=== PATIENT | male | born 1970 | race African-American/Black ===

== ENCOUNTER 2019-06-21 21:26 | Emergency (ER) | payer OTHER, SELFPAY ==
--- NOTE | ~2019-06-21 | CT_ITS ---
EXAMINATION: CT abdomen pelvis w con EXAM DATE: 06/21/2019 22:12 INDICATION: Right lower quadrant pain. Nausea and vomiting. TECHNIQUE: Spiral CT of the abdomen and pelvis was performed following intravenous injection of 100 m L Omnipaque 350. Axial, coronal and sagittal images were reviewed. The dose-length product (DLP) fo r this examination was 179.92 mGy-cm. The exposure was tailored according to patient size (auto mA e xposure control), and iterative reconstruction (ASIR) was used as additional dose reduction technique . Comparison is made to prior examination from 09/06/2017. FINDINGS: The liver, spleen, adrenal glands and pancreas are unremarkable. Gallbladder is unremarkab le. No biliary obstruction. Portal and splenic veins are patent. Kidneys enhance symmetrically. T here is no hydronephrosis. The prostate is unremarkable. The bladder is unremarkable. There is no retroperitoneal or pelvic lymphadenopathy. There is moderate scattered arteriosclerotic disease. The appendix is normal. The stomach and small bowel are unremarkable. There is mild to moderate scat tered colonic diverticulosis. There is no adjacent inflammatory change to suggest diverticulitis. N o free intraperitoneal gas. The heart is normal in size. There are no pericardial or pleural effus ions. The lung bases are unremarkable. There are no osteoblastic or osteolytic lesions identified. IMPRESSION: 1. No acute intra-abdominal findings. 2. Mild to moderate scattered colonic diverticulosis. Reviewed, dictated and finalized at location A.
[2019-06-21 21:28] VITALS: BP 156/98; PULSE 88; TEMP 36.6; O2SAT 99
--- NOTE | 2019-06-21 21:33 | ED.ABDPAIN ---
HPI - Abdominal Pain General Chief Complaint: Nausea/Vomiting/Diarrhea Stated Complaint: VOMITING Time Seen by Provider: 06/21/19 21:28 Source: patient, RN notes reviewed and old records reviewed Mode of arrival: EMS Limitations: no limitations History of Present Illness HPI narrative: Pt is a 49 y/o male with a Hx of pancreatitis and frequent gastritis, who presents to the ED via EMS with c/o diffuse ABD pain starting earlier today. He notes that he hasn't felt good throughout the day today. Pt reports nausea, vomiting, and chills accompanying his ABD pain, but denies any diarrhea or fever. He notes that he hasn't had any recent travel, and states that he hasn't been in contact with other sick individuals. EMS notes that the pt had one episode of emesis while in route to the ED this evening. According to old records, the pt was evaluated here in January of 2019 for similar symptoms. MD elicited complaint: abdominal pain Pertinent past history: gastritis and other (pancreatitis) Location: diffuse Context: confirms history of similar episodes Associated symptoms: nausea, vomiting and chills Related Data Home Medications Medication Instructions Recorded Confirmed metoclopramide HCl [Reglan] 10 mg PO DAILY 01/30/19 01/30/19 ranitidine HCl 300 mg PO DAILY 01/30/19 01/30/19 Allergies Allergy/AdvReac Type Severity Reaction Status Date / Time No Known Allergies Allergy Verified 06/21/19 21:32 Review of Systems Review of Systems: All systems reviewed & are unremarkable except as noted in HPI and below Constitutional: Constitutional: Reports chills and Denies fever(s) Gastrointestinal: Gastrointestinal: Reports abdominal pain (diffuse ABD pain), Denies diarrhea, Reports nausea and Reports vomiting PMFSH Past Medical History Medical History Colitis Gastritis GERD (gastroesophageal reflux disease) History of angina Inguinal hernia Myocardial infarction Pancreatitis Ulcer Surgical History Surgical History 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 H/O inguinal hernia repair Social History Social History Smoking packs per day: 1 Smoking cigarettes per day: 20.0 Smoking status: Current every day smoker Additional smoking assessment comments: Smoking exposure Alcohol intake: current Gender identity (if verbalized by the patient): Male Course Vital Signs Vital signs: Vital Signs Temperature 36.6 C 06/21/19 21:28 Pulse Rate 88 06/21/19 21:28 Blood Pressure 156/98 H 06/21/19 21:28 Pulse Oximetry 99 06/21/19 21:28 Temperature 36.6 C 06/21/19 21:28 Pulse Rate 88 06/21/19 21:28 Blood Pressure 156/98 H 06/21/19 21:28 Pulse Oximetry 99 06/21/19 21:28 MDM - Abdominal Pain Lab Data Result diagrams: 06/21/19 21:47 06/21/19 22:03 Labs: Lab Results 06/21/19 06/21/19 06/21/19 Range/Units 21:47 21:47 22:03 WBC 11.4 H (4.5-10.0) K/mm3 RBC 4.93 (4.6-6.20) M/mm3 Hgb 15.9 (14.0-18.0) g/dL Hct 46.4 (42.0-52.0) % MCV 94.1 (80-100) fl MCH 32.3 (26-34) pg MCHC 34.3 (32-36) g/dl RDW 15.4 H (11.5-14.5) % Plt Count 320 (150-375) k/mm3 MPV 9.6 (7.4-10.4) fl Immature Gran % (Auto) 0.4 (0-0.5) % Neut % (Auto) 84.9 H (45.5-73.1) % Lymph % (Auto) 11.4 L (18.3-44.2) % [place] % (Auto) 2.9 (2.6-8.5) % Eos % (Auto) 0.0 (0-4.4) % Baso % (Auto) 0.4 (0.2-1.2) % Lymph # (Auto) 1.30 (0.9-3.2) K/mm3 [place] # (Auto) 0.3 (0.1-0.6) K/mm3 Eos # (Auto) 0.0 (0-0.3) K/mm3 Baso # (Auto) 0.0 (0.0-0.1) K/mm3 Abs Immat Gran (auto) 0.04 H (0.00-0.031) K/mm3 Absolute Neuts (auto) 9.7 H (1.3-6.7) K/mm3 Absolute Nucleated RBC 0.0 (0.0-0.012) K/mm3 Nucleated RBC % 0.0 (0.0-0.2) % Sodium 141 (
[2019-06-21] MEDS: SODIUM CHLORIDE 0.9% IV 1,000 ML 999 ML IV CONT (21:42)
[2019-06-21] MEDS: MORPHINE SULFATE 4 MG/ML INJ IV PUSH (21:43)
[2019-06-21] MEDS: ONDANSETRON INJ 4 MG/2 ML VIAL IV PUSH (21:43)
[2019-06-21 21:52] LABS: Basophils Percent Auto 0.4 % (0.2-1.2); Hematocrit 46.4 % (42.0-52.0); Hemoglobin 15.9 g/dL (14.0-18.0); Immature Granulocyte Absolute 0.04 K/mm3 (0.00-0.031); Immature Granulocyte Percent A 0.4 % (0-0.5); Lymphocytes Percent Auto 11.4 % (18.3-44.2); Mean Corpuscular HGB Conc 34.3 g/dl (32-36); Mean Corpuscular Hemoglobin 32.3 pg (26-34); Mean Corpuscular Volume 94.1 fl (80-100); Mean Platelet Volume 9.6 fl (7.4-10.4); Monocytes Absolute Auto 0.3 K/mm3 (0.1-0.6); Monocytes Percent Auto 2.9 % (2.6-8.5); Neutrophils Absolute Auto 9.7 K/mm3 (1.3-6.7); Neutrophils Percent Auto 84.9 % (45.5-73.1); Platelet Count Result 320 k/mm3 (150-375); Red Blood Count 4.93 M/mm3 (4.6-6.20); Red Cell Distribution Width 15.4 % (11.5-14.5); White Blood Count 11.4 K/mm3 (4.5-10.0)
[2019-06-21 22:05] LABS: Alanine Aminotransferase 21 U/L (4-50); Albumin Level 4.9 g/dL (3.5-5.1); Alkaline Phosphatase 83 U/L (38-126); Aspartate Amino Transferase 38 U/L (17-59); Bilirubin,Total 0.4 mg/dL (0.2-1.3); Blood Urea Nitrogen 14 mg/dL (9-20); Calcium 10.7 mg/dL (8.4-10.2); Carbon Dioxide 22 mmol/L (22-30); Chloride 102 mmol/L (98-107); Estimated Glomerular Filt Rate > 60; Glucose 108 mg/dL (75-110); Lipase 44 U/L (23-300); Potassium 3.9 mmol/L (3.4-5.0); Sodium 141 mmol/L (137-145)
[2019-06-21 22:08] LABS: Estimated Glomerular Filt Rate > 60
--- NOTE | 2019-06-21 22:18 | PC.NURSE ---
Informed pt that we are needing a urine sample. Pt states that he will get it in a little bit . Informed pt that urine takes some time to get resulted.
[2019-06-21 22:48] LABS: Add Urine Microscopic? YES; Appearance Urine Clear (Clear); Bilirubin Urine Negative (Negative); Blood Urine Negative (Negative); Color Urine Yellow (Yellow); Glucose Urine UA 2+ mg/dL (Negative); Ketones Urine 1+ mg/dL (Negative); Leukocyte Esterase Ur Negative LEU/UL (Negative); Mucus Urine Rare /lpf; Nitrate Urine Negative (Negative); Protein Urine Negative (Negative); RBC Urine 0-2 /hpf (0-2); Squamous Epithelial Cell Urine Rare /hpf (Few); Urobilinogen Urine Negative mg/dL (<2.0)
[2019-06-21 22:49] LABS: Specific Grav Ur 1.054 (1.001-1.035)
--- NOTE | 2019-06-21 23:05 | PC.NURSE ---
report taken from reynaldo cotto at this time.
[2019-06-21 23:06] VITALS: BP 146/75; PULSE 98; RESP 18; TEMP 36.2; O2SAT 100
== END 2019-06-21 23:07 | disposition home or self-care (01) ==
PROVIDERS: Emergency Provider Emergency Medicine; PCP Emergency Medicine
DX: R10.9 Unspecified abdominal pain (principal); K21.9 Gastro-esophageal reflux disease without esophagitis; I25.2 Old myocardial infarction; F17.210 Nicotine dependence, cigarettes, uncomplicated
CPT/HCPCS: 36415; 71046; 74177; 80053; 81001; 83690; 85025; 93005; 96361; 96374; 96375; 99283; 99284; A9270; J2270; J2405; J7030; Q9967

== ENCOUNTER 2019-06-21 23:54 | Emergency (ER) | payer OTHER, SELFPAY ==
--- NOTE | ~2019-06-21 | XR_ITS ---
EXAMINATION: XR chest 2V DATE: 06/22/2019 01:00 INDICATION: Presyncope TECHNIQUE: frontal and lateral views of the chest were obtained. COMPARISON: Chest radiograph dated 11/30/2018 FINDINGS: The lungs remain clear with no focal airspace opacities, pulmonary edema, pleural effusion or pneumot horax. The cardiomediastinal silhouette is normal. Visualized bones and soft tissues are unremarkable . IMPRESSION: 1. Normal chest radiograph. Reviewed, dictated and finalized at location A. IMPRESSION: 1. Normal chest radiograph.
[2019-06-21 23:57] VITALS: BP 168/89; PULSE 64; RESP 16; TEMP 36.7; O2SAT 100
--- NOTE | 2019-06-22 00:08 | ECG_ITS ---
Measurements Intervals [place] Rate: 62 P: 61 MD: 139 QRS: -60 QRSD: 107 T: 58 QT: 420 QTc: 427 Interpretive Statements SINUS RHYTHM POSSIBLE LEFT ATRIAL ENLARGEMENT LEFT AXIS DEVIATION INCOMPLETE RIGHT BUNDLE BRANCH BLOCK PEAKED T WAVES- CONSIDER HYPERKALEMIA OR ISCHEMIA BASELINE WANDER- I, II ABNORMAL ECG Electronically Signed On 06-22-2019 7:14:40 CDT by Marc Fry D.O.
--- NOTE | 2019-06-22 00:10 | ED.GENADULT ---
HPI - General Adult General Chief complaint: Unspecified Stated complaint: i'm gonna pass out Time Seen by Provider: 06/22/19 00:02 Source: patient Mode of arrival: wheelchair Limitations: no limitations History of Present Illness HPI narrative: This is a 49 year old male that presents to the ER for pre-syncope. Patient was just discharged after being seen for abdominal pain. Reports while he was in the waiting room he started to feel like he was going to pass out. Thinks he is still dehydrated. Denies fever, chest pain or shortness of breath. Related Data Home Medications Medication Instructions Recorded Confirmed metoclopramide HCl [Reglan] 10 mg PO DAILY 01/30/19 01/30/19 ranitidine HCl 300 mg PO DAILY 01/30/19 01/30/19 Allergies Allergy/AdvReac Type Severity Reaction Status Date / Time No Known Allergies Allergy Verified 06/21/19 21:32 Review of Systems Review of Systems: Narrative: CONSTITUTIONAL: Denies fever CARDIOVASCULAR: Denies chest pain, palpitations, or edema. RESPIRATORY: Denies cough or dyspnea. All systems reviewed & are unremarkable except as noted in HPI and below PMFSH Social History Social History Smoking packs per day: 1 Smoking cigarettes per day: 20.0 Smoking status: Current every day smoker Additional smoking assessment comments: Smoking exposure Alcohol intake: current Gender identity (if verbalized by the patient): Male Exam Narrative: Exam Narrative: GENERAL: Well-appearing, well-nourished, and in no acute distress. HEAD: Normocephalic, atraumatic. EYES: EOMI. CHEST: Clear to auscultation. No respiratory distress. No wheezes rales or rhonchi HEART: Regular rate and rhythm. No murmur heard. Normal peripheral pulses. EXTREMITIES: Normal range of motion. No edema. SKIN: Warm, dry, no rash. NEURO: No focal deficits. Alert and oriented x3. PSYCH: Normal mood and affect Course Vital Signs Vital signs: Vital Signs Temperature 98.1 F 06/21/19 23:57 Pulse Rate 64 06/21/19 23:57 Respiratory Rate 16 06/21/19 23:57 Blood Pressure 168/89 H 06/21/19 23:57 Pulse Oximetry 100 06/21/19 23:57 Temperature 98.1 F 06/21/19 23:57 Pulse Rate 71 06/22/19 00:17 Respiratory Rate 16 06/21/19 23:57 Blood Pressure 189/110 H 06/22/19 00:17 Pulse Oximetry 100 06/21/19 23:57 Medical Decision Making MDM Narrative Medical decision making narrative: Patient presents to the emergency department for presyncope. Reports he felt like he was going to pass out after just being discharged. He was seen here for abdominal pain. CBC and metabolic panels were without acute changes. CT abdomen/pelvis was without acute changes. Patient is not orthostatic. EKG is without concerning changes. Chest XR without acute changes. Patient is afebrile and nontoxic appearing. Vitals are normal other than elevation in blood pressure systolic to 160s-180s. Patient was instructed he needs to follow up with his PCP for this. Patient was once again discharged in stable condition Vital Signs Vital Signs: Vital Signs Temperature 98.1 F 06/21/19 23:57 Pulse Rate 64 06/21/19 23:57 Respiratory Rate 16 06/21/19 23:57 Blood Pressure 168/89 H 06/21/19 23:57 Pulse Oximetry 100 06/21/19 23:57 Temperature 98.1 F 06/21/19 23:57 Pulse Rate 71 06/22/19 00:17 Respiratory Rate 16 06/21/19 23:57 Blood Pressure 189/110 H 06/22/19 00:17 Pulse Oximetry 100 06/21/19 23:57 Lab Data Lab results reviewed: Yes I reviewed the patient's lab results. Imaging Data My impression: Patient's chest XR without acute cardiopulmonary abnormalities ECG Data EKG #1: EKG Interpretation: normal rate, sinus rhythm, no ectopy, no ST changes and normal QT Critical Care Time Critical Care Time Critical Care Time: No Discharge Plan Discharge Clinical Impression: Pre-syncope Hypertension Qualifiers: Hypertension type: unspec
[2019-06-22 00:16] VITALS: BP 166/100; BP 173/93; PULSE 66; PULSE 69
[2019-06-22 00:17] VITALS: BP 189/110; PULSE 71
--- NOTE | 2019-06-22 01:09 | PC.NURSE ---
Patient vomited in room at this time, SOLO Kwon notified.
[2019-06-22] MEDS: ONDANSETRON HCL ODT 4 MG TABLET PO (01:13)
[2019-06-22 01:23] VITALS: BP 168/99; PULSE 78; RESP 18; TEMP 37.1; O2SAT 99
--- NOTE | 2019-06-22 01:41 | PC.NURSE ---
Patient able to keep down soda after Zofran administration.
== END 2019-06-22 01:35 | disposition home or self-care (01) ==
PROVIDERS: Emergency Provider Emergency Medicine; PCP Emergency Medicine
DX: R55 Syncope and collapse (principal); I10 Essential (primary) hypertension; F17.210 Nicotine dependence, cigarettes, uncomplicated; R94.31 Abnormal electrocardiogram [ECG] [EKG]; I45.10 Unspecified right bundle-branch block
CPT/HCPCS: 71046; 93005; 99283; A9270

== ENCOUNTER 2019-07-15 23:33 | Emergency (ER) | payer OTHER, SELFPAY ==
[2019-07-15 23:36] VITALS: BP 140/110; PULSE 106; RESP 22; TEMP 37.2; O2SAT 100
--- NOTE | 2019-07-15 23:37 | ED.NAVMDI ---
HPI - Nausea/Vomiting/Diarrhea General Chief complaint: Nausea/Vomiting/Diarrhea Stated complaint: burning sensation History of Present Illness HPI Narrative: 49 yo male w/ h/o gastritis and GERD presents with epigastric pain. He says that he has had burning pain radiating into his chest for the past 2 days. severe. Associated with a few episodes of vomiting. This is the same as his previous GERD symptoms. He was recently taken off of ranitadine due to a recall and it was not replaced with anything else. Related Data Home Medications Medication Instructions Recorded Confirmed metoclopramide HCl [Reglan] 10 mg PO DAILY 01/30/19 01/30/19 ranitidine HCl 300 mg PO DAILY 01/30/19 01/30/19 Allergies Allergy/AdvReac Type Severity Reaction Status Date / Time No Known Allergies Allergy Verified 06/21/19 21:32 Review of Systems Review of Systems: All systems reviewed & are unremarkable except as noted in HPI and below Eyes: Eyes: Denies change in vision ENT: Reports sore throat Cardiovascular: Cardiovascular: Reports chest pain Respiratory: Respiratory: Denies chest congestion, Denies cough and Denies wheezing Gastrointestinal: Gastrointestinal: Reports abdominal pain, Denies constipation, Denies diarrhea, Reports nausea and Reports vomiting Neurologic: Denies weakness PMFSH Past Medical History Medical History Colitis Gastritis GERD (gastroesophageal reflux disease) History of angina Inguinal hernia Myocardial infarction Pancreatitis Ulcer Surgical History Surgical History 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 H/O inguinal hernia repair Social History Social History Smoking packs per day: 1 Smoking cigarettes per day: 20.0 Smoking status: Current every day smoker Additional smoking assessment comments: Smoking exposure Alcohol intake: current Gender identity (if verbalized by the patient): Male Exam Const: General: no acute distress and alert Nutritional Appearance: thin Orientation/consciousness: patient oriented x3 HENMT: Head: normal to inspection Mouth: Yes dry mucous membranes Resp: Effort & Inspection: normal respiratory effort Auscultation: clear to auscultation bilaterally Cardio: Rate: tachycardic Rhythm: regular rhythm GI: GI Palp: Yes Soft to palpation and Yes Tenderness to palpation present (GI) (epigastric) Skin: General skin exam: normal color Neuro: General: patient oriented x3 and moves all extremities Speech: normal speech Extrem: General: normal to inspection Course Vital Signs Vital signs: Vital Signs Temperature 37.2 C 07/15/19 23:36 Pulse Rate 106 H 07/15/19 23:36 Respiratory Rate 22 H 07/15/19 23:36 Blood Pressure 140/110 H 07/15/19 23:36 Pulse Oximetry 100 07/15/19 23:36 Temperature 36.8 C 07/16/19 02:54 Pulse Rate 76 07/16/19 02:54 Respiratory Rate 19 07/16/19 02:54 Blood Pressure 151/95 H 07/16/19 02:54 Pulse Oximetry 100 07/16/19 02:54 MDM - Nausea/Vomiting/Diarrhea MDM Narrative Medical decision making narrative: Labs show moderate hypokalemia and slight WBC elevation. Likely from vomiting. IV potassium replacement started along with symptomatic treatment for GERD. Differential Diagnosis Differential diagnosis: Likely gastroenteritis and other (GERD, gastritis) Medical Records Attestation: I reviewed the patient's medical records. Lab Data Attestation: I reviewed the patient's lab results. Result diagrams: 07/15/19 23:47 07/15/19 23:47 Labs: Lab Results 07/15/19 07/15/19 Range/Units 23:47 23:47 WBC 11.6 H (4.5-10.0) K/mm3 RBC 5.45 (4.6-6.20) M/mm3 Hgb 18.0 (14.0-18.0) g/dL Hct 49.6 (42.0-52.0) % MCV 91.0 (80-100) fl MCH 33.0 (26-34) pg MCHC
[2019-07-15] MEDS: ONDANSETRON INJ 4 MG/2 ML VIAL IV PUSH (23:50)
[2019-07-15] MEDS: SODIUM CHLORIDE 0.9% IV 1,000 ML 999 ML IV CONT (23:50)
[2019-07-15] MEDS: PANTOPRAZOLE SODIUM IV 40 MG VIAL IV PUSH (23:50)
[2019-07-15 23:57] LABS: Basophils Percent Auto 0.2 % (0.2-1.2); Eosinophils Percent Auto 0.2 % (0-4.4); Hematocrit 49.6 % (42.0-52.0); Immature Granulocyte Absolute 0.03 K/mm3 (0.00-0.031); Immature Granulocyte Percent A 0.3 % (0-0.5); Lymphocytes Absolute Auto 4.42 K/mm3 (0.9-3.2); Lymphocytes Percent Auto 38.2 % (18.3-44.2); Mean Corpuscular HGB Conc 36.3 g/dl (32-36); Mean Platelet Volume 9.2 fl (7.4-10.4); Monocytes Absolute Auto 1.4 K/mm3 (0.1-0.6); Monocytes Percent Auto 12.4 % (2.6-8.5); Neutrophils Absolute Auto 5.7 K/mm3 (1.3-6.7); Neutrophils Percent Auto 48.7 % (45.5-73.1); Platelet Count Result 338 k/mm3 (150-375); Red Blood Count 5.45 M/mm3 (4.6-6.20); Red Cell Distribution Width 13.9 % (11.5-14.5); White Blood Count 11.6 K/mm3 (4.5-10.0)
[2019-07-16 00:04] LABS: Alanine Aminotransferase 24 U/L (4-50); Albumin Level 4.9 g/dL (3.5-5.1); Alkaline Phosphatase 97 U/L (38-126); Aspartate Amino Transferase 37 U/L (17-59); Bilirubin,Total 1.7 mg/dL (0.2-1.3); Blood Urea Nitrogen 15 mg/dL (9-20); Calcium 11.8 mg/dL (8.4-10.2); Carbon Dioxide 30 mmol/L (22-30); Chloride 89 mmol/L (98-107); Estimated CRCL calculation 69 ml/min; Estimated Glomerular Filt Rate > 60; Glucose 105 mg/dL (75-110); Lipase 66 U/L (23-300); Potassium 2.9 mmol/L (3.4-5.0); Sodium 132 mmol/L (137-145)
[2019-07-16] MEDS: SODIUM CHLORIDE 0.9% IV 1,000 ML 999 ML IV CONT (00:20)
[2019-07-16] MEDS: KCL 20 MEQ/SW 100 ML 100 ML 50 MEQ IVPB (00:20)
[2019-07-16 00:47] VITALS: BP 155/91; PULSE 88; RESP 20; O2SAT 97
[2019-07-16 02:54] VITALS: BP 151/95; PULSE 76; RESP 19; TEMP 36.8; O2SAT 100
== END 2019-07-16 03:01 | disposition home or self-care (01) ==
PROVIDERS: Emergency Provider Emergency Medicine; PCP Emergency Medicine
DX: K21.9 Gastro-esophageal reflux disease without esophagitis (principal); E87.6 Hypokalemia; I25.2 Old myocardial infarction; F17.210 Nicotine dependence, cigarettes, uncomplicated; Z89.021 Acquired absence of right finger(s)
CPT/HCPCS: 36415; 80053; 83690; 85025; 96361; 96365; 96366; 96374; 96375; 99284; C9113; J2405; J3480; J7030

== ENCOUNTER 2019-07-17 12:20 | Emergency (ER) | payer OTHER, SELFPAY ==
--- NOTE | ~2019-07-17 | CT_ITS ---
EXAMINATION: CT abdomen pelvis w con INDICATION: Mid abdominal pain TECHNIQUE: Computed tomographic images of the abdomen and pelvis were obtained after the administrati on of 100 cc of Omnipaque 350 intravenous contrast. The dose-length product (DLP) was 209.31 mGy-cm. Automated exposure control and iterative reconstruction technique were employed. COMPARISON: 06/21/2019 FINDINGS: Minimal dependent atelectasis is present in the lung bases. The heart size is normal. There is a small sliding hiatal hernia. The liver, spleen, pancreas, gallbladder, and adrenal glands are n ormal. Hypoattenuating lesions in the kidneys, measuring up to 3 mm on the right, are too small to ch aracterize but likely represent cysts. There is calcified atherosclerosis of the aorta and many of th e other arteries. The appendix is normal. There is mild lumbar spondylosis. Colonic diverticulosis is present without evidence of diverticulitis. There is mild circumferential thickening of the bladder wall. IMPRESSION: 1. Mild circumferential thickening of the bladder wall which could reflect cystitis or chronic outlet obstruction. Reviewed, dictated and finalized at location A. IMPRESSION: 1. Mild circumferential thickening of the bladder wall which could reflect cyst itis or chronic outlet obstruction.
[2019-07-17 12:18] VITALS: BP 176/115; PULSE 85; RESP 15; TEMP 36.8; O2SAT 100
[2019-07-17 12:26] VITALS: PULSE 77
--- NOTE | 2019-07-17 12:31 | ED.WEAKNESS ---
HPI - Weakness General Chief complaint: Weakness Stated complaint: weakness Time Seen by Provider: 07/17/19 12:21 Source: patient Mode of arrival: ambulatory Limitations: no limitations History of Present Illness HPI Narrative: Patient is a 49-year-old male who presents to emergency department noting that this morning he woke up feeling fatigued with chills and one episode of emesis and now complains of periumbilical abdominal discomfort noted some slight dyspnea but denies URI symptoms or chest pain. Patient on arrival per EMS in the room in no distress has not taken anything for his symptoms. Patient does admit to alcohol use prior night. Patient with history of chronic abdominal pain and frequent emesis. Related Data Home Medications Medication Instructions Recorded Confirmed metoclopramide HCl [Reglan] 10 mg PO DAILY 01/30/19 01/30/19 ranitidine HCl 300 mg PO DAILY 01/30/19 01/30/19 Allergies Allergy/AdvReac Type Severity Reaction Status Date / Time No Known Allergies Allergy Verified 07/17/19 12:23 Review of Systems Review of Systems: All systems reviewed & are unremarkable except as noted in HPI and below PMFSH Past Medical History Medical History Colitis Gastritis GERD (gastroesophageal reflux disease) History of angina Inguinal hernia Myocardial infarction Pancreatitis Ulcer Surgical History Surgical History 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 HEAD: Normocephalic, atraumatic. EYES: PERRLA and EOMI. ENT: Nares clear, no rhinorrhea or epistaxis. Mucous membranes moist. CHEST: Clear to auscultation. No respiratory distress. No wheezes rales or rhonchi HEART: Regular rate and rhythm. No murmur heard. Normal peripheral pulses. ABDOMEN: Soft, generalized tenderness with voluntary guarding, nondistended EXTREMITIES: Normal range of motion. No edema. SKIN: Warm, dry, no rash. NEURO: No focal deficits. Alert and oriented x3. Cranial nerves II through XII grossly intact PSYCH: Normal mood and affect. Course Course Emergency Course: Patient in the room at this time resting no distress afebrile nontoxic-appearing aware of case findings treatment plan and diagnosis agreeing to follow with primary care and his personal fitness trainer felt appropriate for outpatient reevaluation Vital Signs Vital signs: Vital Signs Temperature 98.2 F 07/17/19 12:18 Pulse Rate 85 07/17/19 12:18 Respiratory Rate 15 07/17/19 12:18 Blood Pressure 176/115 H 07/17/19 12:18 Pulse Oximetry 100 07/17/19 12:18 Temperature 98.2 F 07/17/19 12:18 Pulse Rate 77 07/17/19 12:26 Respiratory Rate 15 07/17/19 12:18 Blood Pressure 176/115 H 07/17/19 12:18 Pulse Oximetry 100 07/17/19 12:18 MDM - Weakness MDM Narrative Medical decision making narrative: Patient in the room at this time in no distress aware of case findings treatment plan and diagnosis agreeing to follow-up as directed or to return if symptoms worsen or concerns patient is afebrile nontoxic-appearing no distress patient's urine will be cultured patient denies concern for UTI patient resting comfortably as noted feeling better with interventions Lab Data Result diagrams: 07/17/19 12:39 07/17/19 12:39 Labs: Lab Results 07/17/19 07/17/19 07/17/19 Range/Units 12:39 12:39 13:19 WBC 9.5 (4.5-10.0) K/mm3
[2019-07-17] MEDS: BELLADONNA ALK/PHENOB ELIX 10 ML, MAG HYDROX/ALUMINUM HYD/SIMETH 30 ML, LIDOCAINE HCL 2... PO (12:35)
[2019-07-17] MEDS: LACTATED RINGERS 1,000 ML 999 ML IV CONT (12:35)
[2019-07-17] MEDS: PANTOPRAZOLE SODIUM IV 40 MG VIAL IV PUSH (12:37)
[2019-07-17 12:46] LABS: Basophils Percent Auto 0.2 % (0.2-1.2); Eosinophils Percent Auto 0.2 % (0-4.4); Hematocrit 44.9 % (42.0-52.0); Hemoglobin 15.7 g/dL (14.0-18.0); Immature Granulocyte Absolute 0.02 K/mm3 (0.00-0.031); Immature Granulocyte Percent A 0.2 % (0-0.5); Lymphocytes Absolute Auto 2.59 K/mm3 (0.9-3.2); Lymphocytes Percent Auto 27.3 % (18.3-44.2); Mean Corpuscular Hemoglobin 32.4 pg (26-34); Mean Corpuscular Volume 92.6 fl (80-100); Mean Platelet Volume 9.1 fl (7.4-10.4); Monocytes Percent Auto 10.1 % (2.6-8.5); Neutrophils Absolute Auto 5.9 K/mm3 (1.3-6.7); Platelet Count Result 279 k/mm3 (150-375); Red Blood Count 4.85 M/mm3 (4.6-6.20); Red Cell Distribution Width 13.7 % (11.5-14.5); White Blood Count 9.5 K/mm3 (4.5-10.0)
[2019-07-17 12:59] LABS: Alanine Aminotransferase 20 U/L (4-50); Albumin Level 4.5 g/dL (3.5-5.1); Alkaline Phosphatase 78 U/L (38-126); Aspartate Amino Transferase 39 U/L (17-59); Bilirubin,Total 1.5 mg/dL (0.2-1.3); Blood Urea Nitrogen 7 mg/dL (9-20); Calcium 10.9 mg/dL (8.4-10.2); Carbon Dioxide 26 mmol/L (22-30); Chloride 100 mmol/L (98-107); Estimated CRCL calculation 76 ml/min; Estimated Glomerular Filt Rate > 60; Glucose 107 mg/dL (75-110); Lipase 81 U/L (23-300); Magnesium 2.1 mg/dL (1.6-2.3); Potassium 3.5 mmol/L (3.4-5.0); Sodium 137 mmol/L (137-145)
[2019-07-17 13:31] LABS: Add Urine Microscopic? YES; Amorphous Sediment Urine Few; Appearance Urine Cloudy (Clear); Bilirubin Urine Negative (Negative); Blood Urine Negative (Negative); Calcium Oxalate Crystals Urine Present /hpf; Color Urine Yellow (Yellow); Glucose Urine UA 1+ mg/dL (Negative); Ketones Urine 1+ mg/dL (Negative); Leukocyte Esterase Ur Negative LEU/UL (Negative); Mucus Urine Rare /lpf; Nitrate Urine Negative (Negative); Protein Urine 1+ mg/dL (Negative); Specific Grav Ur 1.015 (1.001-1.035); Urobilinogen Urine Negative mg/dL (<2.0)
--- NOTE | 2019-07-17 13:37 | ECG_ITS ---
Measurements Intervals [place] Rate: 76 P: 69 MA: 125 QRS: -68 QRSD: 94 T: 62 QT: 366 QTc: 412 Interpretive Statements SINUS RHYTHM WITH SINUS ARRHYTHMIA LEFT ANTERIOR FASCICULAR BLOCK ABNORMAL ECG Electronically Signed On 07-17-2019 15:17:16 CDT by Marc Fry D.O.
[2019-07-17 14:31] LABS: Amphetamine Screen Urine Negative (Negative); Barbiturate Screen Urine Negative (Negative); Benzodiazepines Screen Urine Negative (Negative); Cannabinoid Screen Urine Positive (Negative); Cocaine Screen Urine Negative (Negative); Methadone Screen Urine Negative (Negative); Opiate Screen Urine Negative (Negative); Phencyclidine Screen Urine Negative (Negative)
[2019-07-17 15:22] VITALS: BP 148/92; PULSE 88; RESP 16; O2SAT 98
== END 2019-07-17 14:55 | disposition home or self-care (01) ==
PROVIDERS: Emergency Medicine Emergency Medical Services; Emergency Provider Emergency Medicine; PCP Emergency Medicine
DX: R10.33 Periumbilical pain (principal); K21.9 Gastro-esophageal reflux disease without esophagitis; I25.2 Old myocardial infarction; Z89.021 Acquired absence of right finger(s); F17.210 Nicotine dependence, cigarettes, uncomplicated; I44.4 Left anterior fascicular block
CPT/HCPCS: 36415; 74177; 80053; 80307; 81001; 83690; 83735; 85025; 93005; 96361; 96374; 99284; A9270; C9113; J7120; Q9967

== ENCOUNTER 2019-08-14 22:26 | Emergency (ER) | payer OTHER, SELFPAY ==
[2019-08-14 22:18] VITALS: BP 140/90; PULSE 69; RESP 20; TEMP 36.4; O2SAT 99
--- NOTE | 2019-08-14 22:32 | ED.ABDPAIN ---
HPI - Abdominal Pain General Chief Complaint: Abdominal Pain Stated Complaint: sick case History of Present Illness HPI narrative: Epigastric abdominal pain and vomiting since this evening. He has a h/o gastritis and esophagitis and s seen here frequently for the same. This is no different than his usual symptoms. Related Data Home Medications Medication Instructions Recorded Confirmed metoclopramide HCl [Reglan] 10 mg PO DAILY 01/30/19 01/30/19 ranitidine HCl 300 mg PO DAILY 01/30/19 01/30/19 Allergies Allergy/AdvReac Type Severity Reaction Status Date / Time No Known Allergies Allergy Verified 07/17/19 12:23 Review of Systems Review of Systems: All systems reviewed & are unremarkable except as noted in HPI and below Cardiovascular: Cardiovascular: Denies chest pain Respiratory: Respiratory: Denies dyspnea Gastrointestinal: Gastrointestinal: Reports abdominal pain, Reports nausea and Reports vomiting PMF Past Medical History Medical History Colitis Gastritis GERD (gastroesophageal reflux disease) History of angina Inguinal hernia Myocardial infarction Pancreatitis Ulcer Surgical History Surgical History 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 H/O inguinal hernia repair Social History Social History Smoking packs per day: 1 Smoking cigarettes per day: 20.0 Smoking status: Current every day smoker Additional smoking assessment comments: Smoking exposure Alcohol intake: current Gender identity (if verbalized by the patient): Male Exam Const: General: no acute distress and alert Nutritional Appearance: thin Orientation/consciousness: patient oriented x3 HENMT: Head: normal to inspection Resp: Effort & Inspection: normal respiratory effort Cardio: Rate: regular rate Rhythm: regular rhythm GI: GI Palp: Yes Soft to palpation, Yes Tenderness to palpation present (GI), No Guarding due to palpation present (GI) and No Rebound tenderness present Skin: General skin exam: normal color Neuro: General: patient oriented x3 and moves all extremities Speech: normal speech Gait exam (Neuro): Normal gait present Extrem: General: normal to inspection Course Vital Signs Vital signs: Vital Signs Temperature 36.4 C 08/14/19 22:18 Pulse Rate 69 08/14/19 22:18 Respiratory Rate 20 08/14/19 22:18 Blood Pressure 140/90 08/14/19 22:18 Pulse Oximetry 99 08/14/19 22:18 Temperature 36.6 C 08/15/19 03:57 Pulse Rate 74 08/15/19 03:57 Respiratory Rate 14 08/15/19 03:57 Blood Pressure 159/96 H 08/15/19 03:57 Pulse Oximetry 95 08/15/19 03:57 MDM - Abdominal Pain Lab Data Result diagrams: 08/14/19 23:49 08/14/19 23:49 Labs: Lab Results 08/14/19 08/14/19 Range/Units 23:49 23:49 WBC 6.0 (4.5-10.0) K/mm3 RBC 5.04 (4.6-6.20) M/mm3 Hgb 16.7 (14.0-18.0) g/dL Hct 47.8 (42.0-52.0) % MCV 94.8 (80-100) fl MCH 33.1 (26-34) pg MCHC 34.9 (32-36) g/dl RDW 14.8 H (11.5-14.5) % Plt Count 341 (150-375) k/mm3 MPV 9.2 (7.4-10.4) fl Immature Gran % (Auto) 0.2 (0-0.5) % Neut % (Auto) 57.1 (45.5-73.1) % Lymph % (Auto) 34.7 (18.3-44.2) % [place] % (Auto) 7.2 (2.6-8.5) % Eos % (Auto) 0.3 (0-4.4) % Baso % (Auto) 0.5 (0.2-1.2) % Lymph # (Auto) 2.07 (0.9-3.2) K/mm3 [place] # (Auto) 0.4 (0.1-0.6) K/mm3 Eos # (Auto) 0.0 (0-0.3) K/mm3 Baso # (Auto) 0.0 (0.0-0.1) K/mm3 Abs Immat Gran (auto) 0.01 (0.00-0.031) K/mm3 Absolute Neuts (auto) 3.4 (1.3-6.7) K/mm3 Absolute Nucleated RBC 0.0 (0.0-0.012) K/mm3 Nucleated RBC % 0.0 (0.0-0.2) % Sodium 143 (137-145) mmol/L Potassium 4.2 (3.4-5.0) mmol/L Chloride 106 (98-107) mmol/L Carbon Dioxide 24 (22-30)
[2019-08-14] MEDS: SODIUM CHLORIDE 0.9% IV 1,000 ML 999 ML IV CONT (23:49)
[2019-08-14] MEDS: PANTOPRAZOLE SODIUM IV 40 MG VIAL IV PUSH (23:49)
--- NOTE | 2019-08-14 23:54 | PC.NURSE ---
Patient aware of need for urine specimen, patient unable to provide sample at this time. Patient refusing straight cath.
[2019-08-15 00:02] LABS: Basophils Percent Auto 0.5 % (0.2-1.2); Eosinophils Percent Auto 0.3 % (0-4.4); Hematocrit 47.8 % (42.0-52.0); Hemoglobin 16.7 g/dL (14.0-18.0); Immature Granulocyte Absolute 0.01 K/mm3 (0.00-0.031); Immature Granulocyte Percent A 0.2 % (0-0.5); Lymphocytes Absolute Auto 2.07 K/mm3 (0.9-3.2); Lymphocytes Percent Auto 34.7 % (18.3-44.2); Mean Corpuscular HGB Conc 34.9 g/dl (32-36); Mean Corpuscular Hemoglobin 33.1 pg (26-34); Mean Corpuscular Volume 94.8 fl (80-100); Mean Platelet Volume 9.2 fl (7.4-10.4); Monocytes Absolute Auto 0.4 K/mm3 (0.1-0.6); Monocytes Percent Auto 7.2 % (2.6-8.5); Neutrophils Absolute Auto 3.4 K/mm3 (1.3-6.7); Neutrophils Percent Auto 57.1 % (45.5-73.1); Platelet Count Result 341 k/mm3 (150-375); Red Blood Count 5.04 M/mm3 (4.6-6.20); Red Cell Distribution Width 14.8 % (11.5-14.5)
[2019-08-15 00:06] LABS: Alanine Aminotransferase 16 U/L (4-50); Albumin Level 4.7 g/dL (3.5-5.1); Alkaline Phosphatase 89 U/L (38-126); Aspartate Amino Transferase 36 U/L (17-59); Bilirubin,Total 0.5 mg/dL (0.2-1.3); Blood Urea Nitrogen 8 mg/dL (9-20); Calcium 10.5 mg/dL (8.4-10.2); Carbon Dioxide 24 mmol/L (22-30); Chloride 106 mmol/L (98-107); Estimated Glomerular Filt Rate > 60; Glucose 87 mg/dL (75-110); Lipase 58 U/L (23-300); Potassium 4.2 mmol/L (3.4-5.0); Sodium 143 mmol/L (137-145)
[2019-08-15 01:43] VITALS: BP 161/100; PULSE 79; RESP 20; O2SAT 100
[2019-08-15] MEDS: SODIUM CHLORIDE 0.9% IV 1,000 ML 999 ML IV CONT (01:48)
--- NOTE | 2019-08-15 02:09 | PC.NURSE ---
Patient still unable to provide a urine specimen. Patient refusing straight cath.
[2019-08-15] MEDS: ONDANSETRON INJ 4 MG/2 ML VIAL IV PUSH (03:53)
[2019-08-15 03:57] VITALS: BP 159/96; PULSE 74; RESP 14; TEMP 36.6; O2SAT 95
== END 2019-08-15 04:10 | disposition home or self-care (01) ==
PROVIDERS: Emergency Provider Emergency Medicine; PCP Emergency Medicine
DX: K29.20 Alcoholic gastritis without bleeding (principal); K21.9 Gastro-esophageal reflux disease without esophagitis; I25.2 Old myocardial infarction; Z89.021 Acquired absence of right finger(s); F17.210 Nicotine dependence, cigarettes, uncomplicated
CPT/HCPCS: 36415; 80053; 83690; 85025; 96361; 96374; 99284; C9113; J2405; J7030

== ENCOUNTER 2019-09-01 05:32 | Emergency (ER) | payer OTHER, SELFPAY ==
[2019-09-01 05:32] VITALS: BP 176/109; PULSE 79; RESP 20; TEMP 36.2; O2SAT 100
--- NOTE | 2019-09-01 05:34 | ED.ABDPAIN ---
HPI - Abdominal Pain General Chief Complaint: Abdominal Pain Stated Complaint: abd pain Source: patient and EMS Mode of arrival: EMS Limitations: no limitations History of Present Illness HPI narrative: Patient is a 49-year-old male, well-known to our facility with a history of alcoholic gastritis and pancreatitis who presents for evaluation of abdominal pain. Pain is sharp, stabbing in nature in the upper middle abdomen. No radiation of the pain. Patient reports onset of upper abdominal pain yesterday, with numerous episodes of nonbloody, nonbilious emesis over the past 24 hours. Patient reports chills without fever. No diarrhea or constipation. No urinary symptoms. Patient states no alcohol use. He reports cigarette use and marijuana use. No chest pain or shortness of breath. Related Data Home Medications Medication Instructions Recorded Confirmed metoclopramide HCl [Reglan] 10 mg PO DAILY 01/30/19 01/30/19 Allergies Allergy/AdvReac Type Severity Reaction Status Date / Time No Known Allergies Allergy Verified 09/01/19 05:36 Review of Systems Review of Systems: Narrative: CONSTITUTIONAL: Denies fever, reports chills CARDIOVASCULAR: Denies chest pain RESPIRATORY: Denies cough or dyspnea. 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 EYES: PERRLA and EOMI. ENT: Nares clear, no rhinorrhea or epistaxis. Mucous membranes dry NECK: Supple. CHEST: No respiratory distress, breathing even and non labored HEART: Regular rate, sinus rhythm ABDOMEN:Non distended, tender in the epigastrium, no guarding EXTREMITIES: Normal range of motion. No edema. SKIN: Warm, dry, no rash. NEURO:No focal deficits. Alert and oriented x3 Course Vital Signs Vital signs: Vital Signs Temperature 36.2 C L 09/01/19 05:32 Pulse Rate 79 09/01/19 05:32 Respiratory Rate 20 09/01/19 05:32 Blood Pressure 176/109 H 09/01/19 05:32 Pulse Oximetry 100 09/01/19 05:32 Temperature 36.7 C 09/01/19 06:45 Pulse Rate 87 09/01/19 06:45 Respiratory Rate 16 09/01/19 06:45 Blood Pressure 152/85 H 09/01/19 06:45 Pulse Oximetry 95 09/01/19 06:45 MDM - Abdominal Pain MDM Narrative Medical decision making narrative: Patient presented for evaluation of abdominal pain, nausea and vomiting, very consistent with previous episodes of nausea and vomiting that he has had in the past. Patient with numerous monthly visits to our hospital, usually twice per month for gastritis, cyclical vomiting syndrome type symptoms. Patient states symptoms are very similar. At the time of assessment, ABCs are intact and vital signs are stable. Patient is well-appearing with mild epigastric tenderness on exam. IV access obtained, patient was given IV fluids, antiemetic and pain medication. At the time of reassessment, patient was sleeping comfortably, has had no episodes of emesis in the ER, no severe abdominal pain at the time of reassessment. Laboratory results are reassuring. No severe leukocytos
[2019-09-01] MEDS: SODIUM CHLORIDE 0.9% IV 2,000 ML 999 ML IV CONT (05:41)
[2019-09-01] MEDS: MORPHINE SULFATE 4 MG/ML INJ IV PUSH (05:41)
[2019-09-01] MEDS: FAMOTIDINE 20 MG/2 ML VIAL IV PUSH (05:41)
[2019-09-01] MEDS: DICYCLOMINE HCL INJ 20 MG/2 ML VIAL IM (05:42)
[2019-09-01] MEDS: ONDANSETRON INJ 4 MG/2 ML VIAL IV PUSH (05:42)
[2019-09-01 05:50] LABS: Basophils Percent Auto 0.4 % (0.2-1.2); Hemoglobin 18.6 g/dL (14.0-18.0); Immature Granulocyte Absolute 0.02 K/mm3 (0.00-0.031); Immature Granulocyte Percent A 0.3 % (0-0.5); Lymphocytes Absolute Auto 0.98 K/mm3 (0.9-3.2); Lymphocytes Percent Auto 13.1 % (18.3-44.2); Mean Corpuscular HGB Conc 35.8 g/dl (32-36); Mean Corpuscular Hemoglobin 33.2 pg (26-34); Mean Corpuscular Volume 92.7 fl (80-100); Mean Platelet Volume 8.5 fl (7.4-10.4); Monocytes Absolute Auto 0.4 K/mm3 (0.1-0.6); Monocytes Percent Auto 5.3 % (2.6-8.5); Neutrophils Absolute Auto 6.1 K/mm3 (1.3-6.7); Neutrophils Percent Auto 80.9 % (45.5-73.1); Platelet Count Result 358 k/mm3 (150-375); Red Blood Count 5.61 M/mm3 (4.6-6.20); Red Cell Distribution Width 13.7 % (11.5-14.5); White Blood Count 7.5 K/mm3 (4.5-10.0)
[2019-09-01 06:08] LABS: Alanine Aminotransferase 22 U/L (4-50); Albumin Level 4.9 g/dL (3.5-5.1); Alkaline Phosphatase 103 U/L (38-126); Aspartate Amino Transferase 41 U/L (17-59); Bilirubin,Total 1.2 mg/dL (0.2-1.3); Blood Urea Nitrogen 9 mg/dL (9-20); Calcium 11.4 mg/dL (8.4-10.2); Carbon Dioxide 23 mmol/L (22-30); Chloride 100 mmol/L (98-107); Estimated Glomerular Filt Rate > 60; Glucose 147 mg/dL (75-110); Lipase 58 U/L (23-300); Potassium 3.6 mmol/L (3.4-5.0); Sodium 136 mmol/L (137-145)
[2019-09-01 06:45] VITALS: BP 152/85; PULSE 87; RESP 16; TEMP 36.7; O2SAT 95
== END 2019-09-01 06:45 | disposition home or self-care (01) ==
PROVIDERS: Emergency Provider Emergency Medicine; PCP Emergency Medicine
DX: R11.15 Cyclical vomiting syndrome unrelated to migraine (principal); K21.9 Gastro-esophageal reflux disease without esophagitis; I25.2 Old myocardial infarction; Z89.021 Acquired absence of right finger(s); F17.210 Nicotine dependence, cigarettes, uncomplicated
CPT/HCPCS: 36415; 80053; 83690; 85025; 96361; 96372; 96374; 96375; 99284; J0500; J2270; J2405; J7030

== ENCOUNTER 2019-09-03 19:04 | Emergency (ER) | payer OTHER, SELFPAY ==
[2019-09-03 19:08] VITALS: BP 170/99; PULSE 92; RESP 16; TEMP 37.8; O2SAT 100
--- NOTE | 2019-09-03 19:21 | ED.GENADULT ---
HPI - General Adult General Chief complaint: Environmental Exposure Stated complaint: weak, vomiting History of Present Illness HPI narrative: 49 yo male w/ h/o gastritis, esophagitis, frequent ED visits for abdominal pain/nausea vomiting BIBEMS from home complaining of nausea, vomiting, and fatigue. He says that he was out in the heat working all day. Developed nausea and vomiting. This is associated with cramping and fatigue. He recieved PO zofran per EMS with minimal improvement. Related Data Home Medications Medication Instructions Recorded Confirmed No Home Medications 09/03/19 09/03/19 Allergies Allergy/AdvReac Type Severity Reaction Status Date / Time No Known Allergies Allergy Verified 09/03/19 19:11 Review of Systems Review of Systems: All systems reviewed & are unremarkable except as noted in HPI and below Constitutional: Constitutional: Reports weakness Cardiovascular: Cardiovascular: Denies chest pain Respiratory: Respiratory: Denies dyspnea Gastrointestinal: Gastrointestinal: Reports abdominal pain, Reports nausea and Reports vomiting Neurologic: Reports dizziness and Reports weakness PMFSH Past Medical History Medical History Colitis Gastritis GERD (gastroesophageal reflux disease) History of angina Inguinal hernia Myocardial infarction Pancreatitis Ulcer Surgical History Surgical History 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 H/O inguinal hernia repair Social History Social History Smoking packs per day: 1 Smoking cigarettes per day: 20.0 Smoking status: Current every day smoker Additional smoking assessment comments: Smoking exposure Alcohol intake: current Gender identity (if verbalized by the patient): Male Exam Const: General: no acute distress and alert Nutritional Appearance: thin Orientation/consciousness: patient oriented x3 HENMT: Head: normal to inspection Resp: Effort & Inspection: normal respiratory effort Auscultation: clear to auscultation bilaterally Cardio: Rate: regular rate Rhythm: regular rhythm GI: Inspection: non-distended GI Palp: Yes Soft to palpation and Yes Tenderness to palpation present (GI) (epigastric) Skin: General skin exam: normal color Neuro: General: patient oriented x3, moves all extremities and CN's II-XI intact bilaterally Speech: normal speech Extrem: General: normal to inspection Course Vital Signs Vital signs: Vital Signs Temperature 37.8 C H 09/03/19 19:08 Pulse Rate 92 09/03/19 19:08 Respiratory Rate 16 09/03/19 19:08 Blood Pressure 170/99 H 09/03/19 19:08 Pulse Oximetry 100 09/03/19 19:08 Temperature 37.8 C H 09/03/19 19:08 Pulse Rate 84 09/03/19 23:37 Respiratory Rate 15 09/03/19 23:37 Blood Pressure 179/98 H 09/03/19 23:37 Pulse Oximetry 100 09/03/19 23:37 Medical Decision Making Medical Records Medical records reviewed: Yes I reviewed the patient's medical records. Vital Signs Vital Signs: Vital Signs Temperature 37.8 C H 09/03/19 19:08 Pulse Rate 92 09/03/19 19:08 Respiratory Rate 16 09/03/19 19:08 Blood Pressure 170/99 H 09/03/19 19:08 Pulse Oximetry 100 09/03/19 19:08 Temperature 37.8 C H 09/03/19 19:08 Pulse Rate 84 09/03/19 23:37 Respiratory Rate 15 09/03/19 23:37 Blood Pressure 179/98 H 09/03/19 23:37 Pulse Oximetry 100 09/03/19 23:37 Lab Data Lab results reviewed: Yes I reviewed the patient's lab results. Result diagrams: 09/03/19 19:25 09/03/19 19:25 Labs: Lab Results 09/03/19 09/03/19 09/03/19 Range/Units 19:25 19:25 19:25 WBC 7.4 (4.5-10.0) K/mm3 RBC 5.04 (4.6-6.20) M/mm3 Hgb 16.9 (14.0-18.0) g/dL Hct 46.8 (42.0-52.0) % MCV 92.9 (80-100) fl MCH 3
[2019-09-03 19:30] LABS: Basophils Percent Auto 0.1 % (0.2-1.2); Eosinophils Percent Auto 0.1 % (0-4.4); Hematocrit 46.8 % (42.0-52.0); Hemoglobin 16.9 g/dL (14.0-18.0); Immature Granulocyte Absolute 0.02 K/mm3 (0.00-0.031); Immature Granulocyte Percent A 0.3 % (0-0.5); Lymphocytes Percent Auto 23.1 % (18.3-44.2); Mean Corpuscular HGB Conc 36.1 g/dl (32-36); Mean Corpuscular Hemoglobin 33.5 pg (26-34); Mean Corpuscular Volume 92.9 fl (80-100); Mean Platelet Volume 9.2 fl (7.4-10.4); Monocytes Absolute Auto 0.6 K/mm3 (0.1-0.6); Monocytes Percent Auto 8.7 % (2.6-8.5); Neutrophils Percent Auto 67.7 % (45.5-73.1); Platelet Count Result 307 k/mm3 (150-375); Red Blood Count 5.04 M/mm3 (4.6-6.20); Red Cell Distribution Width 13.1 % (11.5-14.5); White Blood Count 7.4 K/mm3 (4.5-10.0)
[2019-09-03] MEDS: PANTOPRAZOLE SODIUM IV 40 MG VIAL IV PUSH (19:30)
[2019-09-03] MEDS: SODIUM CHLORIDE 0.9% IV 2,000 ML 999 ML IV CONT (19:30)
[2019-09-03] MEDS: ONDANSETRON INJ 4 MG/2 ML VIAL (19:30)
[2019-09-03 19:42] LABS: Alanine Aminotransferase 24 U/L (4-50); Albumin Level 4.9 g/dL (3.5-5.1); Alkaline Phosphatase 91 U/L (38-126); Aspartate Amino Transferase 40 U/L (17-59); Bilirubin,Total 1.4 mg/dL (0.2-1.3); Blood Urea Nitrogen 12 mg/dL (9-20); Calcium 11.4 mg/dL (8.4-10.2); Carbon Dioxide 26 mmol/L (22-30); Chloride 99 mmol/L (98-107); Creatine Kinase 230 U/L (55-170); Estimated CRCL calculation 70 ml/min; Estimated Glomerular Filt Rate > 60; Glucose 98 mg/dL (75-110); Lipase 56 U/L (23-300); Potassium 3.7 mmol/L (3.4-5.0); Sodium 137 mmol/L (137-145)
[2019-09-03 21:15] VITALS: PULSE 88; RESP 20; O2SAT 99
--- NOTE | 2019-09-03 23:23 | PC.NURSE ---
Assumed care of patient at this time.
[2019-09-03 23:37] VITALS: BP 179/98; PULSE 84; RESP 15; O2SAT 100
== END 2019-09-04 | disposition home or self-care (01) ==
PROVIDERS: Emergency Provider Emergency Medicine; PCP Emergency Medicine
DX: E86.0 Dehydration (principal); R11.2 Nausea with vomiting, unspecified; I25.2 Old myocardial infarction; K21.9 Gastro-esophageal reflux disease without esophagitis; F17.210 Nicotine dependence, cigarettes, uncomplicated; Z89.021 Acquired absence of right finger(s)
CPT/HCPCS: 36415; 80053; 82550; 83690; 85025; 96361; 96374; 96375; 99284; C9113; J2405; J7030

== ENCOUNTER 2019-10-01 16:03 | Emergency (ER) | payer OTHER, SELFPAY ==
--- NOTE | ~2019-10-01 | CT_ITS ---
EXAMINATION: CT abdomen pelvis w con DATE: 10/01/2019 18:08 INDICATION: Nausea, vomiting and chills. History of pancreatitis. TECHNIQUE: Computed tomography (CT) of the abdomen and pelvis was performed with 100 cc Omnipaque 350 intravenous contrast. The dose-length product was 209.90 mGy-cm. Automated exposure control and iter ative reconstruction technique were employed. COMPARISON: CT dated 07/17/2019 FINDINGS: Dependent right lower lobe atelectasis. Heart size normal. No significant pleural or perica rdial effusion. Mild periportal edema, nonspecific. There are multiple loops of thickened small bowel without obstruction. Normal appendix. There is atherosclerosis of the aorta without aneurysm. Small amount of free fluid in the pelvis. Mild mesenteric edema. No free air. Mild bladder wall thickening. Prostate gland mildly prominent. No significant lymphadenopathy. The spleen, pancreas, adrenal gland s and kidneys are unremarkable. IMPRESSION: 1. Multiple loops of thickened small bowel with mild mesenteric edema, trace free fluid in the pelvis , most likely enteritis. No obstruction. 2: Bladder wall thickening which may be due to outlet obstruction from enlarged prostate gland or cy stitis. Reviewed, dictated and finalized at location A. IMPRESSION: 1. Multiple loops of thickened small bowel with mild mesenteric edema, trace fr ee fluid in the pelvis, most likely enteritis. No obstruction. 2: Bladder wall thickening which may be due to outlet obstruction from enlarge d prostate gland or cystitis.
--- NOTE | ~2019-10-01 | XR_ITS ---
EXAMINATION: XR chest 1V portable DATE: 10/01/2019 16:48 INDICATION: Weakness. Nausea and vomiting. TECHNIQUE: A single frontal view of the chest was obtained. COMPARISON: Chest 2 views 06/22/2019 FINDINGS: There is mild atelectasis at right lung base. No pleural effusion or pneumothorax. The hear t size is normal. IMPRESSION: 1. Mild atelectasis at right lung base. Reviewed, dictated and finalized at location A.
[2019-10-01 16:03] VITALS: BP 169/76; PULSE 67; RESP 18; TEMP 36.6; O2SAT 100
[2019-10-01 16:10] VITALS: PULSE 58
--- NOTE | 2019-10-01 16:24 | ECG_ITS ---
Measurements Intervals [place] Rate: 54 P: 15 OR: 109 QRS: -72 QRSD: 106 T: 60 QT: 420 QTc: 398 Interpretive Statements SINUS BRADYCARDIA WITH SHORT OR INTERVAL LEFT AXIS DEVIATION PEAKED T WAVES- CONSIDER HYPERKALEMIA OR ISCHEMIA BASELINE ARTIFACT- I, II ABNORMAL ECG Electronically Signed On 10-01-2019 16:37:10 CDT by Marc Fry D.O.
--- NOTE | 2019-10-01 16:29 | PC.NURSE ---
[facility] [place] called and stated he has to be covid swabbed and it has to be a negative swab before we can accept him.
[2019-10-01 16:38] LABS: Basophils Percent Auto 0.2 % (0.2-1.2); Hematocrit 43.7 % (42.0-52.0); Hemoglobin 15.3 g/dL (14.0-18.0); Immature Granulocyte Absolute 0.01 K/mm3 (0.00-0.031); Immature Granulocyte Percent A 0.2 % (0-0.5); Lymphocytes Absolute Auto 0.82 K/mm3 (0.9-3.2); Lymphocytes Percent Auto 15.8 % (18.3-44.2); Mean Corpuscular Hemoglobin 32.8 pg (26-34); Mean Corpuscular Volume 93.8 fl (80-100); Mean Platelet Volume 8.7 fl (7.4-10.4); Monocytes Absolute Auto 0.3 K/mm3 (0.1-0.6); Monocytes Percent Auto 5.8 % (2.6-8.5); Platelet Count Result 280 k/mm3 (150-375); Red Blood Count 4.66 M/mm3 (4.6-6.20); Red Cell Distribution Width 13.5 % (11.5-14.5); White Blood Count 5.2 K/mm3 (4.5-10.0)
[2019-10-01 16:47] VITALS: BP 157/89; PULSE 116; RESP 18; O2SAT 99
[2019-10-01 16:50] LABS: Alanine Aminotransferase 17 U/L (4-50); Albumin Level 3.7 g/dL (3.5-5.1); Alkaline Phosphatase 69 U/L (38-126); Aspartate Amino Transferase 29 U/L (17-59); Bilirubin,Total 0.6 mg/dL (0.2-1.3); Blood Urea Nitrogen 6 mg/dL (9-20); Calcium 9.3 mg/dL (8.4-10.2); Carbon Dioxide 25 mmol/L (22-30); Chloride 104 mmol/L (98-107); Estimated CRCL calculation 100 ml/min; Estimated Glomerular Filt Rate > 60; Glucose 110 mg/dL (75-110); Lipase 52 U/L (23-300); Potassium 3.2 mmol/L (3.4-5.0); Sodium 136 mmol/L (137-145)
--- NOTE | 2019-10-01 16:50 | PC.NURSE ---
r at bedside, ekg completed, covid nasal swab collected, pt agreeable to shower at this time.
[2019-10-01 16:54] LABS: Creatine Kinase 125 U/L (55-170)
[2019-10-01 16:57] LABS: Partial Thromboplastin Time 26.7 SECONDS (22.3-36.8); Prothrombin Time 13.3 Seconds (11.1-14.7)
[2019-10-01 17:07] LABS: Troponin I < 0.012 ng/mL (0.000-0.034)
[2019-10-01] MEDS: FAMOTIDINE 20 MG/2 ML VIAL IV PUSH (17:11)
[2019-10-01] MEDS: SODIUM CHLORIDE 0.9% IV 1,000 ML 999 ML IV CONT ×2 (17:11→18:28)
[2019-10-01] MEDS: ONDANSETRON INJ 4 MG/2 ML VIAL IV PUSH (17:12)
[2019-10-01 17:35] LABS: Add Urine Microscopic? YES; Amorphous Sediment Urine Few; Appearance Urine Cloudy (Clear); Bilirubin Urine Negative (Negative); Blood Urine Negative (Negative); Color Urine Yellow (Yellow); Glucose Urine UA 2+ mg/dL (Negative); Ketones Urine Trace mg/dL (Negative); Leukocyte Esterase Ur Negative LEU/UL (Negative); Mucus Urine Rare /lpf; Nitrate Urine Negative (Negative); Protein Urine 1+ mg/dL (Negative); RBC Urine 0-2 /hpf (0-2); Specific Grav Ur 1.015 (1.001-1.035); Urobilinogen Urine Negative mg/dL (<2.0)
--- NOTE | 2019-10-01 19:41 | ED.GENADULT ---
HPI - General Adult General Chief complaint: Weakness Stated complaint: WEAKNESS Time Seen by Provider: 10/01/19 16:33 Source: patient, EMS and old records reviewed Mode of arrival: EMS Limitations: no limitations History of Present Illness HPI narrative: Patient is a 49-year-old male who presents to emergency department for evaluation of generalized abdominal discomfort coupled with nausea and vomiting that began yesterday patient notes that he had worked in the heat and was concerned for possible heat exposure patient on arrival to emergency department notes generalized abdominal pain with nausea and chills patient notes similar occurrence in the past patient is followed by primary care and gastroenterology for this patient has not taken anything for his symptoms Related Data Allergies Allergy/AdvReac Type Severity Reaction Status Date / Time No Known Allergies Allergy Verified 09/03/19 19:11 Review of Systems Review of Systems: All systems reviewed & are unremarkable except as noted in HPI and below PMFSH Past Medical History Medical History Colitis Gastritis GERD (gastroesophageal reflux disease) History of angina Inguinal hernia Myocardial infarction Pancreatitis Ulcer Surgical History Surgical History 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 EYES: PERRLA and EOMI. ENT: Nares clear, no rhinorrhea or epistaxis. Mucous membranes moist. Oropharynx without tonsillar hypertrophy exudate or other lesions. NECK: Supple. No adenopathy or masses. CHEST: Clear to auscultation. No respiratory distress. No wheezes rales or rhonchi HEART: Regular rate and rhythm. No murmur heard. Normal peripheral pulses. ABDOMEN: Soft, generalized abdominal tenderness, nondistended EXTREMITIES: Normal range of motion. No edema. SKIN: Warm, dry, no rash. NEURO: No focal deficits. Alert and oriented x3. Neurovascularly intact. Cranial nerves II through XII grossly intact PSYCH: Normal mood and affect. Course Course Emergency Course: Patient in the room in no distress aware of case findings treatment plan and diagnosis Vital Signs Vital signs: Vital Signs Temperature 97.8 F 10/01/19 16:03 Pulse Rate 67 10/01/19 16:03 Respiratory Rate 18 10/01/19 16:03 Blood Pressure 169/76 H 10/01/19 16:03 Pulse Oximetry 100 10/01/19 16:03 Temperature 97.8 F 10/01/19 16:03 Pulse Rate 116 H 10/01/19 16:47 Respiratory Rate 18 10/01/19 16:47 Blood Pressure 157/89 H 10/01/19 16:47 Pulse Oximetry 99 10/01/19 16:47 Medical Decision Making MDM Narrative Medical decision making narrative: Patient in the room in no distress aware of case findings treatment plan and diagnosis agreeing to follow-up as directed or to return if symptoms. Patient agreeing to follow-up with gastroenterology and primary care. Patient afebrile nontoxic-appearing no distress was given fluids and medications with improvement and is tolerating p.o. intake Vital Signs Vital Signs: Vital Signs Temperature 97.8 F 10/01/19 16:03 Pulse Rate 67 10/01/19 16:03 Respiratory Rate 18 10/01/19 16:03 Blood Pressure 169/76 H 10/01/19 16:03 Pulse Oximetry 100 10/01/19 16:03 Temperature 97.8 F 10/01/19 16:03 Pulse Rate 116 H 10/01/19 16
[2019-10-01 19:57] VITALS: BP 144/88; PULSE 99; RESP 18; O2SAT 99
[2019-10-01 20:08] LABS: Amphetamine Screen Urine Negative (Negative); Barbiturate Screen Urine Negative (Negative); Benzodiazepines Screen Urine Negative (Negative); Cannabinoid Screen Urine Positive (Negative); Cocaine Screen Urine Negative (Negative); Methadone Screen Urine Negative (Negative); Opiate Screen Urine Negative (Negative); Phencyclidine Screen Urine Negative (Negative)
== END 2019-10-01 19:58 | disposition home or self-care (01) ==
PROVIDERS: Emergency Medicine Emergency Medical Services; Emergency Provider Emergency Medicine; PCP Emergency Medicine
DX: R10.84 Generalized abdominal pain (principal); K21.9 Gastro-esophageal reflux disease without esophagitis; I25.2 Old myocardial infarction; Z89.021 Acquired absence of right finger(s); F17.210 Nicotine dependence, cigarettes, uncomplicated; R00.1 Bradycardia, unspecified; R94.31 Abnormal electrocardiogram [ECG] [EKG]
CPT/HCPCS: 36415; 71045; 74177; 80053; 80307; 81001; 82550; 83690; 84484; 85025; 85610; 85730; 93005; 96361; 96365; 96375; 99284; J0131; J2405; J7030; Q9967

== ENCOUNTER 2019-10-09 12:41 | Emergency (ER) | payer OTHER, SELFPAY ==
[2019-10-09 12:50] VITALS: BP 145/82; PULSE 79; RESP 17; TEMP 36.8; O2SAT 98
[2019-10-09 13:07] LABS: Basophils Percent Auto 0.6 % (0.2-1.2); Eosinophils Percent Auto 0.6 % (0-4.4); Hematocrit 46.7 % (42.0-52.0); Hemoglobin 16.5 g/dL (14.0-18.0); Immature Granulocyte Absolute 0.02 K/mm3 (0.00-0.031); Immature Granulocyte Percent A 0.3 % (0-0.5); Lymphocytes Absolute Auto 2.45 K/mm3 (0.9-3.2); Lymphocytes Percent Auto 35.5 % (18.3-44.2); Mean Corpuscular HGB Conc 35.3 g/dl (32-36); Mean Corpuscular Hemoglobin 32.9 pg (26-34); Monocytes Absolute Auto 0.6 K/mm3 (0.1-0.6); Monocytes Percent Auto 8.7 % (2.6-8.5); Neutrophils Absolute Auto 3.8 K/mm3 (1.3-6.7); Neutrophils Percent Auto 54.3 % (45.5-73.1); Platelet Count Result 349 k/mm3 (150-375); Red Blood Count 5.02 M/mm3 (4.6-6.20); Red Cell Distribution Width 14.6 % (11.5-14.5); White Blood Count 6.9 K/mm3 (4.5-10.0)
[2019-10-09 13:18] LABS: Alanine Aminotransferase 16 U/L (4-50); Albumin Level 4.1 g/dL (3.5-5.1); Alkaline Phosphatase 70 U/L (38-126); Aspartate Amino Transferase 36 U/L (17-59); Bilirubin,Total 0.6 mg/dL (0.2-1.3); Blood Urea Nitrogen 8 mg/dL (9-20); Calcium 9.9 mg/dL (8.4-10.2); Carbon Dioxide 27 mmol/L (22-30); Chloride 104 mmol/L (98-107); Estimated Glomerular Filt Rate > 60; Glucose 94 mg/dL (75-110); Lipase 93 U/L (23-300); Potassium 4.1 mmol/L (3.4-5.0); Sodium 139 mmol/L (137-145)
--- NOTE | 2019-10-09 13:28 | ED.NAVMDI ---
HPI - Nausea/Vomiting/Diarrhea General Chief complaint: Nausea/Vomiting/Diarrhea Stated complaint: abdominal pain/etoh Time Seen by Provider: 10/09/19 13:18 Source: patient and EMS Mode of arrival: EMS Limitations: intoxication History of Present Illness HPI Narrative: Patient is a 49-year-old male, well-known to our facility for chronic pancreatitis, chronic alcohol abuse who presents for evaluation of abdominal pain, nausea and vomiting. Patient brought in by EMS, was found to be drinking heavily, numerous shots of hard liquor, and patient's friend called EMS because he was vomiting. The time of assessment, patient is curled up in a position on the bed, states he does not feel good, not willing to provide other history. He reports nausea and vomiting. When asked other questions, patient does not respond. He is quite intoxicated. 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 EYES: PERRLA and EOMI. ENT: Nares clear, no rhinorrhea or epistaxis. Mucous membranes moist. NECK: Supple. CHEST: No respiratory distress, breathing even and non labored HEART: Regular rate, sinus rhythm ABDOMEN:Non distended EXTREMITIES: Normal range of motion. No edema. SKIN: Warm, dry, no rash. NEURO:No focal deficits. Alert and oriented Course Vital Signs Vital signs: Vital Signs Temperature 36.8 C 10/09/19 12:50 Pulse Rate 79 10/09/19 12:50 Respiratory Rate 17 10/09/19 12:50 Blood Pressure 145/82 H 10/09/19 12:50 Pulse Oximetry 98 10/09/19 12:50 Temperature 36.8 C 10/09/19 12:50 Pulse Rate 80 10/09/19 17:41 Respiratory Rate 20 10/09/19 17:41 Blood Pressure 134/80 10/09/19 17:41 Pulse Oximetry 97 10/09/19 17:41 MDM - Nausea/Vomiting/Diarrhea MDM Narrative Medical decision making narrative: Patient presented for evaluation of altered mental status in the setting of alcohol intoxication. At the time of initial assessment ABCs are intact and vital signs are stable. Patient is intoxicated. He is not willing to participate in most of the history. He is protecting his airway. No focal neuro deficits on exam. No acute physical exam findings. IV access was obtained and labs were drawn. Patient was given IV fluids, antiemetic and was asking for pain medication. Patient did well in the emergency department and had no severe leukocytosis, electrolyte abnormality, evidence of UTI or elevation in lipase of be consistent with pancreatitis. Patient was reassessed after period of observation, where he was able to sleep, when I awakened him he was demanding some water and denied any suicidal or homicidal ideation or attempt to harm himself. No recurrent pain or vomiting at the time of reassessment. Likely all the patient's symptoms are secondary to his chronic alcohol abuse and he was discharged home in stable condition. Differential Diagnosis Di
[2019-10-09] MEDS: SODIUM CHLORIDE 0.9% IV 1,000 ML 999 ML IV CONT (13:38)
[2019-10-09] MEDS: ONDANSETRON INJ 4 MG/2 ML VIAL IV PUSH (13:38)
[2019-10-09 13:39] VITALS: BP 141/82; PULSE 70
[2019-10-09] MEDS: FAMOTIDINE 20 MG/2 ML VIAL IV PUSH (13:39)
[2019-10-09] MEDS: MORPHINE SULFATE 4 MG/ML INJ IV PUSH (13:39)
[2019-10-09 13:40] VITALS: BP 150/88; BP 152/93; PULSE 74; PULSE 84
--- NOTE | 2019-10-09 13:42 | PC.NURSE ---
Pt encouraged to try and provide urine sample, pt refusing to try to use urinal, refusing straight cath. EDP made aware.
[2019-10-09 15:38] VITALS: BP 138/84; PULSE 90; RESP 20; O2SAT 99
[2019-10-09 15:59] LABS: Add Urine Microscopic? YES; Amorphous Sediment Urine Few; Appearance Urine Cloudy (Clear); Bilirubin Urine Negative (Negative); Blood Urine Negative (Negative); Color Urine Yellow (Yellow); Glucose Urine UA 1+ mg/dL (Negative); Ketones Urine Negative (Negative); Leukocyte Esterase Ur Negative LEU/UL (Negative); Mucus Urine Rare /lpf; Nitrate Urine Negative (Negative); Protein Urine Negative (Negative); RBC Urine 0-2 /hpf (0-2); Specific Grav Ur 1.015 (1.001-1.035); Urobilinogen Urine Negative mg/dL (<2.0)
[2019-10-09 17:30] LABS: Ethanol 82 mg/dL (<10)
[2019-10-09 17:41] VITALS: BP 134/80; PULSE 80; RESP 20; O2SAT 97
[2019-10-09 19:14] VITALS: BP 128/80; PULSE 80; RESP 20; TEMP 36.7; O2SAT 99
== END 2019-10-09 19:15 | disposition home or self-care (01) ==
PROVIDERS: Emergency Provider Emergency Medicine; PCP Emergency Medicine
DX: E86.0 Dehydration (principal); F10.129 Alcohol abuse with intoxication, unspecified; Y90.4 Blood alcohol level of 80-99 mg/100 ml; K21.9 Gastro-esophageal reflux disease without esophagitis; I25.2 Old myocardial infarction; Z89.021 Acquired absence of right finger(s); F17.210 Nicotine dependence, cigarettes, uncomplicated; K86.1 Other chronic pancreatitis
CPT/HCPCS: 36415; 80053; 80307; 81001; 83690; 85025; 96361; 96374; 96375; 99284; J2270; J2405; J7030

== ENCOUNTER 2019-10-11 11:24 | Emergency (ER) | payer OTHER, SELFPAY ==
[2019-10-11 12:06] VITALS: BP 147/97; PULSE 69; RESP 20; TEMP 36.8; O2SAT 100
[2019-10-11 12:40] LABS: Basophils Percent Auto 0.3 % (0.2-1.2); Eosinophils Percent Auto 0.2 % (0-4.4); Hematocrit 48.5 % (42.0-52.0); Hemoglobin 17.1 g/dL (14.0-18.0); Immature Granulocyte Absolute 0.01 K/mm3 (0.00-0.031); Immature Granulocyte Percent A 0.2 % (0-0.5); Lymphocytes Percent Auto 29.9 % (18.3-44.2); Mean Corpuscular HGB Conc 35.3 g/dl (32-36); Mean Corpuscular Hemoglobin 32.6 pg (26-34); Mean Corpuscular Volume 92.6 fl (80-100); Mean Platelet Volume 9.1 fl (7.4-10.4); Monocytes Absolute Auto 0.6 K/mm3 (0.1-0.6); Monocytes Percent Auto 10.3 % (2.6-8.5); Neutrophils Absolute Auto 3.6 K/mm3 (1.3-6.7); Neutrophils Percent Auto 59.1 % (45.5-73.1); Platelet Count Result 368 k/mm3 (150-375); Red Blood Count 5.24 M/mm3 (4.6-6.20); Red Cell Distribution Width 14.4 % (11.5-14.5)
[2019-10-11] MEDS: ONDANSETRON INJ 4 MG/2 ML VIAL IV PUSH (12:45)
[2019-10-11] MEDS: SODIUM CHLORIDE 0.9% IV 1,000 ML 999 ML IV CONT (12:46)
[2019-10-11 12:52] LABS: Alanine Aminotransferase 19 U/L (4-50); Albumin Level 4.4 g/dL (3.5-5.1); Alkaline Phosphatase 72 U/L (38-126); Aspartate Amino Transferase 43 U/L (17-59); Blood Urea Nitrogen 6 mg/dL (9-20); Calcium 10.6 mg/dL (8.4-10.2); Carbon Dioxide 29 mmol/L (22-30); Chloride 99 mmol/L (98-107); Estimated CRCL calculation 84 ml/min; Estimated Glomerular Filt Rate > 60; Glucose 130 mg/dL (75-110); Lipase 89 U/L (23-300); Potassium 4.2 mmol/L (3.4-5.0); Sodium 136 mmol/L (137-145)
--- NOTE | 2019-10-11 13:03 | ED.GENADULT ---
HPI - General Adult General Chief complaint: Nausea/Vomiting/Diarrhea Stated complaint: abd pain, vomiting Time Seen by Provider: 10/11/19 12:21 History of Present Illness HPI narrative: Patient is 49 y/o male complaining of generalized abdominal pain and vomiting. He describes his pain as hurting and rates it as 9/10. There is no pain radiation. There is no alleviating or exacerbating factor. He has vomited more than 10 times. He denies diarrhea. Related Data Allergies Allergy/AdvReac Type Severity Reaction Status Date / Time No Known Allergies Allergy Verified 09/03/19 19:11 Review of Systems Constitutional: Constitutional: Denies chills, Denies fever(s), Denies headache(s) and Denies weakness Eyes: Eyes: Denies blurry vision ENT: Denies headache(s) and Denies neck pain Cardiovascular: Cardiovascular: Denies chest pain and Denies dyspnea Respiratory: Respiratory: Denies cough and Denies dyspnea Gastrointestinal: Gastrointestinal: Reports abdominal pain, Denies diarrhea, Reports nausea and Reports vomiting Genitourinary: Genitourinary: Denies hematuria and Denies dysuria Musculoskeletal: Musculoskeletal: Denies back pain and Denies neck pain Neurologic: Denies headache(s) and Denies weakness PMFSH Past Medical History Medical History Colitis Gastritis GERD (gastroesophageal reflux disease) History of angina Inguinal hernia Myocardial infarction Pancreatitis Ulcer Surgical History Surgical History 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 H/O inguinal hernia repair Social History Social History Smoking packs per day: 1 Smoking cigarettes per day: 20.0 Smoking status: Current every day smoker Additional smoking assessment comments: Smoking exposure Alcohol intake: current Gender identity (if verbalized by the patient): Male Exam Const: General: no acute distress and well developed Orientation/consciousness: oriented to person, oriented to place, oriented to time and patient oriented x3 HENMT: Head: normocephalic Ears: external ears normal General nose exam: Normal external nose present Eyes: General: appearance normal, both eyes and all related structures Conjunctivae: conjunctivae normal Neck: Neck: normal visual inspection and full ROM Chest: Chest palpation & inspection: normal inspection of the chest and no tenderness Resp: Effort & Inspection: normal respiratory effort Auscultation: clear to auscultation bilaterally Cardio: Rate: regular rate Rhythm: regular rhythm GI: GI Palp: No abdominal tenderness and Yes Soft to palpation Skin: General skin exam: normal color and turgor normal Neuro: General: oriented to person, oriented to place, oriented to time and patient oriented x3 Cognition (Neuro): normal cognition Extrem: General: normal to inspection, full ROM and no pedal edema Psych: Appearance: grossly normal Mental Status: mental status grossly normal Affect: normal affect Course Vital Signs Vital signs: Vital Signs Temperature 36.8 C 10/11/19 12:06 Pulse Rate 69 10/11/19 12:06 Respiratory Rate 20 10/11/19 12:06 Blood Pressure 147/97 H 10/11/19 12:06 Pulse Oximetry 100 10/11/19 12:06 Temperature 36.8 C 10/11/19 12:06 Pulse Rate 79 10/11/19 15:32 Respiratory Rate 18 10/11/19 15:08 Blood Pressure 156/120 H 10/11/19 15:32 Pulse Oximetry 100 10/11/19 15:08 Medical Decision Making Vital Signs Vital Signs: Vital Signs Temperature 36.8 C 10/11/19 12:06 Pulse Rate 69 10/11/19 12:06 Respiratory Rate 20 10/11/19 12:06 Blood Pressure 147/97 H 10/11/19 12:06 Pulse Oximetry 100 10/11/19 12:06 Temperature 36.8 C 10/11/19 12:06 Pulse Rate 79 10/11/19 15:32 Respiratory Rate 18 10/11/19 15:08 Blood Pressure 156/1
[2019-10-11 13:20] LABS: Add Urine Microscopic? YES; Appearance Urine Clear (Clear); Bilirubin Urine Negative (Negative); Blood Urine Negative (Negative); Color Urine Straw (Yellow); Glucose Urine UA 3+ mg/dL (Negative); Ketones Urine Negative (Negative); Leukocyte Esterase Ur Negative LEU/UL (Negative); Mucus Urine Rare /lpf; Nitrate Urine Negative (Negative); Protein Urine Negative (Negative); RBC Urine 0-2 /hpf (0-2); Specific Grav Ur 1.011 (1.001-1.035); Urobilinogen Urine Negative mg/dL (<2.0)
[2019-10-11] MEDS: METOCLOPRAMIDE HCL INJ 10 MG/2 ML VIAL IV PUSH (13:52)
[2019-10-11 13:58] LABS: Amphetamine Screen Urine Negative (Negative); Barbiturate Screen Urine Negative (Negative); Benzodiazepines Screen Urine Negative (Negative); Cannabinoid Screen Urine Positive (Negative); Cocaine Screen Urine Negative (Negative); Methadone Screen Urine Negative (Negative); Opiate Screen Urine Negative (Negative); Phencyclidine Screen Urine Negative (Negative)
[2019-10-11 15:08] VITALS: BP 157/87; PULSE 75; RESP 18; O2SAT 100
[2019-10-11 15:30] VITALS: BP 154/84; PULSE 58
[2019-10-11 15:31] VITALS: BP 178/81; PULSE 70
[2019-10-11 15:32] VITALS: BP 156/120; PULSE 79
== END 2019-10-11 16:11 | disposition home or self-care (01) ==
PROVIDERS: General Practice; Emergency Provider Emergency Medicine; PCP Emergency Medicine
DX: R11.15 Cyclical vomiting syndrome unrelated to migraine (principal); R11.10 Vomiting, unspecified; F12.90 Cannabis use, unspecified, uncomplicated
CPT/HCPCS: 36415; 80053; 80307; 81001; 83690; 85025; 96361; 96374; 96375; 99284; J2405; J2765; J7030

== ENCOUNTER 2019-10-17 03:30 | Emergency (ER) | payer OTHER, SELFPAY ==
[2019-10-17 03:26] VITALS: BP 156/87; PULSE 79; RESP 18; TEMP 36.7; O2SAT 97
--- NOTE | 2019-10-17 03:27 | ED.ABDPAIN ---
HPI - Abdominal Pain General Chief Complaint: Abdominal Pain Stated Complaint: abd pain Source: patient and EMS Mode of arrival: EMS Limitations: no limitations History of Present Illness HPI narrative: Patient is a 49-year-old male with a history of alcoholic gastritis, well-known to this facility, who presents for evaluation of nausea and vomiting. Patient reports he was working outside all day in the heat, has had difficulty sleeping tonight. He reports mild periumbilical abdominal pain, nausea and vomiting. Patient denies any lower extremity pain, no falls or injury. He denies fever, chills, chest pain or shortness of breath. Patient states he has not had any alcohol to drink today. Patient continues to state that he just wants to sleep. Related Data Allergies Allergy/AdvReac Type Severity Reaction Status Date / Time No Known Allergies Allergy Verified 09/03/19 19:11 Review of Systems Review of Systems: Narrative: CONSTITUTIONAL: Denies fever, chills, or sweats. CARDIOVASCULAR: Denies chest pain RESPIRATORY: Denies cough or dyspnea. GASTROINTESTINAL: Reports abdominal pain, nausea and vomiting GENITOURINARY: Denies dysuria or hematuria. SKIN: Denies rash or itching. MUSCULOSKELETAL: Denies back pain, joint pain, or myalgia. NEUROLOGIC: Denies headache, numbness, or weakness. 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 EYES: PERRLA and EOMI. ENT: Nares clear, no rhinorrhea or epistaxis. Mucous membranes moist. NECK: Supple. CHEST: No respiratory distress, breathing even and non labored HEART: Regular rate, sinus rhythm ABDOMEN:Non distended, non tender EXTREMITIES: Normal range of motion. No edema. SKIN: Warm, dry, no rash. NEURO:No focal deficits. Alert and oriented x3 Course Vital Signs Vital signs: Vital Signs Temperature 36.7 C 10/17/19 03:26 Pulse Rate 79 10/17/19 03:26 Respiratory Rate 18 10/17/19 03:26 Blood Pressure 156/87 H 10/17/19 03:26 Pulse Oximetry 97 10/17/19 03:26 Temperature 36.7 C 10/17/19 03:26 Pulse Rate 79 10/17/19 03:26 Respiratory Rate 18 10/17/19 03:26 Blood Pressure 156/87 H 10/17/19 03:26 Pulse Oximetry 97 10/17/19 03:26 MDM - Abdominal Pain MDM Narrative Medical decision making narrative: Patient presented for evaluation of muscle pain in the setting of possible dehydration given he was working outside all day. The time of initial assessment, ABCs are intact and vital signs are stable. Physical examination relatively unremarkable. Patient keeps saying that he just wants to be able to go to sleep. Benign abdominal exam. Laboratory results are reassuring. No severe electrolyte derangement. Patient was given IV fluids, antiemetic and was able to tolerate oral intake. Patient is not clinically intoxicated. No UTI. Exam is not consistent with rhabdomyolysis, CK is not elevated. As patient is now tolerating oral intake, he was discharged home. Differential Diagnosis Differential diagnosis: Likely abdominal pain, gastroenteritis and pancreatitis Medical Records Attestation: I reviewed the patient's medical records. Lab Data Attestation: I
[2019-10-17] MEDS: ONDANSETRON INJ 4 MG/2 ML VIAL IV PUSH (03:37)
[2019-10-17] MEDS: SODIUM CHLORIDE 0.9% IV 1,000 ML 999 ML IV CONT (03:37)
[2019-10-17] MEDS: DICYCLOMINE HCL INJ 20 MG/2 ML VIAL IM (03:38)
--- NOTE | 2019-10-17 03:44 | PC.NURSE ---
Patient's bedside glucose 146.
[2019-10-17 03:46] LABS: Glucose Point of Care 146 (65-105)
[2019-10-17 03:58] LABS: Basophils Percent Auto 0.3 % (0.2-1.2); Hematocrit 45.9 % (42.0-52.0); Hemoglobin 16.4 g/dL (14.0-18.0); Immature Granulocyte Absolute 0.02 K/mm3 (0.00-0.031); Immature Granulocyte Percent A 0.3 % (0-0.5); Lymphocytes Absolute Auto 1.13 K/mm3 (0.9-3.2); Lymphocytes Percent Auto 18.1 % (18.3-44.2); Mean Corpuscular HGB Conc 35.7 g/dl (32-36); Mean Corpuscular Hemoglobin 32.9 pg (26-34); Mean Corpuscular Volume 92.2 fl (80-100); Mean Platelet Volume 9.2 fl (7.4-10.4); Monocytes Absolute Auto 0.6 K/mm3 (0.1-0.6); Monocytes Percent Auto 9.3 % (2.6-8.5); Neutrophils Absolute Auto 4.5 K/mm3 (1.3-6.7); Platelet Count Result 307 k/mm3 (150-375); Red Blood Count 4.98 M/mm3 (4.6-6.20); Red Cell Distribution Width 13.4 % (11.5-14.5); White Blood Count 6.2 K/mm3 (4.5-10.0)
[2019-10-17 04:11] LABS: Alanine Aminotransferase 23 U/L (4-50); Albumin Level 4.6 g/dL (3.5-5.1); Alkaline Phosphatase 90 U/L (38-126); Anion Gap 13.2 mmol/L (7-16); Aspartate Amino Transferase 39 U/L (17-59); Bilirubin,Total 0.7 mg/dL (0.2-1.3); Blood Urea Nitrogen 9 mg/dL (9-20); Calcium 10.8 mg/dL (8.4-10.2); Carbon Dioxide 32 mmol/L (22-30); Chloride 92 mmol/L (98-107); Estimated Glomerular Filt Rate > 60; Glucose 136 mg/dL (75-110); Lipase 64 U/L (23-300); Potassium 3.2 mmol/L (3.4-5.0); Sodium 134 mmol/L (137-145)
[2019-10-17 05:20] LABS: Add Urine Microscopic? YES; Appearance Urine Clear (Clear); Bacteria Urine Trace /hpf; Bilirubin Urine Negative (Negative); Blood Urine Negative (Negative); Color Urine Yellow (Yellow); Glucose Urine UA 2+ mg/dL (Negative); Ketones Urine 1+ mg/dL (Negative); Leukocyte Esterase Ur Negative LEU/UL (Negative); Mucus Urine Few /lpf; Nitrate Urine Negative (Negative); Protein Urine 1+ mg/dL (Negative); RBC Urine 0-2 /hpf (0-2); Specific Grav Ur 1.024 (1.001-1.035); WBC Urine 0-3 /hpf
[2019-10-17 05:20] LABS: Creatine Kinase 108 U/L (55-170)
== END 2019-10-17 05:32 | disposition home or self-care (01) ==
PROVIDERS: Emergency Provider Emergency Medicine; PCP Emergency Medicine
DX: R11.2 Nausea with vomiting, unspecified (principal); K29.20 Alcoholic gastritis without bleeding; K21.9 Gastro-esophageal reflux disease without esophagitis; I25.2 Old myocardial infarction; Z89.021 Acquired absence of right finger(s); F17.210 Nicotine dependence, cigarettes, uncomplicated
CPT/HCPCS: 36415; 80053; 81001; 82550; 82948; 83690; 85025; 96361; 96372; 96374; 99284; J0500; J2405; J7030

== ENCOUNTER 2019-10-31 19:40 | Observation (INO) | payer OTHER, SELFPAY ==
--- NOTE | ~2019-10-31 | CT_ITS ---
EXAMINATION: CT abdomen pelvis w con DATE: 10/31/2019 22:09 INDICATION: Nausea, vomiting, chills, weakness TECHNIQUE: Computed tomography (CT) of the abdomen and pelvis was performed with 100 cc Omnipaque 350 intravenous contrast. Automated exposure control and iterative reconstruction technique were employe d. Exam dose: 197.37 mGy-cm total exam DLP. COMPARISON: 10/01/2019 CT abdomen pelvis FINDINGS: The lung bases are clear. Normal heart size. No pericardial or pleural effusion. Small sliding hiatal hernia. The gastric folds are prominent; consider gastroenteritis. No gallstones, gallbladder wall thickening or pericholecystic fluid or inflammation is evident. No hepatic space-occupying mass lesion is evident. There is focal fatty change near the fissure for t he ligamentum teres. No bile duct dilatation. No pancreatic duct dilatation. No pancreatic mass lesio n or calcification is evident. Small spleen. No splenic mass lesion. Normal morphology of the adrenal glands. There are approximately 2 or 3 very small probable right renal cysts. There is minimal pinpoint nephrolithiasis at the lower pole left kidney. No ureteral calculus or hydroureteronephrosis is noted on either side. The urinary bladder is unremar kable. Mild/moderate prostate enlargement. There is abdominal aortic calcification but no aneurysm. There are calcifications of the iliac and fe moral arteries. No intraperitoneal or retroperitoneal or pelvic mass lesion or adenopathy or ascites is evident. Diverticulosis of the colon; no CT evidence of diverticulitis. No bowel obstruction, bowel wall thick ening, pneumatosis or intraperitoneal free air. Included skeletal structures are unremarkable, other than degenerative spurring of the lumbar spine.. IMPRESSION: Small sliding hiatal hernia Prominent gastric folds; consider gastritis Diverticulosis of the colon; no CT evidence of diverticulitis Minimal pinpoint nephrolithiasis of the lower pole of left kidney Approximately 2 or 3 very small probable right renal cysts Reviewed, dictated and finalized at [facility] Reviewed, dictated and finalized at [facility].
[2019-10-31 19:38] VITALS: BP 158/82; PULSE 80; RESP 16; TEMP 36.7; O2SAT 100
[2019-10-31] MEDS: ONDANSETRON INJ 4 MG/2 ML VIAL IM (19:48)
--- NOTE | 2019-10-31 20:04 | ED.NAVMDI ---
HPI - Nausea/Vomiting/Diarrhea General Chief complaint: Nausea/Vomiting/Diarrhea Stated complaint: WEAKNESS History of Present Illness HPI Narrative: Patient presents for abdominal pain and vomiting. He said the pain is been all day. He said the vomiting is been all day. He is wrapped up in a blanket and gives no eye contact. He gauges the pain at 9 out of 10. He said he has had pancreatitis before. The history the nurse got was that he drank some beer and vomited. He was here last month and had a CAT scan that showed fluid in the bowels and thickened bladder wall. He denies diarrhea or constipation. He said his urination is normal. MD elicited complaint: nausea, vomiting and abdominal pain Pertinent past history: alcohol abuse Onset (ago): hour(s) Associated nausea: Yes Associated abdominal pain: Yes Location of pain: periumbilical Radiation: diffuse Pain consistency: constant Severity: severe Pain scale (0-10): 9 Exacerbating factors: movement Relieving factors: none Related Data Home Medications Medication Instructions Recorded Confirmed famotidine 10/31/19 hyoscyamine sulfate mg 10/31/19 Allergies Allergy/AdvReac Type Severity Reaction Status Date / Time No Known Allergies Allergy Verified 09/03/19 19:11 Review of Systems Review of Systems: Narrative: CONSTITUTIONAL: He has chills, and sweats. ENT: Denies rhinorrhea, congestion, sore throat, or otalgia. CARDIOVASCULAR: Denies chest pain, palpitations, or edema. RESPIRATORY: Denies cough or dyspnea. GASTROINTESTINAL: He has abdominal pain, nausea, vomiting, but notr diarrhea. GENITOURINARY: Denies dysuria or hematuria. MUSCULOSKELETAL: Denies back pain, joint pain, or myalgia. NEUROLOGIC: Denies headache, numbness, or weakness. 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 Has the blankets pulled up over him. Avoids eye contact. HEAD: Normocephalic, atraumatic. EYES: PERRLA and EOMI. ENT: Nares clear, no rhinorrhea or epistaxis. Mucous membranes moist. NECK: Supple. CHEST: Clear to auscultation. No respiratory distress. HEART: Regular rate and rhythm. No murmur heard. Normal peripheral pulses. ABDOMEN: Soft, tender, nondistended, normal active bowel sounds. EXTREMITIES: Normal range of motion. No edema. SKIN: Warm, dry, no rash. NEURO: No focal deficits. Alert and oriented x3. PSYCH: . Course Reevaluation(s) Reevaluation #1: [id number] with the patient at 2244. He is no longer diaphoretic, he denies ever having alcohol withdrawal seizures. He says he just does not feel good. Told him we would will admit him for alcohol withdrawal Date: 10/31/19 Time: 22:45 Reevaluation #2: Went back in to see the patient, he barely opened his eyes but shook his head yes that he agreed to her conditions. Date: 11/01/19 Time: 00:14 Consultations Consultation #1: Calling the hospitalist for overnight admission for alcohol withdrawal. Date: 10/31/19 Time: 23:12 Consultation #2: Dr. Kaba called back and said she knows the patient well. She said ask him if he intends to quit drinking alcohol. She also said to tell him that she
[2019-10-31] MEDS: SODIUM CHLORIDE 0.9% IV 1,000 ML 999 ML IV CONT (20:50)
[2019-10-31 21:32] LABS: Basophils Percent Auto 0.4 % (0.2-1.2); Eosinophils Absolute Auto 0.2 K/mm3 (0-0.3); Eosinophils Percent Auto 2.7 % (0-4.4); Hematocrit 44.9 % (42.0-52.0); Hemoglobin 15.7 g/dL (14.0-18.0); Immature Granulocyte Absolute 0.01 K/mm3 (0.00-0.031); Immature Granulocyte Percent A 0.2 % (0-0.5); Lymphocytes Absolute Auto 1.41 K/mm3 (0.9-3.2); Lymphocytes Percent Auto 25.7 % (18.3-44.2); Mean Corpuscular Hemoglobin 32.5 pg (26-34); Mean Platelet Volume 8.7 fl (7.4-10.4); Monocytes Absolute Auto 0.4 K/mm3 (0.1-0.6); Monocytes Percent Auto 7.3 % (2.6-8.5); Neutrophils Absolute Auto 3.5 K/mm3 (1.3-6.7); Neutrophils Percent Auto 63.7 % (45.5-73.1); Platelet Count Result 320 k/mm3 (150-375); Red Blood Count 4.83 M/mm3 (4.6-6.20); Red Cell Distribution Width 14.4 % (11.5-14.5); White Blood Count 5.5 K/mm3 (4.5-10.0)
[2019-10-31 21:39] VITALS: BP 131/86; PULSE 82; RESP 16; TEMP 36.6; O2SAT 98
[2019-10-31 21:44] LABS: Ethanol 30 mg/dL (<10)
[2019-10-31 21:45] LABS: Alanine Aminotransferase 18 U/L (4-50); Albumin Level 3.9 g/dL (3.5-5.1); Alkaline Phosphatase 65 U/L (38-126); Anion Gap 12 mmol/L (8-16); Aspartate Amino Transferase 33 U/L (17-59); Bilirubin,Total 0.6 mg/dL (0.2-1.3); Blood Urea Nitrogen 7 mg/dL (9-20); Calcium 9.6 mg/dL (8.4-10.2); Carbon Dioxide 20 mmol/L (22-30); Chloride 105 mmol/L (98-107); Estimated CRCL calculation 90 ml/min; Estimated Glomerular Filt Rate > 60; Glucose 94 mg/dL (75-110); Lipase 52 U/L (23-300); Potassium 4.3 mmol/L (3.4-5.0); Sodium 137 mmol/L (137-145)
[2019-10-31 21:56] LABS: Troponin I < 0.012 ng/mL (0.000-0.034)
--- NOTE | 2019-10-31 22:43 | PC.NURSE ---
pt c/o shaking and vomiting, MD aware.pt was not shaking when RN was in room,
[2019-10-31 23:04] LABS: Add Urine Microscopic? YES; Amorphous Sediment Urine Few; Appearance Urine Cloudy (Clear); Bacteria Urine Trace /hpf; Bilirubin Urine Negative (Negative); Blood Urine Negative (Negative); Color Urine Yellow (Yellow); Glucose Urine UA 2+ mg/dL (Negative); Ketones Urine Negative (Negative); Leukocyte Esterase Ur Negative LEU/UL (Negative); Mucus Urine Rare /lpf; Nitrate Urine Negative (Negative); Protein Urine Negative (Negative); RBC Urine 0-2 /hpf (0-2); Urobilinogen Urine Negative mg/dL (<2.0)
[2019-10-31 23:07] LABS: Specific Grav Ur 1.032 (1.001-1.035)
[2019-10-31 23:10] LABS: Amphetamine Screen Urine Negative (Negative); Barbiturate Screen Urine Negative (Negative); Benzodiazepines Screen Urine Negative (Negative); Cannabinoid Screen Urine Positive (Negative); Cocaine Screen Urine Negative (Negative); Methadone Screen Urine Negative (Negative); Opiate Screen Urine Negative (Negative); Phencyclidine Screen Urine Negative (Negative)
[2019-10-31 23:56] VITALS: BP 154/82; PULSE 65; RESP 20; TEMP 36.6; O2SAT 100
[2019-11-01 01:20] VITALS: BP 165/80; PULSE 65; RESP 18; TEMP 36.9; O2SAT 100
[2019-11-01 01:26] VITALS: BP 119/73; PULSE 62; RESP 16; TEMP 36.7; O2SAT 100
[2019-11-01] MEDS: DEXTROSE 5%/0.9% SOD CHL 1,000 ML 100 ML IV CONT (01:26)
--- NOTE | 2019-11-01 01:27 | ADMGEN ---
This patient, Jak Lee, was admitted to [facility] Surg Room 307-01. Patient/family oriented to hospital policies and general routines including ID bracelet, bed and alarms, visiting hours, pain management, procedures, bathroom and other care routines, personal items, smoking policy, room service/diet, and visiting hours. Valuables list has been completed. Information on how to activate the Rapid Response Team has been discussed. Patient/Family are encouraged to report perceived risks to care and to ask questions if they do not understand what they are told or what they should do.
[2019-11-01 06:00] VITALS: BP 134/74; PULSE 90; RESP 18; TEMP 36.8; O2SAT 98
--- NOTE | 2019-11-01 10:12 | PC.NURSE ---
Pt left this morning A.M.A. Pt was educated on his medical condition and reason to stay. Pt still decided to leave. Pt's IV was removed, pt signed form, and pt dressed himself and ambulated to the front door independently.
--- NOTE | 2019-11-01 16:43 | PM.EVENT ---
Event Note Event Note Event Note: Patient was admitted from the ER but left AMA before I, or any hospitalist, could see him. Nursing educated about the risk of leaving AMA. NERISSA 4.
== END 2019-11-01 08:40 | disposition left against medical advice (07) ==
LOC: ANHED 11-01 00:19 → ANH3MEDSUR 11-01 00:53
PROVIDERS: Admitting Provider Internal Medicine; Emergency Provider Emergency Medicine; PCP Emergency Medicine; Visit Provider Physician Assistant
DX: F10.230 Alcohol dependence with withdrawal, uncomplicated (principal); K44.9 Diaphragmatic hernia without obstruction or gangrene; K57.30 Diverticulosis of large intestine without perforation or abscess without bleeding; Z53.21 Procedure and treatment not carried out due to patient leaving prior to being seen by health care provider; Y90.1 Blood alcohol level of 20-39 mg/100 ml
CPT/HCPCS: 36415; 74177; 80053; 80307; 81001; 83690; 84484; 85025; 96361; 96372; 96374; 99285; G0378; G0379; J2060; J2405; J7030; J7042; Q9967

== ENCOUNTER 2019-12-11 17:44 | Emergency (ER) | payer OTHER, SELFPAY ==
[2019-12-11] VITALS (10 sets, daily range): BP systolic 146–185; BP diastolic 79–103; PULSE 62–82; RESP 16–21; TEMP 36.6; O2SAT 97–99
[2019-12-11 18:50] LABS: Basophils Percent Auto 0.3 % (0.2-1.2); Hematocrit 45.5 % (42.0-52.0); Hemoglobin 16.2 g/dL (14.0-18.0); Immature Granulocyte Absolute 0.03 K/mm3 (0.00-0.031); Immature Granulocyte Percent A 0.4 % (0-0.5); Lymphocytes Absolute Auto 1.42 K/mm3 (0.9-3.2); Lymphocytes Percent Auto 18.1 % (18.3-44.2); Mean Corpuscular HGB Conc 35.6 g/dl (32-36); Mean Corpuscular Hemoglobin 32.4 pg (26-34); Mean Platelet Volume 8.9 fl (7.4-10.4); Monocytes Absolute Auto 0.4 K/mm3 (0.1-0.6); Monocytes Percent Auto 4.6 % (2.6-8.5); Neutrophils Percent Auto 76.6 % (45.5-73.1); Platelet Count Result 315 k/mm3 (150-375); Red Cell Distribution Width 15.3 % (11.5-14.5); White Blood Count 7.9 K/mm3 (4.5-10.0)
[2019-12-11 19:03] LABS: Alanine Aminotransferase 24 U/L (4-50); Albumin Level 4.4 g/dL (3.5-5.1); Alkaline Phosphatase 80 U/L (38-126); Anion Gap 5 mmol/L (8-16); Aspartate Amino Transferase 41 U/L (17-59); Bilirubin,Total 0.7 mg/dL (0.2-1.3); Blood Urea Nitrogen 8 mg/dL (9-20); Calcium 10.5 mg/dL (8.4-10.2); Carbon Dioxide 27 mmol/L (22-30); Chloride 105 mmol/L (98-107); Estimated CRCL calculation 81 ml/min; Estimated Glomerular Filt Rate > 60; Glucose 103 mg/dL (75-110); Lipase 74 U/L (23-300); Potassium 3.9 mmol/L (3.4-5.0); Sodium 137 mmol/L (137-145)
[2019-12-11 19:13] LABS: Troponin I < 0.012 ng/mL (0.000-0.034)
[2019-12-11 19:21] LABS: Ethanol 56 mg/dL (<10)
[2019-12-11] MEDS: HALOPERIDOL LACTATE 5 MG/ML VIAL IV PUSH ×2 (19:29→22:06)
[2019-12-11] MEDS: PANTOPRAZOLE SODIUM IV 40 MG VIAL IV PUSH (19:29)
[2019-12-11] MEDS: LACTATED RINGERS 1,000 ML 999 ML IV CONT (19:29)
--- NOTE | 2019-12-11 19:42 | ED.ABDPAIN ---
HPI - Abdominal Pain General Chief Complaint: Abdominal Pain Stated Complaint: weakness/dizziness/abd pain Time Seen by Provider: 12/11/19 18:18 Source: EMS Mode of arrival: ambulatory Limitations: no limitations History of Present Illness HPI narrative: 49-year-old male Brought in by EMS for abdominal pain and vomiting Hard to get any history from the patient except that he has been here before for this Review of the EMR indeed it does appear he has had numerous similar presentations to the ED He does mention that he had been drinking today Also smokes marijuana fairly regularly Related Data Home Medications Medication Instructions Recorded Confirmed Unable to Obtain Home Medications 11/01/19 11/01/19 Allergies Allergy/AdvReac Type Severity Reaction Status Date / Time No Known Allergies Allergy Unverified 12/11/19 17:42 Review of Systems Review of Systems: ROS unobtainable: Yes unobtainable due to medical condition and unobtainable due to mental status PMFSH Social History Social History Smoking packs per day: 1 Smoking cigarettes per day: 20.0 Years smoked: 20 Smoking pack-years: 20.00 Smoking status: Current some day smoker Tobacco type: cigarettes Additional smoking assessment comments: Smoking exposure Alcohol intake: current Substance use type: marijuana Gender identity (if verbalized by the patient): Male Spiritual care concerns: No Course Vital Signs Vital signs: Vital Signs Pulse Rate 62 12/11/19 17:50 Respiratory Rate 18 12/11/19 17:50 Blood Pressure 185/103 H 12/11/19 17:50 Pulse Oximetry 97 12/11/19 17:50 Temperature 36.6 C 12/11/19 17:58 Pulse Rate 80 12/11/19 21:51 Respiratory Rate 19 12/11/19 21:51 Blood Pressure 150/79 H 12/11/19 21:51 Pulse Oximetry 99 12/11/19 21:51 MDM - Abdominal Pain MDM Narrative Medical decision making narrative: labs are fine vomiting has stopped after meds and fluids and he is resting comfortably Lab Data Result diagrams: 12/11/19 18:41 12/11/19 18:41 Labs: Lab Results 12/11/19 12/11/19 12/11/19 Range/Units 18:41 18:41 18:41 WBC 7.9 (4.5-10.0) K/mm3 RBC 5.00 (4.6-6.20) M/mm3 Hgb 16.2 (14.0-18.0) g/dL Hct 45.5 (42.0-52.0) % MCV 91.0 (80-100) fl MCH 32.4 (26-34) pg MCHC 35.6 (32-36) g/dl RDW 15.3 H (11.5-14.5) % Plt Count 315 (150-375) k/mm3 MPV 8.9 (7.4-10.4) fl Immature Gran % (Auto) 0.4 (0-0.5) % Neut % (Auto) 76.6 H (45.5-73.1) % Lymph % (Auto) 18.1 L (18.3-44.2) % Hart % (Auto) 4.6 (2.6-8.5) % Eos % (Auto) 0.0 (0-4.4) % Baso % (Auto) 0.3 (0.2-1.2) % Lymph # (Auto) 1.42 (0.9-3.2) K/mm3 Hart # (Auto) 0.4 (0.1-0.6) K/mm3 Eos # (Auto) 0.0 (0-0.3) K/mm3 Baso # (Auto) 0.0 (0.0-0.1) K/mm3 Abs Immat Gran (auto) 0.03 (0.00-0.031) K/mm3 Absolute Neuts (auto) 6.0 (1.3-6.7) K/mm3 Absolute Nucleated RBC 0.0 (0.0-0.012) K/mm3 Nucleated RBC % 0.0 (0.0-0.2) % Sodium 137 (137-145) mmol/L Potassium 3.9 (3.4-5.0) mmol/L Chloride 105 (98-107) mmol/L Carbon Dioxide 27 (22-30) mmol/L Anion Gap 5 L (8-16) mmol/L BUN 8 L (9-20) mg/dL Creatinine 0.80 (0.7-1.3) mg/dL Estim Creat Clear Calc 81 ml/min Estimated GFR > 60 (59 - ) Glucose 103 (75-110) mg/dL Calcium 10.5 H (8.4-10.2) mg/dL Total Bilirubin 0.7 (0.2-1.3) mg/dL AST 41 (17-59) U/L ALT 24 (4-50) U/L Alkaline Phosphatase 80 (38-126) U/L Troponin I < 0.012 (0.000-0.034) ng/mL Total Protein 8.0 (6.3-8.2) g/dL Albumin 4.4 (3.5-5.1) g/dL Lipase 74 (23-300) U/L Urine Opiates Screen (Negative) Urine Methadone Screen (Negative) Ur Barbiturates Screen (Negative) Ur Phencyclidine Scrn (Negative) Ur Amphetamine Screen (Negative)
--- NOTE | 2019-12-11 19:50 | PC.NURSE ---
nurse this gave received report from states pt urinated w/o her knowledge. pt instructed by this rn that we need a urine sample, urinal at bedside.
--- NOTE | 2019-12-11 20:27 | PC.NURSE ---
pt sleeping in room. when pt woken up pt starts making shaking movements. rn reminded pt of needed urine sample. pt states he still isnt able to give urine sample, when this nurse brought up straight cath pt states it aint happening. im going to be here for a while and i just cant go right now. this rn reminded pt that urine sample is all we are waiting on at this time.
[2019-12-11 21:51] LABS: Amphetamine Screen Urine Negative (Negative); Barbiturate Screen Urine Negative (Negative); Benzodiazepines Screen Urine Negative (Negative); Cannabinoid Screen Urine Positive (Negative); Cocaine Screen Urine Negative (Negative); Methadone Screen Urine Negative (Negative); Opiate Screen Urine Negative (Negative); Phencyclidine Screen Urine Negative (Negative)
[2019-12-11 22:13] LABS: Add Urine Microscopic? YES; Amorphous Sediment Urine Few; Appearance Urine Cloudy (Clear); Bacteria Urine Trace /hpf; Bilirubin Urine Negative (Negative); Blood Urine Negative (Negative); Color Urine Yellow (Yellow); Glucose Urine UA 3+ mg/dL (Negative); Ketones Urine Negative (Negative); Leukocyte Esterase Ur Negative LEU/UL (Negative); Mucus Urine Rare /lpf; Nitrate Urine Negative (Negative); Protein Urine Negative (Negative); RBC Urine 0-2 /hpf (0-2); Specific Grav Ur 1.011 (1.001-1.035); Urobilinogen Urine Negative mg/dL (<2.0); WBC Urine 0-3 /hpf
== END 2019-12-11 22:48 | disposition home or self-care (01) ==
PROVIDERS: Emergency Provider Emergency Medicine; PCP Emergency Medicine
DX: R11.2 Nausea with vomiting, unspecified (principal); F17.210 Nicotine dependence, cigarettes, uncomplicated
CPT/HCPCS: 36415; 80053; 80307; 81001; 83690; 84484; 85025; 96361; 96374; 96375; 96376; 99284; C9113; J1630; J7120

== ENCOUNTER 2020-01-03 21:07 | Emergency (ER) | payer OTHER, SELFPAY ==
[2020-01-03 21:34] VITALS: BP 144/100; PULSE 84; RESP 20; TEMP 36.4; O2SAT 100
[2020-01-04 00:04] LABS: Basophils Percent Auto 0.2 % (0.2-1.2); Eosinophils Percent Auto 0.1 % (0-4.4); Hematocrit 47.6 % (42.0-52.0); Hemoglobin 17.2 g/dL (14.0-18.0); Immature Granulocyte Absolute 0.03 K/mm3 (0.00-0.031); Immature Granulocyte Percent A 0.3 % (0-0.5); Lymphocytes Absolute Auto 2.34 K/mm3 (0.9-3.2); Lymphocytes Percent Auto 23.9 % (18.3-44.2); Mean Corpuscular HGB Conc 36.1 g/dl (32-36); Mean Corpuscular Volume 91.2 fl (80-100); Mean Platelet Volume 8.8 fl (7.4-10.4); Monocytes Absolute Auto 1.1 K/mm3 (0.1-0.6); Monocytes Percent Auto 10.9 % (2.6-8.5); Neutrophils Absolute Auto 6.3 K/mm3 (1.3-6.7); Neutrophils Percent Auto 64.6 % (45.5-73.1); Platelet Count Result 311 k/mm3 (150-375); Red Blood Count 5.22 M/mm3 (4.6-6.20); Red Cell Distribution Width 14.5 % (11.5-14.5); White Blood Count 9.8 K/mm3 (4.5-10.0)
--- NOTE | 2020-01-04 00:12 | ED.ABDPAIN ---
HPI - Abdominal Pain General Chief Complaint: Abdominal Pain Stated Complaint: abd pain, n/v Time Seen by Provider: 01/03/20 23:44 Source: patient Mode of arrival: EMS Limitations: no limitations History of Present Illness HPI narrative: This patient is a 49 year old male who presents for evaluation nausea, vomiting and mid abdominal pain. He states starting at 2 pm he started not feeling well. He reports nausea with vomiting and he states he can't keep anything down . He also reports mid abdominal pain. THis patient has history of chronic alcoholism with chronic abdominal pain with vomiting. He has been evaluated multiple times for similar presentation. He denies fever, chills, cough, sob , sore throat or loss of taste or smell. 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 H/O inguinal hernia repair Social History Social History Smoking packs per day: 1 Smoking cigarettes per day: 20.0 Years smoked: 20 Smoking pack-years: 20.00 Smoking status: Current some day smoker Tobacco type: cigarettes Additional smoking assessment comments: Smoking exposure Alcohol intake: current Substance use type: marijuana Gender identity (if verbalized by the patient): Male Spiritual care concerns: No Exam Const: General: alert Orientation/consciousness: patient oriented x3 HENMT: Head: normocephalic and atraumatic Face and sinus: face symmetric Throat: posterior oropharynx normal, tonsils normal and uvula midline Eyes: EOM: EOMs intact bilaterally Chest: Chest palpation & inspection: normal inspection of the chest Resp: Effort & Inspection: normal respiratory effort, no retractions and no use of accessory muscles Auscultation: clear to auscultation bilaterally Cardio: Rate: regular rate Rhythm: regular rhythm Heart sounds: no murmurs GI: GI Palp: Yes Soft to palpation, No Tenderness to palpation present (GI), No Guarding due to palpation present (GI), No Rigid due to palpation and No Hernia present Skin: General skin exam: normal color Rashes: no rashes Neuro: General: patient oriented x3 and moves all extremities Extrem: General: normal to inspection Psych: Mental Status: mental status grossly normal Affect: normal affect Course Reevaluation(s) Reevaluation #1: PAtient has had no vomiting. Nursing reports pain has been eat deandra crackers. Date: 01/04/20 Time: 03:19 Vital Signs Vital signs: Vital Signs Temperature 97.5 F L 01/03/20 21:34 Pulse Rate 84 01/03/20 21:34 Respiratory Rate 20 01/03/20 21:34 Blood Pressure 144/100 H 01/03/20 21:34 Pulse Oximetry 100 01/03/20 21:34 Temperature 98.8 F 01/04/20 03:33 Pulse Rate 90 01/04/20 03:33 Respiratory Rate 16 01/04/20 03:33 Blood Pressure 111/82 01/04/20 03:33 Pulse Oximetry 96 01/04/20 03:33 MDM - Abdominal Pain Lab Data Attestation: I reviewed the patient's lab results. Result diagrams: 01/03/20 23:58 01/03/20 23:58 Labs: Lab Results 01/03/20 01/03/20 01/04/20 Range/Units 23:58 23:58 02:51 WBC 9.8 (4.5-10.0) K/mm3 RBC 5.22 (4.6-6.20) M/mm3 Hgb 17.2 (14.0-18.0) g/dL Hct 47.6 (42.0-52.0) % MCV 91.2 (80-100) fl MCH 33.0
[2020-01-04] MEDS: LACTATED RINGERS 1,000 ML 999 ML IV CONT ×2 (00:13→01:56)
[2020-01-04] MEDS: PROMETHAZINE HCL 25 MG/ML AMPUL 12.5 MG IV PUSH (00:13)
--- NOTE | 2020-01-04 00:13 | PC.NURSE ---
Adilene in lab aware of magnesium add on.
--- NOTE | 2020-01-04 00:15 | ECG_ITS ---
Measurements Intervals [place] Rate: 61 P: 68 MN: 142 QRS: -56 QRSD: 102 T: 77 QT: 414 QTc: 417 Interpretive Statements SINUS RHYTHM LEFT AXIS DEVIATION INCOMPLETE RIGHT BUNDLE BRANCH BLOCK BORDERLINE R WAVE PROGRESSION, ANTERIOR LEADS BORDERLINE ECG Electronically Signed On 01-04-2020 7:06:44 CDT by Marc Fry D.O.
[2020-01-04 00:22] LABS: Alanine Aminotransferase 22 U/L (4-50); Albumin Level 4.3 g/dL (3.5-5.1); Alkaline Phosphatase 80 U/L (38-126); Anion Gap 5 mmol/L (8-16); Aspartate Amino Transferase 35 U/L (17-59); Bilirubin,Total 0.9 mg/dL (0.2-1.3); Blood Urea Nitrogen 13 mg/dL (9-20); Calcium 11.1 mg/dL (8.4-10.2); Carbon Dioxide 37 mmol/L (22-30); Chloride 94 mmol/L (98-107); Estimated Glomerular Filt Rate > 60; Glucose 116 mg/dL (75-110); Lipase 159 U/L (23-300); Magnesium 2.3 mg/dL (1.6-2.3); Potassium 3.7 mmol/L (3.4-5.0); Sodium 136 mmol/L (137-145)
--- NOTE | 2020-01-04 01:56 | PC.NURSE ---
pt given urinal. States he will attempt to urinate
[2020-01-04 03:06] LABS: Add Urine Microscopic? YES; Appearance Urine Clear (Clear); Bacteria Urine Trace /hpf; Bilirubin Urine Negative (Negative); Blood Urine Negative (Negative); Color Urine Yellow (Yellow); Glucose Urine UA 1+ mg/dL (Negative); Ketones Urine Negative (Negative); Leukocyte Esterase Ur Negative LEU/UL (Negative); Nitrate Urine Negative (Negative); Protein Urine Negative (Negative); RBC Urine 0-2 /hpf (0-2); Specific Grav Ur 1.012 (1.001-1.035); Squamous Epithelial Cell Urine Rare /hpf (Few); Urobilinogen Urine Negative mg/dL (<2.0); WBC Urine 0-3 /hpf
[2020-01-04 03:33] VITALS: BP 111/82; PULSE 90; RESP 16; TEMP 37.1; O2SAT 96
== END 2020-01-04 03:59 | disposition home or self-care (01) ==
PROVIDERS: Emergency Provider General Practice; PCP Emergency Medicine
DX: R11.2 Nausea with vomiting, unspecified (principal); K21.9 Gastro-esophageal reflux disease without esophagitis; I25.2 Old myocardial infarction; F17.210 Nicotine dependence, cigarettes, uncomplicated; I45.10 Unspecified right bundle-branch block; R94.31 Abnormal electrocardiogram [ECG] [EKG]
CPT/HCPCS: 36415; 80053; 81001; 83690; 83735; 85025; 93005; 96361; 96374; 99284; J2550; J7120

== ENCOUNTER 2020-01-05 21:50 | Emergency (ER) | payer OTHER, SELFPAY ==
[2020-01-05 21:50] VITALS: BP 148/101; PULSE 78; RESP 16; TEMP 36.7; O2SAT 98
--- NOTE | 2020-01-05 21:55 | ED.ABDPAIN ---
HPI - Abdominal Pain General Chief Complaint: Abdominal Pain Stated Complaint: abd pain History of Present Illness HPI narrative: 49 yo male with a h/o alcoholism, gastritis, esophagitis presents to the ED via EMS for epigastric pain and vomiting. He reports nausea, vomiting and abdominal pain for the past hour. He does admit to drinking 1 beer prior to onset of symptoms. He has been seen in this ED many times for this same complaint several of those times by myself. History limited by patient cooperation. Related Data Allergies Allergy/AdvReac Type Severity Reaction Status Date / Time No Known Allergies Allergy Verified 01/03/20 21:08 Review of Systems Review of Systems: ROS unobtainable: Yes other (Limited due to patient cooperation) ENT: Reports sore throat Cardiovascular: Cardiovascular: Reports chest pain Gastrointestinal: Gastrointestinal: Reports abdominal pain, Reports nausea and Reports vomiting PMFSH Past Medical History Medical History (Updated 01/07/20 @ 00:00 by Background Daemon) Colitis Gastritis GERD (gastroesophageal reflux disease) History of angina Inguinal hernia Myocardial infarction Pancreatitis Ulcer Surgical History Surgical History 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 H/O inguinal hernia repair Social History Social History Smoking packs per day: 1 Smoking cigarettes per day: 20.0 Years smoked: 20 Smoking pack-years: 20.00 Smoking status: Current some day smoker Tobacco type: cigarettes Additional smoking assessment comments: Smoking exposure Alcohol intake: current Substance use type: marijuana Gender identity (if verbalized by the patient): Male Spiritual care concerns: No Exam Const: General: no acute distress, alert and ill appearing chronically Nutritional Appearance: thin Orientation/consciousness: patient oriented x3 HENMT: Head: normal to inspection Resp: Effort & Inspection: normal respiratory effort Auscultation: clear to auscultation bilaterally Cardio: Rate: regular rate Rhythm: regular rhythm GI: GI Palp: Yes Soft to palpation, Yes Tenderness to palpation present (GI) and No Guarding due to palpation present (GI) Skin: General skin exam: normal color Neuro: General: patient oriented x3 and moves all extremities Extrem: General: normal to inspection Course Vital Signs Vital signs: Vital Signs Temperature 36.7 C 01/05/20 21:50 Pulse Rate 78 01/05/20 21:50 Respiratory Rate 16 01/05/20 21:50 Blood Pressure 148/101 H 01/05/20 21:50 Pulse Oximetry 98 01/05/20 21:50 Temperature 36.7 C 01/05/20 23:42 Pulse Rate 78 01/05/20 23:42 Respiratory Rate 12 01/05/20 23:42 Blood Pressure 134/96 H 01/05/20 23:42 Pulse Oximetry 97 01/05/20 23:42 MDM - Abdominal Pain MDM Narrative Medical decision making narrative: Labs reassuring. Presentation consistent with his usual alcoholic gastritis Differential Diagnosis Differential diagnosis: Likely pancreatitis and other (gastiritis, esophagitis, alcohol intoxication) Medical Records Attestation: I reviewed the patient's medical records. Lab Data Attestation: I reviewed the patient's lab results. Result diagrams: 01/05/20 22:18 01/05/20 22:42 Labs: Lab Results 01/05/20 01/05/20 01/05/20 Range/Units 22:18 22:18 22:42 WBC 8.0 (4.5-10.0) K/mm3 RBC 5.01 (4.6-6.20) M/mm3 Hgb 16.6 (14.0-18.0) g/dL Hct 45.8 (42.0-52.0) % MCV 91.4 (80-100) fl MCH 33.1 (26-34) pg MCHC 36.2 H (32-36) g/dl RDW 14.5 (11.5-14.5) % Plt Count 309 (150-375) k/mm3 MPV 9.0 (7.4-10.4) fl Immature Gran % (Auto) 0.2 (0-0.5) % Neut % (Auto) 56.2 (45.5-73.1) % Lymph % (Auto) 33.0 (18.3-44.2) % Coke % (Auto) 9.8 H (2.6-8.5) % Eos % (Auto) 0
[2020-01-05] MEDS: ONDANSETRON INJ 4 MG/2 ML VIAL IV PUSH (22:20)
[2020-01-05] MEDS: PANTOPRAZOLE SODIUM IV 40 MG VIAL IV PUSH (22:20)
[2020-01-05] MEDS: SODIUM CHLORIDE 0.9% IV 1,000 ML 999 ML IV CONT (22:20)
[2020-01-05 22:23] LABS: Basophils Percent Auto 0.4 % (0.2-1.2); Eosinophils Percent Auto 0.4 % (0-4.4); Hematocrit 45.8 % (42.0-52.0); Hemoglobin 16.6 g/dL (14.0-18.0); Immature Granulocyte Absolute 0.02 K/mm3 (0.00-0.031); Immature Granulocyte Percent A 0.2 % (0-0.5); Lymphocytes Absolute Auto 2.65 K/mm3 (0.9-3.2); Mean Corpuscular HGB Conc 36.2 g/dl (32-36); Mean Corpuscular Hemoglobin 33.1 pg (26-34); Mean Corpuscular Volume 91.4 fl (80-100); Monocytes Absolute Auto 0.8 K/mm3 (0.1-0.6); Monocytes Percent Auto 9.8 % (2.6-8.5); Neutrophils Absolute Auto 4.5 K/mm3 (1.3-6.7); Neutrophils Percent Auto 56.2 % (45.5-73.1); Platelet Count Result 309 k/mm3 (150-375); Red Blood Count 5.01 M/mm3 (4.6-6.20); Red Cell Distribution Width 14.5 % (11.5-14.5)
[2020-01-05 22:36] LABS: Ethanol 40 mg/dL (<10)
[2020-01-05 22:58] LABS: Alanine Aminotransferase 18 U/L (4-50); Albumin Level 3.7 g/dL (3.5-5.1); Alkaline Phosphatase 69 U/L (38-126); Anion Gap 5 mmol/L (8-16); Aspartate Amino Transferase 34 U/L (17-59); Bilirubin,Total 0.7 mg/dL (0.2-1.3); Blood Urea Nitrogen 7 mg/dL (9-20); Calcium 9.7 mg/dL (8.4-10.2); Carbon Dioxide 32 mmol/L (22-30); Chloride 100 mmol/L (98-107); Estimated CRCL calculation 91 ml/min; Estimated Glomerular Filt Rate > 60; Glucose 94 mg/dL (75-110); Lipase 58 U/L (23-300); Potassium 3.9 mmol/L (3.4-5.0); Sodium 137 mmol/L (137-145)
[2020-01-05 23:42] VITALS: BP 134/96; PULSE 78; RESP 12; TEMP 36.7; O2SAT 97
== END 2020-01-05 23:58 | disposition home or self-care (01) ==
PROVIDERS: Emergency Provider Emergency Medicine; PCP Emergency Medicine
DX: K29.20 Alcoholic gastritis without bleeding (principal); K21.9 Gastro-esophageal reflux disease without esophagitis; I25.10 Atherosclerotic heart disease of native coronary artery without angina pectoris; Z89.021 Acquired absence of right finger(s); F17.210 Nicotine dependence, cigarettes, uncomplicated
CPT/HCPCS: 36415; 80053; 80307; 83690; 85025; 96361; 96374; 96375; 99284; C9113; J2405; J7030

== ENCOUNTER 2020-01-28 12:16 | Emergency (ER) | payer OTHER, SELFPAY ==
[2020-01-28 13:06] VITALS: BP 170/82; PULSE 77; RESP 18; TEMP 36.1; O2SAT 100
[2020-01-28] MEDS: ONDANSETRON INJ 4 MG/2 ML VIAL IV PUSH (15:04)
[2020-01-28] MEDS: FAMOTIDINE 20 MG/2 ML VIAL IV PUSH (15:04)
[2020-01-28] MEDS: SODIUM CHLORIDE 0.9% IV 1,000 ML 999 ML IV CONT (15:04)
[2020-01-28 15:20] LABS: Basophils Percent Auto 0.4 % (0.2-1.2); Hematocrit 45.4 % (42.0-52.0); Hemoglobin 16.1 g/dL (14.0-18.0); Immature Granulocyte Absolute 0.01 K/mm3 (0.00-0.031); Immature Granulocyte Percent A 0.2 % (0-0.5); Lymphocytes Absolute Auto 0.91 K/mm3 (0.9-3.2); Lymphocytes Percent Auto 16.2 % (18.3-44.2); Mean Corpuscular HGB Conc 35.5 g/dl (32-36); Mean Corpuscular Hemoglobin 33.3 pg (26-34); Mean Platelet Volume 8.5 fl (7.4-10.4); Monocytes Absolute Auto 0.4 K/mm3 (0.1-0.6); Monocytes Percent Auto 6.2 % (2.6-8.5); Neutrophils Absolute Auto 4.3 K/mm3 (1.3-6.7); Platelet Count Result 320 k/mm3 (150-375); Red Blood Count 4.83 M/mm3 (4.6-6.20); Red Cell Distribution Width 15.4 % (11.5-14.5); White Blood Count 5.6 K/mm3 (4.5-10.0)
[2020-01-28 15:32] LABS: Alanine Aminotransferase 25 U/L (4-50); Albumin Level 4.5 g/dL (3.5-5.1); Alkaline Phosphatase 85 U/L (38-126); Anion Gap 9 mmol/L (8-16); Aspartate Amino Transferase 39 U/L (17-59); Blood Urea Nitrogen 9 mg/dL (9-20); Calcium 10.9 mg/dL (8.4-10.2); Carbon Dioxide 30 mmol/L (22-30); Chloride 101 mmol/L (98-107); Estimated CRCL calculation 79 ml/min; Estimated Glomerular Filt Rate > 60; Ethanol < 10 mg/dL (<10); Glucose 122 mg/dL (75-110); Lipase 41 U/L (23-300); Potassium 3.7 mmol/L (3.4-5.0); Sodium 140 mmol/L (137-145)
--- NOTE | 2020-01-28 15:38 | ED.NAVMDI ---
HPI - Nausea/Vomiting/Diarrhea General Chief complaint: Nausea/Vomiting/Diarrhea Stated complaint: n/v/ weakness brought to the by Farshad CARMONA Time Seen by Provider: 01/28/20 14:52 History of Present Illness HPI Narrative: Patient is a 49-year-old male with history of alcoholic gastritis and esophagitis who presents ER with nausea and vomiting as well as abdominal pain. Typical presentation for him. Denies alcohol use last night. Reports symptoms began this morning. Cannot quantify how much vomiting he is experience. Reports some loose stools as well. No fevers or chills or sweats. Related Data Allergies Allergy/AdvReac Type Severity Reaction Status Date / Time No Known Allergies Allergy Verified 01/28/20 13:10 Review of Systems Review of Systems: All systems reviewed & are unremarkable except as noted in HPI and below Constitutional: Constitutional: Denies chills, Reports fatigue and Denies fever(s) ENT: Denies nasal congestion and Denies sore throat Cardiovascular: Cardiovascular: Denies chest pain and Denies radiating jaw, neck or arm pain Respiratory: Respiratory: Denies cough and Denies dyspnea Gastrointestinal: Gastrointestinal: Reports abdominal pain, Reports diarrhea, Reports nausea and Reports vomiting PMFSH Past Medical History Medical History (Updated 01/28/20 @ 16:43 by Robert Garcia MD) Colitis Gastritis GERD (gastroesophageal reflux disease) History of angina Inguinal hernia Myocardial infarction Pancreatitis Ulcer Surgical History Surgical History 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 HEAD: Normocephalic, atraumatic. ENT: Mucous membranes moist. CHEST: Clear to auscultation. No respiratory distress. HEART: Regular rate and rhythm. Normal peripheral pulses. ABDOMEN: Soft, nontender, nondistended. EXTREMITIES: Normal range of motion. No edema. SKIN: Warm, dry, no rash. NEURO: NAlert and oriented x3. Course Course Emergency Course: Unremarkable labs. Patient given Pepcid. Abdomen soft nontender. Attempted update patient on results and patient would not interact. He will be discharged. Vital Signs Vital signs: Vital Signs Temperature 97 F L 01/28/20 13:06 Pulse Rate 77 01/28/20 13:06 Respiratory Rate 18 01/28/20 13:06 Blood Pressure 170/82 H 01/28/20 13:06 Pulse Oximetry 100 01/28/20 13:06 Temperature 97.7 F 01/28/20 16:11 Pulse Rate 86 01/28/20 16:11 Respiratory Rate 18 01/28/20 16:11 Blood Pressure 159/91 H 01/28/20 16:11 Pulse Oximetry 100 01/28/20 16:11 MDM - Nausea/Vomiting/Diarrhea Lab Data Result diagrams: 01/28/20 15:13 01/28/20 15:13 Labs: Lab Results 01/28/20 01/28/20 01/28/20 Range/Units 15:13 15:13 15:13 WBC 5.6 (4.5-10.0) K/mm3 RBC 4.83 (4.6-6.20) M/mm3 Hgb 16.1 (14.0-18.0) g/dL Hct 45.4 (42.0-52.0) % MCV 94.0 (80-100) fl MCH 33.3 (26-34) pg MCHC 35.5 (32-36) g/dl RDW 15.4 H (11.5-14.5) % Plt Count 320 (150-375) k/mm3 MPV 8.5 (7.4-10.4) fl Immature Gran % (Auto) 0.2 (0-0.5) % Neut % (Auto) 77.0 H (45.5-73.1) % Lymph % (Auto) 16.2 L (18.3-44.2) % [place] % (Auto) 6.2 (2.6-8.5) % Eos % (Auto) 0.0 (0-4.4) % Baso % (Auto)
[2020-01-28 16:11] VITALS: BP 159/91; PULSE 86; RESP 18; TEMP 36.5; O2SAT 100
[2020-01-28 16:59] VITALS: BP 159/91; PULSE 78; RESP 18; O2SAT 98
== END 2020-01-28 17:06 | disposition home or self-care (01) ==
PROVIDERS: Emergency Provider Emergency Medicine; PCP Emergency Medicine
DX: K29.70 Gastritis, unspecified, without bleeding (principal); K21.00 Gastro-esophageal reflux disease with esophagitis, without bleeding; I25.2 Old myocardial infarction; Z89.021 Acquired absence of right finger(s); F17.210 Nicotine dependence, cigarettes, uncomplicated
CPT/HCPCS: 36415; 80053; 80307; 83690; 85025; 96361; 96374; 96375; 99284; J2405; J7030

== ENCOUNTER 2020-01-30 14:40 | Emergency (ER) | payer OTHER, SELFPAY ==
[2020-01-30 14:45] VITALS: BP 165/106; PULSE 73; RESP 17; TEMP 36.4; O2SAT 98
[2020-01-30 15:03] LABS: Basophils Percent Auto 0.4 % (0.2-1.2); Eosinophils Percent Auto 0.3 % (0-4.4); Hematocrit 48.5 % (42.0-52.0); Hemoglobin 17.1 g/dL (14.0-18.0); Immature Granulocyte Absolute 0.02 K/mm3 (0.00-0.031); Immature Granulocyte Percent A 0.3 % (0-0.5); Lymphocytes Percent Auto 40.8 % (18.3-44.2); Mean Corpuscular HGB Conc 35.3 g/dl (32-36); Mean Corpuscular Hemoglobin 32.9 pg (26-34); Mean Corpuscular Volume 93.3 fl (80-100); Mean Platelet Volume 8.5 fl (7.4-10.4); Monocytes Absolute Auto 0.9 K/mm3 (0.1-0.6); Monocytes Percent Auto 12.8 % (2.6-8.5); Neutrophils Absolute Auto 3.3 K/mm3 (1.3-6.7); Neutrophils Percent Auto 45.4 % (45.5-73.1); Platelet Count Result 306 k/mm3 (150-375); Red Cell Distribution Width 14.6 % (11.5-14.5); White Blood Count 7.4 K/mm3 (4.5-10.0)
[2020-01-30 15:09] LABS: Alanine Aminotransferase 21 U/L (4-50); Albumin Level 4.2 g/dL (3.5-5.1); Alkaline Phosphatase 73 U/L (38-126); Anion Gap 6 mmol/L (8-16); Aspartate Amino Transferase 29 U/L (17-59); Bilirubin,Total 0.9 mg/dL (0.2-1.3); Blood Urea Nitrogen 5 mg/dL (9-20); Calcium 10.5 mg/dL (8.4-10.2); Carbon Dioxide 31 mmol/L (22-30); Chloride 98 mmol/L (98-107); Estimated CRCL calculation 88 ml/min; Estimated Glomerular Filt Rate > 60; Glucose 122 mg/dL (75-110); Lipase 191 U/L (23-300); Potassium 3.4 mmol/L (3.4-5.0); Sodium 135 mmol/L (137-145)
[2020-01-30] MEDS: SODIUM CHLORIDE 0.9% IV 1,000 ML 999 ML IV CONT (15:18)
[2020-01-30] MEDS: PANTOPRAZOLE SODIUM IV 40 MG VIAL IV PUSH (15:18)
[2020-01-30] MEDS: PROMETHAZINE HCL 25 MG/ML AMPUL 12.5 MG IV PUSH (15:18)
--- NOTE | 2020-01-30 15:52 | ED.ABDPAIN ---
HPI - Abdominal Pain General Chief Complaint: Abdominal Pain Stated Complaint: abd pain History of Present Illness HPI narrative: Patient is a 49-year-old male who presents ER with epigastric abdominal pain. Pain ongoing for 2 days. Was seen recently for similar symptoms with unremarkable evaluation. Patient has history of alcoholic gastritis and esophagitis. Reports he is taking some antinausea medicine at home but has not taking any reflux medication. Has not had alcohol for 3 days. No fevers or chills. He does get sweats from pain. Related Data Allergies Allergy/AdvReac Type Severity Reaction Status Date / Time No Known Allergies Allergy Verified 01/28/20 13:10 Review of Systems Review of Systems: All systems reviewed & are unremarkable except as noted in HPI and below Constitutional: Constitutional: Denies chills, Denies fever(s) and Denies weakness ENT: Denies nasal congestion and Denies sore throat Cardiovascular: Cardiovascular: Denies chest pain and Denies radiating jaw, neck or arm pain Gastrointestinal: Gastrointestinal: Reports abdominal pain, Reports heartburn, Reports nausea and Reports vomiting PMFSH Past Medical History Medical History (Updated 01/30/20 @ 18:44 by Robert Garcia MD) Colitis Gastritis GERD (gastroesophageal reflux disease) History of angina Inguinal hernia Myocardial infarction Pancreatitis Ulcer Surgical History Surgical History 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 HEAD: Normocephalic, atraumatic. ENT: Mucous membranes moist. CHEST: Clear to auscultation. No respiratory distress. HEART: Regular rate and rhythm. Normal peripheral pulses. ABDOMEN: Soft, mild epigastric pain, nondistended. EXTREMITIES: Normal range of motion. No edema. SKIN: Warm, dry, no rash. NEURO: Alert and oriented x3. PSYCH: Normal mood and affect. Course Course Emergency Course: Tolerating oral fluids. Discharge home. Vital Signs Vital signs: Vital Signs Temperature 97.6 F 01/30/20 14:45 Pulse Rate 73 01/30/20 14:45 Respiratory Rate 17 01/30/20 14:45 Blood Pressure 165/106 H 01/30/20 14:45 Pulse Oximetry 98 01/30/20 14:45 Temperature 97.6 F 01/30/20 14:45 Pulse Rate 88 01/30/20 18:07 Respiratory Rate 16 01/30/20 18:07 Blood Pressure 146/84 H 01/30/20 18:07 Pulse Oximetry 98 01/30/20 18:07 MDM - Abdominal Pain Lab Data Result diagrams: 01/30/20 14:52 01/30/20 14:52 Labs: Lab Results 01/30/20 01/30/20 01/30/20 Range/Units 14:52 14:52 16:16 WBC 7.4 (4.5-10.0) K/mm3 RBC 5.20 (4.6-6.20) M/mm3 Hgb 17.1 (14.0-18.0) g/dL Hct 48.5 (42.0-52.0) % MCV 93.3 (80-100) fl MCH 32.9 (26-34) pg MCHC 35.3 (32-36) g/dl RDW 14.6 H (11.5-14.5) % Plt Count 306 (150-375) k/mm3 MPV 8.5 (7.4-10.4) fl Immature Gran % (Auto) 0.3 (0-0.5) % Neut % (Auto) 45.4 L (45.5-73.1) % Lymph % (Auto) 40.8 (18.3-44.2) % [place] % (Auto) 12.8 H (2.6-8.5) % Eos % (Auto) 0.3 (0-4.4) % Baso % (Auto) 0.4 (0.2-1.2) % Lymph # (Auto) 3.00 (0.9-3.2) K/mm3 [place] # (Auto) 0.9 H (0.1-0.6) K/mm3 Eos # (Auto) 0.0 (0-0.3) K/mm3 Baso # (Auto) 0.0 (0.0-0.1) K/mm3 Abs Immat Gran (a
[2020-01-30 16:00] VITALS: BP 145/69; PULSE 68; RESP 16; O2SAT 98
[2020-01-30 16:26] LABS: Add Urine Microscopic? YES; Appearance Urine Clear (Clear); Bilirubin Urine Negative (Negative); Blood Urine Negative (Negative); Color Urine Straw (Yellow); Glucose Urine UA 1+ mg/dL (Negative); Ketones Urine Negative (Negative); Leukocyte Esterase Ur Negative LEU/UL (Negative); Mucus Urine Rare /lpf; Nitrate Urine Negative (Negative); Protein Urine Negative (Negative); Specific Grav Ur 1.006 (1.001-1.035); Urobilinogen Urine Negative mg/dL (<2.0); WBC Urine 0-3 /hpf
[2020-01-30 16:30] VITALS: PULSE 69; RESP 16; O2SAT 98
[2020-01-30 17:05] VITALS: BP 128/86; PULSE 72; RESP 16; O2SAT 98
[2020-01-30] MEDS: BELLADONNA ALK/PHENOB ELIX 10 ML, MAG HYDROX/ALUMINUM HYD/SIMETH 30 ML, LIDOCAINE HCL 2... PO (17:24)
[2020-01-30 18:07] VITALS: BP 146/84; PULSE 88; RESP 16; O2SAT 98
== END 2020-01-30 18:15 | disposition home or self-care (01) ==
PROVIDERS: Emergency Provider Emergency Medicine; PCP Emergency Medicine
DX: K29.70 Gastritis, unspecified, without bleeding (principal); K21.9 Gastro-esophageal reflux disease without esophagitis; I25.2 Old myocardial infarction; Z89.021 Acquired absence of right finger(s); F17.210 Nicotine dependence, cigarettes, uncomplicated
CPT/HCPCS: 36415; 80053; 81001; 83690; 85025; 96374; 96375; 99284; A9270; C9113; J2550; J7030

== ENCOUNTER 2020-02-19 17:04 | Emergency (ER) | payer OTHER, SELFPAY ==
--- NOTE | ~2020-02-19 | CT_ITS ---
EXAMINATION: CT abdomen pelvis wo con DATE: 02/19/2020 18:07 INDICATION: Abdominal pain. Pancreatitis. TECHNIQUE: Computed tomography (CT) of the abdomen and pelvis was performed without intravenous contr ast. Automated exposure control and iterative reconstruction technique were employed. The dose-length product was 201.85 mGy-cm. COMPARISON: CT abdomen and pelvis 10/31/2019 FINDINGS: The visualized portions of the lung bases are clear without pneumonia or pleural effusion. The heart size is normal. No pericardial effusion. The liver, gallbladder, spleen, pancreas, adrenal glands, and right kidney are normal. There is a 2 mm stone in left kidney. There are no dilated loops of bowel. The appendix is normal. There are no pathologically enlarged lymph nodes. There is no free intraperitoneal fluid. There is moderate lumbar spondylosis. IMPRESSION: 1. 2 mm nonobstructing left kidney stone. Reviewed, dictated and finalized at location A. INE SHOP INSPECTOR
--- NOTE | ~2020-02-19 | XR_ITS ---
EXAMINATION: XR abdomen/kub 1V DATE: 02/19/2020 18:17 INDICATION: Nausea and vomiting. Weakness. TECHNIQUE: A supine view of the abdomen on 2 radiographs was obtained. COMPARISON: CT abdomen and pelvis 02/19/2020 FINDINGS: There are no dilated loops of bowel. There is a 2 mm stone in left kidney. IMPRESSION: 1. 2 mm stone in left kidney. Reviewed, dictated and finalized at location A. ERCIAL INSTALLER
[2020-02-19 17:13] VITALS: BP 149/88; PULSE 70; RESP 20; TEMP 36.4; O2SAT 98
[2020-02-19 18:01] LABS: Basophils Percent Auto 0.3 % (0.2-1.2); Hematocrit 49.5 % (42.0-52.0); Hemoglobin 17.6 g/dL (14.0-18.0); Immature Granulocyte Absolute 0.03 K/mm3 (0.00-0.031); Immature Granulocyte Percent A 0.3 % (0-0.5); Lymphocytes Absolute Auto 1.51 K/mm3 (0.9-3.2); Lymphocytes Percent Auto 16.9 % (18.3-44.2); Mean Corpuscular HGB Conc 35.6 g/dl (32-36); Mean Corpuscular Hemoglobin 33.1 pg (26-34); Mean Platelet Volume 8.6 fl (7.4-10.4); Monocytes Absolute Auto 0.5 K/mm3 (0.1-0.6); Monocytes Percent Auto 5.4 % (2.6-8.5); Neutrophils Absolute Auto 6.9 K/mm3 (1.3-6.7); Neutrophils Percent Auto 77.1 % (45.5-73.1); Platelet Count Result 382 k/mm3 (150-375); Red Blood Count 5.32 M/mm3 (4.6-6.20); Red Cell Distribution Width 14.7 % (11.5-14.5)
[2020-02-19 18:13] LABS: Alanine Aminotransferase 19 U/L (4-50); Albumin Level 4.7 g/dL (3.5-5.1); Alkaline Phosphatase 92 U/L (38-126); Anion Gap 8 mmol/L (8-16); Aspartate Amino Transferase 36 U/L (17-59); Bilirubin,Total 0.7 mg/dL (0.2-1.3); Blood Urea Nitrogen 11 mg/dL (9-20); Calcium 11.7 mg/dL (8.4-10.2); Carbon Dioxide 33 mmol/L (22-30); Chloride 99 mmol/L (98-107); Estimated Glomerular Filt Rate > 60; Glucose 123 mg/dL (75-110); Lipase 56 U/L (23-300); Potassium 4.7 mmol/L (3.4-5.0); Sodium 140 mmol/L (137-145)
--- NOTE | 2020-02-19 18:24 | ED.ABDPAIN ---
HPI - Abdominal Pain General Chief Complaint: Abdominal Pain Stated Complaint: abd pain, n/v Source: patient and EMS Mode of arrival: EMS Limitations: no limitations History of Present Illness HPI narrative: Patient presents with history of chronic abdominal pain, flareup 2 days ago, epigastric area, last alcohol drink was 2 days ago. Patient denies any fever, chills, headache, sore throat, trouble breathing, COVID-19 exposure. Related Data Allergies Allergy/AdvReac Type Severity Reaction Status Date / Time No Known Allergies Allergy Verified 02/19/20 17:16 Review of Systems Review of Systems: Narrative: CONSTITUTIONAL: Denies fever, chills, or sweats. EYES: Denies visual changes, redness, or discharge. ENT: Denies rhinorrhea, congestion, sore throat, or otalgia. CARDIOVASCULAR: Denies chest pain, palpitations, or edema. RESPIRATORY: Denies cough or dyspnea. GASTROINTESTINAL: Abdominal pain with nausea GENITOURINARY: Denies dysuria or hematuria. SKIN: Denies rash or itching. MUSCULOSKELETAL: Denies back pain, joint pain, or myalgia. NEUROLOGIC: Denies headache, numbness, or weakness. PSYCHIATRIC: Denies anxiety or depression. 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 H/O inguinal hernia repair Social History Social History Smoking packs per day: 1 Smoking cigarettes per day: 20.0 Years smoked: 20 Smoking pack-years: 20.00 Smoking status: Current some day smoker Tobacco type: cigarettes Additional smoking assessment comments: Smoking exposure Alcohol intake: current Substance use type: marijuana Gender identity (if verbalized by the patient): Male Spiritual care concerns: No Exam Narrative: Exam Narrative: General appearance: Well-developed, well-nourished Skin: Normal color Head: Normocephalic, nontraumatic Eyes: Clear conjunctiva ENT: Oropharynx normal, ears normal, nose normal Neck: Supple, nontender Chest and respiratory: Airway patent, no respiratory distress, no accessory muscle use Heart: Regular rate/rhythm Abdomen: Soft, mild tenderness epigastric area, no organomegaly, quiet bowel sounds Vascular: Normal peripheral pulses, normal capillary refill. Musculoskeletal: Normal range of motion, nontender back Neurologic: Alert and oriented ?3, TRACK GREASER is normal as tested, no gross motor deficit Course Course Emergency Course: Stable Vital Signs Vital signs: Vital Signs Temperature 36.4 C 02/19/20 17:13 Pulse Rate 70 02/19/20 17:13 Respiratory Rate 20 02/19/20 17:13 Blood Pressure 149/88 H 02/19/20 17:13 Pulse Oximetry 98 02/19/20 17:13 Temperature 36.4 C 02/19/20 17:13 Pulse Rate 70 02/19/20 17:13 Respiratory Rate 20 02/19/20 17:13 Blood Pressure 149/88 H 02/19/20 17:13 Pulse Oximetry 98 02/19/20 17:13 MDM - Abdominal Pain MDM Narrative Medical decision making narrative: Pain history of chronic abdominal pain, history of numerous ER visits for the same symptoms. Labs, CT abdomen and pelvis, ordered. Further plan to follow Differential Diagnosis Differential diagnosis: Likely abdominal pain, gastroenteritis and pancreatitis Lab Data Result diagrams: 02/19/20 17:53 02/19/20 17:53 Labs: Lab Results 02/19/20 02/19/20 Range/Units 17:53 17:53
[2020-02-19] MEDS: ONDANSETRON HCL ODT 4 MG TABLET PO (18:27)
[2020-02-19] MEDS: HYDROmorphone HCL INJ (*CRX) 1 MG/ML SYR IM (18:27)
[2020-02-19 18:30] VITALS: BP 146/89; PULSE 75; RESP 18; O2SAT 99
--- NOTE | 2020-02-19 18:32 | PC.NURSE ---
INFORMED PT NEED FOR URINE. STATES UNABLE TO VOID AT THIS TIME. REFUSES STRAIGHT CATH. WILL CONTINUE TO MONITOR
[2020-02-19 18:43] VITALS: BP 146/89; PULSE 72; RESP 18; O2SAT 98
== END 2020-02-19 18:47 | disposition home or self-care (01) ==
PROVIDERS: Emergency Provider Emergency Medicine; PCP Emergency Medicine
DX: R10.10 Upper abdominal pain, unspecified (principal); K21.9 Gastro-esophageal reflux disease without esophagitis; I25.2 Old myocardial infarction; Z89.021 Acquired absence of right finger(s); F17.210 Nicotine dependence, cigarettes, uncomplicated; N20.0 Calculus of kidney
CPT/HCPCS: 36415; 74018; 74176; 80053; 83690; 85025; 96372; 99284; A9270; J1170

== ENCOUNTER 2020-03-02 07:32 | Outpatient (CLI) | payer OTHER, SELFPAY ==
--- NOTE | ~2020-03-02 | US_ITS ---
EXAMINATION: US thyroid DATE: 03/02/2020 08:01 INDICATION: Thyroid nodule. TECHNIQUE: Multiple ultrasound images of the thyroid were obtained. COMPARISON: None. FINDINGS: The right thyroid lobe measures 4.5 x 2.5 x 2.3 cm. The left thyroid lobe measures 4.9 x 2.4 x 2.5 c m. In the right thyroid lobe, there is a 6 mm almost completely cystic nodule (TI-RADS TR1). IMPRESSION: 1. Small thyroid nodule, likely benign. No follow-up is needed. Reviewed, dictated and finalized at location B. ICAL SERVICES ASST
== END 2020-03-02 07:33 | disposition home or self-care (01) ==
PROVIDERS: PCP Emergency Medicine; Visit Provider Emergency Medicine
DX: E83.52 Hypercalcemia (principal)
CPT/HCPCS: 76536

== ENCOUNTER 2020-03-25 15:26 | Emergency (ER) | payer OTHER, SELFPAY ==
--- NOTE | ~2020-03-25 | CT_ITS ---
EXAMINATION: CT abdomen pelvis w con INDICATION: Epigastric abdominal pain TECHNIQUE: Computed tomographic images of the abdomen and pelvis were obtained after the administrati on of 100 cc of Omnipaque 350 intravenous contrast. The dose-length product (DLP) was 196.70 mGy-cm. Automated exposure control and iterative reconstruction technique were employed. COMPARISON: 02/19/2020 FINDINGS: The lung bases are clear. The heart size is normal. There is a small sliding hiatal hernia. The liver, spleen, pancreas, gallbladder, and adrenal glands are normal. Cysts of the kidneys measur e up to 3 mm on the left. There is calcified atherosclerosis of the aorta and many of the other arter ies. No pathologically enlarged abdominal or pelvic lymph nodes are identified. There is no free intr aperitoneal gas or evidence of bowel obstruction. The appendix is normal. There is mild lumbar spondy losis. Apparent diffuse thickening of the bladder wall may be due to incomplete distention, chronic outlet obstruction, or less likely urinary tract infection. IMPRESSION: 1. No CT correlate for the patient's symptoms. Reviewed, dictated and finalized at location A. R BLENDER
[2020-03-25 15:31] VITALS: BP 166/97; PULSE 63; RESP 16; TEMP 36.4; O2SAT 100
[2020-03-25 15:55] LABS: Basophils Percent Auto 0.4 % (0.2-1.2); Eosinophils Percent Auto 0.1 % (0-4.4); Hematocrit 48.7 % (42.0-52.0); Hemoglobin 17.2 g/dL (14.0-18.0); Immature Granulocyte Absolute 0.02 K/mm3 (0.00-0.031); Immature Granulocyte Percent A 0.3 % (0-0.5); Lymphocytes Absolute Auto 2.84 K/mm3 (0.9-3.2); Lymphocytes Percent Auto 37.8 % (18.3-44.2); Mean Corpuscular HGB Conc 35.3 g/dl (32-36); Mean Corpuscular Volume 93.3 fl (80-100); Mean Platelet Volume 8.6 fl (7.4-10.4); Monocytes Absolute Auto 0.9 K/mm3 (0.1-0.6); Monocytes Percent Auto 11.3 % (2.6-8.5); Neutrophils Absolute Auto 3.8 K/mm3 (1.3-6.7); Neutrophils Percent Auto 50.1 % (45.5-73.1); Platelet Count Result 322 k/mm3 (150-375); Red Blood Count 5.22 M/mm3 (4.6-6.20); Red Cell Distribution Width 13.7 % (11.5-14.5); White Blood Count 7.5 K/mm3 (4.5-10.0)
[2020-03-25 16:13] LABS: Alanine Aminotransferase 18 U/L (4-50); Albumin Level 4.5 g/dL (3.5-5.1); Alkaline Phosphatase 85 U/L (38-126); Anion Gap 7 mmol/L (8-16); Aspartate Amino Transferase 38 U/L (17-59); Bilirubin,Total 0.9 mg/dL (0.2-1.3); Blood Urea Nitrogen 9 mg/dL (9-20); Calcium 10.9 mg/dL (8.4-10.2); Carbon Dioxide 27 mmol/L (22-30); Chloride 101 mmol/L (98-107); Estimated CRCL calculation 82 ml/min; Estimated Glomerular Filt Rate > 60; Glucose 109 mg/dL (75-110); Lipase 64 U/L (23-300); Potassium 4.3 mmol/L (3.4-5.0); Sodium 135 mmol/L (137-145)
[2020-03-25] MEDS: SODIUM CHLORIDE 0.9% IV 1,000 ML 999 ML IV CONT (16:38)
[2020-03-25 17:01] LABS: Add Urine Microscopic? YES; Appearance Urine Cloudy (Clear); Bilirubin Urine Negative (Negative); Blood Urine Negative (Negative); Color Urine Yellow (Yellow); Glucose Urine UA 1+ mg/dL (Negative); Ketones Urine Negative (Negative); Leukocyte Esterase Ur Negative LEU/UL (Negative); Mucus Urine Rare /lpf; Nitrate Urine Negative (Negative); Protein Urine 1+ mg/dL (Negative); RBC Urine 0-2 /hpf (0-2); Specific Grav Ur 1.018 (1.001-1.035); Urobilinogen Urine Negative mg/dL (<2.0)
--- NOTE | 2020-03-25 17:35 | ED.ABDPAIN ---
HPI - Abdominal Pain General Chief Complaint: Abdominal Pain Stated Complaint: abd pain Time Seen by Provider: 03/25/20 15:43 Source: patient Limitations: no limitations History of Present Illness HPI narrative: Patient presents with abdominal pain. History of pancreatitis. Had a lot of alcohol yesterday. Patient is known to us with numerous emergency room visits for the same complaint. Patient denies any fever, vomiting, coughing, chest pain, back pain or shortness of breath. Related Data Allergies Allergy/AdvReac Type Severity Reaction Status Date / Time No Known Allergies Allergy Verified 03/25/20 15:37 Review of Systems Review of Systems: Narrative: CONSTITUTIONAL: Denies fever, chills, or sweats. EYES: Denies visual changes, redness, or discharge. ENT: Denies rhinorrhea, congestion, sore throat, or otalgia. CARDIOVASCULAR: Denies chest pain, palpitations, or edema. RESPIRATORY: Denies cough or dyspnea. GASTROINTESTINAL: Denies abdominal pain, nausea, vomiting, or diarrhea. GENITOURINARY: Denies dysuria or hematuria. SKIN: Denies rash or itching. MUSCULOSKELETAL: Denies back pain, joint pain, or myalgia. NEUROLOGIC: Denies headache, numbness, or weakness. PSYCHIATRIC: Denies anxiety or depression. 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 H/O inguinal hernia repair Social History Social History Smoking packs per day: 1 Smoking cigarettes per day: 20.0 Years smoked: 20 Smoking pack-years: 20.00 Smoking status: Current some day smoker Tobacco type: cigarettes Additional smoking assessment comments: Smoking exposure Alcohol intake: current Substance use type: marijuana Gender identity (if verbalized by the patient): Male Spiritual care concerns: No Exam Narrative: Exam Narrative: General appearance: Well-developed, well-nourished, sleepy, Skin: Normal color Head: Normocephalic, nontraumatic Eyes: Clear conjunctiva ENT: Oropharynx normal, ears normal, nose normal Neck: Supple, nontender Chest and respiratory: Airway patent, no respiratory distress, no accessory muscle use Heart: Regular rate/rhythm Abdomen: Soft, mild diffuse abdominal pain , no organomegaly, quiet bowel sounds Vascular: Normal peripheral pulses, normal capillary refill. Musculoskeletal: Normal range of motion, nontender back Neurologic: Alert and oriented ?3, SOCCER COMMENTATOR is normal as tested, no gross motor deficit Course Course Emergency Course: Stable Vital Signs Vital signs: Vital Signs Temperature 36.4 C L 03/25/20 15:31 Pulse Rate 63 03/25/20 15:31 Respiratory Rate 16 03/25/20 15:31 Blood Pressure 166/97 H 03/25/20 15:31 Pulse Oximetry 100 03/25/20 15:31 Temperature 36.4 C L 03/25/20 15:31 Pulse Rate 63 03/25/20 15:31 Respiratory Rate 16 03/25/20 15:31 Blood Pressure 166/97 H 03/25/20 15:31 Pulse Oximetry 100 03/25/20 15:31 MDM - Abdominal Pain MDM Narrative Medical decision making narrative: Patient presents with abdominal pain, history of pancreatitis, last alcohol intake less than 12 hours ago. Labs, CT abdomen pelvis with IV contrast, IV fluids ordered. Further plan to follow Differential Diagnosis Differential diagnosis: Likely abdominal pain, constipation and pancreatitis Lab Data Result diagrams: 0
[2020-03-28 19:50] LABS: Methyl Alcohol Level None Detected (None Detected)
== END 2020-03-25 18:10 | disposition home or self-care (01) ==
PROVIDERS: Emergency Provider Emergency Medicine; PCP Emergency Medicine
DX: R10.84 Generalized abdominal pain (principal); F10.10 Alcohol abuse, uncomplicated; K21.9 Gastro-esophageal reflux disease without esophagitis; I25.2 Old myocardial infarction; Z89.021 Acquired absence of right finger(s); F17.210 Nicotine dependence, cigarettes, uncomplicated
CPT/HCPCS: 36415; 74177; 80053; 81001; 83690; 84600; 85025; 96360; 99284; J7030; Q9967

== ENCOUNTER 2020-07-16 19:47 | Emergency (ER) | payer OTHER, SELFPAY ==
--- NOTE | ~2020-07-16 | CT_ITS ---
EXAMINATION: CT abdomen pelvis w con DATE: 07/16/2020 21:09 INDICATION: Abdominal pain TECHNIQUE: Computed tomography (CT) of the abdomen and pelvis was performed with 100 cc Omnipaque 350 intravenous contrast. The dose-length product was 189.04 mGy-cm. Automated exposure control and iter ative reconstruction technique were employed. COMPARISON: CT dated 03/25/2020 FINDINGS: Lung bases are unremarkable. No significant pleural or pericardial effusion. Heart size nor mal. Mild atherosclerosis without aneurysm. No lymphadenopathy. Small amount of free fluid in the pel vis. There are fluid-filled distended proximal small bowel loops with the distal small bowel being re latively decompressed. No free air. The liver, spleen, pancreas, adrenal glands and kidneys are unremarkable. Gallbladder is present. Normal appendix. IMPRESSION: 1. Fluid-filled distended proximal small bowel loops which may reflect adynamic ileus or partial smal l bowel obstruction. 2: Small amount of ascites in the pelvis, nonspecific. Reviewed, dictated and finalized at location A. IMPRESSION: 1. Fluid-filled distended proximal small bowel loops which may reflect adynamic ileus or partial small bowel obstruction. 2: Small amount of ascites in the pelvis, nonspecific.
[2020-07-16 19:48] VITALS: BP 169/93; PULSE 68; RESP 15; TEMP 36.3; O2SAT 98
[2020-07-16] MEDS: SODIUM CHLORIDE 0.9% IV 1,000 ML 999 ML IV CONT (20:12)
[2020-07-16] MEDS: DICYCLOMINE HCL INJ 20 MG/2 ML VIAL IM (20:12)
[2020-07-16] MEDS: MORPHINE SULFATE (*CRX) 4 MG/ML INJ IV PUSH (20:12)
[2020-07-16] MEDS: ONDANSETRON INJ 4 MG/2 ML VIAL IV PUSH (20:12)
[2020-07-16 20:26] LABS: Basophils Percent Auto 0.3 % (0.2-1.2); Eosinophils Percent Auto 0.1 % (0-4.4); Hematocrit 46.8 % (42.0-52.0); Hemoglobin 16.2 g/dL (14.0-18.0); Immature Granulocyte Absolute 0.01 K/mm3 (0.00-0.031); Immature Granulocyte Percent A 0.1 % (0-0.5); Lymphocytes Absolute Auto 2.64 K/mm3 (0.9-3.2); Lymphocytes Percent Auto 33.8 % (18.3-44.2); Mean Corpuscular HGB Conc 34.6 g/dl (32-36); Mean Corpuscular Volume 92.5 fl (80-100); Mean Platelet Volume 8.6 fl (7.4-10.4); Monocytes Absolute Auto 0.7 K/mm3 (0.1-0.6); Monocytes Percent Auto 9.5 % (2.6-8.5); Neutrophils Absolute Auto 4.4 K/mm3 (1.3-6.7); Neutrophils Percent Auto 56.2 % (45.5-73.1); Platelet Count Result 340 k/mm3 (150-375); Red Blood Count 5.06 M/mm3 (4.6-6.20); Red Cell Distribution Width 14.4 % (11.5-14.5); White Blood Count 7.8 K/mm3 (4.5-10.0)
[2020-07-16 20:42] LABS: Alanine Aminotransferase 14 U/L (4-50); Albumin Level 4.2 g/dL (3.5-5.1); Alkaline Phosphatase 70 U/L (38-126); Anion Gap 7 mmol/L (8-16); Aspartate Amino Transferase 28 U/L (17-59); Bilirubin,Total 0.7 mg/dL (0.2-1.3); Blood Urea Nitrogen 9 mg/dL (9-20); Calcium 10.6 mg/dL (8.4-10.2); Carbon Dioxide 31 mmol/L (22-30); Chloride 98 mmol/L (98-107); Estimated CRCL calculation 65 ml/min; Estimated Glomerular Filt Rate > 60; Glucose 98 mg/dL (75-110); Lipase 55 U/L (23-300); Potassium 3.5 mmol/L (3.4-5.0); Sodium 136 mmol/L (137-145)
--- NOTE | 2020-07-16 21:27 | ED.GENADULT ---
HPI - General Adult General Chief complaint: Abdominal Pain Stated complaint: abdominal pain Time Seen by Provider: 07/16/20 19:57 History of Present Illness HPI narrative: Patient 50-year-old gentleman who presents the emergency department chief complaint of abdominal pain. 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 The patient requested at this time that he has to work tomorrow and states that he does not want to stay in the hospital it was explained the risk and benefits of staying in the hospital the patient still was adamant about going home Vital Signs Vital signs: Vital Signs Temperature 36.3 C L 07/16/20 19:48 Pulse Rate 68 07/16/20 19:48 Respiratory Rate 15 07/16/20 19:48 Blood Pressure 169/93 H 07/16/20 19:48 Pulse Oximetry 98 07/16/20 19:48 Temperature 36.3 C L 07/16/20 19:48 Pulse Rate 68 07/16/20 19:48 Respiratory Rate 15 07/16/20 19:48 Blood Pressure 169/93 H 07/16/20 19:48 Pulse Oximetry 98 07/16/20 19:48 Medical Decision Making Vital Signs Vital Signs: Vital Signs Temperature 36.3 C L 07/16/20 19:48 Pulse Rate 68 07/16/20 19:48 Respiratory Rate 15 07/16/20 19:48 Blood Pressure 169/93 H 07/16/20 19:48 Pulse Oximetry 98 07/16/20 19:48 Temperature 36.3 C L 07/16/20 19:48 Pulse Rate 68 07/16/20 19:48 Respiratory Rate 15 07/16/20 19:48 Blood Pressure 169/93 H 07/16/20 19:48 Pulse Oximetry 98 07/16/20 19:48 Lab Data Result diagrams: 07/16/20 20:16 07/16/20 20:16 Labs: Lab Results 07/16/20 07/16/20 07/16/20 Range/Units 20:16 20:16 22:02 WBC 7.8 (4.5-10.0) K/mm3 RBC 5.06 (4.6-6.20) M/mm3 Hgb 16.2 (14.0-18.0) g/dL Hct 46.8 (42.0-52.0) % MCV 92.5 (80-100) fl MCH 32.0 (26-34) pg MCHC 34.6 (32-36) g/dl RDW 14.4 (11.5-14.5) % Plt Count 340 (150-375) k/mm3 MPV 8.6 (7.4-10.4) fl Immature Gran % (Auto) 0.1 (0-0.5) % Neut % (Auto) 56.2 (45.5-73.1) % Lymph % (Auto) 33.8 (18.3-44.2) % [place] % (Auto) 9.5 H (2.6-8.5) % Eos % (Auto) 0.1 (0-4.4) % Baso % (Auto) 0.3 (0.2-1.2) % Lymph # (Auto) 2.64 (0.9-3.2) K/mm3 [place] # (Auto) 0.7 H (0.1-0.6) K/mm3 Eos # (Auto) 0.0 (0-0.3) K/mm3 Baso # (Auto) 0.0 (0.0-0.1) K/mm3 Abs Immat Gran (auto) 0.01 (0.00-0.031) K/mm3 Absolute Neuts (auto) 4.4 (1.3-6.7) K/mm3 Absolute Nucleated RBC 0.0 (0.0-0.012) K/mm3 Nucleated RBC % 0.0 (0.0-0.2) % Sodium 136 L (137-145) mmol/L Potassium 3.5 (3.4-5.0) mmol/L Chloride 98 (98-107) mmol/L Carbon Dioxide 31 H (22-30) mmol/L Anion Gap 7 L (8-16)
[2020-07-16 22:16] LABS: Add Urine Microscopic? YES; Appearance Urine Cloudy (Clear); Bacteria Urine Trace /hpf; Bilirubin Urine Negative (Negative); Blood Urine Negative (Negative); Color Urine Yellow (Yellow); Glucose Urine UA 1+ mg/dL (Negative); Ketones Urine Trace mg/dL (Negative); Leukocyte Esterase Ur Negative LEU/UL (Negative); Mucus Urine Rare /lpf; Nitrate Urine Negative (Negative); Protein Urine Negative (Negative); RBC Urine 0-2 /hpf (0-2); Urobilinogen Urine Negative mg/dL (<2.0); WBC Urine 0-3 /hpf
[2020-07-16 22:18] LABS: Specific Grav Ur 1.036 (1.001-1.035)
[2020-07-16 22:44] VITALS: BP 171/89; PULSE 70; RESP 18; O2SAT 14
== END 2020-07-16 22:45 | disposition home or self-care (01) ==
PROVIDERS: Emergency Medicine; Emergency Provider Emergency Medicine; PCP Emergency Medicine
DX: K56.600 Partial intestinal obstruction, unspecified as to cause (principal); K21.9 Gastro-esophageal reflux disease without esophagitis; I25.2 Old myocardial infarction; Z89.021 Acquired absence of right finger(s); F17.210 Nicotine dependence, cigarettes, uncomplicated
CPT/HCPCS: 36415; 74177; 80053; 81001; 83690; 85025; 96361; 96372; 96374; 96375; 99284; J0500; J2270; J2405; J7030; Q9967

== ENCOUNTER 2020-07-19 22:49 | Observation (INO) | payer OTHER, SELFPAY ==
--- NOTE | ~2020-07-19 | CT_ITS ---
EXAMINATION: CT abdomen pelvis w con DATE: 07/20/2020 00:43 INDICATION: Abdominal pain. TECHNIQUE: Computed tomography (CT) of the abdomen and pelvis was performed with 100 mL Omnipaque 350 intravenous contrast. Automated exposure control and iterative reconstruction technique were employe d. The dose-length product was 218.08 mGy-cm. COMPARISON: CT abdomen and pelvis 07/16/2020 FINDINGS: The visualized portions of the lung bases demonstrate minimal atelectasis. No pleural effus ion. The heart size is normal. There are coronary artery calcifications. No pericardial effusion. The re is a small sliding hiatal hernia. There is a 4 mm cyst in the liver. The spleen, gallbladder, panc reas, adrenal glands, and left kidney are normal. There are cysts in right kidney measuring up to 4 m m. Stool distends the rectum. Most of the colon is decompressed. There is mild wall thickening of mos t of the colon. The appendix is normal. There are no pathologically enlarged lymph nodes. There is no free intraperitoneal fluid. There is moderate lumbar spondylosis. IMPRESSION: 1. Stool distends the rectum. Mild wall thickening of most of the colon may be secondary to colitis o r decompression. 2. Small sliding hiatal hernia. Reviewed, dictated and finalized at location A. IMPRESSION: 1. Stool distends the rectum. Mild wall thickening of most of the colon may be secondary to colitis or decompression. 2. Small sliding hiatal hernia.
[2020-07-19 22:56] VITALS: BP 162/96; PULSE 70; RESP 18; TEMP 36.4; O2SAT 100
--- NOTE | 2020-07-20 00:09 | ED.ABDPAIN ---
HPI - Abdominal Pain General Chief Complaint: Abdominal Pain Stated Complaint: abd pain- spit up Time Seen by Provider: 07/19/20 23:33 Source: patient Mode of arrival: ambulatory Limitations: no limitations History of Present Illness HPI narrative: Patient is 50 years old white male presents with diffuse abdominal pain for the last few days. Patient signed AMA on July 16 for the same symptoms and CT scan of the abdomen and pelvis at that time showed partial small bowel obstruction. Patient denies any fever, chills, chest pain or shortness of breath. Patient drinks alcohol and uses marijuana. Patient is known to us with numerous ED visits for the same complaint. Patient like to get narcotics when he come to the emergency room. Related Data Allergies Allergy/AdvReac Type Severity Reaction Status Date / Time No Known Allergies Allergy Verified 07/19/20 22:51 Review of Systems Review of Systems: Narrative: CONSTITUTIONAL: Denies fever, chills, or sweats. EYES: Denies visual changes, redness, or discharge. ENT: Denies rhinorrhea, congestion, sore throat, or otalgia. CARDIOVASCULAR: Denies chest pain, palpitations, or edema. RESPIRATORY: Denies cough or dyspnea. GASTROINTESTINAL: Denies abdominal pain, nausea, vomiting, or diarrhea. GENITOURINARY: Denies dysuria or hematuria. SKIN: Denies rash or itching. MUSCULOSKELETAL: Denies back pain, joint pain, or myalgia. NEUROLOGIC: Denies headache, numbness, or weakness. PSYCHIATRIC: Denies anxiety or depression. 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 H/O inguinal hernia repair Social History Social History Smoking packs per day: 1 Smoking cigarettes per day: 20.0 Years smoked: 20 Smoking pack-years: 20.00 Smoking status: Current some day smoker Tobacco type: cigarettes Additional smoking assessment comments: Smoking exposure Alcohol intake: current Substance use type: marijuana Gender identity (if verbalized by the patient): Male Spiritual care concerns: No Exam Narrative: Exam Narrative: General appearance: Well-developed, well-nourished, looks in pain Skin: Normal color Head: Normocephalic, nontraumatic Eyes: Clear conjunctiva ENT: Oropharynx normal, ears normal, nose normal Neck: Supple, nontender Chest and respiratory: Airway patent, no respiratory distress, no accessory muscle use Heart: Regular rate/rhythm Abdomen: Diffuse abdominal tenderness, no guarding or rebound, quiet bowel sounds Vascular: Normal peripheral pulses, normal capillary refill. Musculoskeletal: Normal range of motion, nontender back Neurologic: Alert and oriented ?3, [employer] is normal as tested, no gross motor deficit Course Course Emergency Course: Patient symptoms are improving after receiving Dilaudid. CT scan of the abdomen and pelvis showed colitis, new. Patient will be admitted, gastroenterology consulT Reevaluation(s) Reevaluation #1: Feeling better after Dilaudid IV. Date: 07/20/20 Time: 01:28 Vital Signs Vital signs: Vital Signs Temperature 36.4 C L 07/19/20 22:56 Pulse Rate 70 07/19/20 22:56 Respiratory Rate 18 07/19/20 22:56 Blood Pressure 162/96 H 07/19/20 22:56 Pulse Oximetry 100 07/19/20 22:56 Temperature 36.4 C L 07/19/20 22:56 Pulse Rate 70 07/19/20 22:56 Re
[2020-07-20 00:14] LABS: Basophils Percent Auto 0.3 % (0.2-1.2); Eosinophils Absolute Auto 0.1 K/mm3 (0-0.3); Eosinophils Percent Auto 0.7 % (0-4.4); Hematocrit 45.1 % (42.0-52.0); Hemoglobin 15.8 g/dL (14.0-18.0); Immature Granulocyte Absolute 0.03 K/mm3 (0.00-0.031); Immature Granulocyte Percent A 0.3 % (0-0.5); Lymphocytes Absolute Auto 3.28 K/mm3 (0.9-3.2); Lymphocytes Percent Auto 30.7 % (18.3-44.2); Mean Corpuscular Hemoglobin 32.6 pg (26-34); Mean Platelet Volume 8.9 fl (7.4-10.4); Monocytes Percent Auto 9.7 % (2.6-8.5); Neutrophils Absolute Auto 6.2 K/mm3 (1.3-6.7); Neutrophils Percent Auto 58.3 % (45.5-73.1); Platelet Count Result 373 k/mm3 (150-375); Red Blood Count 4.85 M/mm3 (4.6-6.20); White Blood Count 10.7 K/mm3 (4.5-10.0)
[2020-07-20 00:23] LABS: Add Urine Microscopic? YES; Appearance Urine Cloudy (Clear); Bacteria Urine Trace /hpf; Bilirubin Urine Negative (Negative); Blood Urine Negative (Negative); Color Urine Yellow (Yellow); Glucose Urine UA 1+ mg/dL (Negative); Ketones Urine Negative (Negative); Leukocyte Esterase Ur Negative LEU/UL (Negative); Mucus Urine Rare /lpf; Nitrate Urine Negative (Negative); Protein Urine Negative (Negative); RBC Urine 0-2 /hpf (0-2); Urobilinogen Urine Negative mg/dL (<2.0); WBC Urine 0-3 /hpf
[2020-07-20 00:41] LABS: Alanine Aminotransferase 13 U/L (4-50); Albumin Level 3.9 g/dL (3.5-5.1); Alkaline Phosphatase 63 U/L (38-126); Anion Gap 2 mmol/L (8-16); Aspartate Amino Transferase 39 U/L (17-59); Bilirubin,Total 0.4 mg/dL (0.2-1.3); Blood Urea Nitrogen 7 mg/dL (9-20); Calcium 9.8 mg/dL (8.4-10.2); Carbon Dioxide 34 mmol/L (22-30); Chloride 101 mmol/L (98-107); Estimated CRCL calculation 76 ml/min; Estimated Glomerular Filt Rate > 60; Glucose 106 mg/dL (75-110); Lipase 307 U/L (23-300); Potassium 3.9 mmol/L (3.4-5.0); Sodium 137 mmol/L (137-145)
[2020-07-20] MEDS: SODIUM CHLORIDE 0.9% IV 1,000 ML 999 ML IV CONT (00:41)
[2020-07-20] MEDS: HYDROmorphone HCL INJ (*CRX) 1 MG/ML SYR 0.5 MG IV PUSH (01:43)
[2020-07-20] MEDS: metroNIDAZOLE 500 MG/ISO 100ML 500 MG/100 ML BAG 100 MG IVPB ×2 (01:44→09:47)
[2020-07-20] MEDS: ONDANSETRON INJ 4 MG/2 ML VIAL IV PUSH ×2 (01:44→04:33)
[2020-07-20 02:11] VITALS: BP 148/94; PULSE 94; RESP 16; O2SAT 97
[2020-07-20 04:16] VITALS: BP 157/95; PULSE 86; RESP 20; TEMP 36.2; O2SAT 99; BMI 22.5
--- NOTE | 2020-07-20 04:16 | PC.NURSE ---
This patient, Jak Lee, was admitted to 3 [facility] Surg Room 319-01. Patient/family oriented to hospital policies and general routines including ID bracelet, bed and alarms, visiting hours, pain management, procedures, bathroom and other care routines, personal items, smoking policy, room service/diet, and visiting hours. Information on how to activate the Rapid Response Team has been discussed. Patient/Family are encouraged to report perceived risks to care and to ask questions if they do not understand what they are told or what they should do.
[2020-07-20] MEDS: SODIUM CHLORIDE 0.9% IV 1,000 ML 150 ML IV CONT (04:33)
[2020-07-20 06:00] VITALS: BP 134/92; PULSE 69; RESP 20; TEMP 36.3; O2SAT 100
[2020-07-20 09:38] VITALS: O2SAT 99
--- NOTE | 2020-07-20 11:00 | WPDGICN ---
Assessment and Plan Assessment and plan (1) Abdominal pain: Qualifiers: Abdominal location: generalized Qualified Code(s): R10.84 - Generalized abdominal pain Code(s): R10.9 - Unspecified abdominal pain Status: Acute Assessment and Plan: chronic intermittent abdominal pain, he claims that had EGD recently and prefers to follow up with his regular GI doctor, in fact he is asking to go home now. I offered to do a colonoscopy but he prefers to leave and then see his GI doctor probably could be from ongoing alcohol use, maybe cyclic vomiting (using marijuana), gastritis, etc multiple ER visits with similar complaints Probably he won't need more CT scan a/p unless change in symptoms (already had 7 since 2019) (2) Nausea & vomiting: Qualifiers: Vomiting Intractability: non-intractable Vomiting type: unspecified Qualified Code(s): R11.2 - Nausea with vomiting, unspecified Code(s): R11.2 - Nausea with vomiting, unspecified Status: Acute Assessment and Plan: better, stop drinking etoh ppi daily antiemetics prn avoid marijuana follow up with his GI doctor (3) Cyclic vomiting syndrome: Code(s): R11.15 - Cyclical vomiting syndrome unrelated to migraine Status: Acute Assessment and Plan: probably from marijuana gi follow up (4) GERD (gastroesophageal reflux disease): Code(s): K21.9 - Gastro-esophageal reflux disease without esophagitis Status: Acute Assessment and Plan: ppi (5) Marijuana abuse: Code(s): F12.10 - Cannabis abuse, uncomplicated Status: Acute GI Consult Note Consult date/time: 07/20/20 11:00 Reason for consult: abdominal pain HPI: Jak Lee is a 50 year old male with multiple ER visits (in fact I count at least 7 CT scan abd/pelvis since 2019), he has intermittent abdominal abdominal pain along with nausea and vomiting. He is alcoholic (in the past he was brought here after being drunk), also smokes marijuana. He was in the ER just 4 days ago with similar symptoms and left AMA (per ER notes he will get pain meds and then leave). This time he came again with severe diffuse abdominal pain and nausea. He says that he had several EGD and his GI doctor is DR Banerjee but recently has seen another GI doctor in the area. New CT scan a/p reviewed with mild wall thickening of most of the colon may be secondary to colitis or decompression. Small sliding hiatal hernia. Liver enzymes normal, lipase 300, wbc 10.4 Today he is feeling better and would like to go home. No diarrhea or blood in stools. Never had a colonoscopy Review of Systems Constitutional: Constitutional: Denies chills Eyes: Eyes: Denies blurry vision ENT: Reports Normal hearing present Cardiovascular: Cardiovascular: Denies chest pain Respiratory: Respiratory: Reports no additional respiratory complaints Gastrointestinal: Gastrointestinal: Reports abdominal pain and Reports nausea Genitourinary: Genitourinary: Denies dysuria Musculoskeletal: Musculoskeletal: Denies neck pain Integumentary/Breasts: Skin/Breast: Denies rash Neurologic: Reports system reviewed and no additional complaints, except as documented Psychiatric: Psychiatric: Reports anxiety [facility] Past Medical History Medical History (Updated 07/20/20 @ 13:34 by Yoel Sims MD) Colitis Gastritis GERD (gastroesophageal reflux disease) History of angina Inguinal hernia Marijuana abuse Myocardial infarction Pancreatitis Ulcer Surgical History Surgical History 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
[2020-07-20 11:30] VITALS: BMI 22.5
--- NOTE | 2020-07-20 11:50 | PC.NURSE ---
Pt very frustrated at time I saw him. Pt not happy Dr. Park wanted to do a colonoscopy. He repeatedly stated he wanted his doctor to do his care and that he was unhappy with our facility. He also stated that he didn't want to stay here another night. Pt made PA aware that he wanted to leave AMA. Dr. Park agreeable to this as he had made clear that pt needed to follow up with his GI doctor. IV removed. Belongings returned to pt from safe. AMA form signed.
--- NOTE | 2020-07-20 15:54 | PM.SD2 ---
Same Day Admit/Disch: HPI History of Present Illness Chief complaint: colitis Narrative: Date of admission: 07/20/2020 Date of departure: 07/20/2020 Jak Lee is a 50 year old male with a history colitis, gastritis, and GERD established with gastroenterology, coronary artery disease, tobacco abuse, and daily marijuana use who presented to the emergency department on 07/20/2020 with complaints of diffuse abdominal pain ongoing for several days. He had also been evaluated in the emergency department 4 days prior on 07/16/2020 for the same symptoms and signed out against medical advice at that time with plans to follow-up with his allied health instructor as an outpatient. Upon presentation to the ED on 07/20, his blood pressure was slightly elevated with additional vital signs stable, he had mild leukocytosis at 10.7 H&H stable, platelets within normal limits electrolytes were stable, and lipase was 307. CT abdomen/pelvis showed stool distending the rectum with mild wall thickening of the colon, which could be secondary to colitis or decompression as well as small sliding hiatal hernia. He was admitted to the hospitalist service for further evaluation management and seen in consultation by Gastroenterology. At my initial encounter with the patient, he was very irritable and was adamant about going home. He stated he refused to stay in the hospital. He requested to sign out against medical advice at approximately 11:30 a.m. I spoke with allied health instructor Dr. Park regarding the patient's wishes who is agreeable with this. Dr. Park did evaluate patient and recommended colonoscopy, however the patient wished to have this done by his own allied health instructor. I had a discussion with patient regarding the need for prompt follow-up with his allied health instructor. He plans to call this afternoon and schedule an appointment within the week. 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igarettes Additional smoking assessment comments: Smoking exposure Alcohol intake: current Substance use: current Substance use type: marijuana Gender identity (if verbalized by the patient): Male Spiritual care concerns: No Same Day Admit/Disch: Med Pre-admit Medications Home Medications Medication Instructions Recorded Confirmed Type pantoprazole 40 mg PO HS 28 Days #28 tablet 01/28/20 07/20/20 Rx hydroxyzine pamoate [Vistaril] 50 mg PO QID PRN #30 cap 02/19/20 07/20/20 Rx dicyclomine 20 mg PO QID PRN #20 tablet 07/16/20 07/20/20 Rx ondansetron 4 mg PO Q8H PRN #10 tablet 07/16/20 07/20/20 Rx Exam Narrative: Exam Narrative: I was unable to examine the patient given his urgent request to leave the facility. DS: Data Data Completed and Pending Labs on day of discharge: Labs from last 24 hours 07/19/20 07/19/20 07/19/20 23:56 23:56 23:56 WBC 10.7 H RBC 4.85 Hgb 15.8 Hct 45.1 MCV 93.0 MCH 32.6 MCHC 35.0 RDW 15.0 H Plt Count 373 MPV 8.9 Immature Gran % (Auto) 0.3 Neut % (Auto) 58.3 Lymph % (Auto) 30.7 [place] % (Auto) 9.7 H Eos % (Auto) 0.7 Baso % (Auto) 0.3 Lymph # (Auto) 3.28 H [place] # (Auto) 1.0 H Eos # (Auto) 0.1 Baso # (Auto) 0.0 Abs Immat Gran (auto) 0.03 Absolute Neuts (auto) 6.2 Absolute Nucleated RBC
== END 2020-07-20 11:40 | disposition left against medical advice (07) ==
LOC: ANHED 07-20 01:30 → ANH3MEDSUR 07-20 02:55
PROVIDERS: Admitting Provider Family Medicine; Emergency Provider Emergency Medicine; PCP Emergency Medicine; Visit Provider Physician Assistant
DX: R10.84 Generalized abdominal pain (principal); R11.2 Nausea with vomiting, unspecified; R11.15 Cyclical vomiting syndrome unrelated to migraine; K52.9 Noninfective gastroenteritis and colitis, unspecified; K21.9 Gastro-esophageal reflux disease without esophagitis; F12.10 Cannabis abuse, uncomplicated; F10.20 Alcohol dependence, uncomplicated; F17.210 Nicotine dependence, cigarettes, uncomplicated
CPT/HCPCS: 36415; 74177; 80053; 81001; 83690; 85025; 96361; 96365; 96368; 96375; 99285; G0378; G0379; J0131; J1170; J1956; J2405; J7030; Q9967

== ENCOUNTER 2020-08-03 13:40 | Emergency (ER) | payer OTHER, SELFPAY ==
--- NOTE | ~2020-08-03 | CT_ITS ---
EXAMINATION: CT abdomen pelvis w con EXAM DATE: 08/03/2020 17:53 INDICATION: Abdominal pain, vomiting. TECHNIQUE: Spiral CT of the abdomen and pelvis was performed following intravenous injection of 100 m L Omnipaque 350. Axial, coronal and sagittal images of the abdomen and pelvis were reviewed. The do se-length product (DLP) for this examination was 179.16 mGy-cm. The exposure was tailored according to patient size (auto mA exposure control), and iterative reconstruction (ASIR) was used as additiona l dose reduction technique. Comparison is made to prior examination from 07/20/2020. FINDINGS: The liver, spleen, adrenal glands and pancreas are unremarkable. Gallbladder is unremarkab le. No biliary obstruction. Portal and splenic veins are patent. Kidneys enhance symmetrically. T here is no hydronephrosis. The prostate is unremarkable. The bladder is unremarkable. There is no retroperitoneal or pelvic lymphadenopathy. There is mild to moderate scattered arteriosclerotic di sease. The appendix is normal. There is mild to moderate descending colonic colonic diverticulosis. There i s no adjacent inflammatory change to suggest diverticulitis. Gastric body wall appears thicker than o n previous examination, could be edematous, gastritis or peptic ulcer disease. There is expected mack unt of colonic stool. No free intraperitoneal gas. The heart is normal in size. There are no per icardial or pleural effusions. The lung bases are unremarkable. There are no osteoblastic or osteol ytic lesions identified. IMPRESSION: 1. Possible gastritis or gastric body peptic ulcer disease. 2. Mild to moderate descending colonic diverticulosis. Reviewed, dictated and finalized at location A.
[2020-08-03 13:51] VITALS: BP 158/85; PULSE 56; RESP 20; TEMP 36.3; O2SAT 100
[2020-08-03 14:09] LABS: Hematocrit 46.4 % (42.0-52.0); Hemoglobin 15.8 g/dL (14.0-18.0); Mean Corpuscular HGB Conc 34.1 g/dl (32-36); Mean Corpuscular Hemoglobin 31.2 pg (26-34); Mean Corpuscular Volume 91.5 fl (80-100); Mean Platelet Volume 8.6 fl (7.4-10.4); Platelet Count Result 310 k/mm3 (150-375); Red Blood Count 5.07 M/mm3 (4.6-6.20); Red Cell Distribution Width 15.1 % (11.5-14.5); White Blood Count 3.6 K/mm3 (4.5-10.0)
[2020-08-03 14:22] LABS: Alanine Aminotransferase 23 U/L (4-50); Albumin Level 4.5 g/dL (3.5-5.1); Alkaline Phosphatase 84 U/L (38-126); Anion Gap 8 mmol/L (8-16); Aspartate Amino Transferase 47 U/L (17-59); Bilirubin,Total 0.4 mg/dL (0.2-1.3); Blood Urea Nitrogen 9 mg/dL (9-20); Calcium 10.4 mg/dL (8.4-10.2); Carbon Dioxide 28 mmol/L (22-30); Chloride 104 mmol/L (98-107); Estimated CRCL calculation 71 ml/min; Estimated Glomerular Filt Rate > 60; Glucose 142 mg/dL (75-110); Lipase 59 U/L (23-300); Potassium 3.8 mmol/L (3.4-5.0); Sodium 140 mmol/L (137-145)
[2020-08-03 15:05] LABS: Band Neutrophils Percent 2 % (0-6); Lymphocytes Absolute Manual 1.69 K/mm3 (1.1-4.5); Neutrophils Percent Manual 51 % (46-73); Platelet Estimate Adequate (Adequate); Total Cells Counted 100
[2020-08-03 15:06] LABS: Atypical Lymphocytes Present
--- NOTE | 2020-08-03 17:09 | ED.ABDPAIN ---
HPI - Abdominal Pain General Chief Complaint: Abdominal Pain <ZBIGNIEW Hernandez Last Filed: 08/03/20 20:46> Stated Complaint: abd pain <ZBIGNIEW Hernandez Last Filed: 08/03/20 20:46> Time Seen by Provider: 08/03/20 16:56 <ZBIGNIEW Hernandez Last Filed: 08/03/20 20:46> Source: patient <ZBIGNIEW Hernandez Last Filed: 08/03/20 20:46> Mode of arrival: ambulatory <ZBIGNIEW Hernandez Last Filed: 08/03/20 20:46> Limitations: no limitations <ZBIGNIEW Hernandez Last Filed: 08/03/20 20:46> History of Present Illness HPI narrative: This is a 50-year-old male that presents the emergency department for nausea and vomiting since this morning. Associated with mid abdominal pain. Reports history of GERD. History of multiple ED visits for same. Denies fever, dysuria, hematuria, or diarrhea. <ZBIGNIEW Hernandez Last Filed: 08/03/20 20:46> Related Data Allergies/Adverse Reactions: Allergies Allergy/AdvReac Type Severity Reaction Status Date / Time No Known Allergies Allergy Verified 07/19/20 22:51 <ZBIGNIEW Hernandez Last Filed: 08/03/20 20:46> Review of Systems Review of Systems: Narrative: CONSTITUTIONAL: Denies fever GASTROINTESTINAL: Reports abdominal pain, nausea, vomiting GENITOURINARY: Denies dysuria or hematuria. 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 H/O inguinal hernia repair <ZBIGNIEW Hernandez Last Filed: 08/03/20 20:46> Social History Social History: Social History Smoking packs per day: 1 Smoking cigarettes per day: 20.0 Years smoked: 40 Smoking pack-years: 40.00 Smoking status: Current some day smoker Tobacco type: cigarettes Additional smoking assessment comments: Smoking exposure Alcohol intake: current Substance use: current Substance use type: marijuana Gender identity (if verbalized by the patient): Male Spiritual care concerns: No <ZBIGNIEW Hernandez Last Filed: 08/03/20 20:46> Exam Narrative: Exam Narrative: GENERAL: Well-appearing, thin, and in no acute distress. HEAD: Normocephalic, atraumatic. EYES: EOMI. CHEST: Clear to auscultation. No respiratory distress. No wheezes rales or rhonchi HEART: Regular rate and rhythm. No murmur heard. Normal peripheral pulses. ABDOMEN: Soft, nondistended, normal active bowel sounds. Tender to palpation throughout the abdomen, without guarding. No CVA tenderness EXTREMITIES: Normal range of motion. No edema. SKIN: Warm, dry, no rash. NEURO: No focal deficits. Alert and oriented x3. PSYCH: Normal mood and affect <ZBIGNIEW Hernandez Last Filed: 08/03/20 20:46> Course Vital Signs Vital signs: Vital Signs Temperature 36.3 C L 08/03/20 13:51 Pulse Rate 56 L 08/03/20 13:51 Respiratory Rate 20 08/03/20 13:51 Blood Pressure 158/85 H 08/03/20 13:51 Pulse Oximetry 100 08/03/20 13:51 Temperature 36.3 C L 08/03/20 13:51 Pulse Rate 76 08/03/20 21:00 Respiratory Rate 16 08/03/20 21:00 Blood Pressure 124/76 08/03/20 21:00 Pulse Oximetry 98 08/03/20 21:00 <ZBGINIEW Hernandez Filed: 08/03/20 20:46> Vital Signs Temperature 36.3 C L 08/03/20 13:51 Pulse Rate 56 L 08/03/20 13:51 Respiratory R
[2020-08-03 17:23] LABS: Ethanol < 10 mg/dL (<10)
--- NOTE | 2020-08-03 17:41 | PC.NURSE ---
pt to ct.
--- NOTE | 2020-08-03 17:45 | PC.NURSE ---
Pt. to CT
--- NOTE | 2020-08-03 17:57 | PC.NURSE ---
Assumed care of pt. at this time. Report from Brenda Bullock RN
[2020-08-03] MEDS: PANTOPRAZOLE SODIUM IV 40 MG VIAL IV PUSH (18:19)
[2020-08-03] MEDS: SODIUM CHLORIDE 0.9% IV 1,000 ML 999 ML IV CONT ×2 (18:19→20:13)
[2020-08-03] MEDS: MORPHINE SULFATE (*CRX) 4 MG/ML INJ IV PUSH (18:21)
[2020-08-03] MEDS: ONDANSETRON INJ 4 MG/2 ML VIAL IV PUSH (18:22)
[2020-08-03] MEDS: METOCLOPRAMIDE HCL INJ 10 MG/2 ML VIAL IV PUSH (19:13)
[2020-08-03] MEDS: diphenhydrAMINE HCl INJ 50 MG/ML VIAL 25 MG IV PUSH (19:15)
[2020-08-03 19:17] VITALS: BP 135/85; PULSE 78; RESP 19; O2SAT 96
[2020-08-03 19:29] LABS: Add Urine Microscopic? YES; Appearance Urine Clear (Clear); Bilirubin Urine Negative (Negative); Blood Urine Negative (Negative); Color Urine Yellow (Yellow); Glucose Urine UA 2+ mg/dL (Negative); Ketones Urine 1+ mg/dL (Negative); Leukocyte Esterase Ur Trace LEU/UL (Negative); Mucus Urine Rare /lpf; Nitrate Urine Negative (Negative); Protein Urine 1+ mg/dL (Negative); RBC Urine 0-2 /hpf (0-2); Urobilinogen Urine Negative mg/dL (<2.0); WBC Urine 0-3 /hpf
[2020-08-03 19:33] LABS: Specific Grav Ur 1.056 (1.001-1.035)
[2020-08-03 19:43] LABS: Amphetamine Screen Urine Negative (Negative); Barbiturate Screen Urine Negative (Negative); Benzodiazepines Screen Urine Negative (Negative); Cannabinoid Screen Urine Positive (Negative); Cocaine Screen Urine Negative (Negative); Methadone Screen Urine Negative (Negative); Opiate Screen Urine Positive (Negative); Phencyclidine Screen Urine Negative (Negative)
[2020-08-03 20:15] VITALS: BP 113/72; PULSE 63; RESP 14; O2SAT 96
[2020-08-03 21:00] VITALS: BP 124/76; PULSE 76; RESP 16; O2SAT 98
== END 2020-08-03 21:01 | disposition home or self-care (01) ==
PROVIDERS: Physician Assistant; Emergency Provider Emergency Medicine; PCP Emergency Medicine
DX: K29.70 Gastritis, unspecified, without bleeding (principal); K21.9 Gastro-esophageal reflux disease without esophagitis; I25.2 Old myocardial infarction; Z89.021 Acquired absence of right finger(s); F17.210 Nicotine dependence, cigarettes, uncomplicated; K57.90 Diverticulosis of intestine, part unspecified, without perforation or abscess without bleeding
CPT/HCPCS: 36415; 74177; 80053; 80307; 81001; 83690; 85025; 96361; 96374; 96375; 99284; C9113; J0131; J1200; J2270; J2405; J2765; J7030; Q9967

== ENCOUNTER 2020-08-07 18:08 | Emergency (ER) | payer OTHER, SELFPAY ==
--- NOTE | ~2020-08-07 | XR_ITS ---
EXAMINATION: XR chest 1V portable INDICATION: Cough, nausea and vomiting TECHNIQUE: Portable AP chest at 2120 hours COMPARISON: 10/01/2019 FINDINGS: The lungs are free of acute opacities. There is no pleural effusion or pneumothorax. The ca rdiomediastinal silhouette is normal. The visualized osseous structures are unremarkable. IMPRESSION: 1. No acute cardiopulmonary abnormality. Reviewed, dictated and finalized at location A.
--- NOTE | ~2020-08-07 | CT_ITS ---
EXAMINATION: CT abdomen pelvis w con INDICATION: Nausea and cramping and chills TECHNIQUE: Computed tomographic images of the abdomen and pelvis were obtained after the administrati on of 100 cc of Omnipaque 350 intravenous contrast. The dose-length product (DLP) was 186.15 mGy-cm. Automated exposure control and iterative reconstruction technique were employed. COMPARISON: 08/03/2020 FINDINGS: Minimal dependent atelectasis is present in the lung bases. The heart size is normal. The l iver is diffusely low in attenuation when compared with the spleen, consistent with hepatic steatosis . The spleen, pancreas, gallbladder, and adrenal glands are normal. Hypoattenuating lesions in the ki dneys, measuring up to 4 mm on the right, are too small to characterize but likely represent cysts. T here is calcified atherosclerosis of the aorta and many of the other arteries. No pathologically enla rged abdominal or pelvic lymph nodes are identified. There is no free intraperitoneal gas or evidence of bowel obstruction. The appendix is normal. There is moderate lower lumbar spondylosis. IMPRESSION: 1. No CT correlate for the patient's symptoms. Reviewed, dictated and finalized at location A.
[2020-08-07 18:17] VITALS: BP 165/115; PULSE 67; RESP 17; TEMP 36.4; O2SAT 100
[2020-08-07 18:41] LABS: Basophils Percent Auto 0.3 % (0.2-1.2); Eosinophils Percent Auto 0.1 % (0-4.4); Hematocrit 48.4 % (42.0-52.0); Immature Granulocyte Absolute 0.02 K/mm3 (0.00-0.031); Immature Granulocyte Percent A 0.3 % (0-0.5); Lymphocytes Absolute Auto 3.29 K/mm3 (0.9-3.2); Lymphocytes Percent Auto 47.6 % (18.3-44.2); Mean Corpuscular HGB Conc 35.1 g/dl (32-36); Mean Corpuscular Hemoglobin 31.4 pg (26-34); Mean Corpuscular Volume 89.3 fl (80-100); Mean Platelet Volume 8.9 fl (7.4-10.4); Monocytes Percent Auto 13.7 % (2.6-8.5); Neutrophils Absolute Auto 2.6 K/mm3 (1.3-6.7); Platelet Count Result 328 k/mm3 (150-375); Red Blood Count 5.42 M/mm3 (4.6-6.20); Red Cell Distribution Width 14.6 % (11.5-14.5); White Blood Count 6.9 K/mm3 (4.5-10.0)
[2020-08-07 18:47] LABS: Alanine Aminotransferase 17 U/L (4-50); Albumin Level 4.5 g/dL (3.5-5.1); Alkaline Phosphatase 84 U/L (38-126); Anion Gap 7 mmol/L (8-16); Aspartate Amino Transferase 29 U/L (17-59); Bilirubin,Total 0.8 mg/dL (0.2-1.3); Blood Urea Nitrogen 7 mg/dL (9-20); Calcium 10.9 mg/dL (8.4-10.2); Carbon Dioxide 26 mmol/L (22-30); Chloride 104 mmol/L (98-107); Estimated Glomerular Filt Rate > 60; Glucose 89 mg/dL (75-110); Lipase 62 U/L (23-300); Potassium 3.8 mmol/L (3.4-5.0); Sodium 137 mmol/L (137-145)
[2020-08-07 21:15] VITALS: BP 136/91; PULSE 66; RESP 18; O2SAT 100
[2020-08-07] MEDS: PANTOPRAZOLE SODIUM IV 40 MG VIAL IV PUSH (21:23)
[2020-08-07] MEDS: SODIUM CHLORIDE 0.9% IV 1,000 ML 999 ML IV CONT (21:23)
[2020-08-07] MEDS: diphenhydrAMINE HCl INJ 50 MG/ML VIAL IV PUSH (21:27)
[2020-08-07 21:28] LABS: Add Urine Microscopic? YES; Appearance Urine Cloudy (Clear); Bacteria Urine Trace /hpf; Bilirubin Urine Negative (Negative); Blood Urine Negative (Negative); Color Urine Yellow (Yellow); Glucose Urine UA 1+ mg/dL (Negative); Ketones Urine 1+ mg/dL (Negative); Leukocyte Esterase Ur Negative LEU/UL (Negative); Mucus Urine Heavy /lpf; Nitrate Urine Negative (Negative); Protein Urine 1+ mg/dL (Negative); RBC Urine 0-2 /hpf (0-2); Specific Grav Ur 1.018 (1.001-1.035); Urobilinogen Urine Negative mg/dL (<2.0); WBC Urine 0-3 /hpf
[2020-08-07] MEDS: PROCHLORPERAZINE EDISYLATE 10 MG/2 ML VIAL IV PUSH (21:28)
[2020-08-07] MEDS: DICYCLOMINE HCL INJ 20 MG/2 ML VIAL IM (21:33)
[2020-08-07 22:30] VITALS: BP 138/75; PULSE 54; RESP 18; O2SAT 100
--- NOTE | 2020-08-07 23:12 | PC.NURSE ---
Report to MAURICE Reynoso, to continue care.
--- NOTE | 2020-08-07 23:13 | ED.GENADULT ---
HPI - General Adult General Chief complaint: Nausea/Vomiting/Diarrhea Stated complaint: n/v Time Seen by Provider: 08/07/20 21:00 History of Present Illness HPI narrative: Patient is a 50-year-old gentleman who presents the emergency department with chief complaint of nausea and vomiting and abdominal pain. Patient reports that he has history of chronic abdominal pain is seen in the emergency department multiple times and reports today that he has had nausea and vomiting and not able to keep anything down. The patient states he was recently diagnosed with gastritis and started on Protonix but has not gotten the prescription filled. Patient also reports during this time. He is also developed a runny nose and has had purulent nasal discharge for approximately 2 weeks. The patient states this feels similar to whenever he has had sinusitis before in the past patient also reports he had some chills and body aches with this. Related Data Allergies Allergy/AdvReac Type Severity Reaction Status Date / Time No Known Allergies Allergy Verified 07/19/20 22:51 Review of Systems Review of Systems: Narrative: A 10 system review of systems was completed on the patient and is negative except for what is stated in the HPI. Nursing and ancillary documentation was reviewed. 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 HEAD: Normocephalic, atraumatic. EYES: PERRLA and EOMI. ENT: Nares clear, no rhinorrhea or epistaxis. Mucous membranes moist. NECK: Supple. CHEST: Clear to auscultation. No respiratory distress. HEART: Regular rate and rhythm. No murmur heard. Normal peripheral pulses. ABDOMEN: Soft, nontender, nondistended, normal active bowel sounds. EXTREMITIES: Normal range of motion. No edema. SKIN: Warm, dry, no rash. NEURO: No focal deficits. Alert and oriented x3. PSYCH: Normal mood and affect. Course Course Emergency Course: CT scan laboratory studies were within normal limits. Patient received IV fluids antiemetics and PPI. Patient will be discharged home to follow-up with primary care physician Vital Signs Vital signs: Vital Signs Temperature 36.4 C L 08/07/20 18:17 Pulse Rate 67 08/07/20 18:17 Respiratory Rate 08/07/20 18:17 Blood Pressure 165/115 H 08/07/20 18:17 Pulse Oximetry 100 08/07/20 18:17 Temperature 36.4 C L 08/07/20 18:17 Pulse Rate 67 08/07/20 18:17 Respiratory Rate 17 08/07/20 18:17 Blood Pressure 165/115 H 08/07/20 18:17 Pulse Oximetry 100 08/07/20 18:17 Medical Decision Making Vital Signs Vital Signs: Vital Signs Temperature 36.4 C L 08/07/20 18:17 Pulse Rate 67 08/07/20 18:17 Respiratory Rate 08/07/20 18:17 Blood Pressure 165/115 H 08/07/20 18:17 Pulse Oximetry 100 08/07/20 18:17 Temperature 36.4 C L 08/07/20 18:17 Pulse Rate 67 08/07/20 18:17 Respiratory Rate 08/07/20 18:17 Blood Pressure 165/115 H 08/07/20 18:17 Pulse Oximetr
[2020-08-07 23:57] VITALS: BP 129/96; PULSE 76; RESP 18; O2SAT 100
== END 2020-08-07 23:59 | disposition home or self-care (01) ==
PROVIDERS: General Practice; Emergency Provider Emergency Medicine; PCP Emergency Medicine
DX: J01.90 Acute sinusitis, unspecified (principal); B96.89 Other specified bacterial agents as the cause of diseases classified elsewhere; K29.00 Acute gastritis without bleeding; I25.2 Old myocardial infarction; K21.9 Gastro-esophageal reflux disease without esophagitis; F17.210 Nicotine dependence, cigarettes, uncomplicated; Z89.021 Acquired absence of right finger(s); R10.84 Generalized abdominal pain
CPT/HCPCS: 36415; 71045; 74177; 80053; 81001; 83690; 85025; 96361; 96372; 96374; 96375; 99284; C9113; J0500; J0780; J1200; J7030; Q9967

== ENCOUNTER 2020-08-19 14:47 | Emergency (ER) | payer OTHER, SELFPAY ==
[2020-08-19 14:50] VITALS: BP 164/97; PULSE 65; RESP 16; TEMP 36.6; O2SAT 96
[2020-08-19 15:09] LABS: Basophils Percent Auto 0.3 % (0.2-1.2); Eosinophils Percent Auto 0.2 % (0-4.4); Hematocrit 44.2 % (42.0-52.0); Hemoglobin 15.2 g/dL (14.0-18.0); Immature Granulocyte Absolute 0.02 K/mm3 (0.00-0.031); Immature Granulocyte Percent A 0.3 % (0-0.5); Lymphocytes Absolute Auto 1.89 K/mm3 (0.9-3.2); Mean Corpuscular HGB Conc 34.4 g/dl (32-36); Mean Corpuscular Hemoglobin 31.3 pg (26-34); Mean Corpuscular Volume 90.9 fl (80-100); Mean Platelet Volume 8.6 fl (7.4-10.4); Monocytes Absolute Auto 0.6 K/mm3 (0.1-0.6); Monocytes Percent Auto 8.9 % (2.6-8.5); Neutrophils Absolute Auto 3.8 K/mm3 (1.3-6.7); Neutrophils Percent Auto 60.3 % (45.5-73.1); Platelet Count Result 398 k/mm3 (150-375); Red Blood Count 4.86 M/mm3 (4.6-6.20); White Blood Count 6.3 K/mm3 (4.5-10.0)
[2020-08-19 15:21] LABS: Alanine Aminotransferase 16 U/L (4-50); Albumin Level 4.3 g/dL (3.5-5.1); Alkaline Phosphatase 81 U/L (38-126); Anion Gap 10 mmol/L (8-16); Aspartate Amino Transferase 32 U/L (17-59); Bilirubin,Total 0.6 mg/dL (0.2-1.3); Blood Urea Nitrogen 6 mg/dL (9-20); Calcium 10.4 mg/dL (8.4-10.2); Carbon Dioxide 25 mmol/L (22-30); Chloride 107 mmol/L (98-107); Estimated CRCL calculation 92 ml/min; Estimated Glomerular Filt Rate > 60; Glucose 108 mg/dL (75-110); Lipase 81 U/L (23-300); Potassium 3.6 mmol/L (3.4-5.0); Sodium 142 mmol/L (137-145)
--- NOTE | 2020-08-19 15:55 | ED.GENADULT ---
HPI - General Adult General Chief complaint: Abdominal Pain Stated complaint: ABD PAIN/NAUSEA Time Seen by Provider: 08/19/20 15:06 Source: patient Mode of arrival: ambulatory Limitations: no limitations History of Present Illness HPI narrative: Patient presents for evaluation of abdominal pain with symptom onset this morning. He has been seen in this emergency department multiple times in the past with several CT abdomen pelvis studies performed this year. He has a longstanding history of alcohol abuse and reports drinking several beers yesterday. States the pain is in the epigastric region, described as sharp, rated 10 out of 10 in severity. He has experienced some nausea and vomiting. He also reports clear rhinorrhea and chills without fever. Last bowel movement was in the last day per his reports. He was diagnosed with gastritis in this ER recently and states he takes what sounds to be a PPI at home. He reports marijuana use but denies illicit drug use. No hx of abdominal surgeries. Related Data Allergies Allergy/AdvReac Type Severity Reaction Status Date / Time No Known Allergies Allergy Verified 07/19/20 22:51 Review of Systems Review of Systems: Narrative: CONSTITUTIONAL: Reports chills. Denies fever, or sweats. EYES: Denies visual changes, redness, or discharge. ENT: Reports rhinorrhea. Denies congestion, sore throat, or otalgia. CARDIOVASCULAR: Denies chest pain, palpitations, or edema. RESPIRATORY: Denies cough or dyspnea. GASTROINTESTINAL: Reports abdominal pain, nausea and vomiting. Denies diarrhea. GENITOURINARY: Denies dysuria or hematuria. SKIN: Denies rash or itching. MUSCULOSKELETAL: Denies back pain, joint pain, or myalgia. NEUROLOGIC: Denies headache, numbness, dizziness, or weakness. PSYCHIATRIC: Denies anxiety or depression. 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 Father No problems noted. Social History Social History Smoking packs per day: 1 Smoking cigarettes per day: 20.0 Years smoked: 40 Smoking pack-years: 40.00 Smoking status: Current some day smoker Tobacco type: cigarettes Additional smoking assessment comments: Smoking exposure Alcohol intake: current Substance use: current Substance use type: marijuana Gender identity (if verbalized by the patient): Male Spiritual care concerns: No Exam Narrative: Exam Narrative: GENERAL: Visibly uncomfortable and diaphoretic although nontoxic appearing HEAD: Normocephalic, atraumatic. EYES: PERRLA and EOMI. ENT: Nares clear, no rhinorrhea or epistaxis. Mucous membranes moist. Oropharynx without tonsillar hypertrophy exudate or other lesions. Bilateral TMs pearly ritchie nonbulging NECK: Supple. No adenopathy or masses. No carotid bruits or JVD CHEST: Clear to auscultation. No respiratory distress. No wheezes rales or rhonchi HEART: Regular rate and rhythm. No murmur heard. Normal peripheral pulses. ABDOMEN: Soft with epigastric tenderness but no rebound. Positive guarding EXTREMITIES: Normal range of motion. No edema. SKIN: Warm, dry, no rash. NEURO: No focal deficits. Alert and oriented x3. PSYCH:Anxious Course Course Emergency Course: This is a 50-year-old male with longstanding history of alcohol abuse who presented with complaints of abdominal pain, nausea, vomiting. Labs were benign
[2020-08-19 16:00] VITALS: BP 140/87; PULSE 77; RESP 21
[2020-08-19] MEDS: FAMOTIDINE 20 MG/2 ML VIAL IV PUSH (16:05)
[2020-08-19] MEDS: HALOPERIDOL LACTATE 5 MG/ML VIAL IV PUSH (16:05)
[2020-08-19] MEDS: SODIUM CHLORIDE 0.9% IV 500 ML 999 ML IV CONT (16:05)
[2020-08-19 18:00] VITALS: BP 135/86; PULSE 96; RESP 16; O2SAT 99
== END 2020-08-19 18:00 | disposition home or self-care (01) ==
PROVIDERS: Emergency Medicine; Emergency Provider Nurse Practitioner; PCP Emergency Medicine
DX: K29.20 Alcoholic gastritis without bleeding (principal); F10.10 Alcohol abuse, uncomplicated; K21.9 Gastro-esophageal reflux disease without esophagitis; I25.2 Old myocardial infarction; Z89.021 Acquired absence of right finger(s); F17.210 Nicotine dependence, cigarettes, uncomplicated
CPT/HCPCS: 36415; 80053; 83690; 85025; 96361; 96374; 96375; 99284; J1630; J7040

== ENCOUNTER 2020-08-28 21:19 | Emergency (ER) | payer OTHER, SELFPAY ==
--- NOTE | ~2020-08-28 | CT_ITS ---
EXAMINATION: CT abdomen pelvis w con DATE: 08/28/2020 23:35 INDICATION: Pancreatitis TECHNIQUE: Computed tomography (CT) of the abdomen and pelvis was performed with 100 mL Omnipaque-350 intravenous contrast. Automated exposure control and iterative reconstruction technique were employe d. The dose-length product was 203.46 mGy-cm. COMPARISON: 08/07/2020 FINDINGS: Lung bases are clear. Heart size is normal. Atherosclerotic coronary artery calcification. Small amou nt of fluid potentially related to reflux in the distal esophagus. Liver, gallbladder, spleen, bilate ral adrenal glands and left kidney are normal. A couple subcentimeter low-attenuation likely right re nal cysts which are too small to definitively characterize. Pancreas appears normal with homogeneous enhancement and no evident pancreatic or peripancreatic edema. Bowels including the appendix are norm al. No free intraperitoneal gas or fluid. Bladder is normal. No pathologically enlarged abdominal or pelvic lymphadenopathy. Mild to moderate lumbar spondylosis. IMPRESSION: 1. No acute intra-abdominal/pelvic process. Reviewed, dictated and finalized at location A.
[2020-08-28 21:30] VITALS: BP 144/98; PULSE 78; RESP 18; TEMP 36.2; O2SAT 96
[2020-08-28 21:41] LABS: Basophils Percent Auto 0.2 % (0.2-1.2); Hematocrit 48.2 % (42.0-52.0); Hemoglobin 16.5 g/dL (14.0-18.0); Immature Granulocyte Absolute 0.01 K/mm3 (0.00-0.031); Immature Granulocyte Percent A 0.2 % (0-0.5); Lymphocytes Absolute Auto 1.79 K/mm3 (0.9-3.2); Lymphocytes Percent Auto 31.3 % (18.3-44.2); Mean Corpuscular HGB Conc 34.2 g/dl (32-36); Mean Corpuscular Hemoglobin 31.5 pg (26-34); Mean Corpuscular Volume 92.2 fl (80-100); Mean Platelet Volume 8.4 fl (7.4-10.4); Monocytes Absolute Auto 0.6 K/mm3 (0.1-0.6); Monocytes Percent Auto 9.6 % (2.6-8.5); Neutrophils Absolute Auto 3.4 K/mm3 (1.3-6.7); Neutrophils Percent Auto 58.7 % (45.5-73.1); Platelet Count Result 323 k/mm3 (150-375); Red Blood Count 5.23 M/mm3 (4.6-6.20); Red Cell Distribution Width 14.7 % (11.5-14.5); White Blood Count 5.7 K/mm3 (4.5-10.0)
[2020-08-28 21:50] LABS: Alanine Aminotransferase 16 U/L (4-50); Albumin Level 4.6 g/dL (3.5-5.1); Alkaline Phosphatase 90 U/L (38-126); Anion Gap 12 mmol/L (8-16); Aspartate Amino Transferase 34 U/L (17-59); Blood Urea Nitrogen 7 mg/dL (9-20); Calcium 11.3 mg/dL (8.4-10.2); Carbon Dioxide 25 mmol/L (22-30); Chloride 103 mmol/L (98-107); Estimated CRCL calculation 68 ml/min; Estimated Glomerular Filt Rate > 60; Glucose 107 mg/dL (75-110); Lipase 67 U/L (23-300); Potassium 3.7 mmol/L (3.4-5.0); Sodium 140 mmol/L (137-145)
[2020-08-28 23:00] LABS: Add Urine Microscopic? YES; Appearance Urine Clear (Clear); Bacteria Urine Trace /hpf; Bilirubin Urine Negative (Negative); Blood Urine Negative (Negative); Color Urine Yellow (Yellow); Glucose Urine UA 1+ mg/dL (Negative); Ketones Urine 1+ mg/dL (Negative); Leukocyte Esterase Ur Negative LEU/UL (Negative); Mucus Urine Few /lpf; Nitrate Urine Negative (Negative); Protein Urine 1+ mg/dL (Negative); Specific Grav Ur 1.028 (1.001-1.035); WBC Urine 0-3 /hpf
[2020-08-28] MEDS: SODIUM CHLORIDE 0.9% IV 1,000 ML 999 ML IV CONT (23:17)
[2020-08-28] MEDS: MORPHINE SULFATE (*CRX) 4 MG/ML INJ IV PUSH (23:17)
--- NOTE | 2020-08-29 00:30 | ED.ABDPAIN ---
HPI - Abdominal Pain General Chief Complaint: Abdominal Pain Stated Complaint: abd pain - hx of pancreatitis Time Seen by Provider: 08/28/20 22:50 Source: patient Mode of arrival: EMS Limitations: no limitations History of Present Illness HPI narrative: 50-year-old with history of pancreatitis, gastritis here with upper abdominal pain since Friday. Patient states that he has constant pain. Patient denied any nausea or vomiting. No history of fever or chills. MD elicited complaint: abdominal pain Pain Consistency: constant Location: epigastric Severity: moderate Quality: aching Migration to: no migration Exacerbating factors: nothing Relieving factors: nothing Related Data Allergies Allergy/AdvReac Type Severity Reaction Status Date / Time No Known Allergies Allergy Verified 08/19/20 18:08 Review of Systems Review of Systems: All systems reviewed & are unremarkable except as noted in HPI and below Constitutional: Constitutional: Reports no additional constitutional complaints Eyes: Eyes: Reports no additional eye complaints ENT: Reports system reviewed and no additional complaints, except as documented Cardiovascular: Cardiovascular: Reports no additional cardiovascular complaints Respiratory: Respiratory: Reports no additional respiratory complaints Gastrointestinal: Gastrointestinal: Reports no additional gastrointestinal complaints Musculoskeletal: Musculoskeletal: Reports no additional musculoskeletal complaints Integumentary/Breasts: Skin/Breast: Reports system reviewed and no additional complaints, except as docu PMFSH Past Medical History Medical History Alcohol abuse Colitis Gastritis GERD (gastroesophageal reflux disease) History of angina Inguinal hernia Marijuana abuse Myocardial infarction Pancreatitis Ulcer Surgical History Surgical History 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 Father No problems noted. Social History Social History Smoking packs per day: 1 Smoking cigarettes per day: 20.0 Years smoked: 40 Smoking pack-years: 40.00 Smoking status: Current some day smoker Tobacco type: cigarettes Additional smoking assessment comments: Smoking exposure Alcohol intake: current Substance use: current Substance use type: marijuana Gender identity (if verbalized by the patient): Male Spiritual care concerns: No Exam Narrative: Exam Narrative: GENERAL: Well-appearing, well-nourished, and in no acute distress. HEAD: Normocephalic, atraumatic. EYES: PERRLA and EOMI. ENT: Nares clear, no rhinorrhea or epistaxis. Mucous membranes moist. NECK: Supple. CHEST: Clear to auscultation. No respiratory distress. HEART: Regular rate and rhythm. No murmur heard. Normal peripheral pulses. ABDOMEN: Soft, tender in the upper abdomen, nondistended, normal active bowel sounds. EXTREMITIES: Normal range of motion. No edema. SKIN: Warm, dry, no rash. NEURO: No focal deficits. Alert and oriented x3. PSYCH: Normal mood and affect. Course Course Emergency Course: Patient was comfortably sleeping on the bed with no discomfort I had to wake him up several times to tell him about his lab work, CT findings. I advised him to continue his home medication. Follow-up with his primary doctor. Vital Signs Vital signs: Vital Signs Temperature 36.2 C L 08/28/20 21:30 Pulse Rate 78 08/28/20 21:30 Respiratory Rate 18 08/28/20 21:30 Blood Pressure 144/98 H 08/28/20 21:30 Pulse Oximetry 96 08/28/20 21:30 Temperature 36.2 C L 08/28/20 21:30 Pulse Rate 78 08/28/20 21:30 Respiratory Rate 18 08/28/20
[2020-08-29 00:44] VITALS: BP 148/89; PULSE 84; RESP 16; TEMP 36.3; O2SAT 98
== END 2020-08-29 00:45 | disposition home or self-care (01) ==
PROVIDERS: Emergency Provider Family Medicine; PCP Emergency Medicine
DX: K29.70 Gastritis, unspecified, without bleeding (principal); K21.9 Gastro-esophageal reflux disease without esophagitis; I25.2 Old myocardial infarction; Z89.021 Acquired absence of right finger(s); F17.210 Nicotine dependence, cigarettes, uncomplicated
CPT/HCPCS: 36415; 74177; 80053; 81001; 83690; 85025; 96361; 96374; 99284; J2270; J7030; Q9967

== ENCOUNTER 2020-09-04 01:48 | Emergency (ER) | payer OTHER, SELFPAY ==
[2020-09-04] VITALS (24 sets, daily range): BP systolic 130–159; BP diastolic 80–102; PULSE 63–94; RESP 14–23; TEMP 36.5–36.7; O2SAT 95–100
--- NOTE | ~2020-09-04 | CT_ITS ---
EXAMINATION: CT abdomen pelvis w con DATE: 09/04/2020 02:29 INDICATION: Abdominal pain. History of pancreatitis. TECHNIQUE: Computed tomography (CT) of the abdomen and pelvis was performed with 100 cc Omnipaque 350 intravenous contrast. The dose-length product was 196.30 mGy-cm. Automated exposure control and iter ative reconstruction technique were employed. COMPARISON: CT dated 08/28/2020. FINDINGS: Lung bases are unremarkable. No significant pleural or pericardial effusion. There is mild atherosclerosis of the aorta without aneurysm. No lymphadenopathy. Small hiatal hernia. No bowel obst ruction. There is mild thickening of the ascending, transverse and descending colon. Diverticular noted withou t evidence for diverticulitis. No free air or free fluid. The liver, spleen, pancreas, adrenal glands and kidneys are unremarkable. Gallbladder is present. Nor mal appendix. Mild lumbar spondylosis. IMPRESSION: 1. Mild diffuse thickening of the colon, suspicious for colitis, most likely infectious or inflammato ry. Reviewed, dictated and finalized at location A. IMPRESSION: 1. Mild diffuse thickening of the colon, suspicious for colitis, most likely in fectious or inflammatory.
--- NOTE | 2020-09-04 01:53 | ECG_ITS ---
Measurements Intervals [place] Rate: 72 P: 75 [place]: 145 QRS: -78 QRSD: 100 T: 63 QT: 371 QTc: 408 Interpretive Statements SINUS RHYTHM WITH SINUS ARRHYTHMIA INCOMPLETE RIGHT BUNDLE BRANCH BLOCK LEFT ANTERIOR FASCICULAR BLOCK PEAKED T WAVES- CONSIDER HYPERKALEMIA OR ISCHEMIA BASELINE ARTIFACT- I, III, V1-V2 ABNORMAL ECG Electronically Signed On 09-04-2020 5:55:40 CDT by Marc Fry D.O.
[2020-09-04] MEDS: ONDANSETRON INJ 4 MG/2 ML VIAL IV PUSH (02:06)
[2020-09-04] MEDS: FAMOTIDINE 20 MG/2 ML VIAL IV PUSH (02:06)
[2020-09-04] MEDS: SODIUM CHLORIDE 0.9% IV 1,000 ML 999 ML IV CONT ×3 (02:06→04:30)
[2020-09-04] MEDS: MORPHINE SULFATE (*CRX) 4 MG/ML INJ IV PUSH (02:06)
[2020-09-04 02:13] LABS: Basophils Percent Auto 0.5 % (0.2-1.2); Eosinophils Percent Auto 0.2 % (0-4.4); Hematocrit 44.6 % (42.0-52.0); Hemoglobin 15.5 g/dL (14.0-18.0); Immature Granulocyte Absolute 0.01 K/mm3 (0.00-0.031); Immature Granulocyte Percent A 0.2 % (0-0.5); Lymphocytes Absolute Auto 2.08 K/mm3 (0.9-3.2); Lymphocytes Percent Auto 33.2 % (18.3-44.2); Mean Corpuscular HGB Conc 34.8 g/dl (32-36); Mean Platelet Volume 8.6 fl (7.4-10.4); Monocytes Absolute Auto 0.5 K/mm3 (0.1-0.6); Monocytes Percent Auto 8.1 % (2.6-8.5); Neutrophils Absolute Auto 3.6 K/mm3 (1.3-6.7); Neutrophils Percent Auto 57.8 % (45.5-73.1); Platelet Count Result 339 k/mm3 (150-375); Red Blood Count 4.85 M/mm3 (4.6-6.20); Red Cell Distribution Width 15.5 % (11.5-14.5); White Blood Count 6.3 K/mm3 (4.5-10.0)
[2020-09-04 02:22] LABS: Alanine Aminotransferase 17 U/L (4-50); Albumin Level 4.5 g/dL (3.5-5.1); Alkaline Phosphatase 76 U/L (38-126); Anion Gap 17 mmol/L (8-16); Aspartate Amino Transferase 38 U/L (17-59); Bilirubin,Total 0.6 mg/dL (0.2-1.3); Blood Urea Nitrogen 8 mg/dL (9-20); Calcium 10.8 mg/dL (8.4-10.2); Carbon Dioxide 20 mmol/L (22-30); Chloride 103 mmol/L (98-107); Estimated CRCL calculation 80 ml/min; Estimated Glomerular Filt Rate > 60; Glucose 87 mg/dL (75-110); Lipase 75 U/L (23-300); Potassium 3.8 mmol/L (3.4-5.0); Sodium 140 mmol/L (137-145)
[2020-09-04 02:26] LABS: Lactic Acid Reflex 5.7 mmol/L (0.7-2.1)
[2020-09-04 02:34] LABS: Troponin I < 0.012 ng/mL (0.000-0.034)
[2020-09-04 02:45] LABS: Ethanol 38 mg/dL (<10)
--- NOTE | 2020-09-04 03:08 | PC.NURSE ---
Patient aware of need for urine specimen, patient unable to provide a specimen at this time. Patient a/o x3, refusing straight cath.
[2020-09-04] MEDS: LORazepam INJ (*CRX) 2 MG/ML VIAL 1 MG IV PUSH (03:30)
[2020-09-04 03:35] LABS: Add Urine Microscopic? YES; Appearance Urine Clear (Clear); Bilirubin Urine Negative (Negative); Blood Urine Negative (Negative); Color Urine Straw (Yellow); Glucose Urine UA 1+ mg/dL (Negative); Ketones Urine Negative (Negative); Leukocyte Esterase Ur Negative LEU/UL (Negative); Mucus Urine Rare /lpf; Nitrate Urine Negative (Negative); Protein Urine Negative (Negative); RBC Urine 0-2 /hpf (0-2); Urobilinogen Urine Negative mg/dL (<2.0); WBC Urine 0-3 /hpf
[2020-09-04 03:40] LABS: Specific Grav Ur 1.042 (1.001-1.035)
[2020-09-04 03:58] LABS: Beta-Hydroxybutyrate/Acetoacetate 0.18 mmol/L (0.02-0.27)
--- NOTE | 2020-09-04 04:07 | ED.GENADULT ---
HPI - General Adult General Chief complaint: Abdominal Pain Stated complaint: abd pain/ n/v Time Seen by Provider: 09/04/20 01:53 History of Present Illness HPI narrative: Patient 50-year-old gentleman who presents the emergency department chief complaint of epigastric pain. Patient reports that he has history of chronic alcohol abuse and reports that he has been nauseated and vomiting has been having epigastric discomfort. The patient states that she feels similar to whenever he has had pancreatitis before in the past. Patient has been seen multiple times in the emergency department for gastritis patient currently states that he did drink today but drank less than normal. Patient states that he has had chills but no fevers. Patient denies diarrhea reports that he is having bowel movements Related Data Allergies Allergy/AdvReac Type Severity Reaction Status Date / Time No Known Allergies Allergy Verified 09/04/20 01:59 Review of Systems Review of Systems: Narrative: A 10 system review of systems was completed on the patient and is negative except for what is stated in the HPI. Nursing and ancillary documentation was reviewed. 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 Father No problems noted. Social History Social History Smoking packs per day: 1 Smoking cigarettes per day: 20.0 Years smoked: 40 Smoking pack-years: 40.00 Smoking status: Current some day smoker Tobacco type: cigarettes Additional smoking assessment comments: Smoking exposure Alcohol intake: current Substance use: current Substance use type: marijuana Gender identity (if verbalized by the patient): Male Spiritual care concerns: No Exam Narrative: Exam Narrative: GENERAL: Well-appearing, well-nourished, and in no acute distress. HEAD: Normocephalic, atraumatic. EYES: PERRLA and EOMI. ENT: Nares clear, no rhinorrhea or epistaxis. Mucous membranes moist. NECK: Supple. CHEST: Clear to auscultation. No respiratory distress. HEART: Regular rate and rhythm. No murmur heard. Normal peripheral pulses. ABDOMEN: Soft, tenderness to palpation in the epigastric region, nondistended, normal active bowel sounds. EXTREMITIES: Normal range of motion. No edema. SKIN: Warm, dry, no rash. NEURO: No focal deficits. Alert and oriented x3. PSYCH: Normal mood and affect. Course Course Emergency Course: Patient received pain medications antiemetics fluid resuscitation was started patient did have an initial elevated lactate but hydroxybutyrate was negative his EtOH was 38. CT scan of the abdomen pelvis showed no evidence of acute pancreatitis was some questioning as to whether there was some enterocolitis no evidence of diverticulitis no free fluid no evidence of appendicitis. Vital Signs Vital signs: Vital Signs Temperature 36.5 C 09/04/20 01:49 Pulse Rate 70 09/04/20 01:49 Respiratory Rate 23 H 09/04/20 01:49 Blood Pressure 152/102 H 09/04/20 01:49 Pulse Oximetry 100 09/04/20 01:49 Temperature 36.5 C 09/04/20 01:49 Pulse Rate 71 09/04/20 05:15 Respiratory Rate 17 09/04/20 05:15 Blood Pressure 153/82 H 09/04/20 05:15 Pulse Oximetry 97 09/04/20 05:15 Medical Decision Making Vital Signs Vital Signs: Vital Signs Temperature 36.5 C 09/04/20 01:49 Pulse Rate 70 0
[2020-09-04 04:14] LABS: Lactic Acid Reflex 3.5 mmol/L (0.7-2.1)
[2020-09-04 05:10] LABS: Reflex Lactic Acid Yes or No Add Lactic
--- NOTE | 2020-09-04 05:26 | PC.NURSE ---
Patient stood at the bedside and urinated into a urinal. Patient was steady on his feet. Patient then given water for PO challenge.
--- NOTE | 2020-09-04 05:50 | PC.NURSE ---
Patient able to keep a half glass of water down, tolerating PO challenge well.
== END 2020-09-04 06:30 | disposition home or self-care (01) ==
PROVIDERS: Emergency Provider Emergency Medicine; PCP Emergency Medicine
DX: R10.13 Epigastric pain (principal); K29.00 Acute gastritis without bleeding; K21.9 Gastro-esophageal reflux disease without esophagitis; I25.2 Old myocardial infarction; Z89.021 Acquired absence of right finger(s); F17.210 Nicotine dependence, cigarettes, uncomplicated
CPT/HCPCS: 36415; 74177; 80053; 80307; 81001; 82010; 83605; 83690; 84484; 85025; 93005; 96361; 96374; 96375; 99284; J2060; J2270; J2405; J7030; Q9967

== ENCOUNTER 2020-09-09 10:58 | Emergency (ER) | payer OTHER, SELFPAY ==
[2020-09-09 11:10] VITALS: BP 188/113; PULSE 60; RESP 14; TEMP 36.7; O2SAT 99
[2020-09-09 11:38] LABS: Basophils Percent Auto 0.4 % (0.2-1.2); Eosinophils Percent Auto 0.3 % (0-4.4); Hematocrit 44.2 % (42.0-52.0); Hemoglobin 15.1 g/dL (14.0-18.0); Immature Granulocyte Absolute 0.02 K/mm3 (0.00-0.031); Immature Granulocyte Percent A 0.3 % (0-0.5); Lymphocytes Absolute Auto 2.25 K/mm3 (0.9-3.2); Lymphocytes Percent Auto 28.2 % (18.3-44.2); Mean Corpuscular HGB Conc 34.2 g/dl (32-36); Mean Corpuscular Hemoglobin 31.6 pg (26-34); Mean Corpuscular Volume 92.5 fl (80-100); Mean Platelet Volume 9.3 fl (7.4-10.4); Monocytes Absolute Auto 0.9 K/mm3 (0.1-0.6); Monocytes Percent Auto 11.3 % (2.6-8.5); Neutrophils Absolute Auto 4.8 K/mm3 (1.3-6.7); Neutrophils Percent Auto 59.5 % (45.5-73.1); Platelet Count Result 342 k/mm3 (150-375); Red Blood Count 4.78 M/mm3 (4.6-6.20); Red Cell Distribution Width 15.5 % (11.5-14.5)
[2020-09-09 11:49] LABS: Alanine Aminotransferase 14 U/L (4-50); Albumin Level 4.4 g/dL (3.5-5.1); Alkaline Phosphatase 73 U/L (38-126); Anion Gap 7 mmol/L (8-16); Aspartate Amino Transferase 31 U/L (17-59); Bilirubin,Total 0.7 mg/dL (0.2-1.3); Blood Urea Nitrogen 13 mg/dL (9-20); Calcium 11.1 mg/dL (8.4-10.2); Carbon Dioxide 29 mmol/L (22-30); Chloride 105 mmol/L (98-107); Estimated CRCL calculation 79 ml/min; Estimated Glomerular Filt Rate > 60; Glucose 131 mg/dL (75-110); Lipase 103 U/L (23-300); Potassium 4.1 mmol/L (3.4-5.0); Sodium 141 mmol/L (137-145)
--- NOTE | 2020-09-09 11:53 | ED.GENADULT ---
HPI - General Adult General Chief complaint: Abdominal Pain Stated complaint: abd pain Time Seen by Provider: 09/09/20 11:00 Source: patient Mode of arrival: ambulatory Limitations: no limitations History of Present Illness HPI narrative: Pt presents for evaluation and treatment of abdominal pain. Symptom onset this morning. He states pain is constant, without descriptive quality or numerical rating. He states he has a hx of pancreatitis and gastritis. He states current symptoms are consistent with symptoms experienced with gastritis in the past. No fever, but he does endorse chills, nausea and vomiting. Bowel pattern is unchanged and last BM was within the last 24 hrs. He does drink ETOH regularly. His last drink was yesterday and he states he only had one beer at that time. Pt has had several CT abd/pelvis studies performed in recent past. Related Data Allergies Allergy/AdvReac Type Severity Reaction Status Date / Time No Known Allergies Allergy Verified 09/04/20 01:59 Review of Systems Review of Systems: Narrative: CONSTITUTIONAL: Reports chills. Denies fever, or sweats. EYES: Denies visual changes, redness, or discharge. ENT: Denies rhinorrhea, congestion, sore throat, or otalgia. CARDIOVASCULAR: Denies chest pain, palpitations, or edema. RESPIRATORY: Denies cough or dyspnea. GASTROINTESTINAL: Reports abdominal pain, nausea, vomiting GENITOURINARY: Denies dysuria or hematuria. SKIN: Denies rash or itching. MUSCULOSKELETAL: Denies back pain, joint pain, or myalgia. NEUROLOGIC: Denies headache, numbness, dizziness, or weakness. PSYCHIATRIC: Denies anxiety or depression. 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 Father No problems noted. Social History Social History Smoking packs per day: 1 Smoking cigarettes per day: 20.0 Years smoked: 40 Smoking pack-years: 40.00 Smoking status: Current some day smoker Tobacco type: cigarettes Additional smoking assessment comments: Smoking exposure Alcohol intake: current Substance use: current Substance use type: marijuana Gender identity (if verbalized by the patient): Male Spiritual care concerns: No Exam Narrative: Exam Narrative: GENERAL: Well-appearing, well-nourished, and in no acute distress. HEAD: Normocephalic, atraumatic. EYES: PERRLA and EOMI. ENT: Nares clear, no rhinorrhea or epistaxis. Mucous membranes moist. Oropharynx without tonsillar hypertrophy exudate or other lesions. Bilateral TMs pearly ritchie nonbulging NECK: Supple. No adenopathy or masses. No carotid bruits or JVD CHEST: Clear to auscultation. No respiratory distress. No wheezes rales or rhonchi HEART: Regular rate and rhythm. No murmur heard. Normal peripheral pulses. ABDOMEN: Soft, epigastric tenderness without rebound or guarding, nondistended, normal active bowel sounds. EXTREMITIES: Normal range of motion. No edema. SKIN: Warm, dry, no rash. NEURO: No focal deficits. Alert and oriented x3. PSYCH: Anxious Course Course Emergency Course: This is a 50-year-old male that has been seen in this ER multiple times for abdominal pain. Labs were obtained and fairly benign. He has had multiple imaging studies recently that were negative. Symptoms seem to be related to alcohol intake. He was hydrated emergency department and given GI cocktail a
[2020-09-09] MEDS: FAMOTIDINE 20 MG/2 ML VIAL IV PUSH (11:55)
[2020-09-09] MEDS: SODIUM CHLORIDE 0.9% IV 1,000 ML 999 ML IV CONT (11:55)
[2020-09-09] MEDS: HALOPERIDOL LACTATE 5 MG/ML VIAL IV PUSH (11:55)
[2020-09-09 12:09] LABS: Add Urine Microscopic? YES; Appearance Urine Cloudy (Clear); Bacteria Urine Trace /hpf; Bilirubin Urine Negative (Negative); Blood Urine Negative (Negative); Budding Yeast Urine Present /hpf; Color Urine Yellow (Yellow); Glucose Urine UA 1+ mg/dL (Negative); Ketones Urine Negative (Negative); Leukocyte Esterase Ur Negative LEU/UL (Negative); Mucus Urine Rare /lpf; Nitrate Urine Negative (Negative); Protein Urine 1+ mg/dL (Negative); Specific Grav Ur 1.017 (1.001-1.035); Urobilinogen Urine Negative mg/dL (<2.0); WBC Urine 16-20 /hpf
[2020-09-09] MEDS: BELLADONNA ALK/PHENOB ELIX 10 ML, MAG HYDROX/ALUMINUM HYD/SIMETH 30 ML, LIDOCAINE HCL 2... PO (12:42)
[2020-09-09] MEDS: diazePAM INJ (*CRX) 10 MG/2 ML SYRINGE 5 MG IV PUSH (13:57)
[2020-09-09 14:42] VITALS: BP 141/85; PULSE 77; RESP 12; O2SAT 98
== END 2020-09-09 14:57 | disposition home or self-care (01) ==
PROVIDERS: Emergency Provider Nurse Practitioner; PCP Emergency Medicine
DX: K29.20 Alcoholic gastritis without bleeding (principal); K21.9 Gastro-esophageal reflux disease without esophagitis; I25.2 Old myocardial infarction; Z89.021 Acquired absence of right finger(s); F17.210 Nicotine dependence, cigarettes, uncomplicated; F10.10 Alcohol abuse, uncomplicated
CPT/HCPCS: 36415; 80053; 81001; 83690; 85025; 87086; 87088; 96361; 96374; 96375; 99284; A9270; J1630; J3360; J7030

== ENCOUNTER 2020-09-13 19:00 | Emergency (ER) | payer OTHER, SELFPAY ==
[2020-09-13 18:59] VITALS: BP 163/103; PULSE 81; RESP 16; TEMP 35.9; O2SAT 97
[2020-09-13 19:28] LABS: Basophils Percent Auto 0.6 % (0.2-1.2); Hematocrit 44.2 % (42.0-52.0); Immature Granulocyte Absolute 0.01 K/mm3 (0.00-0.031); Immature Granulocyte Percent A 0.2 % (0-0.5); Lymphocytes Absolute Auto 1.55 K/mm3 (0.9-3.2); Lymphocytes Percent Auto 24.2 % (18.3-44.2); Mean Corpuscular HGB Conc 36.2 g/dl (32-36); Mean Corpuscular Hemoglobin 32.6 pg (26-34); Mean Platelet Volume 8.5 fl (7.4-10.4); Monocytes Absolute Auto 0.5 K/mm3 (0.1-0.6); Neutrophils Absolute Auto 4.4 K/mm3 (1.3-6.7); Platelet Count Result 316 k/mm3 (150-375); Red Blood Count 4.91 M/mm3 (4.6-6.20); Red Cell Distribution Width 15.3 % (11.5-14.5); White Blood Count 6.4 K/mm3 (4.5-10.0)
[2020-09-13 19:33] LABS: Add Urine Microscopic? YES; Amorphous Sediment Urine Few; Appearance Urine Cloudy (Clear); Bilirubin Urine Negative (Negative); Blood Urine Negative (Negative); Color Urine Yellow (Yellow); Glucose Urine UA 1+ mg/dL (Negative); Ketones Urine Trace mg/dL (Negative); Leukocyte Esterase Ur Negative LEU/UL (Negative); Mucus Urine Rare /lpf; Nitrate Urine Negative (Negative); Protein Urine 1+ mg/dL (Negative); Specific Grav Ur 1.017 (1.001-1.035); Squamous Epithelial Cell Urine Rare /hpf (Few); Urobilinogen Urine Negative mg/dL (<2.0)
[2020-09-13 19:38] LABS: Alanine Aminotransferase 14 U/L (4-50); Albumin Level 4.6 g/dL (3.5-5.1); Alkaline Phosphatase 83 U/L (38-126); Anion Gap 8 mmol/L (8-16); Aspartate Amino Transferase 27 U/L (17-59); Bilirubin,Total 0.8 mg/dL (0.2-1.3); Blood Urea Nitrogen 7 mg/dL (9-20); Calcium 11.1 mg/dL (8.4-10.2); Carbon Dioxide 26 mmol/L (22-30); Chloride 103 mmol/L (98-107); Estimated Glomerular Filt Rate > 60; Glucose 105 mg/dL (75-110); Lipase 61 U/L (23-300); Sodium 137 mmol/L (137-145)
[2020-09-13] MEDS: FAMOTIDINE 20 MG TABLET PO (20:07)
[2020-09-13] MEDS: DICYCLOMINE HCL INJ 20 MG/2 ML VIAL IM (20:08)
--- NOTE | 2020-09-13 20:16 | ED.ABDPAIN ---
HPI - Abdominal Pain General Chief Complaint: Abdominal Pain Stated Complaint: abd pain Time Seen by Provider: 09/13/20 19:10 Source: patient Mode of arrival: EMS Limitations: no limitations History of Present Illness HPI narrative: 50-year-old with a history of pancreatitis and alcoholic gastritis here with complaints of abdominal pain since last few days. Patient was seen for the same in the last week multiple times. He states that he had only 1 single beer yesterday none this morning. He denies any nausea or vomiting. No change in bowel habits. Patient covers himself after answering each question. No history of fever or chills. MD elicited complaint: abdominal pain Pertinent past history: none Onset (ago): day(s) (1) Pain Consistency: constant Location: epigastric Severity: moderate Quality: aching Radiation: none Migration to: no migration Exacerbating factors: nothing Relieving factors: nothing Context: confirms other (Alcohol use) Associated symptoms: denies other symptoms Related Data Allergies Allergy/AdvReac Type Severity Reaction Status Date / Time No Known Allergies Allergy Verified 09/13/20 19:06 Review of Systems Review of Systems: All systems reviewed & are unremarkable except as noted in HPI and below Constitutional: Constitutional: Reports no additional constitutional complaints Eyes: Eyes: Reports no additional eye complaints ENT: Reports system reviewed and no additional complaints, except as documented Cardiovascular: Cardiovascular: Reports no additional cardiovascular complaints Respiratory: Respiratory: Reports no additional respiratory complaints Gastrointestinal: Gastrointestinal: Reports as per HPI Musculoskeletal: Musculoskeletal: Reports no additional musculoskeletal complaints Integumentary/Breasts: Skin/Breast: Reports system reviewed and no additional complaints, except as docu Neurologic: Reports system reviewed and no additional complaints, except as documented PMFSH Past Medical History Medical History Alcohol abuse Colitis Gastritis GERD (gastroesophageal reflux disease) History of angina Inguinal hernia Marijuana abuse Myocardial infarction Pancreatitis Ulcer Surgical History Surgical History 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 Father No problems noted. Social History Social History Smoking packs per day: 1 Smoking cigarettes per day: 20.0 Years smoked: 40 Smoking pack-years: 40.00 Smoking status: Current some day smoker Tobacco type: cigarettes Additional smoking assessment comments: Smoking exposure Alcohol intake: current Substance use: current Substance use type: marijuana Gender identity (if verbalized by the patient): Male Spiritual care concerns: No Exam Narrative: Exam Narrative: GENERAL: Well-appearing, well-nourished, and in no acute distress. Covered himself with all the covers from head to toe HEAD: Normocephalic, atraumatic. EYES: PERRLA and EOMI.. NECK: Supple. CHEST: Clear to auscultation. No respiratory distress. HEART: Regular rate and rhythm. No murmur heard. Normal peripheral pulses. ABDOMEN: Soft, tender in the upper abd, nondistended, normal active bowel sounds. EXTREMITIES: Normal range of motion. No edema. SKIN: Warm, dry, no rash. NEURO: No focal deficits. Alert and oriented x3. PSYCH: Normal mood and affect. Course Course Emergency Course: Informed him about the lab work. Patient declined GI cocktail. I have told him that we will not be able to give narcotics. Vital Signs Vital signs: Vital Signs Temperature 35.9 C L 09/13
== END 2020-09-13 20:32 | disposition home or self-care (01) ==
PROVIDERS: Emergency Medicine; Emergency Provider Family Medicine; PCP Emergency Medicine
DX: K29.20 Alcoholic gastritis without bleeding (principal); F17.210 Nicotine dependence, cigarettes, uncomplicated
CPT/HCPCS: 36415; 80053; 81001; 83690; 85025; 96372; 99283; A9270; J0500

== ENCOUNTER 2020-10-15 23:08 | Emergency (ER) | payer OTHER, SELFPAY ==
[2020-10-15 23:19] VITALS: BP 153/103; PULSE 72; RESP 18; TEMP 36.7; O2SAT 100
--- NOTE | 2020-10-16 00:01 | PC.NURSE ---
this rn attempted to get labs from pt, pt refusing to hold still & rocking back and forth. unable to stick pt at this time.
--- NOTE | 2020-10-16 01:10 | PC.NURSE ---
taper printed circuit layout again attempting to stick pt, pt not holding still and rocking back and forth & repeating that he wants to lay down. unable to stick pt in triage at this time.
--- NOTE | 2020-10-16 01:29 | ECG_ITS ---
Measurements Intervals [place] Rate: 57 P: 14 [place]: 111 QRS: -62 QRSD: 87 T: 64 QT: 434 QTc: 425 Interpretive Statements SINUS BRADYCARDIA WITH SHORT [place] INTERVAL LEFT AXIS DEVIATION PEAKED T WAVES- CONSIDER HYPERKALEMIA OR ISCHEMIA ABNORMAL ECG Electronically Signed On 10-16-2020 6:31:03 CDT by Marc Fry D.O.
[2020-10-16] MEDS: LACTATED RINGERS 1,000 ML 999 ML IV CONT (01:47)
[2020-10-16 01:48] LABS: Basophils Percent Auto 0.3 % (0.2-1.2); Hematocrit 46.4 % (42.0-52.0); Hemoglobin 15.9 g/dL (14.0-18.0); Immature Granulocyte Absolute 0.02 K/mm3 (0.00-0.031); Immature Granulocyte Percent A 0.3 % (0-0.5); Lymphocytes Absolute Auto 1.15 K/mm3 (0.9-3.2); Lymphocytes Percent Auto 17.2 % (18.3-44.2); Mean Corpuscular HGB Conc 34.3 g/dl (32-36); Mean Corpuscular Hemoglobin 31.7 pg (26-34); Mean Corpuscular Volume 92.4 fl (80-100); Mean Platelet Volume 9.2 fl (7.4-10.4); Monocytes Absolute Auto 0.3 K/mm3 (0.1-0.6); Monocytes Percent Auto 4.6 % (2.6-8.5); Neutrophils Absolute Auto 5.2 K/mm3 (1.3-6.7); Neutrophils Percent Auto 77.6 % (45.5-73.1); Platelet Count Result 362 k/mm3 (150-375); Red Blood Count 5.02 M/mm3 (4.6-6.20); Red Cell Distribution Width 15.2 % (11.5-14.5); White Blood Count 6.7 K/mm3 (4.5-10.0)
[2020-10-16] MEDS: FAMOTIDINE 20 MG/2 ML VIAL IV PUSH (01:48)
[2020-10-16] MEDS: ONDANSETRON INJ 4 MG/2 ML VIAL IV PUSH (01:48)
[2020-10-16 01:58] VITALS: BP 172/85; PULSE 60; RESP 18; O2SAT 100
[2020-10-16 02:00] LABS: Alanine Aminotransferase 20 U/L (4-50); Albumin Level 4.7 g/dL (3.5-5.1); Alkaline Phosphatase 84 U/L (38-126); Anion Gap 10 mmol/L (8-16); Aspartate Amino Transferase 38 U/L (17-59); Bilirubin,Total 0.9 mg/dL (0.2-1.3); Blood Urea Nitrogen 8 mg/dL (9-20); Calcium 11.4 mg/dL (8.4-10.2); Carbon Dioxide 26 mmol/L (22-30); Chloride 103 mmol/L (98-107); Estimated Glomerular Filt Rate > 60; Glucose 111 mg/dL (65-110); Lipase 46 U/L (23-300); Sodium 139 mmol/L (137-145)
[2020-10-16] MEDS: DICYCLOMINE HCL INJ 20 MG/2 ML VIAL IM (03:12)
[2020-10-16] MEDS: PANTOPRAZOLE SODIUM IV 40 MG VIAL IV PUSH (03:12)
[2020-10-16] MEDS: SODIUM CHLORIDE 0.9% IV 1,000 ML 999 ML IV CONT (03:13)
--- NOTE | 2020-10-16 03:15 | ED.ABDPAIN ---
HPI - Abdominal Pain General Chief Complaint: Abdominal Pain Stated Complaint: abd pain Time Seen by Provider: 10/16/20 02:02 Source: patient and RN notes reviewed Mode of arrival: EMS Limitations: no limitations History of Present Illness HPI narrative: This is a 50 year old male with history of alcohol abuse, pancreatitis and gastritis who presents for evaluation of epigastric abdominal pain. He states his pain started tonight and it has gotten worse. He is unable to describe pain other than stating it just hurts. He has associated nausea and vomiting. He also reports diarrhea today. Denies fever or chills. He states he has not drank alcohol in several days. He states he can't get comfortable and he just wants to go to sleep. 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 Father No problems noted. Social History Social History Smoking packs per day: 1 Smoking cigarettes per day: 20.0 Years smoked: 40 Smoking pack-years: 40.00 Smoking status: Current some day smoker Tobacco type: cigarettes Additional smoking assessment comments: Smoking exposure Alcohol intake: current Alcohol use details: Heavy drinker Substance use: current Substance use type: marijuana Gender identity (if verbalized by the patient): Male Spiritual care concerns: No Exam Const: General: alert Orientation/consciousness: patient oriented x3 Other: moderate distress due to pain Eyes: EOM: EOMs intact bilaterally Chest: Chest palpation & inspection: normal inspection of the chest Resp: Effort & Inspection: normal respiratory effort and no use of accessory muscles Auscultation: clear to auscultation bilaterally Cardio: Rate: regular rate Rhythm: regular rhythm Heart sounds: no murmurs GI: GI Palp: Yes Soft to palpation, Yes Tenderness to palpation present (GI) (epigastric), No Guarding due to palpation present (GI) and No Rigid due to palpation Auscultation: normal bowel sounds Skin: General skin exam: normal color Rashes: no rashes Neuro: General: patient oriented x3, moves all extremities and CN's II-XI intact bilaterally Course Reevaluation(s) Reevaluation #1: PAtient has been resting comfortably since being medicated. LAbs are unremarkable. Exam benign. Date: 10/16/20 Time: 05:39 Vital Signs Vital signs: Vital Signs Temperature 98.1 F 10/15/20 23:19 Pulse Rate 72 10/15/20 23:19 Respiratory Rate 18 10/15/20 23:19 Blood Pressure 153/103 H 10/15/20 23:19 Pulse Oximetry 100 10/15/20 23:19 Temperature 98.1 F 10/15/20 23:19 Pulse Rate 72 10/16/20 06:34 Respiratory Rate 18 10/16/20 06:34 Blood Pressure 117/73 10/16/20 06:34 Pulse Oximetry 99 10/16/20 06:34 MDM - Abdominal Pain Medical Records Attestation: I reviewed the patient's medical records. Lab Data Attestation: I reviewed the patient's lab results. Result diagrams: 10/16/20 01:33 10/16/20 01:33 Labs: Lab Results 10/16/20 10/16/20 10/16/20 Range/Units 01:32 01:33 01
[2020-10-16] MEDS: LORazepam INJ (*CRX) 2 MG/ML VIAL 1 MG IV PUSH (03:21)
[2020-10-16 04:39] VITALS: BP 113/77; PULSE 62; RESP 20; O2SAT 98
[2020-10-16 05:01] LABS: Ethanol < 10 mg/dL (<10)
[2020-10-16 05:36] VITALS: BP 120/77; PULSE 76; RESP 18; O2SAT 97
[2020-10-16 05:43] LABS: Add Urine Microscopic? YES; Amorphous Sediment Urine Few; Appearance Urine Cloudy (Clear); Bacteria Urine Trace /hpf; Bilirubin Urine Negative (Negative); Blood Urine Negative (Negative); Color Urine Yellow (Yellow); Glucose Urine UA 2+ mg/dL (Negative); Ketones Urine 1+ mg/dL (Negative); Leukocyte Esterase Ur Negative LEU/UL (Negative); Mucus Urine Rare /lpf; Nitrate Urine Negative (Negative); Protein Urine 1+ mg/dL (Negative); RBC Urine 0-2 /hpf (0-2); Specific Grav Ur 1.019 (1.001-1.035); Urobilinogen Urine Negative mg/dL (<2.0)
[2020-10-16 06:34] VITALS: BP 117/73; PULSE 72; RESP 18; O2SAT 99
== END 2020-10-16 06:59 | disposition home or self-care (01) ==
PROVIDERS: Emergency Provider General Practice; PCP Emergency Medicine
DX: R11.2 Nausea with vomiting, unspecified (principal); E83.52 Hypercalcemia; K21.9 Gastro-esophageal reflux disease without esophagitis; I25.2 Old myocardial infarction; Z89.021 Acquired absence of right finger(s); F10.10 Alcohol abuse, uncomplicated; F17.210 Nicotine dependence, cigarettes, uncomplicated; R00.1 Bradycardia, unspecified; R94.31 Abnormal electrocardiogram [ECG] [EKG]
CPT/HCPCS: 36415; 80053; 80307; 81001; 83690; 85025; 93005; 96361; 96372; 96374; 96375; 99284; C9113; J0500; J2060; J2405; J7030; J7120

== ENCOUNTER 2020-11-01 16:17 | Emergency (ER) | payer OTHER, SELFPAY ==
[2020-11-01 16:21] VITALS: BP 159/103; PULSE 66; RESP 16; TEMP 36.3; O2SAT 100
[2020-11-01 16:42] LABS: Basophils Percent Auto 0.2 % (0.2-1.2); Hematocrit 45.6 % (42.0-52.0); Hemoglobin 15.6 g/dL (14.0-18.0); Immature Granulocyte Absolute 0.01 K/mm3 (0.00-0.031); Immature Granulocyte Percent A 0.2 % (0-0.5); Lymphocytes Absolute Auto 0.93 K/mm3 (0.9-3.2); Lymphocytes Percent Auto 17.6 % (18.3-44.2); Mean Corpuscular HGB Conc 34.2 g/dl (32-36); Mean Corpuscular Volume 93.6 fl (80-100); Mean Platelet Volume 8.7 fl (7.4-10.4); Monocytes Absolute Auto 0.5 K/mm3 (0.1-0.6); Monocytes Percent Auto 9.3 % (2.6-8.5); Neutrophils Absolute Auto 3.8 K/mm3 (1.3-6.7); Neutrophils Percent Auto 72.7 % (45.5-73.1); Platelet Count Result 292 k/mm3 (150-375); Red Blood Count 4.87 M/mm3 (4.6-6.20); Red Cell Distribution Width 14.6 % (11.5-14.5); White Blood Count 5.3 K/mm3 (4.5-10.0)
[2020-11-01 16:55] LABS: Alanine Aminotransferase 28 U/L (4-50); Albumin Level 4.5 g/dL (3.5-5.1); Alkaline Phosphatase 85 U/L (38-126); Anion Gap 8 mmol/L (8-16); Aspartate Amino Transferase 41 U/L (17-59); Bilirubin,Total 0.9 mg/dL (0.2-1.3); Blood Urea Nitrogen 9 mg/dL (9-20); Calcium 11.1 mg/dL (8.4-10.2); Carbon Dioxide 24 mmol/L (22-30); Chloride 105 mmol/L (98-107); Estimated CRCL calculation 76 ml/min; Estimated Glomerular Filt Rate > 60; Glucose 129 mg/dL (65-110); Lipase 70 U/L (23-300); Potassium 3.4 mmol/L (3.4-5.0); Sodium 137 mmol/L (137-145)
[2020-11-01 21:35] VITALS: PULSE 60; O2SAT 99
--- NOTE | 2020-11-01 22:09 | ED.GENADULT ---
HPI - General Adult General Chief complaint: Weakness Stated complaint: weakness, nausea Time Seen by Provider: 11/01/20 21:36 Source: patient and RN notes reviewed Mode of arrival: ambulatory Limitations: no limitations History of Present Illness HPI narrative: This is a 50 year old male with history of alcoholic gastritis and alcohol abuse who presents for evaluation of epigastric abdominal pain with nausea and vomiting. Patient states he developed pain today . He denies diarrhea, melena or fever. This pain is similar to all his previous visits in ER. He reports he has made an appointment with GI to get his pain evaluated. 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 Father No problems noted. Social History Social History Smoking packs per day: 1 Smoking cigarettes per day: 20.0 Years smoked: 40 Smoking pack-years: 40.00 Smoking status: Current some day smoker Tobacco type: cigarettes Additional smoking assessment comments: Smoking exposure Alcohol intake: current Alcohol use details: Heavy drinker Substance use: current Substance use type: marijuana Gender identity (if verbalized by the patient): Male Spiritual care concerns: No Exam Const: General: no acute distress and alert Orientation/consciousness: patient oriented x3 Eyes: EOM: EOMs intact bilaterally Chest: Chest palpation & inspection: normal inspection of the chest Resp: Effort & Inspection: normal respiratory effort and no retractions Auscultation: clear to auscultation bilaterally Cardio: Rate: regular rate Rhythm: regular rhythm Heart sounds: no murmurs GI: GI Palp: Yes Soft to palpation, No Tenderness to palpation present (GI), No Guarding due to palpation present (GI) and No Rigid due to palpation Auscultation: normal bowel sounds Skin: General skin exam: normal color Rashes: no rashes Neuro: General: patient oriented x3, moves all extremities and CN's II-XI intact bilaterally Psych: Mental Status: mental status grossly normal Affect: normal affect Course Reevaluation(s) Reevaluation #1: Patient is resting comfortable. HE has not nausea or vomiting. Labs stable. He has benign exam. No imaging needed at this time. He was given IVF and antiemetics. Date: 11/02/20 Time: 01:33 Vital Signs Vital signs: Vital Signs Temperature 97.4 F L 11/01/20 16:21 Pulse Rate 66 11/01/20 16:21 Respiratory Rate 16 11/01/20 16:21 Blood Pressure 159/103 H 11/01/20 16:21 Pulse Oximetry 100 11/01/20 16:21 Temperature 97.4 F L 11/01/20 16:21 Pulse Rate 80 11/02/20 02:00 Respiratory Rate 16 11/02/20 02:00 Blood Pressure 143/78 H 11/02/20 02:00 Pulse Oximetry 100 11/02/20 02:00 Medical Decision Making Vital Signs Vital Signs: Vital Signs Temperature 97.4 F L 11/01/20 16:21 Pulse Rate 66 11/01/20 16:21 Respiratory Rate 16 11/01/20 16:21 Blood Pressure 159/103 H 11/01/20 16:21 Pulse Oximetry 100 11/01/20 16:21 Temperature 97.4 F L 11/01/20 16:21 Pulse Rate 80 11/02/20 02:00 Respiratory Rate 1
[2020-11-01] MEDS: ONDANSETRON INJ 4 MG/2 ML VIAL IV PUSH (22:23)
[2020-11-01] MEDS: LORazepam INJ (*CRX) 2 MG/ML VIAL 1 MG IV PUSH (22:24)
[2020-11-01] MEDS: PANTOPRAZOLE SODIUM IV 40 MG VIAL IV PUSH (22:26)
[2020-11-01] MEDS: DICYCLOMINE HCL INJ 20 MG/2 ML VIAL IM (22:30)
[2020-11-01] MEDS: SODIUM CHLORIDE 0.9% IV 1,000 ML 999 ML IV CONT ×2 (22:33→22:34)
[2020-11-02 01:27] LABS: Add Urine Microscopic? YES; Amorphous Sediment Urine Few; Appearance Urine Cloudy (Clear); Bilirubin Urine Negative (Negative); Blood Urine Negative (Negative); Color Urine Yellow (Yellow); Glucose Urine UA 3+ mg/dL (Negative); Ketones Urine 1+ mg/dL (Negative); Leukocyte Esterase Ur Negative LEU/UL (Negative); Mucus Urine Few /lpf; Nitrate Urine Negative (Negative); Protein Urine Negative (Negative); RBC Urine 0-2 /hpf (0-2); Specific Grav Ur 1.016 (1.001-1.035); Squamous Epithelial Cell Urine Rare /hpf (Few); Urobilinogen Urine Negative mg/dL (<2.0)
[2020-11-02 02:00] VITALS: BP 143/78; PULSE 80; RESP 16; O2SAT 100
== END 2020-11-02 01:59 | disposition home or self-care (01) ==
PROVIDERS: Emergency Medicine; Emergency Provider General Practice; PCP Emergency Medicine
DX: R11.2 Nausea with vomiting, unspecified (principal); K29.70 Gastritis, unspecified, without bleeding; I25.2 Old myocardial infarction; F17.210 Nicotine dependence, cigarettes, uncomplicated; Z87.19 Personal history of other diseases of the digestive system
CPT/HCPCS: 36415; 80053; 81001; 83690; 85025; 96361; 96372; 96374; 96375; 99284; C9113; J0500; J2060; J2405; J7030

== ENCOUNTER 2020-11-06 17:02 | Emergency (ER) | payer OTHER, SELFPAY ==
[2020-11-06 17:21] VITALS: BP 174/87; PULSE 67; RESP 20; TEMP 36.8; O2SAT 100
[2020-11-06 18:30] LABS: Basophils Percent Auto 0.3 % (0.2-1.2); Hematocrit 47.2 % (42.0-52.0); Hemoglobin 16.2 g/dL (14.0-18.0); Immature Granulocyte Absolute 0.02 K/mm3 (0.00-0.031); Immature Granulocyte Percent A 0.3 % (0-0.5); Lymphocytes Absolute Auto 1.09 K/mm3 (0.9-3.2); Lymphocytes Percent Auto 16.8 % (18.3-44.2); Mean Corpuscular HGB Conc 34.3 g/dl (32-36); Mean Corpuscular Volume 93.1 fl (80-100); Monocytes Absolute Auto 0.7 K/mm3 (0.1-0.6); Neutrophils Absolute Auto 4.7 K/mm3 (1.3-6.7); Neutrophils Percent Auto 72.6 % (45.5-73.1); Platelet Count Result 314 k/mm3 (150-375); Red Blood Count 5.07 M/mm3 (4.6-6.20); Red Cell Distribution Width 14.1 % (11.5-14.5); White Blood Count 6.5 K/mm3 (4.5-10.0)
[2020-11-06 18:32] LABS: Alanine Aminotransferase 27 U/L (4-50); Albumin Level 4.7 g/dL (3.5-5.1); Alkaline Phosphatase 87 U/L (38-126); Anion Gap 8 mmol/L (8-16); Aspartate Amino Transferase 46 U/L (17-59); Blood Urea Nitrogen 10 mg/dL (9-20); Calcium 11.4 mg/dL (8.4-10.2); Carbon Dioxide 31 mmol/L (22-30); Chloride 99 mmol/L (98-107); Estimated CRCL calculation 70 ml/min; Estimated Glomerular Filt Rate > 60; Glucose 111 mg/dL (65-110); Lipase 71 U/L (23-300); Potassium 3.4 mmol/L (3.4-5.0); Sodium 138 mmol/L (137-145)
--- NOTE | 2020-11-06 21:59 | PC.NURSE ---
Pt up to the desk stating he no longer wishes to be seen. Pt states the wait has been too extensive.
== END 2020-11-06 22:18 | disposition left against medical advice (07) ==
LOC: ANHED 22:09
PROVIDERS: Emergency Medicine; PCP Emergency Medicine
DX: R10.9 Unspecified abdominal pain (principal)
CPT/HCPCS: 36415; 80053; 83690; 85025; 99199

== ENCOUNTER 2020-11-22 19:52 | Emergency (ER) | payer OTHER, SELFPAY ==
--- NOTE | ~2020-11-22 | CT_ITS ---
EXAMINATION: CT abdomen pelvis w con INDICATION: Epigastric abdominal pain TECHNIQUE: Computed tomographic images of the abdomen and pelvis were obtained after the administrati on of 100 cc of Omnipaque 350 intravenous contrast. The dose-length product (DLP) was 177.29 mGy-cm. Automated exposure control and iterative reconstruction technique were employed. COMPARISON: None available FINDINGS: The lung bases are clear. The heart size is normal. The liver, spleen, pancreas, gallbladde r, and adrenal glands are normal. Hypoattenuating lesions in the kidneys, measuring up to 4 mm on the right, are too small to characterize but likely represent cysts. There is calcified atherosclerosis of the aorta and many of the other arteries. No pathologically enlarged abdominal or pelvic lymph nod es are identified. There is no free intraperitoneal gas or evidence of bowel obstruction. The appendi x is normal. There is mild lumbar spondylosis. IMPRESSION: 1. No CT correlate for the patient's symptoms. Reviewed, dictated and finalized at location A.
[2020-11-22 20:04] VITALS: BP 149/126; PULSE 72; RESP 14; TEMP 36.5; O2SAT 99
--- NOTE | 2020-11-22 20:08 | PC.NURSE ---
Pt. states I need to go lay down. You can draw my blood when I get in a room.
[2020-11-22 22:50] VITALS: BP 163/69; PULSE 50; RESP 12; TEMP 37.8; O2SAT 100
--- NOTE | 2020-11-22 22:54 | ED.GENADULT ---
HPI - General Adult General Chief complaint: Abdominal Pain Stated complaint: abd pain Time Seen by Provider: 11/22/20 22:46 History of Present Illness HPI narrative: Patient is a 50-year-old male who presents ER with abdominal pain as well as nausea and vomiting. Ongoing for the last day. Began 1-2 days after his last drink of alcohol. Has history of acid reflux and pancreatitis. He has pain in his epigastrium that radiates all over. No fevers or chills. Gets occasional sweats. Related Data Allergies Allergy/AdvReac Type Severity Reaction Status Date / Time No Known Allergies Allergy Verified 11/22/20 23:06 Review of Systems Review of Systems: All systems reviewed & are unremarkable except as noted in HPI and below Constitutional: Constitutional: Denies chills, Denies fever(s) and Denies weakness ENT: Denies nasal congestion and Denies sore throat Cardiovascular: Cardiovascular: Denies chest pain and Denies radiating jaw, neck or arm pain Respiratory: Respiratory: Denies cough and Denies dyspnea Gastrointestinal: Gastrointestinal: Reports abdominal pain, Reports nausea and Reports vomiting Musculoskeletal: Musculoskeletal: Denies joint swelling and Denies muscle cramps PMFSH Past Medical History Medical History Alcohol abuse Colitis Gastritis GERD (gastroesophageal reflux disease) History of angina Inguinal hernia Marijuana abuse Myocardial infarction Pancreatitis Ulcer Surgical History Surgical History 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 Father No problems noted. Social History Social History Smoking packs per day: 1 Smoking cigarettes per day: 20.0 Years smoked: 40 Smoking pack-years: 40.00 Smoking status: Current some day smoker Tobacco type: cigarettes Additional smoking assessment comments: Smoking exposure Alcohol intake: current Alcohol use details: Heavy drinker Substance use: current Substance use type: marijuana Gender identity (if verbalized by the patient): Male Spiritual care concerns: No Exam Narrative: GENERAL: Uncomfortable-appearing, well-nourished, and in no acute distress. HEAD: Normocephalic, atraumatic. ENT: Mucous membranes moist. CHEST: Clear to auscultation. No respiratory distress. HEART: Regular rate and rhythm. Normal peripheral pulses. ABDOMEN: Soft, moderate tenderness to epigastrium, nondistended. EXTREMITIES: Normal range of motion. No edema. SKIN: Warm, dry, no rash. NEURO: Alert and oriented x3. Course Course Emergency Course: Patient is morphine/Zofran/Protonix. Patient wishes to leave prior to receiving his discharge paperwork. Vital Signs Vital signs: Vital Signs Temperature 97.7 F 11/22/20 20:04 Pulse Rate 72 11/22/20 20:04 Respiratory Rate 14 11/22/20 20:04 Blood Pressure 149/126 H 11/22/20 20:04 Pulse Oximetry 99 11/22/20 20:04 Temperature 100.1 F H 11/22/20 22:50 Pulse Rate 65 11/23/20 02:16 Respiratory Rate 13 11/23/20 02:16 Blood Pressure 139/84 11/23/20 02:16 Pulse Oximetry 100 11/23/20 02:16 Medical Decision Making Vital Signs Vital Signs: Vital Signs Temperature 97.7 F 11/22/20 20:04 Pulse Rate 72 11/22/20 20:04 Respiratory Rate 14 11/22/20 20:04 Blood Pressure 149/126 H 11/22/20 20:04 Pulse Oximetry 99 11/22/20 20:04 Temperature 100.1 F H 11/22/20 22:50 Pulse Rate 65 11/23/20 02:16 Respiratory Rate 13 11/23/20 02:16 Blood Pressure 139/84 11/23/20 02:16 Pulse Oximetry 100 11/23/20 02:16 Lab Data Result diagrams: 11/22/20 23:21 11/22/20
[2020-11-22 23:02] VITALS: BP 163/69; PULSE 58; RESP 17; O2SAT 100
--- NOTE | 2020-11-22 23:23 | PC.NURSE ---
Pt unable to void, aware of need for urine sample. Pt refusing straight catheter at this time. Urinal at bedside at this time.
[2020-11-22 23:28] LABS: Basophils Percent Auto 0.4 % (0.2-1.2); Hematocrit 47.6 % (42.0-52.0); Hemoglobin 16.2 g/dL (14.0-18.0); Immature Granulocyte Absolute 0.03 K/mm3 (0.00-0.031); Immature Granulocyte Percent A 0.4 % (0-0.5); Lymphocytes Absolute Auto 1.24 K/mm3 (0.9-3.2); Lymphocytes Percent Auto 15.6 % (18.3-44.2); Mean Corpuscular Hemoglobin 32.5 pg (26-34); Mean Corpuscular Volume 95.4 fl (80-100); Mean Platelet Volume 8.6 fl (7.4-10.4); Monocytes Absolute Auto 0.3 K/mm3 (0.1-0.6); Monocytes Percent Auto 4.2 % (2.6-8.5); Neutrophils Absolute Auto 6.3 K/mm3 (1.3-6.7); Neutrophils Percent Auto 79.4 % (45.5-73.1); Platelet Count Result 355 k/mm3 (150-375); Red Blood Count 4.99 M/mm3 (4.6-6.20); Red Cell Distribution Width 14.5 % (11.5-14.5); White Blood Count 7.9 K/mm3 (4.5-10.0)
[2020-11-22 23:45] LABS: Alanine Aminotransferase 26 U/L (4-50); Albumin Level 4.6 g/dL (3.5-5.1); Alkaline Phosphatase 84 U/L (38-126); Anion Gap 10 mmol/L (8-16); Aspartate Amino Transferase 40 U/L (17-59); Bilirubin,Total 0.8 mg/dL (0.2-1.3); Blood Urea Nitrogen 7 mg/dL (9-20); Carbon Dioxide 26 mmol/L (22-30); Chloride 105 mmol/L (98-107); Estimated CRCL calculation 99 ml/min; Estimated Glomerular Filt Rate > 60; Glucose 124 mg/dL (65-110); Lipase 67 U/L (23-300); Potassium 3.6 mmol/L (3.4-5.0); Sodium 141 mmol/L (137-145)
[2020-11-22 23:46] VITALS: BP 155/80; PULSE 60; RESP 22; O2SAT 100
[2020-11-22] MEDS: PANTOPRAZOLE SODIUM IV 40 MG VIAL IV PUSH (23:57)
[2020-11-22] MEDS: ONDANSETRON INJ 4 MG/2 ML VIAL IV PUSH (23:59)
[2020-11-23] MEDS: MORPHINE SULFATE (*CRX) 4 MG/ML INJ IV PUSH
--- NOTE | 2020-11-23 00:07 | PC.NURSE ---
Pt to CT scan at this time.
[2020-11-23 00:23] LABS: Add Urine Microscopic? YES; Amorphous Sediment Urine Few; Appearance Urine Cloudy (Clear); Bilirubin Urine Negative (Negative); Blood Urine Negative (Negative); Color Urine Yellow (Yellow); Glucose Urine UA 2+ mg/dL (Negative); Ketones Urine Trace mg/dL (Negative); Leukocyte Esterase Ur Negative LEU/UL (Negative); Mucus Urine Rare /lpf; Nitrate Urine Negative (Negative); Protein Urine 2+ mg/dL (Negative); Specific Grav Ur 1.024 (1.001-1.035); Urobilinogen Urine Negative mg/dL (<2.0)
[2020-11-23 00:42] VITALS: BP 158/92; PULSE 56; RESP 16; O2SAT 99
[2020-11-23 01:46] VITALS: BP 125/76; PULSE 62; RESP 13; O2SAT 100
[2020-11-23 02:01] VITALS: BP 128/75; PULSE 65; RESP 13; O2SAT 100
[2020-11-23 02:16] VITALS: BP 139/84; PULSE 65; RESP 13; O2SAT 100
--- NOTE | 2020-11-23 03:26 | PC.NURSE ---
Pt removed IV by self. IV examined, cannula intact. Covered with bandaid by patient.
== END 2020-11-23 03:26 | disposition home or self-care (01) ==
PROVIDERS: Family Medicine; Emergency Provider Emergency Medicine; PCP Emergency Medicine
DX: K29.70 Gastritis, unspecified, without bleeding (principal); K21.9 Gastro-esophageal reflux disease without esophagitis; Z89.021 Acquired absence of right finger(s); I25.2 Old myocardial infarction; F17.210 Nicotine dependence, cigarettes, uncomplicated
CPT/HCPCS: 36415; 74177; 80053; 81001; 83690; 85025; 96374; 96375; 99284; C9113; J2270; J2405; Q9967

== ENCOUNTER 2020-12-15 12:48 | Emergency (ER) | payer OTHER, SELFPAY ==
--- NOTE | ~2020-12-15 | CT_ITS ---
EXAMINATION: CT abdomen pelvis w con DATE: 12/15/2020 15:46 INDICATION: Diffuse abdominal pain TECHNIQUE: Computed tomography (CT) of the abdomen and pelvis was performed with 100 mL Omnipaque-350 intravenous contrast. Automated exposure control and iterative reconstruction technique were employe d. The dose-length product was 195.12 mGy-cm. COMPARISON: 11/22/2020 FINDINGS: Lung bases are clear. Heart size is normal. No pericardial or pleural effusion. Small sliding-type hi atal hernia. Small region of focal hepatic steatosis at the ligamentum teres. 5 mm low-attenuation li gladys hepatic cyst or hemangioma which is too small to definitively characterize. Gallbladder, pancrea s, spleen and bilateral adrenal glands are normal. Bilateral low-attenuation likely renal cysts the l argest measuring up to 5 mm in the right kidney which remain too small to definitively characterize. There is mild colonic diverticulosis with a sigmoid predominance. There is no adjacent inflammatory change to suggest diverticulitis. Small bowel and appendix are normal. Small amount of ascites in th e deep pelvis. Bladder is normal. Mild to moderate lumbar spondylosis. IMPRESSION: 1. Very small amount of ascites in the deep pelvis. No other acute intra-abdominal/pelvic process. 2. Small sliding-type hiatal hernia. Reviewed, dictated and finalized at location A. IMPRESSION: 1. Very small amount of ascites in the deep pelvis. No other acute intra-abdomi nal/pelvic process. 2. Small sliding-type hiatal hernia.
[2020-12-15 13:26] VITALS: BP 197/106; PULSE 79; RESP 18; TEMP 36.4; O2SAT 100
[2020-12-15 13:45] LABS: Basophils Percent Auto 0.7 % (0.2-1.2); Eosinophils Percent Auto 0.4 % (0-4.4); Hematocrit 40.5 % (42.0-52.0); Hemoglobin 14.7 g/dL (14.0-18.0); Immature Granulocyte Absolute 0.01 K/mm3 (0.00-0.031); Immature Granulocyte Percent A 0.2 % (0-0.5); Lymphocytes Absolute Auto 1.88 K/mm3 (0.9-3.2); Lymphocytes Percent Auto 34.7 % (18.3-44.2); Mean Corpuscular HGB Conc 36.3 g/dl (32-36); Mean Corpuscular Hemoglobin 32.7 pg (26-34); Mean Platelet Volume 8.6 fl (7.4-10.4); Monocytes Absolute Auto 0.8 K/mm3 (0.1-0.6); Monocytes Percent Auto 15.1 % (2.6-8.5); Neutrophils Absolute Auto 2.7 K/mm3 (1.3-6.7); Neutrophils Percent Auto 48.9 % (45.5-73.1); Platelet Count Result 337 k/mm3 (150-375); Red Cell Distribution Width 13.5 % (11.5-14.5); White Blood Count 5.4 K/mm3 (4.5-10.0)
[2020-12-15 13:57] LABS: Alanine Aminotransferase 20 U/L (4-50); Albumin Level 4.2 g/dL (3.5-5.1); Alkaline Phosphatase 72 U/L (38-126); Anion Gap 6 mmol/L (8-16); Aspartate Amino Transferase 30 U/L (17-59); Bilirubin,Total 0.4 mg/dL (0.2-1.3); Blood Urea Nitrogen 16 mg/dL (9-20); Calcium 10.2 mg/dL (8.4-10.2); Carbon Dioxide 34 mmol/L (22-30); Chloride 99 mmol/L (98-107); Estimated CRCL calculation 78 ml/min; Estimated Glomerular Filt Rate > 60; Glucose 116 mg/dL (65-110); Lipase 164 U/L (23-300); Potassium 3.5 mmol/L (3.4-5.0); Sodium 139 mmol/L (137-145)
--- NOTE | 2020-12-15 14:00 | PC.NURSE ---
As this RN was placing temperature prob into patient's mouth, he stated you need to chill with that thing and flexed his arms like he was going to become physical. RN reminded patient that she had informed him that his temperature would be taken orally and told patient if he wanted, then he could place probe in mouth himself. Patient also informed that verbal nor physical aggression is tolerated. Patient stated he did not want to do it himself and said this RN could take oral temperature.
--- NOTE | 2020-12-15 14:00 | PC.NURSE ---
Patient refusing to get undressed fully.
[2020-12-15 14:02] LABS: Add Urine Microscopic? YES; Amorphous Sediment Urine Few; Appearance Urine Cloudy (Clear); Bilirubin Urine Negative (Negative); Blood Urine Negative (Negative); Color Urine Yellow (Yellow); Glucose Urine UA 1+ mg/dL (Negative); Ketones Urine Negative (Negative); Leukocyte Esterase Ur Negative LEU/UL (Negative); Nitrate Urine Negative (Negative); Protein Urine 1+ mg/dL (Negative); Specific Grav Ur 1.018 (1.001-1.035)
--- NOTE | 2020-12-15 16:10 | ED.ABDPAIN ---
HPI - Abdominal Pain General Chief Complaint: Abdominal Pain Stated Complaint: Low Abd Pain Time Seen by Provider: 12/15/20 14:01 Source: patient, family, RN notes reviewed and old records reviewed History of Present Illness HPI narrative: Patient presents with diffuse abdominal pain most noted in his upper abdomen. Pain is achy, constant, everything makes it worse associated with nausea and vomiting denies fevers diarrhea blood or bile or melena. Reports he has not attempted any take any medications at home as he does not have any medications. Patient reports he never had symptoms like this before On review of the patient's chart he has had multiple frequent visits to the ER for suspected alcoholic gastritis with HPI similar to today's presentation. Related Data Allergies Allergy/AdvReac Type Severity Reaction Status Date / Time No Known Allergies Allergy Verified 12/15/20 14:20 Review of Systems Review of Systems: CONSTITUTIONAL: Denies fever, chills, or sweats. EYES: Denies visual changes, redness, or discharge. ENT: Denies rhinorrhea, congestion, sore throat, or otalgia. CARDIOVASCULAR: Denies chest pain, palpitations, or edema. RESPIRATORY: Denies cough or dyspnea. GASTROINTESTINAL: Abdominal pain, nausea and vomiting GENITOURINARY: Denies dysuria or hematuria. SKIN: Denies rash or itching. MUSCULOSKELETAL: Denies back pain, joint pain, or myalgia. NEUROLOGIC: Denies headache, numbness, dizziness, or weakness. PSYCHIATRIC: Denies anxiety or depression. 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 Father No problems noted. Social History Social History Smoking packs per day: 1 Smoking cigarettes per day: 20.0 Years smoked: 40 Smoking pack-years: 40.00 Smoking status: Current some day smoker Tobacco type: cigarettes Additional smoking assessment comments: Smoking exposure Alcohol intake: current Alcohol use details: Heavy drinker Substance use: current Substance use type: marijuana Gender identity (if verbalized by the patient): Male Spiritual care concerns: No Exam Narrative: GENERAL: Well-appearing, well-nourished, and in no acute distress. HEAD: Normocephalic, atraumatic. EYES: PERRLA and EOMI. ENT: Nares clear, no rhinorrhea or epistaxis. Mucous membranes moist. NECK: Supple. No masses. No JVD ABDOMEN: Moderate diffuse abdominal pain, soft, nondistended, normal active bowel sounds. EXTREMITIES: Normal range of motion. No edema. SKIN: Warm, dry, no rash. NEURO: No focal deficits. Alert and oriented x3. PSYCH: Normal mood and affect. Course Reevaluation(s) Reevaluation #1: Patient was sleeping comfortably results and outpatient plan reviewed with patient Date: 12/15/20 Time: 16:12 Vital Signs Vital signs: Vital Signs Temperature 36.4 C 12/15/20 13:26 Pulse Rate 79 12/15/20 13:26 Respiratory Rate 18 12/15/20 13:26 Blood Pressure 197/106 H 12/15/20 13:26 Pulse Oximetry 100 12/15/20 13:26 Temperature 36.4 C 12/15/20 13:26 Pulse Rate 68 12/15/20 17:35 Respiratory Rate 16 12/15/20 17:35 Blood Pressure 152/91 H 12/15/20 17:35 Pulse Oximetry 100 12/15/20 17:35 MDM - Abdominal Pain MDM Narrative Medical decision making narrative: H&P as above, vss, pt looks clinically well, exam with moderate diffuse abdominal pain, labs clinically unre
[2020-12-15] MEDS: SODIUM CHLORIDE 0.9% IV 1,000 ML 999 ML IV CONT (16:14)
[2020-12-15 16:23] VITALS: BP 169/84; PULSE 69; RESP 14; O2SAT 100
[2020-12-15] MEDS: FAMOTIDINE 20 MG/2 ML VIAL IV PUSH (16:35)
[2020-12-15 17:35] VITALS: BP 152/91; PULSE 68; RESP 16; O2SAT 100
== END 2020-12-15 17:35 | disposition home or self-care (01) ==
PROVIDERS: Emergency Medicine; Emergency Provider Emergency Medicine; PCP Emergency Medicine
DX: K29.70 Gastritis, unspecified, without bleeding (principal); R10.10 Upper abdominal pain, unspecified; R11.2 Nausea with vomiting, unspecified; K21.9 Gastro-esophageal reflux disease without esophagitis; I25.2 Old myocardial infarction; Z89.021 Acquired absence of right finger(s); F17.210 Nicotine dependence, cigarettes, uncomplicated; K44.9 Diaphragmatic hernia without obstruction or gangrene
CPT/HCPCS: 36415; 74177; 80053; 81001; 83690; 85025; 96361; 96374; 96375; 99284; J0131; J7030; Q9967

== ENCOUNTER 2021-02-24 16:24 | Emergency (ER) | payer OTHER, SELFPAY ==
--- NOTE | ~2021-02-24 | XR_ITS ---
EXAMINATION: XR chest 1V DATE: 02/24/2021 20:55 INDICATION: Cough. TECHNIQUE: A single frontal view of the chest was obtained. COMPARISON: Chest single view 08/07/2020 FINDINGS: The chest demonstrates clear lungs without pneumonia, pleural effusion, or pneumothorax. Th e heart size is normal. IMPRESSION: 1. No acute cardiopulmonary disease. Reviewed, dictated and finalized at location A. ING MACHINE TENDER
[2021-02-24 16:26] VITALS: BP 122/73; PULSE 65; RESP 18; TEMP 36.6; O2SAT 99
--- NOTE | 2021-02-24 19:56 | PC.NURSE ---
pt has been asleep in lobby, no N/V noted
[2021-02-24 20:14] VITALS: BP 163/104; PULSE 65; RESP 18; O2SAT 100
--- NOTE | 2021-02-24 20:29 | PC.NURSE ---
advised pt need of urine sample states he does not need to go refused cath
--- NOTE | 2021-02-24 20:31 | PC.NURSE ---
Per audiovisual technician, PT refused to provide urine sample via urinal or cath
[2021-02-24 20:42] LABS: Basophils Percent Auto 0.3 % (0.2-1.2); Hematocrit 41.2 % (42.0-52.0); Hemoglobin 14.4 g/dL (14.0-18.0); Immature Granulocyte Absolute 0.02 K/mm3 (0.00-0.031); Immature Granulocyte Percent A 0.3 % (0-0.5); Lymphocytes Absolute Auto 1.43 K/mm3 (0.9-3.2); Lymphocytes Percent Auto 20.9 % (18.3-44.2); Mean Corpuscular Hemoglobin 31.5 pg (26-34); Mean Corpuscular Volume 90.2 fl (80-100); Mean Platelet Volume 8.6 fl (7.4-10.4); Monocytes Absolute Auto 0.5 K/mm3 (0.1-0.6); Monocytes Percent Auto 6.9 % (2.6-8.5); Neutrophils Absolute Auto 4.9 K/mm3 (1.3-6.7); Neutrophils Percent Auto 71.6 % (45.5-73.1); Platelet Count Result 356 k/mm3 (150-375); Red Blood Count 4.57 M/mm3 (4.6-6.20); White Blood Count 6.8 K/mm3 (4.5-10.0)
[2021-02-24 21:06] LABS: Ethanol < 10 mg/dL (<10)
[2021-02-24 21:06] LABS: Alanine Aminotransferase 23 U/L (4-50); Alkaline Phosphatase 89 U/L (38-126); Anion Gap 9 mmol/L (8-16); Aspartate Amino Transferase 30 U/L (17-59); Bilirubin,Total 0.5 mg/dL (0.2-1.3); Blood Urea Nitrogen 14 mg/dL (9-20); Calcium 10.6 mg/dL (8.4-10.2); Carbon Dioxide 30 mmol/L (22-30); Chloride 101 mmol/L (98-107); Estimated Glomerular Filt Rate > 60; Glucose 112 mg/dL (65-110); Lipase 99 U/L (23-300); Potassium 3.5 mmol/L (3.4-5.0); Sodium 140 mmol/L (137-145)
[2021-02-24] MEDS: SODIUM CHLORIDE 0.9% IV 1,000 ML 999 ML IV CONT (21:33)
[2021-02-24] MEDS: KETOROLAC 30 MG/ML VIAL (*BKC) IV PUSH (21:33)
[2021-02-24] MEDS: ONDANSETRON INJ 4 MG/2 ML VIAL IV PUSH (21:33)
[2021-02-24] MEDS: PANTOPRAZOLE SODIUM IV 40 MG VIAL IV PUSH (21:34)
--- NOTE | 2021-02-24 21:59 | PC.NURSE ---
Addendum entered by Angeles Holcomb RN 02/24/21 22:08: Continues to refuse to provide urine specimen. Original Note: Pt medicated per orders. Refused flu swab. allowed rf technician to get strep swab. Reports he feels no better and is too weak to roll over, yet is ambulatory without assist on arrival in ed.
[2021-02-24 22:11] VITALS: BP 190/105; PULSE 62; RESP 16; O2SAT 100
--- NOTE | 2021-02-24 22:24 | ED.NAVMDI ---
HPI - Nausea/Vomiting/Diarrhea General Chief complaint: Nausea/Vomiting/Diarrhea Stated complaint: vomiting Time Seen by Provider: 02/24/21 20:00 Source: patient Mode of arrival: ambulatory Limitations: other (difficult historian. He would refuse to answer questions occasionally) History of Present Illness HPI Narrative: This is a 50 year old male with history of gastritis, alcohol abuse, pancreatitis who presents for evaluation of multiple complaints. HE is complaining of sore throat, hoarseness for a few days. He developed mid abdominal pain with nausea and vomiting today. His abdominal pain is nonradiating. He denies fever or chills. He comes to ER frequently with nausea and vomiting. He denies diarrhea, melena. 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 Father No problems noted. Social History Social History Smoking packs per day: 1 Smoking cigarettes per day: 20.0 Years smoked: 40 Smoking pack-years: 40.00 Smoking status: Current some day smoker Tobacco type: cigarettes Additional smoking assessment comments: Smoking exposure Alcohol intake: current Alcohol use details: Heavy drinker Substance use: current Substance use type: marijuana Gender identity (if verbalized by the patient): Male Spiritual care concerns: No Exam Const: General: alert Orientation/consciousness: patient oriented x3 HENMT: Head: atraumatic Ears: TM's normal bilaterally Mouth: Yes Normal oral and palatal mucosa present, Yes lip normal, Yes tongue normal, Yes oropharynx normal and Yes moist mucous membranes Eyes: Pupils: Equal, round and reactive pupils present EOM: EOMs intact bilaterally Resp: Effort & Inspection: normal respiratory effort Auscultation: clear to auscultation bilaterally GI: GI Palp: Yes Soft to palpation, No Tenderness to palpation present (GI), No Guarding due to palpation present (GI) and No Rigid due to palpation Auscultation: normal bowel sounds Skin: General skin exam: normal color Rashes: no rashes Neuro: General: patient oriented x3, moves all extremities and CN's II-XI intact bilaterally Psych: Mental Status: mental status grossly normal Affect: normal affect Course Reevaluation(s) Reevaluation #1: Patient;s labs are unremarkable. He has not had any vomiting and been able to drink with out vomiting. He is refusing swabs for influenza so will not order covid. He is stable for discharge at this point. He may have viral syndrome but is refusing certain testing. Date: 02/24/21 Time: 23:55 Vital Signs Vital signs: Vital Signs Temperature 97.8 F 02/24/21 16:26 Pulse Rate 65 02/24/21 16:26 Respiratory Rate 18 02/24/21 16:26 Blood Pressure 122/73 02/24/21 16:26 Pulse Oximetry 99 02/24/21 16:26 Temperature 97.8 F 02/24/21 16:26 Pulse Rate 62 02/24/21 22:11 Respiratory Rate 16 02/24/21 22:11 Blood Pressure 190/105 H 02/24/21 22:11 Pulse Oximetry 100 02/24/21 22:11 MDM - Nausea/Vomiting/Diarrhea Medical Records Attestation: I reviewed the patient's medical records. Lab Data
[2021-02-24 23:19] LABS: Add Urine Microscopic? YES; Amorphous Sediment Urine Few; Appearance Urine Cloudy (Clear); Bilirubin Urine Negative (Negative); Blood Urine Negative (Negative); Color Urine Yellow (Yellow); Glucose Urine UA 3+ mg/dL (Negative); Ketones Urine Negative (Negative); Leukocyte Esterase Ur Negative LEU/UL (Negative); Nitrate Urine Negative (Negative); Protein Urine Negative (Negative); Specific Grav Ur 1.016 (1.001-1.035)
[2021-02-24 23:25] LABS: Amphetamine Screen Urine Negative (Negative); Barbiturate Screen Urine Negative (Negative); Benzodiazepines Screen Urine Negative (Negative); Cannabinoid Screen Urine Positive (Negative); Cocaine Screen Urine Negative (Negative); Methadone Screen Urine Negative (Negative); Opiate Screen Urine Negative (Negative); Phencyclidine Screen Urine Negative (Negative)
--- NOTE | 2021-02-25 00:25 | PC.NURSE ---
pt amb out of ed with brisk, steady gait and in no acute distress. this patient was mumbling expletives under his breath at staff.
--- NOTE | 2021-02-25 01:43 | PC.NURSE ---
Pt reports feeling no better, despite no vomiting noted during entire visit, including time in wr as reported by triage/prison psychiatrist. Pt reports he is too weak to roll over, yet was able to independently ambulate into ED without assist. At time of discharge, this RN in room with pt and global position system technicianLiam lovett. This RN reading pt's d/c info, including RX for antinausea medication electronically sent to pharmacy. Pt just kept repeating Throw that shit away. I don't fucking want it. Pt then got dressed and ambulated out of ED without difficulty with a steady, even, unassisted gait. Did not wait for verbal or printed d/c instructions and refused to sign.
== END 2021-02-25 00:19 | disposition home or self-care (01) ==
PROVIDERS: Emergency Provider General Practice
DX: R11.2 Nausea with vomiting, unspecified (principal); I25.2 Old myocardial infarction; K21.9 Gastro-esophageal reflux disease without esophagitis; Z89.021 Acquired absence of right finger(s); F17.210 Nicotine dependence, cigarettes, uncomplicated
CPT/HCPCS: 36415; 71045; 80053; 80307; 81001; 83690; 85025; 87081; 87880; 96361; 96374; 96375; 99284; C9113; J1885; J2405; J7030

== ENCOUNTER 2021-07-02 16:30 | Emergency (ER) | payer OTHER, SELFPAY ==
[2021-07-02 17:16] VITALS: BP 132/88; PULSE 99; RESP 16; TEMP 36.3; O2SAT 100
[2021-07-02 17:47] LABS: Basophils Percent Auto 0.3 % (0.2-1.2); Eosinophils Percent Auto 0.3 % (0-4.4); Hematocrit 47.5 % (42.0-52.0); Hemoglobin 16.7 g/dL (14.0-18.0); Immature Granulocyte Absolute 0.01 K/mm3 (0.00-0.031); Immature Granulocyte Percent A 0.1 % (0-0.5); Lymphocytes Absolute Auto 3.28 K/mm3 (0.9-3.2); Lymphocytes Percent Auto 43.7 % (18.3-44.2); Mean Corpuscular HGB Conc 35.2 g/dl (32-36); Mean Corpuscular Hemoglobin 32.2 pg (26-34); Mean Corpuscular Volume 91.5 fl (80-100); Mean Platelet Volume 8.5 fl (7.4-10.4); Monocytes Absolute Auto 0.8 K/mm3 (0.1-0.6); Neutrophils Absolute Auto 3.4 K/mm3 (1.3-6.7); Neutrophils Percent Auto 45.6 % (45.5-73.1); Platelet Count Result 384 k/mm3 (150-375); Red Blood Count 5.19 M/mm3 (4.6-6.20); Red Cell Distribution Width 13.6 % (11.5-14.5); White Blood Count 7.5 K/mm3 (4.5-10.0)
[2021-07-02 18:03] LABS: Alanine Aminotransferase 18 U/L (4-50); Albumin Level 4.1 g/dL (3.5-5.1); Alkaline Phosphatase 97 U/L (38-126); Anion Gap 4 mmol/L (8-16); Aspartate Amino Transferase 31 U/L (17-59); Bilirubin,Total 0.4 mg/dL (0.2-1.3); Blood Urea Nitrogen 8 mg/dL (9-20); Calcium 10.4 mg/dL (8.4-10.2); Carbon Dioxide 33 mmol/L (22-30); Chloride 96 mmol/L (98-107); Estimated Glomerular Filt Rate > 60; Glucose 109 mg/dL (65-110); Lipase 77 U/L (23-300); Potassium 3.6 mmol/L (3.4-5.0); Sodium 133 mmol/L (137-145)
[2021-07-02 18:10] LABS: Amorphous Sediment Urine Moderate; Bacteria Urine Trace /hpf; Mucus Urine Rare /lpf; WBC Urine 0-3 /hpf
[2021-07-02 18:15] LABS: Appearance Urine Sl Cloudy (Clear); Color Urine Yellow (Yellow); pH Urine >=9.0 (5.0-9.0)
[2021-07-02 18:16] LABS: Blood Urine Negative (Negative); Glucose Urine UA Negative (Negative); Ketones Urine Negative (Negative); Protein Urine Negative (Negative); Specific Grav Ur 1.015 (1.001-1.035)
[2021-07-02 18:17] LABS: Add Urine Microscopic? YES; Bilirubin Urine Negative (Negative); Leukocyte Esterase Ur Negative LEU/UL (Negative); Nitrate Urine Negative (Negative)
--- NOTE | 2021-07-02 21:04 | ED.NEUROSD ---
HPI - Neuro Symptoms/Deficit General Chief Complaint: Neuro Symptoms/Deficit Stated Complaint: right arm numbness and tingling for months Time Seen by Provider: 07/02/21 20:45 Source: patient History of Present Illness HPI Narrative: Patient presents with right arm pain and paresthesias for the past couple months. Ports his symptoms are getting worse and keeping him up at night so he came to the ER for evaluation. Patient also reports he is dropping items out of his right hand and he is tired of breaking glasses. 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 Denies any neck pain. Reports he fell approximately 2 weeks ago struck his head has had intermittent headaches since then but his arm symptoms predate that event. Related Data Allergies Allergy/AdvReac Type Severity Reaction Status Date / Time No Known Allergies Allergy Verified 02/25/21 01:36 Review of Systems Review of Systems: CONSTITUTIONAL: Denies fever, chills, or sweats. EYES: Denies visual changes, redness, or discharge. ENT: Denies rhinorrhea, congestion, sore throat, or otalgia. CARDIOVASCULAR: Denies chest pain, palpitations, or edema. RESPIRATORY: Denies cough or dyspnea. GASTROINTESTINAL: Denies abdominal pain, nausea, vomiting, or diarrhea. GENITOURINARY: Denies dysuria or hematuria. SKIN: Denies rash or itching. MUSCULOSKELETAL: Denies back pain, or myalgia. NEUROLOGIC: Denies headache, dizziness, or weakness. PSYCHIATRIC: Denies anxiety or depression. 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 Father No problems noted. Social History Social History Smoking packs per day: 1 Smoking cigarettes per day: 20.0 Years smoked: 40 Smoking pack-years: 40.00 Smoking status: Current some day smoker Tobacco type: cigarettes Additional smoking assessment comments: Smoking exposure Alcohol intake: current Alcohol use details: Heavy drinker Substance use: current Substance use type: marijuana Gender identity (if verbalized by the patient): Male Spiritual care concerns: No Exam Narrative: GENERAL: Well-appearing, well-nourished, and in no acute distress. HEAD: Normocephalic, atraumatic. EYES: PERRLA and EOMI. ENT: Nares clear, no rhinorrhea or epistaxis. Mucous membranes moist. NECK: Supple. No masses. No JVD no midline neck tenderness EXTREMITIES: Normal range of motion. Mild diffuse tenderness on the right shoulder no obvious deformities no open or draining wounds SKIN: Warm, dry, no rash. NEURO: 5 out of 5 strength in bilateral upper extremities. 5 out of 5 strength with shoulder abduction and abduction 5 out of 5 strength with shoulder flexion and extension. 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 Sensation intact to light touch alert and oriented x3. PSYCH: Normal mood and affect. Course Vital Signs Vital signs: Vital Signs Temperature 36.3 C L 07/02/21 17:16 Pulse Rate 99 07/02/21 17:16 Respiratory Rate 16 07/02/21 17:16 Blood Pressure 132/88 07/02/21 17:16 Pulse Oximetry 100 07/02/21 17:16 Temperature 36.3 C L 07/02/21 17:16 Pulse Rate 99
[2021-07-02] MEDS: IBUPROFEN 600 MG TABLET PO (21:16)
== END 2021-07-02 21:26 | disposition home or self-care (01) ==
PROVIDERS: Emergency Medicine; Emergency Provider Emergency Medicine
DX: R20.2 Paresthesia of skin (principal); M79.601 Pain in right arm; K21.9 Gastro-esophageal reflux disease without esophagitis; I25.2 Old myocardial infarction; Z89.021 Acquired absence of right finger(s)
CPT/HCPCS: 36415; 80053; 81001; 83690; 85025; 99283; A9270

== ENCOUNTER 2021-07-08 18:26 | Emergency (ER) | payer OTHER, SELFPAY ==
--- NOTE | ~2021-07-08 | CT_ITS ---
EXAMINATION: CT abdomen pelvis w con DATE: 07/08/2021 21:05 INDICATION: epigastric pain TECHNIQUE: Computed tomography (CT) of the abdomen and pelvis was performed with 100 mL Omnipaque-350 intravenous contrast. Automated exposure control and iterative reconstruction technique were employe d. The dose-length product was 201.05 mGy-cm. COMPARISON: 12/15/2020. FINDINGS: Lower thorax: Unremarkable. Liver: Normal. Biliary/Gallbladder: Gallbladder is normal. No bile duct dilation. Spleen: Normal. Pancreas: No mass or duct dilation. Adrenals:No mass. Kidneys: Punctate nonobstructive left inferior pole calculus. Subcentimeter lesions in the lower pole s, likely benign cysts and require no additional follow-up. GI tract: Severe distal esophageal wall and gastric wall edema. No small or large bowel dilation. Nor mal appendix. Mesentery/Peritoneum: No ascites, mass, or free air. Retroperitoneum: No mass. Pelvis: Pelvic organs are within normal limits. Small volume free pelvic fluid. Bones/Soft Tissues: Soft tissues and body wall unremarkable. No acute osseous finding. Additional Findings: None. IMPRESSION: Severe esophagitis/gastritis. No other acute abdominopelvic process detected. Reviewed, dictated and finalized at [facility].
[2021-07-08 18:19] VITALS: BP 159/107; PULSE 98; RESP 16; TEMP 36.5; O2SAT 100
[2021-07-08] MEDS: LIDOCAINE HCL 2% VISC SOLN 15 ML UDC 20 ML PO (18:41)
[2021-07-08] MEDS: MAG HYDROX/AL HYDROX/SIMETH 30 ML UDC PO (18:41)
[2021-07-08] MEDS: SODIUM CHLORIDE 0.9% IV 1,000 ML 999 ML IV CONT (18:41)
[2021-07-08] MEDS: ONDANSETRON INJ 4 MG/2 ML VIAL IV PUSH (18:42)
[2021-07-08] MEDS: PANTOPRAZOLE SODIUM IV 40 MG VIAL IV PUSH (18:42)
[2021-07-08] MEDS: FAMOTIDINE 20 MG/2 ML VIAL IV PUSH (18:42)
[2021-07-08 18:44] LABS: Basophils Percent Auto 0.5 % (0.2-1.2); Eosinophils Percent Auto 0.2 % (0-4.4); Hematocrit 51.6 % (42.0-52.0); Hemoglobin 17.6 g/dL (14.0-18.0); Immature Granulocyte Absolute 0.01 K/mm3 (0.00-0.031); Immature Granulocyte Percent A 0.2 % (0-0.5); Lymphocytes Absolute Auto 3.15 K/mm3 (0.9-3.2); Lymphocytes Percent Auto 48.2 % (18.3-44.2); Mean Corpuscular HGB Conc 34.1 g/dl (32-36); Mean Corpuscular Hemoglobin 31.9 pg (26-34); Mean Corpuscular Volume 93.6 fl (80-100); Mean Platelet Volume 8.4 fl (7.4-10.4); Monocytes Absolute Auto 0.7 K/mm3 (0.1-0.6); Monocytes Percent Auto 9.9 % (2.6-8.5); Neutrophils Absolute Auto 2.7 K/mm3 (1.3-6.7); Platelet Count Result 405 k/mm3 (150-375); Red Blood Count 5.51 M/mm3 (4.6-6.20); Red Cell Distribution Width 13.8 % (11.5-14.5); White Blood Count 6.5 K/mm3 (4.5-10.0)
[2021-07-08 18:58] LABS: Alanine Aminotransferase 17 U/L (4-50); Albumin Level 4.2 g/dL (3.5-5.1); Alkaline Phosphatase 92 U/L (38-126); Anion Gap 7 mmol/L (8-16); Aspartate Amino Transferase 29 U/L (17-59); Bilirubin,Total 0.7 mg/dL (0.2-1.3); Blood Urea Nitrogen 7 mg/dL (9-20); Calcium 10.5 mg/dL (8.4-10.2); Carbon Dioxide 29 mmol/L (22-30); Chloride 97 mmol/L (98-107); Estimated CRCL calculation 83 ml/min; Estimated Glomerular Filt Rate > 60; Glucose 96 mg/dL (65-110); Lipase 49 U/L (23-300); Potassium 3.6 mmol/L (3.4-5.0); Sodium 133 mmol/L (137-145)
[2021-07-08 19:02] LABS: Ethanol < 10 mg/dL (<10)
--- NOTE | 2021-07-08 19:02 | ED.ABDPAIN ---
HPI - Abdominal Pain General Chief Complaint: Abdominal Pain Stated Complaint: abd pain seen here recently for same Time Seen by Provider: 07/08/21 18:28 Source: patient History of Present Illness HPI narrative: Patient presents with abdominal pain. Reports achy pain in the middle of his abdomen his symptoms started couple days ago and have been progressively worse. Reports nausea denies any vomiting or diarrhea. Denies any fevers. Denies any known sick contacts or recent antibiotics. He does have a history of alcohol abuse and pancreatitis Related Data Allergies Allergy/AdvReac Type Severity Reaction Status Date / Time No Known Allergies Allergy Verified 02/25/21 01:36 Review of Systems Review of Systems: CONSTITUTIONAL: Denies fever, chills, or sweats. EYES: Denies visual changes, redness, or discharge. ENT: Denies rhinorrhea, congestion, sore throat, or otalgia. CARDIOVASCULAR: Denies chest pain, palpitations, or edema. RESPIRATORY: Denies cough or dyspnea. GASTROINTESTINAL: Abdominal pain and nausea GENITOURINARY: Denies dysuria or hematuria. SKIN: Denies rash or itching. MUSCULOSKELETAL: Denies back pain, joint pain, or myalgia. NEUROLOGIC: Denies headache, numbness, dizziness, or weakness. PSYCHIATRIC: Denies anxiety or depression. 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 Father No problems noted. Social History Social History Smoking packs per day: 1 Smoking cigarettes per day: 20.0 Years smoked: 40 Smoking pack-years: 40.00 Smoking status: Current some day smoker Tobacco type: cigarettes Additional smoking assessment comments: Smoking exposure Alcohol intake: current Alcohol use details: Heavy drinker Substance use: current Substance use type: marijuana Gender identity (if verbalized by the patient): Male Spiritual care concerns: No Exam Narrative: GENERAL: Well-appearing, well-nourished, and in no acute distress. HEAD: Normocephalic, atraumatic. EYES: PERRLA and EOMI. ENT: Nares clear, no rhinorrhea or epistaxis. Mucous membranes moist. NECK: Supple. No masses. No JVD ABDOMEN: Moderate tenderness in the upper middle and lower abdomen no rebound, soft, nondistended, normal active bowel sounds. EXTREMITIES: Normal range of motion. No edema. SKIN: Warm, dry, no rash. NEURO: No focal deficits. Alert and oriented x3. PSYCH: Normal mood and affect. Course Reevaluation(s) Reevaluation #1: Patient reports feeling much improved results and plan reviewed with patient. Patient is comfortable outpatient plan. Date: 07/08/21 Time: 21:48 Vital Signs Vital signs: Vital Signs Temperature 36.5 C 07/08/21 18:19 Pulse Rate 98 07/08/21 18:19 Respiratory Rate 16 07/08/21 18:19 Blood Pressure 159/107 H 07/08/21 18:19 Pulse Oximetry 100 07/08/21 18:19 Temperature 36.5 C 07/08/21 18:19 Pulse Rate 46 L 07/08/21 21:57 Respiratory Rate 18 07/08/21 21:57 Blood Pressure 131/101 H 07/08/21 21:57 Pulse Oximetry 94 07/08/21 21:57 MDM - Abdominal Pain MDM Narrative Medical decision making narrative: H&P as above, vss, pt looks clinically well, exam abdominal pain most noted in the epigastric area, labs clinically unremarkable, img with concern for gastritis and esophagitis, additi
[2021-07-08 20:03] VITALS: BP 139/79; PULSE 71; RESP 16; O2SAT 95
[2021-07-08 20:14] LABS: Appearance Urine Clear (Clear); Bilirubin Urine Negative (Negative); Blood Urine Negative (Negative); Color Urine Yellow (Yellow); Glucose Urine UA Trace mg/dL (Negative); Ketones Urine Negative (Negative); Leukocyte Esterase Ur Negative LEU/UL (Negative); Nitrate Urine Negative (Negative); Protein Urine Negative (Negative); Specific Grav Ur 1.015 (1.001-1.035); pH Urine 7.5 (5.0-9.0)
[2021-07-08 20:19] LABS: Amorphous Sediment Urine Moderate; Mucus Urine Rare /lpf; RBC Urine 0-2 /hpf (0-2); WBC Urine 0-3 /hpf
[2021-07-08 20:27] LABS: Add Urine Microscopic? YES
[2021-07-08 21:57] VITALS: BP 131/101; PULSE 46; RESP 18; O2SAT 94
== END 2021-07-08 21:58 | disposition home or self-care (01) ==
PROVIDERS: Emergency Provider Emergency Medicine
DX: K21.00 Gastro-esophageal reflux disease with esophagitis, without bleeding (principal); K29.70 Gastritis, unspecified, without bleeding; I25.2 Old myocardial infarction; Z89.021 Acquired absence of right finger(s); F17.210 Nicotine dependence, cigarettes, uncomplicated
CPT/HCPCS: 36415; 74177; 80053; 80307; 81001; 83690; 85025; 96361; 96374; 96375; 99284; A9270; C9113; J2405; J7030; Q9967

== ENCOUNTER 2021-08-31 19:51 | Emergency (ER) | payer OTHER, SELFPAY ==
--- NOTE | ~2021-08-31 | CT_ITS ---
EXAMINATION: CT abdomen pelvis wo con DATE: 08/31/2021 22:10 INDICATION: Generalized abdominal pain, diarrhea TECHNIQUE: Computed tomography (CT) of the abdomen and pelvis was performed without intravenous contr ast. Automated exposure control and iterative reconstruction technique were employed. Exam dose: 196 .03 mGy-cm total exam DLP. COMPARISON: 07/08/2021 CT abdomen pelvis with IV contrast material is FINDINGS: The lung bases are clear of infiltrate or consolidation. Normal heart size. Coronary artery calcifications are noted. No pericardial or pleural effusion. The liver, gallbladder, bile ducts, spleen, pancreas and pancreatic duct are unremarkable. Normal morphology of the adrenal glands. Pinpoint nonobstructing lower pole right renal calculus. Approximately 1.8 x 4.5 mm nonobstructing lo wer pole left renal calculus. No ureteral calculus or hydroureteronephrosis. Mild prostate calcification. The urinary bladder is relatively evacuated. There is extensive calcification of the abdominal aorta, without aneurysm. Calcification of the iliac and femoral arteries. No intraperitoneal or retroperitoneal or pelvic mass lesion or adenopathy or ascites is evident. Normal appendix. No bowel obstruction or intraperitoneal free air is detected. No suspicious osteolytic or osteoblastic lesions Moderately severe degenerative disc disease and minimal retrolisthesis at L5-S1. IMPRESSION: Minimal bilateral nonobstructive nephrolithiasis Normal appendix No bowel obstruction or free air Reviewed, dictated and finalized at [facility]. Reviewed, dictated and finalized at location [facility].
[2021-08-31 19:55] VITALS: BP 134/87; PULSE 94; RESP 20; TEMP 36.9; O2SAT 100
[2021-08-31 20:10] LABS: Basophils Percent Auto 0.4 % (0.2-1.2); Eosinophils Absolute Auto 0.1 K/mm3 (0-0.3); Eosinophils Percent Auto 1.1 % (0-4.4); Hematocrit 47.1 % (42.0-52.0); Hemoglobin 16.1 g/dL (14.0-18.0); Immature Granulocyte Absolute 0.02 K/mm3 (0.00-0.031); Immature Granulocyte Percent A 0.4 % (0-0.5); Lymphocytes Absolute Auto 3.06 K/mm3 (0.9-3.2); Lymphocytes Percent Auto 54.4 % (18.3-44.2); Mean Corpuscular HGB Conc 34.2 g/dl (32-36); Mean Corpuscular Hemoglobin 31.3 pg (26-34); Mean Corpuscular Volume 91.5 fl (80-100); Mean Platelet Volume 8.7 fl (7.4-10.4); Monocytes Absolute Auto 0.8 K/mm3 (0.1-0.6); Monocytes Percent Auto 14.4 % (2.6-8.5); Neutrophils Absolute Auto 1.7 K/mm3 (1.3-6.7); Neutrophils Percent Auto 29.3 % (45.5-73.1); Platelet Count Result 319 k/mm3 (150-375); Red Blood Count 5.15 M/mm3 (4.6-6.20); Red Cell Distribution Width 16.8 % (11.5-14.5); White Blood Count 5.6 K/mm3 (4.5-10.0)
[2021-08-31 20:30] LABS: Alanine Aminotransferase 29 U/L (6-50); Albumin Level 4.3 g/dL (3.5-5.1); Alkaline Phosphatase 88 U/L (38-126); Anion Gap 5 mmol/L (8-16); Aspartate Amino Transferase 46 U/L (17-59); Bilirubin,Total 0.5 mg/dL (0.2-1.3); Blood Urea Nitrogen 17 mg/dL (9-20); Calcium 9.3 mg/dL (8.4-10.2); Carbon Dioxide 26 mmol/L (22-30); Chloride 99 mmol/L (98-107); Estimated Glomerular Filt Rate > 60; Glucose 97 mg/dL (65-110); Lipase 149 U/L (23-300); Potassium 3.5 mmol/L (3.4-5.0); Sodium 130 mmol/L (137-145)
--- NOTE | 2021-08-31 22:09 | ED.NAVMDI ---
HPI - Nausea/Vomiting/Diarrhea General Chief complaint: Nausea/Vomiting/Diarrhea Stated complaint: Nausea and vomiting x2 Time Seen by Provider: 08/31/21 21:41 Source: patient History of Present Illness HPI Narrative: Patient presents with nausea vomiting and diarrhea. Patient reports that symptoms for the past couple days and feels like is getting progressively worse. Reports diffuse abdominal pain that is achy, constant, no clear aggravating or alleviating factors, no radiation. Denies any blood bile or melena in his stool or emesis. He has not noted any fevers. Denies any urinary symptoms. Does report a history of pancreatitis related to drinking reports has not had a drink in the past couple days and this feels different than his prior pancreatitis episodes. He has not had recent antibiotics denies any known sick contacts Related Data Allergies Allergy/AdvReac Type Severity Reaction Status Date / Time No Known Allergies Allergy Verified 08/31/21 19:58 Review of Systems Review of Systems: CONSTITUTIONAL: Denies fever, chills, or sweats. EYES: Denies visual changes, redness, or discharge. ENT: Denies rhinorrhea, congestion, sore throat, or otalgia. CARDIOVASCULAR: Denies chest pain, palpitations, or edema. RESPIRATORY: Denies cough or dyspnea. GASTROINTESTINAL: Denies abdominal pain, nausea, vomiting, or diarrhea. GENITOURINARY: Denies dysuria or hematuria. SKIN: Denies rash or itching. MUSCULOSKELETAL: Denies back pain, joint pain, or myalgia. NEUROLOGIC: Denies headache, numbness, dizziness, or weakness. PSYCHIATRIC: Denies anxiety or depression. 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 Father No problems noted. Social History Social History Smoking packs per day: 1 Smoking cigarettes per day: 20.0 Years smoked: 40 Smoking pack-years: 40.00 Smoking status: Current some day smoker Tobacco type: cigarettes Additional smoking assessment comments: Smoking exposure Alcohol intake: current Alcohol use details: Heavy drinker Substance use: current Substance use type: marijuana Gender identity (if verbalized by the patient): Male Spiritual care concerns: No Exam Narrative: GENERAL: Well-appearing, well-nourished, and in no acute distress. HEAD: Normocephalic, atraumatic. EYES: PERRLA and EOMI. ENT: Nares clear, no rhinorrhea or epistaxis. Mucous membranes moist. NECK: Supple. No masses. No JVD CHEST: Clear to auscultation. No respiratory distress. No wheezes rales or rhonchi HEART: Regular rate and rhythm. No murmur heard. Normal peripheral pulses. ABDOMEN: Mild diffuse tenderness soft, nondistended. EXTREMITIES: Normal range of motion. No edema. SKIN: Warm, dry, no rash. NEURO: No focal deficits. Alert and oriented x3. PSYCH: Normal mood and affect. Course Reevaluation(s) Reevaluation #1: Results and plan reviewed with patient. Patient is comfortable outpatient plan. Patient reports feeling much improved Date: 08/31/21 Time: 23:39 Vital Signs Vital signs: Vital Signs Temperature 36.9 C 08/31/21 19:55 Pulse Rate 94 08/31/21 19:55 Respiratory Rate 20 08/31/21 19:55 Blood Pressure 134/87 08/31/21 19:55 Pulse Oximetry 100 08/31/21 19:55 Oxygen Delivery Room Air 08/31/21 19:55
[2021-08-31] MEDS: SODIUM CHLORIDE 0.9% IV 1,000 ML 999 ML IV CONT (22:23)
[2021-08-31] MEDS: KETOROLAC 15 MG/ML VIAL (*BKC) IV PUSH (22:23)
[2021-08-31] MEDS: ONDANSETRON INJ 4 MG/2 ML VIAL IV PUSH (22:23)
[2021-08-31 22:28] VITALS: BP 129/91; PULSE 87; RESP 16; O2SAT 97
[2021-08-31 23:26] LABS: Appearance Urine Clear (Clear); Bilirubin Urine 1+ (Negative); Blood Urine Negative (Negative); Color Urine Yellow (Yellow); Glucose Urine UA Negative (Negative); Ketones Urine Negative (Negative); Leukocyte Esterase Ur Negative LEU/UL (Negative); Nitrate Urine Negative (Negative); Protein Urine 1+ mg/dL (Negative); Specific Grav Ur >= 1.030 (1.001-1.035); Urobilinogen Urine 0.2 mg/dL (<2.0); pH Urine 5.5 (5.0-9.0)
[2021-08-31 23:32] LABS: Add Urine Microscopic? YES; Amorphous Sediment Urine Few; Mucus Urine Moderate /lpf; RBC Urine 0-2 /hpf (0-2); Squamous Epithelial Cell Urine Rare /hpf (Few); WBC Urine 0-3 /hpf
== END 2021-08-31 23:50 | disposition home or self-care (01) ==
PROVIDERS: Emergency Provider Emergency Medicine
DX: R11.2 Nausea with vomiting, unspecified (principal); R19.7 Diarrhea, unspecified; I25.2 Old myocardial infarction; K21.9 Gastro-esophageal reflux disease without esophagitis; Z89.021 Acquired absence of right finger(s); F17.210 Nicotine dependence, cigarettes, uncomplicated
CPT/HCPCS: 36415; 74176; 80053; 81001; 83690; 85025; 96361; 96374; 96375; 99284; J1885; J2405; J7030

== ENCOUNTER 2021-09-30 12:46 | Emergency (ER) | payer OTHER, SELFPAY ==
--- NOTE | ~2021-09-30 | XR_ITS ---
EXAMINATION: XR chest 1V portable 09/30/2021 14:10 INDICATION: Dyspnea. Pancreatitis. PROCEDURE: AP portable chest COMPARISON: 02/24/2021 FINDINGS: The lungs are clear. The cardiomediastinal silhouette is within normal limits. There are no pleural effusions. There is no pneumothorax suspected. IMPRESSION: 1: NO ACUTE CARDIOPULMONARY DISEASE. Reviewed, dictated and finalized at location [facility].
[2021-09-30 12:41] VITALS: BP 153/70; PULSE 77; RESP 16; TEMP 36.6; O2SAT 100
[2021-09-30 14:02] LABS: Basophils Percent Auto 0.2 % (0.2-1.2); Eosinophils Percent Auto 0.5 % (0-4.4); Hematocrit 45.9 % (42.0-52.0); Hemoglobin 15.7 g/dL (14.0-18.0); Immature Granulocyte Absolute 0.01 K/mm3 (0.00-0.031); Immature Granulocyte Percent A 0.2 % (0-0.5); Lymphocytes Percent Auto 34.2 % (18.3-44.2); Mean Corpuscular HGB Conc 34.2 g/dl (32-36); Mean Corpuscular Hemoglobin 31.9 pg (26-34); Mean Corpuscular Volume 93.3 fl (80-100); Mean Platelet Volume 8.7 fl (7.4-10.4); Monocytes Absolute Auto 0.7 K/mm3 (0.1-0.6); Monocytes Percent Auto 11.6 % (2.6-8.5); Neutrophils Absolute Auto 3.1 K/mm3 (1.3-6.7); Neutrophils Percent Auto 53.3 % (45.5-73.1); Platelet Count Result 342 k/mm3 (150-375); Red Blood Count 4.92 M/mm3 (4.6-6.20); White Blood Count 5.9 K/mm3 (4.5-10.0)
[2021-09-30 14:03] LABS: Appearance Urine Slightly Cloudy (Clear); Bilirubin Urine Negative (Negative); Blood Urine Negative (Negative); Color Urine Yellow (Yellow); Glucose Urine UA Trace mg/dL (Negative); Ketones Urine Negative (Negative); Leukocyte Esterase Ur Negative LEU/UL (Negative); Nitrate Urine Negative (Negative); Protein Urine Negative (Negative); Urobilinogen Urine 0.2 mg/dL (<2.0); pH Urine 7.5 (5.0-9.0)
--- NOTE | 2021-09-30 14:07 | PC.NURSE ---
per bony fournier, pt refusing COVID swab.
--- NOTE | 2021-09-30 14:10 | ED.GENADULT ---
HPI - General Adult General Chief complaint: Nausea/Vomiting/Diarrhea Stated complaint: n/v Time Seen by Provider: 09/30/21 13:54 History of Present Illness HPI narrative: 51-year-old male presents to the emergency room. He is not very cooperative. He states I just do not feel well. He states he had some nausea vomiting. Got some abdominal pain. Is got a history of pancreatitis in reviewing his old records. Denies any recent alcohol consumption. He is not COVID vaccinated and he states I will not put that crap in my body . He will not answer most of my questions. 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 Father No problems noted. Social History Social History Smoking packs per day: 1 Smoking cigarettes per day: 20.0 Years smoked: 40 Smoking pack-years: 40.00 Smoking status: Current some day smoker Tobacco type: cigarettes Additional smoking assessment comments: Smoking exposure Alcohol intake: current Alcohol use details: Heavy drinker Substance use: current Substance use type: marijuana Gender identity (if verbalized by the patient): Male Sexual Orientation (if Verbalized by the Patient): Straight or Heterosexual Spiritual care concerns: No Exam Narrative: APPEARANCE: Well appearing, no pain or distress, well-nourished. Head normocephalic and atraumatic. EYES: PERRLA/EOMI, conjunctivae very clear. NOSE: Normal with no drainage EARS:TMS clear Jeromy Dewey, with good light reflex. THROAT: Pharynx clear, no exudate. NECK: Supple. No adenopathy, no masses. RESPIRATORY: Airway patent, respirations nonlabored. Clear to auscultation bilaterally, no rales, rhonchi, wheezing. CARDIOVASCULAR: Regular rate and rhythm without murmurs, rubs, or gallops. ABDOMINAL: Soft, nondistended, no hepatosplenomegaly. Mild mid abdominal tenderness Musculoskeletal: Moves all extremities. Strength/ROM intact, No edema, No calf tenderness. NEURO: Alert. Cranial nerves II through XII intact. Normal gait. Good coordination. Nonfocal examination. SKIN:: Warm, dry. Normal Color PSYCHIATRIC: Normal affect/mood, normal interaction Course Vital Signs Vital signs: Vital Signs Temperature 97.8 F 09/30/21 12:41 Pulse Rate 77 09/30/21 12:41 Respiratory Rate 16 09/30/21 12:41 Blood Pressure 153/70 H 09/30/21 12:41 Pulse Oximetry 100 09/30/21 12:41 Oxygen Delivery Room Air 09/30/21 12:41 Temperature 97.8 F 09/30/21 12:41 Pulse Rate 77 09/30/21 12:41 Respiratory Rate 16 09/30/21 12:41 Blood Pressure 153/70 H 09/30/21 12:41 Pulse Oximetry 100 09/30/21 12:41 Oxygen Delivery Room Air 09/30/21 12:41 Medical Decision Making MDM Narrative Medical decision making narrative: Work-up and evaluation was unremarkable. Lipase is normal. Patient given IV hydration emergency room. Went back to review everything with him he sound asleep in the bed when I woke him up and told him that everything was looking good Some gastritis we will put him on some medication for that the first thing out of his mouth is I need
[2021-09-30 14:11] LABS: Alanine Aminotransferase 19 U/L (6-50); Albumin Level 4.1 g/dL (3.5-5.1); Alkaline Phosphatase 73 U/L (38-126); Anion Gap 0 mmol/L (8-16); Aspartate Amino Transferase 27 U/L (17-59); Bilirubin,Total 0.5 mg/dL (0.2-1.3); Blood Urea Nitrogen 10 mg/dL (9-20); Calcium 9.8 mg/dL (8.4-10.2); Carbon Dioxide 29 mmol/L (22-30); Chloride 105 mmol/L (98-107); Estimated CRCL calculation 75 ml/min; Estimated Glomerular Filt Rate > 60; Glucose 106 mg/dL (65-110); Lipase 106 U/L (23-300); Potassium 4.3 mmol/L (3.4-5.0); Sodium 134 mmol/L (137-145)
[2021-09-30 14:12] LABS: Mucus Urine Rare /lpf; RBC Urine 0-2 /hpf (0-2); Squamous Epithelial Cell Urine Rare /hpf (Few); WBC Urine 0-3 /hpf
[2021-09-30 14:15] LABS: Add Urine Microscopic? YES
[2021-09-30] MEDS: ONDANSETRON INJ 4 MG/2 ML VIAL IV PUSH (14:21)
[2021-09-30] MEDS: SODIUM CHLORIDE 0.9% IV 1,000 ML 999 ML IV CONT ×2 (14:21→15:30)
--- NOTE | 2021-09-30 15:21 | PC.NURSE ---
Patient vomiting in ED. Dr. Swartz made aware. Per Dr. Swartz patient is going home with nausea medication and can use it for his nausea. Patient informed of Dr. Swartz's instructions to have medication filled to help with his nausea.
--- NOTE | 2021-09-30 15:29 | PC.NURSE ---
Patient unsteady on his feet when getting up and walking. Dr. Swartz aware and second liter bolus order given.
[2021-09-30] MEDS: PROMETHAZINE HCL 25 MG/ML AMPUL 12.5 MG IV PUSH (15:34)
[2021-09-30] MEDS: SODIUM CHLORIDE 0.9% IV 50 ML 75 ML (15:51)
[2021-09-30] MEDS: KETOROLAC 30 MG/ML VIAL (*BKC) IV PUSH (17:12)
--- NOTE | 2021-09-30 17:54 | PC.NURSE ---
Patient had activated his call light. Line Construction Supervisor to bedside to find patient standing on side of bed, stumbling around. Line Construction Supervisor asked, What are you doing? Why don't you sit down. Patient stated, I can't go home, I've never been this weak before, I've never been like this before. Patient crawled back into bed on his own, fiction writer covered patient with blankets and turned the lights back off. Line Construction Supervisor then informed Dr. Swartz of situation with patient. Dr. Swartz to go talk to patient again.
--- NOTE | 2021-09-30 18:18 | PC.NURSE ---
Dr. Swartz spoke to patient and reported patient can be discharged. Chicken Cleaner to bedside to discharge patient, patient dressed laying in bed. Patient sat up and got out of the bed on his own. Grabbed his things and sat down in wheelchair on his own. Patient refused discharge paperwork, insurance writer informed patient where to berry picker his prescriptions since he didn't want to take his discharge papers with the information.
== END 2021-09-30 18:20 | disposition home or self-care (01) ==
PROVIDERS: Emergency Medicine; Emergency Provider Emergency Medicine
DX: K29.70 Gastritis, unspecified, without bleeding (principal); K21.9 Gastro-esophageal reflux disease without esophagitis; I25.2 Old myocardial infarction; Z28.310 Unvaccinated for COVID-19; Z89.021 Acquired absence of right finger(s); F17.210 Nicotine dependence, cigarettes, uncomplicated
CPT/HCPCS: 36415; 71045; 80053; 81001; 83690; 85025; 96361; 96374; 96375; 99284; J1885; J2405; J2550; J7030

== ENCOUNTER 2022-04-26 05:22 | Emergency (ER) | payer OTHER, SELFPAY ==
--- NOTE | ~2022-04-26 | CT_ITS ---
CT Abdomen and Pelvis with contrast. History: Abdominal pain. Spiral CT of the abdomen and pelvis was performed after the administration of intravenous contrast. 1 00 cc of Omnipaque 350 was administered intravenously without complication. Dose reduction technique was used on this scan by utilizing automated exposure control and iterative reconstruction technique. The dose-length product (DLP) was 214.67 mGy-cm. COMPARISON: 08/31/2021 Findings: Scans through the lung bases demonstrate mild atelectatic change. The liver, spleen, pancreas, gallbladder, adrenals and right kidney are within normal limits. 3 mm no nobstructing left renal stone noted. No evidence of aortic aneurysm. No lymphadenopathy is seen. There is no evidence of bowel obstruction. There is no evidence to suggest acute appendicitis or dive rticulitis. Images through the pelvis were performed. Urinary bladder unremarkable. Prostate gland and seminal ve sicles are unremarkable. No ascites is seen. Impression: 3 mm nonobstructing left renal stone. No other significant findings. Reviewed, dictated and finalized at [facility]. RAL OFFICE FRAME WIRER Impression: 3 mm nonobstructing left renal stone. No other significant findings.
[2022-04-26 05:21] VITALS: BP 141/80; PULSE 77; RESP 19; TEMP 36.8; O2SAT 100
[2022-04-26 05:36] LABS: Basophils Percent Auto 0.1 % (0.2-1.2); Hemoglobin 15.3 g/dL (14.0-18.0); Immature Granulocyte Absolute 0.03 K/mm3 (0.00-0.031); Immature Granulocyte Percent A 0.4 % (0-0.5); Lymphocytes Absolute Auto 1.26 K/mm3 (0.9-3.2); Lymphocytes Percent Auto 15.7 % (18.3-44.2); Mean Corpuscular HGB Conc 33.3 g/dl (32-36); Mean Corpuscular Hemoglobin 31.2 pg (26-34); Mean Corpuscular Volume 93.7 fl (80-100); Mean Platelet Volume 8.2 fl (7.4-10.4); Monocytes Absolute Auto 0.4 K/mm3 (0.1-0.6); Monocytes Percent Auto 4.5 % (2.6-8.5); Neutrophils Absolute Auto 6.4 K/mm3 (1.3-6.7); Neutrophils Percent Auto 79.3 % (45.5-73.1); Platelet Count Result 377 k/mm3 (150-375); Red Blood Count 4.91 M/mm3 (4.6-6.20); Red Cell Distribution Width 14.8 % (11.5-14.5); White Blood Count 8.1 K/mm3 (4.5-10.0)
[2022-04-26 05:47] LABS: Alanine Aminotransferase 22 U/L (6-50); Albumin Level 4.1 g/dL (3.5-5.1); Alkaline Phosphatase 77 U/L (38-126); Anion Gap 5 mmol/L (8-16); Aspartate Amino Transferase 28 U/L (17-59); Bilirubin,Total 0.4 mg/dL (0.2-1.3); Blood Urea Nitrogen 12 mg/dL (9-20); Calcium 9.9 mg/dL (8.4-10.2); Carbon Dioxide 30 mmol/L (22-30); Chloride 104 mmol/L (98-107); Estimated CRCL calculation 82 ml/min; Estimated Glomerular Filt Rate > 60; Glucose 111 mg/dL (65-110); Lipase 76 U/L (23-300); Potassium 4.1 mmol/L (3.4-5.0); Sodium 139 mmol/L (137-145)
[2022-04-26] MEDS: HALOPERIDOL LACTATE 5 MG/ML VIAL 2.5 MG IV PUSH (05:50)
[2022-04-26 06:36] VITALS: BP 148/75; PULSE 68; RESP 16; O2SAT 99
[2022-04-26 06:53] LABS: Appearance Urine Clear (Clear); Bilirubin Urine Negative (Negative); Blood Urine Negative (Negative); Color Urine Yellow (Yellow); Glucose Urine UA 2+ mg/dL (Negative); Ketones Urine Negative (Negative); Leukocyte Esterase Ur Negative LEU/UL (Negative); Nitrate Urine Negative (Negative); Protein Urine Trace mg/dL (Negative); Urobilinogen Urine 0.2 mg/dL (<2.0); pH Urine 8.5 (5.0-9.0)
[2022-04-26 06:55] LABS: Mucus Urine Rare /lpf; RBC Urine 0-2 /hpf (0-2); WBC Urine 0-3 /hpf
--- NOTE | 2022-04-26 07:10 | PC.NURSE ---
Patient report received from MAURICE Lindsey. All questions answered and care of patient assumed.
--- NOTE | 2022-04-26 07:21 | ED.ABDPAIN ---
HPI - Abdominal Pain General Chief Complaint: Abdominal Pain <Carlie Jack MD - Last Filed: 04/27/22 12:33> Stated Complaint: PAIN ALL OVER X 2 DAYS <Carlie Jack MD - Last Filed: 04/27/22 12:33> Time Seen by Provider: 04/26/22 05:24 <Carlie Jack MD - Last Filed: 04/27/22 12:33> History of Present Illness HPI narrative: ? 52-year-old male with history of pancreatitis presenting that for the last 2 days, he has been having pain all over, with chills, and some pain in his abdomen. He has had multiple episodes like this in the past. Does state that he did drink yesterday. Also uses marijuana daily. <Carlie Jack MD - Last Filed: 04/27/22 12:33> Related Data Allergies/Adverse Reactions: Allergies Allergy/AdvReac Type Severity Reaction Status Date / Time No Known Allergies Allergy Verified 04/26/22 05:27 <Carlie Jack MD - Last Filed: 04/27/22 12:33> Review of Systems Review of Systems: CONST: Chills HEENT: No sore throat C/V: No chest pain RESP: No cough GI: Reports abdominal pain, nausea, vomiting : No dysuria. M/S: Body aches. SKIN: No rash. 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 Father No problems noted. <Carlie Jack MD - Last Filed: 04/27/22 12:33> Social History Social History: Social History Smoking packs per day: 1 Smoking cigarettes per day: 20.0 Years smoked: 40 Smoking pack-years: 40.00 Smoking status: Current some day smoker Tobacco type: cigarettes Additional smoking assessment comments: Smoking exposure Alcohol intake: current Alcohol use details: Heavy drinker Substance use: current Substance use type: marijuana Gender identity (if verbalized by the patient): Male Sexual Orientation (if Verbalized by the Patient): Straight or Heterosexual Spiritual care concerns: No <Carlie Jack MD - Last Filed: 04/27/22 12:33> Exam Narrative: EXAMINATION OF ORGAN SYSTEMS/BODY AREAS: Constitutional: Vital signs per nursing GENERAL:Resting/sleeping comfortably HEAD: Normal with no signs of head trauma. EYES: EOMI, conjunctiva normal ENT: Hearing grossly intact LUNGS: Nonlabored breathing. HEART: [Regular rate and rhythm] ABD: [Soft], [tender to palpation] periumbilical EXT: Normal range of motion SKIN: [No rashes or lesions.] NEURO: [Alert and oriented x 3. No gross focal sensory or strength deficits.] PSYCH: Normal affect <Carlie Jack MD - Last Filed: 04/27/22 12:33> Course Course Emergency Course: 930: Patient lying in bed resting comfortably. No distress. Informed of imaging results as well as lab results. No evidence of intra-abdominal process, renal failure, urinary infection. Patient refused influenza/COVID swab. He will be discharged home. <Robert Garcia MD - Last Filed: 04/26/22 09:35> Vital Signs Vital signs: Vital Signs Temperature 98.3 F 04/26/22 05:21 Pulse Rate 77 04/26/22 05:21 Respiratory Rate 19 04/26/22 05:21 Blood Pressure 141/80 H 04/26/22 05:21 Pulse Oximetry 100 04/26/22 05:21 Temperature 9
[2022-04-26 07:28] LABS: Add Urine Microscopic? YES
--- NOTE | 2022-04-26 07:42 | PC.NURSE ---
Asked the patient if I could get a nasal covid swab. Patient refused and stated that he did not want the swab up his nose.
--- NOTE | 2022-04-26 08:22 | PC.NURSE ---
Patient refusing COVID swab. made aware.
[2022-04-26 10:00] VITALS: BP 152/89; PULSE 88; RESP 16; O2SAT 99
== END 2022-04-26 10:05 | disposition home or self-care (01) ==
PROVIDERS: Emergency Provider Emergency Medicine; PCP Emergency Medicine
DX: R10.0 Acute abdomen (principal); I25.2 Old myocardial infarction; K21.9 Gastro-esophageal reflux disease without esophagitis; Z89.021 Acquired absence of right finger(s); F17.210 Nicotine dependence, cigarettes, uncomplicated; N20.0 Calculus of kidney
CPT/HCPCS: 36415; 74177; 80053; 81001; 83690; 85025; 95864; 96374; 99284; J1630; Q9967

== ENCOUNTER 2023-05-13 23:04 | Emergency (ER) | payer OTHER, MEDICAID, SELFPAY ==
[2023-05-13 23:13] VITALS: BP 141/79; PULSE 94; RESP 18; TEMP 36.9; O2SAT 99
[2023-05-14 02:06] VITALS: BP 145/90; PULSE 96; RESP 16; O2SAT 100
== END 2023-05-14 02:45 | disposition left against medical advice (07) ==
PROVIDERS: PCP Emergency Medicine
DX: R53.1 Weakness (principal)
CPT/HCPCS: 99199

== ENCOUNTER 2023-05-14 14:06 | Emergency (ER) | payer OTHER, MEDICAID, SELFPAY ==
--- NOTE | ~2023-05-14 | XR_ITS ---
EXAMINATION: XR abdomen/kub 1V DATE: 05/14/2023 16:01 INDICATION: Abdominal pain. Nausea. TECHNIQUE: A supine view of the abdomen was obtained. COMPARISON: Abdomen radiographs 02/19/2020 FINDINGS: There are no dilated loops of bowel. There is a moderate volume of stool in the colon. Ther e is a 4 mm stone in left kidney. There is a 2 mm stone in right kidney. IMPRESSION: 1. Bilateral kidney stones. Reviewed, dictated and finalized at location E. WARE DATABASE ARCHITECT IMPRESSION: 1. Bilateral kidney stones.
--- NOTE | ~2023-05-14 | CT_ITS ---
EXAMINATION: CT abdomen pelvis w con DATE: 05/14/2023 17:00 INDICATION: Abdominal pain. TECHNIQUE: Computed tomography (CT) of the abdomen and pelvis was performed with 110 mL Omnipaque 350 intravenous contrast. Automated exposure control and iterative reconstruction technique were employe d. The dose-length product was 206.68 mGy-cm. COMPARISON: CT abdomen and pelvis 04/26/2022 FINDINGS: The visualized portions of the lung bases demonstrate mild atelectasis. No pleural effusion . The heart size is normal. No pericardial effusion. The liver, gallbladder, spleen, pancreas, and ad renal glands are normal. There are cysts in the kidneys measuring up to 5 mm. There are no dilated lo ops of bowel. The appendix is normal. There is calcified atherosclerosis of the aorta and many of the other arteries. There are no pathologically enlarged lymph nodes. There is no free intraperitoneal f luid. There is severe lumbar spondylosis. IMPRESSION: 1. No etiology for the patient's symptoms. Reviewed, dictated and finalized at location E. OMER SERVICE AGENT
[2023-05-14 14:15] VITALS: BP 167/86; PULSE 90; RESP 16; TEMP 36.6; O2SAT 99
--- NOTE | 2023-05-14 15:48 | ED.ABDPAIN ---
HPI - Abdominal Pain General Chief Complaint: Abdominal Pain Stated Complaint: abd pain Time Seen by Provider: 05/14/23 15:47 Source: patient History of Present Illness HPI narrative: 53 years old male came to the Emergency by ambulance because of mid abdominal pain for the last few days, last alcohol intake 2 days ago. History of GERD and gastritis, currently on Pepcid. He denies any fever, chills, nausea or vomiting. 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 Father No problems noted. Social History Social History Smoking packs per day: 1 Smoking cigarettes per day: 20.0 Years smoked: 40 Smoking pack-years: 40.00 Smoking status: Current some day smoker Tobacco type: cigarettes Additional smoking assessment comments: Smoking exposure Alcohol intake: current Alcohol use details: Heavy drinker Substance use: current Substance use type: marijuana Gender identity (if verbalized by the patient): Male Sexual Orientation (if Verbalized by the Patient): Straight or Heterosexual Spiritual care concerns: No Exam Narrative: General appearance: Well-developed, well-nourished Skin: Normal color Head: Normocephalic, nontraumatic Eyes: Clear conjunctiva ENT: Oropharynx normal, ears normal, nose normal Neck: Supple, nontender Chest and respiratory: Airway patent, no respiratory distress, no accessory muscle use Heart: Regular rate/rhythm Abdomen: Diffuse abdominal tenderness, slight guarding, no rebound, no organomegaly, quiet bowel sounds Vascular: Normal peripheral pulses, normal capillary refill. Musculoskeletal: Normal range of motion, nontender back Neurologic: Alert and oriented ?3, ACADEMIC AFFAIRS MANAGER is normal as tested, no gross motor deficit Course Vital Signs Vital signs: Vital Signs Temperature 36.6 C 05/14/23 14:15 Pulse Rate 90 05/14/23 14:15 Respiratory Rate 16 05/14/23 14:15 Blood Pressure 167/86 H 05/14/23 14:15 Pulse Oximetry 99 05/14/23 14:15 Oxygen Delivery Room Air 05/14/23 14:15 Temperature 36.6 C 05/14/23 14:15 Pulse Rate 90 05/14/23 14:15 Respiratory Rate 16 05/14/23 14:15 Blood Pressure 167/86 H 05/14/23 14:15 Pulse Oximetry 99 05/14/23 14:15 Oxygen Delivery Room Air 05/14/23 14:15 MDM - Abdominal Pain MDM Narrative Medical decision making narrative: Patient presents with mid abdominal pain, Physical examination as above, vital signs are stable Differential diagnosis include alcoholic gastritis, pancreatitis, constipation, diverticulitis, colitis or urinary tract infection. Blood workup today showed no significant abnormalities. CT scan of the abdomen and pelvis with IV contrast showed no acute abnormality to explain patient condition. In the ED patient received 1 L of normal saline, 0.5 mg of
[2023-05-14 16:03] VITALS: BP 168/98; PULSE 77; RESP 10; O2SAT 97
[2023-05-14] MEDS: HYDROmorphone HCL INJ (*CRX) 1 MG/ML SYR 0.5 MG IV PUSH (16:09)
[2023-05-14] MEDS: ONDANSETRON INJ 4 MG/2 ML VIAL IV PUSH (16:09)
[2023-05-14] MEDS: SODIUM CHLORIDE 0.9% IV 1,000 ML 999 ML IV CONT (16:10)
[2023-05-14 16:21] LABS: Basophils Percent Auto 0.2 % (0.2-1.2); Eosinophils Percent Auto 0.3 % (0-4.4); Hematocrit 45.6 % (42.0-52.0); Hemoglobin 15.5 g/dL (14.0-18.0); Immature Granulocyte Absolute 0.02 K/mm3 (0.00-0.031); Immature Granulocyte Percent A 0.2 % (0-0.5); Lymphocytes Absolute Auto 2.66 K/mm3 (0.9-3.2); Lymphocytes Percent Auto 30.9 % (18.3-44.2); Mean Corpuscular Hemoglobin 31.1 pg (26-34); Mean Corpuscular Volume 91.4 fl (80-100); Mean Platelet Volume 8.3 fl (7.4-10.4); Neutrophils Absolute Auto 4.9 K/mm3 (1.3-6.7); Neutrophils Percent Auto 57.4 % (45.5-73.1); Platelet Count Result 453 k/mm3 (150-375); Red Blood Count 4.99 M/mm3 (4.6-6.20); Red Cell Distribution Width 15.5 % (11.5-14.5); White Blood Count 8.6 K/mm3 (4.5-10.0)
[2023-05-14 16:29] LABS: Ethanol < 10 mg/dL (<10)
[2023-05-14 16:30] LABS: Alanine Aminotransferase 20 U/L (6-50); Alkaline Phosphatase 76 U/L (38-126); Anion Gap 5 mmol/L (8-16); Aspartate Amino Transferase 32 U/L (17-59); Bilirubin,Total 0.4 mg/dL (0.2-1.3); Blood Urea Nitrogen 22 mg/dL (9-20); Calcium 10.7 mg/dL (8.4-10.2); Carbon Dioxide 30 mmol/L (22-30); Chloride 101 mmol/L (98-107); Estimated CRCL calculation 69 ml/min; Estimated Glomerular Filt Rate > 60; Glucose 107 mg/dL (65-110); INR 0.9; Lipase 109 U/L (23-300); Potassium 3.5 mmol/L (3.4-5.0); Prothrombin Time 12.5 Seconds (11.1-14.7); Sodium 136 mmol/L (137-145)
[2023-05-14 17:44] LABS: Appearance Urine Cloudy (Clear); Bacteria Urine None Seen /hpf; Bilirubin Urine Negative (Negative); Blood Urine Negative (Negative); Color Urine Yellow (Yellow); Glucose Urine UA Trace mg/dL (Negative); Ketones Urine Negative (Negative); Leukocyte Esterase Ur Negative LEU/UL (Negative); Nitrate Urine Negative (Negative); Non Pathogenic Casts 0-2; Protein Urine Negative (Negative); RBC Urine 0-2 /hpf (0-2); Squamous Epithelial Cell Urine None seen /hpf (Few); Urobilinogen Urine 0.2 mg/dL (<2.0); WBC Urine 0-5 /hpf; pH Urine 7.5 (5.0-9.0)
[2023-05-14 17:51] LABS: Specific Grav Ur 1.042 (1.001-1.035)
[2023-05-14 17:52] LABS: Add Urine Microscopic? YES
[2023-05-14 17:58] VITALS: BP 148/85; PULSE 78; RESP 20; O2SAT 98
== END 2023-05-14 18:01 | disposition home or self-care (01) ==
PROVIDERS: Emergency Provider Emergency Medicine; PCP Emergency Medicine
DX: R10.84 Generalized abdominal pain (principal); F17.210 Nicotine dependence, cigarettes, uncomplicated; K21.9 Gastro-esophageal reflux disease without esophagitis; I25.2 Old myocardial infarction
CPT/HCPCS: 36415; 74018; 74177; 80053; 80307; 81001; 83690; 85025; 85610; 96361; 96374; 96375; 99284; J1170; J2405; J7030; Q9967

== ENCOUNTER 2023-10-30 11:47 | Emergency (ER) | payer OTHER, MEDICAID, SELFPAY ==
[2023-10-30 11:51] VITALS: BP 135/92; PULSE 73; RESP 18; TEMP 36.4; O2SAT 99
[2023-10-30] MEDS: ONDANSETRON INJ 4 MG/2 ML VIAL IV PUSH (12:04)
[2023-10-30] MEDS: SODIUM CHLORIDE 0.9% IV 1,000 ML 999 ML IV CONT (12:04)
--- NOTE | 2023-10-30 12:14 | ED.GENADULT ---
HPI - General Adult General Chief complaint: Nausea/Vomiting/Diarrhea Stated complaint: nausea Time Seen by Provider: 10/30/23 11:50 History of Present Illness HPI narrative: 53-year-old male with history of pancreatitis presents emergency room via EMS stating high just do not feel well. Complains of waking up this morning with increased fatigue and nausea vomiting. Denies recent ETOH use or recreational drug use. 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 Father No problems noted. Social History Social History Smoking packs per day: 1 Smoking cigarettes per day: 20.0 Years smoked: 40 Smoking pack-years: 40.00 Smoking status: Current some day smoker Tobacco type: cigarettes Additional smoking assessment comments: Smoking exposure Alcohol intake: current Alcohol use details: Heavy drinker Substance use: current Substance use type: marijuana Gender identity (if verbalized by the patient): Male Sexual Orientation (if Verbalized by the Patient): Straight or Heterosexual Spiritual care concerns: No Exam Narrative: GENERAL: chronically ill-appearing, well-nourished, no physical limitations HEAD: Normocephalic, atraumatic. EYES: Conjunctivae normal, PERRLA and EOMI. CHEST: Clear to auscultation. No respiratory distress. No wheezes rales or rhonchi. HEART: Regular rate and rhythm. No murmur heard. Normal peripheral pulses. ABDOMEN: Soft, diffusely tender, guarding to upper abdomen, normal active bowel sounds. : Normal external male/female exam. BACK: No CVA tenderness EXTREMITIES: Normal range of motion. No edema. No clubbing or cyanosis SKIN: Warm, dry, no rash. No noted wounds NEURO: No focal deficits. Alert and oriented x3. MAEW. CN's II-XI intact bilaterally PSYCH: Cooperative. Normal mood and affect. Course Vital Signs Vital signs: Vital Signs Temperature 36.4 C 10/30/23 11:51 Pulse Rate 73 10/30/23 11:51 Respiratory Rate 18 10/30/23 11:51 Blood Pressure 135/92 H 10/30/23 11:51 Pulse Oximetry 99 10/30/23 11:51 Oxygen Delivery Room Air 10/30/23 11:51 Temperature 36.4 C 10/30/23 11:51 Pulse Rate 65 10/30/23 14:36 Respiratory Rate 20 10/30/23 14:36 Blood Pressure 146/89 H 10/30/23 14:36 Pulse Oximetry 97 10/30/23 14:36 Oxygen Delivery Room Air 10/30/23 11:51 Medical Decision Making Vital Signs Vital Signs: Vital Signs Temperature 36.4 C 10/30/23 11:51 Pulse Rate 73 10/30/23 11:51 Respiratory Rate 18 10/30/23 11:51 Blood Pressure 135/92 H 10/30/23 11:51 Pulse Oximetry 99 10/30/23 11:51 Oxygen Delivery Room Air 10/30/23 11:51 Temperature 36.4 C 10/30/23 11:51 Pulse Rate 65 10/30/23 14:36 Respiratory Rate 20 10/30/23 14:36 Blood Pressure 146/89 H 10/30/23 14:36 Pulse Oximetry 97 10/30/23 14:36 Oxygen Delivery Room Air 10/30/23 11:51 Lab Data 10/30/23 12:15 10/30/23 12:15 Labs: Lab Results 10/30/23 10/30/23 Range/Units 12:15 12:53 WBC 6.4 (4.5-10.0) K/mm3 RBC 5.69 (4.6-6.20) M/mm3 Hgb 17.8 (14.0-18
[2023-10-30 12:32] LABS: Basophils Percent Auto 0.2 % (0.2-1.2); Eosinophils Percent Auto 0.3 % (0-4.4); Hematocrit 51.6 % (42.0-52.0); Hemoglobin 17.8 g/dL (14.0-18.0); Immature Granulocyte Absolute 0.01 K/mm3 (0.00-0.031); Immature Granulocyte Percent A 0.2 % (0-0.5); Lymphocytes Absolute Auto 2.82 K/mm3 (0.9-3.2); Lymphocytes Percent Auto 44.3 % (18.3-44.2); Mean Corpuscular HGB Conc 34.5 g/dl (32-36); Mean Corpuscular Hemoglobin 31.3 pg (26-34); Mean Corpuscular Volume 90.7 fl (80-100); Mean Platelet Volume 8.5 fl (7.4-10.4); Monocytes Absolute Auto 0.7 K/mm3 (0.1-0.6); Monocytes Percent Auto 10.4 % (2.6-8.5); Neutrophils Absolute Auto 2.8 K/mm3 (1.3-6.7); Neutrophils Percent Auto 44.6 % (45.5-73.1); Platelet Count Result 415 k/mm3 (150-375); Red Blood Count 5.69 M/mm3 (4.6-6.20); Red Cell Distribution Width 15.7 % (11.5-14.5); White Blood Count 6.4 K/mm3 (4.5-10.0)
[2023-10-30 12:43] VITALS: BP 143/83; PULSE 73; RESP 14; O2SAT 100
--- NOTE | 2023-10-30 12:43 | PC.NURSE ---
Pt declines straight cath, states he is still unable to provide a urine sample, fluids infused. States Im just trying to relax, man. Given urinal and encouraged to continue to provide a sample as ordered.
[2023-10-30 12:49] LABS: Alanine Aminotransferase 28 U/L (6-50); Albumin Level 4.2 g/dL (3.5-5.1); Alkaline Phosphatase 80 U/L (38-126); Anion Gap 9 mmol/L (4-12); Aspartate Amino Transferase 28 U/L (17-59); Bilirubin,Total 0.5 mg/dL (0.2-1.3); Blood Urea Nitrogen 23 mg/dL (9-20); Calcium 10.6 mg/dL (8.4-10.2); Carbon Dioxide 29 mmol/L (22-30); Chloride 94 mmol/L (98-107); Estimated CRCL calculation 60 ml/min; Estimated Glomerular Filt Rate > 60; Glucose 111 mg/dL (65-110); Lipase 78 U/L (23-300); Potassium 3.6 mmol/L (3.4-5.0); Sodium 132 mmol/L (137-145)
[2023-10-30 12:58] LABS: Ethanol < 10 mg/dL (<10)
[2023-10-30 13:01] LABS: Add Urine Microscopic? NO; Appearance Urine Clear (Clear); Bilirubin Urine Negative (Negative); Blood Urine Negative (Negative); Color Urine Yellow (Yellow); Glucose Urine UA 3+ mg/dL (Negative); Ketones Urine Negative (Negative); Leukocyte Esterase Ur Negative LEU/UL (Negative); Nitrate Urine Negative (Negative); Protein Urine Negative (Negative); Specific Grav Ur 1.031 (1.001-1.035); pH Urine 5.5 (5.0-9.0)
[2023-10-30 13:11] LABS: Influenza A QL RT-PCR Negative (Negative); Influenza B QL RT-PCR Negative (Negative); RSV RNA, RT-PCR Negative (Negative); SARS-CoV-2 RNA PCR Negative (Negative)
[2023-10-30 13:36] LABS: Barbiturate Screen Urine Negative (Negative); Benzodiazepines Screen Urine Negative (Negative)
[2023-10-30 14:23] LABS: Cannabinoid Screen Urine Negative (Negative); Cocaine Screen Urine Negative (Negative); Methadone Screen Urine Negative (Negative); Opiate Screen Urine Negative (Negative); Phencyclidine Screen Urine Negative (Negative)
[2023-10-30 14:36] VITALS: BP 146/89; PULSE 65; RESP 20; O2SAT 97
[2023-10-30 14:52] LABS: Amphetamine Screen Urine Positive (Negative)
== END 2023-10-30 15:28 | disposition home or self-care (01) ==
PROVIDERS: Emergency Provider Nurse Practitioner Family; PCP Emergency Medicine
DX: R10.9 Unspecified abdominal pain (principal); F19.10 Other psychoactive substance abuse, uncomplicated; Z20.822 Contact with and (suspected) exposure to COVID-19; I25.2 Old myocardial infarction; Z89.021 Acquired absence of right finger(s); K21.9 Gastro-esophageal reflux disease without esophagitis; F17.210 Nicotine dependence, cigarettes, uncomplicated
CPT/HCPCS: 36415; 80053; 80307; 81003; 83690; 85025; 87637; 96361; 96374; 99284; J2405; J7030

== ENCOUNTER 2024-08-29 14:26 | Emergency (ER) | payer OTHER, MEDICAID, SELFPAY ==
--- NOTE | ~2024-08-29 | CT_ITS ---
EXAMINATION: CT abdomen pelvis w con DATE: 08/29/2024 17:03 INDICATION: LUQ pain TECHNIQUE: Computed tomography (CT) of the abdomen and pelvis was performed with 100 mL Omnipaque-350 intravenous contrast. Automated exposure control and iterative reconstruction technique were employe d. The dose-length product was 200.32 mGy-cm. COMPARISON: 05/14/2023. FINDINGS: Lower thorax: Coronary artery calcification. Incompletely visualized subsegmental consolidation in th e anterior portion of the right upper lobe. Liver: Normal. Biliary/Gallbladder: Gallbladder is normal. No bile duct dilation. Pancreas: No mass. The main pancreatic duct measures 3 mm Spleen: Normal. Adrenals: Indeterminate density 8 and 9 mm right adrenal nodules, unchanged, likely adenomas. Kidneys: No suspicious mass, obstructing stone, or hydronephrosis. 5 mm nodule 2 left lower pole calc ification. Punctate nonenhancing right lower pole constipation. Multiple subcentimeter right renal hy podensities, too small to characterize but most likely represent cysts. GI tract: Moderate distal esophageal and gastric wall edema. No small or large bowel dilation. Append ix is normal. Mesentery/Peritoneum: No ascites, mass, or free air. Retroperitoneum: No mass. Atherosclerotic calcifications of intra-abdominal arterial vessels. Pelvis: Partially distended urinary bladder. Enlarged prostate.. Soft Tissues: Soft tissues and body wall unremarkable. Bones: No acute osseous finding. Multilevel severe lumbar degenerative disc disease. Chronic healed left ninth through 11th posterolateral rib fractures. IMPRESSION: Subsegmental consolidation in the anterior portion of the right upper lobe, may represent infection, aspiration, or contusion in the setting of trauma. Moderate esophagitis/gastritis. 3 mm pancreatic duct, slightly more prominent than in prior studies, correlate with pancreatic labs. Chronic healed left ninth through 11th posterolateral rib fractures. Reviewed, dictated and finalized at location K.
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
--- OUTSIDE RECORDS SUMMARY | 2024-08-29 14:29 | XMS_ITS | Clinical Summary ---
Author Organization [facility] Address [address] [place] [address] Care Team Providers Care Photovoltaic Installer Name Role Phone Ricky Taylor MD Primary Care Provider [phone] Source Comments [facility],non-[facility] Affiliates and Associated Physician Practices is amultiple site organization consisting of ambulatory clinics and hospital sitesin [place], [place], [place] and [place]. This disclosure is being madepursuant to the Care Everywhere program and may not contain all information available regarding this patient. Last updated 17.[facility] Social History Tobacco Use Types Packs/Day Years Used Date Smoking Tobacco: Never Assessed Sex and Gender Information Value Date Recorded Sex Assigned at Not on file Legal Sex Male 10:31 AM CDT Gender Identity Not on file Sexual Orientation Not on file Plan of Treatment Health Maintenance Due Date Last Done Comments COLOGUARD (AGES 45-75) - COL ON CA SCREENING 1968 COLON MONITORING 1968 COLONOSCOPY - COLON CA SCREENING 1968 CT COLONOGRAPHY - COLON CA SCREENING 1968 Colorectal Cancer Screening 1968 FIT - COLON CA SCREENING 1968 FLEX SIG - COLON CA SCREENING 1968 LIPID TESTING 1968 HIV SCREENING 1983 HEPATITIS C SCREENING 02/27/1986 DTAP/TDAP/TD VACCINES (1 - Tdap) 1987 HEPATITIS B VACCINE (1 of 3 - 19+ 3-dose series) 1987 PNEUMOCOCCAL VACCINE 50+ (1 of 1 - PCV) 2018 ZOSTER VACCINE (1 of 2) 2018 COVID-19 VACCINE (1 - 2023-2 5 season) 2023 DEPRESSION SCREENING 03/24/2024 INFLUENZA VACCINE (Season Ended) 2024 HIB VACCINE Aged Out No longer eligi ble based on patient's age to complete this topic HPV VACCINE Aged Out No longer eligi ble based on patient's age to complete this topic MENINGOCOCCAL (Group B) VACC INE SHARED DECISION-MAKING Aged Out No longer eligibl e based on patient's age to complete this topic MENINGOCOCCAL GROUPS A/C/Y/W VACCINE Aged Out No longer eligible b ased on patient's age to complete this topic Insurance [employer] [facility] [place] [address] [facility] Care Teams Photovoltaic Installer Relationship Specialty Start Date End Date Ricky Taylor MD [address] [place] [address] [facility] - General 10/14/20
--- OUTSIDE RECORDS SUMMARY | 2024-08-29 14:29 | XMS_ITS | CONTINUITY OF CARE DOCUMENT ---
Author Name kelley benson Address Unknown Organization [facility] Address [id number] [place] [address] [address] [place] [address] Phone [phone] Care Team Providers Care Backbreaker Name Role Phone Mirta Matta MD Unavailable [phone] DEYSI DEMPSEY MD Unavailable [phone] DEYSI DEMPSEY MD Unavailable [phone] PROBLEMS Condition Status Date Provider Notes Family History of Hypertension: active ? Jerald Matta MD Hx of myocardial infarction active Mirta Matta MD Sinus tachycardia active Mirta Matta MD Tobacco abuse active Mirta Matta MD ENCOUNTERS Date Type Provider Location Encounter Diag nosis - In-person encounter Office Visit Mirta Matta MD [place] [facility] Family History of Hypertension:Hx of myocardial infarctionSinus tachycardiaTobacco abuse VITAL SIGNS Date Observation Value Provider Body Mass Index (Ratio) 20.08 kg/m2 Jerald Matta MD blood pressure, diastolic 60 mm[Hg] Da daren Tucker blood pressure, systolic 122 mm[Hg] Dac ia Tucker oxygen saturation, oximetry 97 % Corry Tucker respiratory rate E&M 16 /min Corry V oss pulse rate 106 /min Corry Tucker weight E&M 136 [lb_av] Corry Tucker height E&M 69 [in_i] Corry Tucker ALLERGIES No Known Drug Allergies HISTORY OF MEDICATION USE Medication Status Instructions Dates Provider Indications Com ments CVS RANITIDINE TABLET active take one daily Corry Tucker SOCIAL HISTORY Date Observation Value Provider number of grandchildren Mirta Matta MD social history E&M S moking History: P atient currently smokes every day. P atient has been counseled to quit. Mirta Matta MD smoking/tobacco cess ation, patient education and counseling yes Mirta Matta MD social history reviewed E&M revi ewed - no changes required Mirta Matta MD alcohol use, average drinks per day 3 /d Mirta Matta MD alcohol use, type beer Corry Tucker alcohol use yes Corry Tucker number of years as a smoker 25 a Corry Tucker smoking history, tot al pack/day 1.5 Corry Tucker cigarette use yes Corry Tucker smoking status Current every day smoker D acia Tucker FUNCTIONAL STATUS Date Observation Value Provider HRA, CV Assess/Plan, Angina (inactive) Management Plan continue current therapy Mirta Matta MD FAMILY HISTORY Family Member Condition Mother Family History of Hy pertension: INSURANCE PROVIDERS Payer name Policy type / Coverage type [facility] ID [employer] MEDICAID (2) Medicaid [id number] ADVANCE DIRECTIVES Name Date DISCUSSED - NO DECISION MADE TREATMENT PLAN Date Name Performer Cardiology [place] Pat[place] nt:STRONGLY ENCOURAGED TO STOP SMOKING; SMOKING CESSATION TECHNIQUES DISCUSSED. Patient not interested in cessation. Mirta Matta MD Cardiology [place] Pat[place] nt:Unclear etiology. Denies of any drugs or medications. His TSH was normal. Mirta Matta MD Date Name STR - Nuclear Complete Echo HISTORY OF PROCEDURES Procedure Date Procedure Name Provider Procedure Notes S tatus Cardiolite, 2 units Mirta Matta MD completed SPECT Images Mirta Matta MD compl eted Stress EKG Silvio Ford MD completed EKG Mirta Matta MD complet ed
--- OUTSIDE RECORDS SUMMARY | 2024-08-29 14:29 | XMS_ITS | Continuity of Care Document ---
Author Name Sylvester Chavez Address [address] [place] [address] Organization Unknown Address [address] [place] [address] Problems No known problems
--- OUTSIDE RECORDS SUMMARY | 2024-08-29 14:29 | XMS_ITS | Continuity of Care Document ---
Author Name Sylvester Chavez Address [address] [facility] [address] [address] [place] [address] Organization Unknown Address [address] [facility] [place] [address] Medications No known medications Problems No known problems
[2024-08-29 14:34] VITALS: BP 121/100; PULSE 121; RESP 18; TEMP 37.1; O2SAT 98
[2024-08-29 15:00] VITALS: RESP 20; O2SAT 97
[2024-08-29] MEDS: MORPHINE SULFATE (*CRX) 4 MG/ML INJ IV PUSH (16:26)
[2024-08-29] MEDS: SODIUM CHLORIDE 0.9% IV 1,000 ML 999 ML IV CONT (16:26)
[2024-08-29 16:32] LABS: Hematocrit 54.7 % (42.0-52.0); Mean Corpuscular HGB Conc 32.9 g/dl (32-36); Mean Corpuscular Hemoglobin 29.5 pg (26-34); Mean Corpuscular Volume 89.5 fl (80-100); Mean Platelet Volume 8.5 fl (7.4-10.4); Platelet Count Result 372 k/mm3 (150-375); Red Blood Count 6.11 M/mm3 (4.6-6.20); Red Cell Distribution Width 16.8 % (11.5-14.5); White Blood Count 27.2 K/mm3 (4.5-10.0)
[2024-08-29 16:45] LABS: Alanine Aminotransferase 24 U/L (6-50); Albumin Level 4.3 g/dL (3.5-5.1); Alkaline Phosphatase 107 U/L (38-126); Anion Gap 10 mmol/L (4-12); Aspartate Amino Transferase 28 U/L (17-59); Bilirubin,Total 1.1 mg/dL (0.2-1.3); Blood Urea Nitrogen 18 mg/dL (9-20); Calcium 11.3 mg/dL (8.4-10.2); Carbon Dioxide 23 mmol/L (22-30); Chloride 100 mmol/L (98-107); Estimated CRCL calculation 56 ml/min; Estimated Glomerular Filt Rate > 60; Glucose 106 mg/dL (65-110); Potassium 4.4 mmol/L (3.4-5.0); Sodium 133 mmol/L (137-145); Total Protein 8.1 g/dL (6.3-8.2)
--- OUTSIDE RECORDS SUMMARY | 2024-08-29 16:47 | XMS_ITS | CONTINUITY OF CARE DOCUMENT ---
Author Name kelley benson Address Unknown Organization [facility] Address [address] [place] [address] [address] [place] [address] Phone [phone] Care Team Providers Care Stringing Machine Tender Name Role Phone Mirta Matta MD Unavailable DEYSI DEMPSEY MD Unavailable [phone] DEYSI DEMPSEY MD Unavailable [phone] PROBLEMS Condition Status Date Provider Notes Family History of Hypertension: active ? Jerald Matta MD Hx of myocardial infarction active Mirta Matta MD Sinus tachycardia active Mirta Matta MD Tobacco abuse active Mirta Matta MD ENCOUNTERS Date Type Provider Location Encounter Diag nosis - In-person encounter Office Visit Mirta Matta MD [place] [facility] Family History of Hypertension:Hx of myocardial [...] name Policy type / Coverage type [facility] ID [employer] MEDICAID (2) Medicaid [id number] ADVANCE DIRECTIVES Name Date DISCUSSED - NO [...]
--- OUTSIDE RECORDS SUMMARY | 2024-08-29 16:47 | XMS_ITS | Clinical Summary ---
Author Organization [facility] Address [address] [place] [address] Care Team Providers Care Group Worker Name Role Phone Ricky Taylor MD Primary Care Provider [phone] Source Comments [facility],non-[facility] Affiliates and Associated Physician Practices is amultiple site organization consisting of ambulatory clinics and hospital sitesin [place], [place], [place] and [place]. This disclosure is being madepursuant to the Care Everywhere program and may not contain all information available regarding this patient. Last updated 17.[facility] Social History Tobacco Use Types Packs/Day Years [...] patient's age to complete this topic Insurance [place] [email or web address] [facility] Care Teams Group Worker Relationship Specialty Start Date End Date Ricky Taylor MD [address] [place] [address] [facility] - General 10/14/20
[2024-08-29 16:57] LABS: Band Neutrophils Percent 7 % (0-6); Lymphocytes Absolute Manual 3.53 K/mm3 (1.1-4.5); Monocytes Absolute Manual 1.08 K/mm3 (0.1-0.90); Monocytes Percent Manual 4 % (3-9); Neutrophils Absolute Manual 22.57 K/mm3 (1.3-6.7); Neutrophils Percent Manual 76 % (46-73); Total Cells Counted 100
[2024-08-29 16:58] LABS: Anisocytosis 2+; Platelet Estimate Slightly Increased (Adequate); Schistocytes None Seen
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
[2024-08-29 18:12] VITALS: BP 125/98; PULSE 96; RESP 20; O2SAT 97
== END 2024-08-29 18:13 | disposition left against medical advice (07) ==
PROVIDERS: Emergency Provider Emergency Medicine
DX: S22.42XA Multiple fractures of ribs, left side, initial encounter for closed fracture (principal); J18.9 Pneumonia, unspecified organism; F17.210 Nicotine dependence, cigarettes, uncomplicated; K21.9 Gastro-esophageal reflux disease without esophagitis; I25.2 Old myocardial infarction; W51.XXXA Accidental striking against or bumped into by another person, initial encounter
CPT/HCPCS: 36415; 71046; 71100; 74177; 80053; 85025; 96361; 96374; 99284; J2270; J7030; Q9967

== ENCOUNTER 2024-10-13 08:13 | Emergency (ER) | payer BC, SELFPAY ==
[2024-10-13] VITALS (17 sets, daily range): BP systolic 139–186; BP diastolic 89–113; PULSE 69–92; RESP 12–17; TEMP 36.6–36.7; O2SAT 99–100
--- NOTE | ~2024-10-13 | CT_ITS ---
EXAMINATION: CT abdomen pelvis w con DATE: 10/13/2024 11:38 INDICATION: Abdominal pain TECHNIQUE: Computed tomography (CT) of the abdomen and pelvis was performed without intravenous contr ast. The dose-length product was 179.86 mGy-cm. Automated exposure control and iterative reconstructi on technique were employed. COMPARISON: CT dated 08/29/2024 FINDINGS: Lung bases unremarkable. Heart size normal. No significant pleural or pericardial effusion. Nonobstructive bowel gas pattern. The liver, spleen, pancreas, adrenal glands are unremarkable. Ther e are nonobstructing bilateral renal stones. No hydronephrosis. Bowel pattern nonobstructive. No free air or free fluid. There is a healing left 11th rib fracture. IMPRESSION: 1. Nonobstructing bilateral nephrolithiasis. 2: Healing left 11th rib fracture. Reviewed, dictated and finalized at location A.
--- NOTE | 2024-10-13 08:37 | ED_ITS ---
HPI - Nausea/Vomiting/Diarrhea General Chief complaint: Nausea/Vomiting/Diarrhea Stated complaint: N/V Source: patient and EMS Mode of arrival: EMS History of Present Illness HPI Narrative: 54 YEARS OLD WHITE MALE CAME TO THE ED BY AMBULANCE WITH CHIEF COMPLAINT OF NOT FEELING GOOD SINCE YESTERDAY. AND SICK IN THE STOMACH. VOMITED THIS MORNING FEW TIMES. HE DENIES ANY FEVER OR CHILLS DIARRHEA OR CONSTIPATION CHEST PAIN OR SHORTNESS OF BREATH OR BACK PAIN. PATIENT DOES NOT TAKE MEDICINE AT HOME, SMOKES CIGARETTES, DRINK ALCOHOL OCCASIONALLY USES MARIJUANA OCCASIONALLY. 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 Father No problems noted. Social History Social History Smoking packs per day: 1 Smoking cigarettes per day: 20.0 Years smoked: 40 Smoking pack-years: 40.00 Smoking status: Current some day smoker Tobacco type: cigarettes Additional smoking assessment comments: Smoking exposure Alcohol intake: current Alcohol use details: Heavy drinker Substance use: current Substance use type: marijuana Gender identity (if verbalized by the patient): Male Sexual Orientation (if Verbalized by the Patient): Straight or Heterosexual Spiritual care concerns: No Exam 2 Narrative: GENERAL APPEARANCE: WELL-DEVELOPED, WELL-NOURISHED, SEMI SLEEPY, SLOWLY ANSWERING QUESTIONS BECAUSE HE IS ALMOST SLEEPY SKIN: NORMAL COLOR HEAD: NORMOCEPHALIC, NONTRAUMATIC EYES: CLEAR CONJUNCTIVA ENT: OROPHARYNX NORMAL, EARS NORMAL, NOSE NORMAL NECK: SUPPLE, NONTENDER CHEST AND RESPIRATORY: AIRWAY PATENT, NO RESPIRATORY DISTRESS, NO ACCESSORY MUSCLE USE HEART: REGULAR RATE/RHYTHM ABDOMEN: SOFT, MILD DIFFUSE ABDOMINAL TENDERNESS VASCULAR: NORMAL PERIPHERAL PULSES, NORMAL CAPILLARY REFILL. MUSCULOSKELETAL: NORMAL RANGE OF MOTION, NONTENDER BACK NEUROLOGIC: ALERT AND ORIENTED ?3, SOLAR POWER INSTALLER IS NORMAL TESTED, NO GROSS MOTOR DEFICIT Course Vital Signs Vital signs: Vital Signs Temperature 36.6 C 10/13/24 08:15 Pulse Rate 72 10/13/24 08:15 Respiratory Rate 13 10/13/24 08:15 Blood Pressure 171/98 H 10/13/24 08:15 Pulse Oximetry 99 10/13/24 08:15 Oxygen Delivery Room Air 10/13/24 08:15 Temperature 36.6 C 10/13/24 08:15 Pulse Rate 88 10/13/24 12:46 Respiratory Rate 14 10/13/24 12:46 Blood Pressure 152/105 H 10/13/24 12:46 Pulse Oximetry 99 10/13/24 12:46 Oxygen Delivery Room Air 10/13/24 08:15 MDM - Nausea/Vomiting/Diarrhea MDM Narrative Medical decision making narrative: PATIENT CAME WITH NOT FEELING GOOD AND ABDOMINAL PAIN VITAL SIGNS SHOWING BLOOD PRESSURE 171/98 PHYSICAL EXAMINATION SHOWING SLEEPY PATIENT WITH SLIGHT DIFFUSE ABDOMINAL TENDERNESS DIFFERENTIAL DIAGNOSIS INCLUDE VIRAL GASTROENTERITIS, PANCREATITIS, ESOPHAGITIS, GASTRITIS, LESS LIKELY DEHYDRATION OR ELECTROLYTE IMBALANCE SIX BLOOD WORKUP TODAY INCLUDES CBC, CMP, LIPASE, ALCOHOL LEVEL SHOWED URINALYSIS SHOWED NO SIGNIFICANT ABNORMALITIES URINE DRUG SCREEN POSITIVE FOR CANNABIS CT ABDOMEN AND PELVIS WITH IV CONTRAST SHOWED NO SIGNIFICANT NEW ABNORMALITIES Differential Diagnosis Differential diagnosis: Likely other ( ABOVE) Medical Records Attestation: I reviewed the patient's medical records. Lab Data Attestation: I reviewed the patient's lab results. 10/13/24 09:03 10/13/24 11:32 Labs: Lab Results 10/13/24 10/13/24 10/13/24 Range/Units 08:27 09:02 09:03 WBC 7.8 (4.5-10.0) K/mm3 RBC 5.95 (4.6-6.20) M/mm3 Hgb 18.0 (14.0-18.0) g/dL Hct 55.2 H (42.0-52.0) % MCV 92.8 (80-100) fl MCH 30.3 (26-34) pg MCHC 32.6 (32-36) g/dl RDW 15.8 H (11.5-14.5) % Plt Count 419 H (150-375) k/mm3 MPV 8.5 (7.4-10.4) fl Immature Gran % (Auto) 0.3 (0-0.5) % Neut % (Auto) 54.7 (45.5-73.1) % Lymph % (Auto) 33.4 (18.3-44.2) % [place] % (Auto) 11.2 H (2.6-8.5) % Eos % (Auto) 0.1 (0-4.4) % Baso % (Auto) 0.3 (0.2-1.2) % Lymph # (Auto) 2.59 (0.9-3.2) K/mm3 [place] # (Auto) 0.9 H (0.1-0.6) K/mm3 Eos # (Auto) 0.0 (0-0.3) K/mm3 Baso # (Auto) 0.0 (0.0-0.1) K/mm3 Abs Immat Gran (auto) 0.02 (0.00-0.031) K/mm3 Absolute Neuts (auto) 4.3 (1.3-6.7) K/mm3 Absolute Nucleated RBC 0.000 (0.0-0.012) K/mm3 Nucleated RBC % 0.0 (0.0-0.2) % Sodium (137-145) mmol/L Potassium (3.4-5.0) mmol/L Chloride (98-107) mmol/L Carbon Dioxide (22-30) mmol/L Anion Gap (4-12) mmol/L BUN (9-20) mg/dL Creatinine (0.7-1.3) mg/dL Estim Creat Clear Calc ml/min Estimated GFR (59 - ) Glucose (65-110) mg/dL POC Capillary Glucose 97 122 H (65-105) mg/dl Calcium (8.4-10.2) mg/dL Total Bilirubin (0.2-1.3) mg/dL AST (17-59) U/L ALT (6-50) U/L Alkaline Phosphatase (38-126) U/L Total Protein (6.3-8.2) g/dL Albumin (3.5-5.1) g/dL Lipase (23-300) U/L Urine Color (Yellow) Urine Appearance (Clear) Urine pH (5.0-9.0) Ur Specific [place] (1.001-1.035) Urine Protein (Negative) mg/dL Urine Glucose (UA) (Negative) mg/dL Urine Ketones (Negative) mg/dL Ur Blood (Man) (Negative) Urine Nitrate (Negative) Urine Bilirubin (Negative) Urine Urobilinogen (<2.0) mg/dL Leukocyte Esterase Rfl (Negative) MAIK/UL Urine RBC (0-2) /hpf Urine WBC (0-3) /hpf Ur Squamous Epith Cells (Few) /hpf Urine Bacteria /hpf Urine Casts Urine Opiates Screen (Negative) Urine Methadone Screen (Negative) Ur Barbiturates Screen (Negative) Ur Phencyclidine Scrn (Negative) Ur Amphetamine Screen (Negative) U Benzodiazepines Scrn (Negative) Urine Cocaine Screen (Negative) U Cannabinoids Screen (Negative) Ethyl Alcohol < 10 (<10) mg/dL Influenza A (RT-PCR) Negative (Negative) Influenza B (RT-PCR) Negative (Negative) RSV (RT-PCR) Negative (Negative) SARS-CoV-2 RNA (RT-PCR) Negative (Negative) 10/13/24 10/13/24 10/13/24 Range/Units 10:50 10:58 11:32 WBC (4.5-10.0) K/mm3 RBC (4.6-6.20) M/mm3 Hgb (14.0-18.0) g/dL Hct (42.0-52.0) % MCV (80-100) fl MCH (26-34) pg MCHC (32-36) g/dl RDW (11.5-14.5) % Plt Count (150-375) k/mm3 MPV (7.4-10.4) fl Immature Gran % (Auto) (0-0.5) % Neut % (Auto) (45.5-73.1) % Lymph % (Auto) (18.3-44.2) % [place] % (Auto) (2.6-8.5) % Eos % (Auto) (0-4.4) % Baso % (Auto) (0.2-1.2) % Lymph # (Auto) (0.9-3.2) K/mm3 [place] # (Auto) (0.1-0.6) K/mm3 Eos # (Auto) (0-0.3) K/mm3 Baso # (Auto) (0.0-0.1) K/mm3 Abs Immat Gran (auto) (0.00-0.031) K/mm3 Absolute Neuts (auto) (1.3-6.7) K/mm3 Absolute Nucleated RBC (0.0-0.012) K/mm3 Nucleated RBC % (0.0-0.2) % Sodium 133 L (137-145) mmol/L Potassium 3.7 (3.4-5.0) mmol/L Chloride 100 (98-107) mmol/L Carbon Dioxide 29 (22-30) mmol/L Anion Gap 4 (4-12) mmol/L BUN 14 (9-20) mg/dL Creatinine 0.85 1.00 (0.7-1.3) mg/dL Estim Creat Clear Calc 71 61 ml/min Estimated GFR > 60 > 60 (59 - ) Glucose 99 (65-110) mg/dL POC Capillary Glucose (65-105) mg/dl Calcium 11.2 H (8.4-10.2) mg/dL Total Bilirubin 0.5 (0.2-1.3) mg/dL AST 37 (17-59) U/L ALT 30 (6-50) U/L Alkaline Phosphatase 98 (38-126) U/L Total Protein 7.9 (6.3-8.2) g/dL Albumin 4.1 (3.5-5.1) g/dL Lipase 47 (23-300) U/L Urine Color Yellow (Yellow) Urine Appearance Cloudy H (Clear) Urine pH 7.5 (5.0-9.0) Ur Specific [place] 1.018 (1.001-1.035) Urine Protein Negative (Negative) mg/dL Urine Glucose (UA) Trace H (Negative) mg/dL Urine Ketones Negative (Negative) mg/dL Ur Blood (Man) 1+ H (Negative) Urine Nitrate Negative (Negative) Urine Bilirubin Negative (Negative) Urine Urobilinogen 1.0 (<2.0) mg/dL Leukocyte Esterase Rfl Negative (Negative) MAIK/UL Urine RBC 11-20 H (0-2) /hpf Urine WBC 0-5 (0-3) /hpf Ur Squamous Epith Cells None seen (Few) /hpf Urine Bacteria None seen /hpf Urine Casts 0-2 Urine Opiates Screen Negative (Negative) Urine Methadone Screen Negative (Negative) Ur Barbiturates Screen Negative (Negative) Ur Phencyclidine Scrn Negative (Negative) Ur Amphetamine Screen Negative (Negative) U Benzodiazepines Scrn Negative (Negative) Urine Cocaine Screen Negative (Negative) U Cannabinoids Screen Positive A (Negative) Ethyl Alcohol (<10) mg/dL Influenza A (RT-PCR) (Negative) Influenza B (RT-PCR) (Negative) RSV (RT-PCR) (Negative) SARS-CoV-2 RNA (RT-PCR) (Negative) Discharge Plan Discharge Clinical Impression: Abdominal pain, Cannabis abuse Patient Disposition: Home Condition: Improved Instructions: Cannabis Use Disorder (ED), Abdominal Pain (ED) Additional Instructions: RETURN IF SYMPTOMS ARE WORSENING , CALL YOUR FAMILY PHYSICIAN FOR APPOINTMENT, TAKE TYLENOL NEEDED FOR ACHES AND PAIN, CONTINUE HOME MEDICATIONS. STOP USING CANNABIS Patient Language: Citizen Of [place] Prescriptions: New ondansetron 4 mg tablet,disintegrating 2 mg PO Q4H PRN (Reason: nausea and vomiting) Qty: 10 0RF No Action ondansetron 8 mg tablet,disintegrating 8 mg PO Q8H PRN (Reason: nausea and vomiting) Qty: 14 0RF dicyclomine 20 mg tablet 20 mg PO TID Qty: 30 0RF famotidine [Pepcid] 40 mg tablet 40 mg PO HS Qty: 14 0RF ondansetron 4 mg film 4 mg PO Q8H PRN (Reason: nausea and vomiting) Qty: 15 0RF amoxicillin-pot clavulanate 875-125 mg tablet 1 tablet PO Q12H Qty: 14 0RF metronidazole 500 mg tablet 500 mg PO Q8H Qty: 21 0RF hydrocodone-acetaminophen 5-325 mg tablet 1 tablet PO Q6H PRN (Reason: pain) Qty: 14 0RF albuterol sulfate 90 mcg/actuation HFA aerosol inhaler 2 puff inhalation QID PRN (Reason: shortness of breath or wheezing) Qty: 8.5 0RF Follow-up/Referrals: PHYSICIAN,[facility] [Non-Staff] -
--- OUTSIDE RECORDS SUMMARY | 2024-10-13 09:02 | XMS_ITS | Clinical Summary ---
Author Organization [facility] Address [address] [place] [address] Care Team Providers Care Drilling Engineering Manager Name Role Phone Ricky Taylor MD Primary Care Provider [phone] Source Comments [facility],non-[facility] Affiliates and Associated Physician Practices is amultiple site organization consisting of ambulatory clinics and hospital sitesin [place], [place], [place] and [place]. This disclosure is being madepursuant to the Care Everywhere program and may not contain all information available regarding this patient. Last updated 17.[facility] Social History Tobacco Use Types Packs/Day [...] (1 of 2) 2018 COVID-19 VACCINE (1 2023-2 5 season) 2023 DEPRESSION SCREENING 03/24/2024 INFLUENZA VACCINE (#1) 2024 HIB VACCINE Aged Out No longer [...] patient's age to complete this topic Insurance [employer] [facility] [place] [facility] Care Teams Drilling Engineering Manager Relationship Specialty Start Date End Date Ricky Taylor MD [address] [place] [address] [facility] - General 10/14/20
[2024-10-13 09:09] LABS: Hematocrit 55.2 % (42.0-52.0); Hemoglobin 18.0 g/dL (14.0-18.0); Immature Granulocyte Percent A 0.3 % (0-0.5); Lymphocytes Absolute Auto 2.59 K/mm3 (0.9-3.2); Mean Corpuscular HGB Conc 32.6 g/dl (32-36); Mean Corpuscular Hemoglobin 30.3 pg (26-34); Mean Corpuscular Volume 92.8 fl (80-100); Nucleated Red Blood Cells Absolute Auto 0.000 K/mm3 (0.0-0.012); Nucleated Red Blood Cells Perc 0.0 % (0.0-0.2); Platelet Count Result 419 k/mm3 (150-375); Red Blood Count 5.95 M/mm3 (4.6-6.20); White Blood Count 7.8 K/mm3 (4.5-10.0)
[2024-10-13 09:58] LABS: Influenza A QL RT-PCR Negative (Negative); Influenza B QL RT-PCR Negative (Negative); RSV RNA, RT-PCR Negative (Negative); SARS-CoV-2 RNA PCR Negative (Negative)
[2024-10-13 11:27] LABS: Alanine Aminotransferase 30 U/L (6-50); Albumin Level 4.1 g/dL (3.5-5.1); Alkaline Phosphatase 98 U/L (38-126); Anion Gap 4 mmol/L (4-12); Aspartate Amino Transferase 37 U/L (17-59); Bilirubin,Total 0.5 mg/dL (0.2-1.3); Blood Urea Nitrogen 14 mg/dL (9-20); Calcium 11.2 mg/dL (8.4-10.2); Carbon Dioxide 29 mmol/L (22-30); Chloride 100 mmol/L (98-107); Estimated CRCL calculation 71 ml/min; Estimated Glomerular Filt Rate > 60; Glucose 99 mg/dL (65-110); Lipase 47 U/L (23-300); Potassium 3.7 mmol/L (3.4-5.0); Sodium 133 mmol/L (137-145); Total Protein 7.9 g/dL (6.3-8.2)
[2024-10-13 11:27] LABS: Add Urine Microscopic? YES; Appearance Urine Cloudy (Clear); Glucose Urine UA Trace mg/dL (Negative); Leukocyte Esterase Ur Negative LEU/UL (Negative); Nitrate Urine Negative (Negative); Non Pathogenic Casts 0-2; Specific Grav Ur 1.018 (1.001-1.035)
[2024-10-13 11:34] LABS: Estimated CRCL calculation 61 ml/min; Estimated Glomerular Filt Rate > 60
[2024-10-13 11:47] LABS: Cannabinoid Screen Urine Positive (Negative)
== END 2024-10-13 14:08 | disposition home or self-care (01) ==
PROVIDERS: Emergency Provider Emergency Medicine; PCP Physician Assistant
DX: R10.9 Unspecified abdominal pain (principal); F12.10 Cannabis abuse, uncomplicated; Z20.822 Contact with and (suspected) exposure to COVID-19; I25.2 Old myocardial infarction; K21.9 Gastro-esophageal reflux disease without esophagitis; F17.210 Nicotine dependence, cigarettes, uncomplicated; Z89.021 Acquired absence of right finger(s)
CPT/HCPCS: 36415; 74177; 80053; 80307; 81001; 82077; 82948; 83690; 85025; 87637; 99284; Q9967

== ENCOUNTER 2025-02-21 01:22 | Emergency (ER) | payer BC, SELFPAY ==
--- NOTE | ~2025-02-21 | CT_ITS ---
EXAMINATION: CT abdomen pelvis w con DATE: 02/21/2025 05:02 INDICATION: Abdominal pain. TECHNIQUE: Computed tomography (CT) of the abdomen and pelvis was performed with 100 mL Omnipaque 350 intravenous contrast. Automated exposure control and iterative reconstruction technique were employed. The dose-length product was 190.86 mGy-cm. COMPARISON: CT abdomen and pelvis 10/13/2024 FINDINGS: The visualized portions of the lung bases demonstrate mild atelectasis. No pleural effusion. The heart size is normal. No pericardial effusion. The liver, spleen, gallbladder, pancreas, and adrenal glands are normal. There are cysts in the kidneys measuring up to 7 mm on the right. There is a 3 mm stone in right kidney. There is a 6 mm stone in left kidney. The appendix is normal. There are no dilated loops of bowel. Vertebral body heights are normal. There is no free intraperitoneal fluid. There is severe thoracic spondylosis. IMPRESSION: 1. No specific etiology for the patient's symptoms. Reviewed, dictated and finalized at location E. 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
[2025-02-21 01:25] VITALS: BP 155/101; PULSE 82; RESP 18; TEMP 36.6; O2SAT 100
--- OUTSIDE RECORDS SUMMARY | 2025-02-21 01:25 | XMS_ITS | Clinical Summary ---
Author Organization [facility] Address [facility] [place] [address] Care Team Providers Care Party Chief Name Role Phone Enriqueta Bowen MD Primary Care Provider [phone] Allergies Active Allergy Reactions Criticality Noted Date Comments Ibuprofen GI Upset 05/01/2018 Penicillins Unknown 05/01/2018 Medications ondansetron 4 MG tablet Take 4 mg by mouth every 8 (eight) hours as needed. Active Active Problems Problem Noted Date Diagnosed Date Nausea & vomiting 05/07/2020 Hx of myocardial infarction 11/26/2017 Sinus tachycardia 11/26/2017 Tobacco dependence syndrome 11/26/2017 Pancreatitis Social History Tobacco Use Types Packs/Day Years Used Date Smoking Tobacco: Every Day Cigarettes Smokeless Tobacco: Current Alcohol Use Standard Drinks/Week Comments Yes 0 (1 standard drink = 0.6 oz pur e alcohol) OCCASIONAL AUDIT-C Answer Date Recorded Frequency of Alcohol Consumption Never 03/11/2018 Average Number of Drinks Not on file 018 Frequency of Binge Drinking Not on file 02/21 Sex and Gender Information Value Date Recorded Sex Assigned at Male 05/07/2020 11:33 PM SUPPLY CHAIN INTERN Legal Sex Male 8:08 PM CDT Gender Identity Male 05/07/2020 11:33 PM SUPPLY CHAIN INTERN Sexual Orientation Not on file Last Filed Vital Signs Vital Sign Reading Time Taken Comments Blood Pressure 160/87 03/01/2021 9:34 PM SUPPLY CHAIN INTERN Pulse 64 03/01/2021 9:34 PM SUPPLY CHAIN INTERN Temperature 36.4 C (97.5 F) 03/01/2021 5:39 PM SUPPLY CHAIN INTERN Respiratory Rate 13 03/01/2021 7:45 PM SUPPLY CHAIN INTERN Oxygen Saturation 97% 03/01/2021 9:34 PM SUPPLY CHAIN INTERN Inhaled Oxygen Concentration - - Weight 61.2 kg (134 lb 14.7 oz) 03/01/2021 5:39 PM SUPPLY CHAIN INTERN Height 172.7 cm (5' 8) 03/01/2021 5:39 PM SUPPLY CHAIN INTERN Body Mass Index 20.51 03/01/2021 5:39 PM SUPPLY CHAIN INTERN Plan of Treatment Health Maintenance Due Date Last Done Comments Colorectal Cancer Screening Colonoscopy (10 Years) 1968 Annual Physical 1971 Hepatitis C 1986 DTaP, Tdap and Td Vaccines ( 1 - Tdap) 1987 Hepatitis B Vaccines (1 of 3 - 19+ 3-dose series) 1987 Pneumococcal Vaccine: 50+ Ye ars (1 of 2 - PCV) 1987 Zoster Vaccines (1 of 2) 2018 COVID-19 Vaccine (1 - 2024-2 6 season) 2024 Influenza Adult (#1) 2024 Hepatitis A Vaccines Aged Out No long er eligible based on patient's age to complete this topic Meningococcal B Vaccine Aged Out No l onger eligible based on patient's age to complete this topic Meningococcal Vaccine Aged Out No judy la eligible based on patient's age to complete this topic RSV Immunizations Under 20 Months Aged Out No longer eligible based on patient's age to complete this topic Goals Goal Patient Goal Type Associated Problems Recent Progress Patient-Stated? Author Consistently take medications as Prescribed General No Alejandra Barrow, RN Insurance [place] Advance Directives * Full Code (Latest Code Status on File) Date Activated Date Inactivated Comments 05/07/2020 10:40 PM 05/08/2020 1:33 PM Care Teams Party Chief Relationship Specialty Start Date End Date Enriqueta Bowen MD [address] [facility] [address] [place] [id number] PCP - General 05/18/14
--- OUTSIDE RECORDS SUMMARY | 2025-02-21 01:25 | XMS_ITS | Continuity of Care Document ---
Author Name Sylvester Chavez Address [address] [facility] [place] [address] Organization Unknown Address [address] [facility] [place] [address] Medications No known medications Problems No known problems
--- OUTSIDE RECORDS SUMMARY | 2025-02-21 01:25 | XMS_ITS | Continuity of Care Document ---
Author Name Sylvester Chavez Address [address] [facility] [place] [address] Organization Unknown Address [address] [facility] [place] [address] Problems No known problems
--- OUTSIDE RECORDS SUMMARY | 2025-02-21 01:25 | XMS_ITS | Encounter Summary ---
Author Organization [facility] Address [facility] [place] [address] Care Team Providers Care Banquet Captain Name Role Phone Enriqueta Bowen MD Primary Care Provider [phone] Encounter Details Date Type Department Care Team (Late st Contact Info) Description 08/29/2018 Abstract [facility] CONVERSION [address] [place] [address] , Generic MD Donald Social History Tobacco Use Types Packs/Day Years Used Date Smoking Tobacco: Every Day Cigarettes Smokeless Tobacco: Current Alcohol Use Standard Drinks/Week Comments No 0 (1 standard drink = 0.6 oz pur e alcohol) AUDIT-C Answer Date Recorded Frequency of Alcohol Consumption Never 03/11/2018 Average Number of Drinks Not on file 018 Frequency of Binge Drinking Not on file 02/21 Sex and Gender Information Value Date Recorded Sex Assigned at Male 05/07/2020 11:33 PM SCIENTIFIC INVESTIGATOR Legal Sex Male 8:08 PM CDT Gender Identity Male 05/07/2020 11:33 PM SCIENTIFIC INVESTIGATOR Sexual Orientation Not on file documented as of this encounter Plan of Treatment Not on file documented as of this encounter Visit Diagnoses Not on filedocumented in this encounter Care Teams Banquet Captain Relationship Specialty Start Date End Date Enriqueta Bowen MD [address] [place] [address] PCP - General 05/18/14 documented as of this encounter
--- OUTSIDE RECORDS SUMMARY | 2025-02-21 01:25 | XMS_ITS | Clinical Summary ---
Author Organization [facility] Address [address] [facility] [place] [address] Care Team Providers Care Test Architect Name Role Phone Ricky Taylor MD Primary Care Provider [phone] Source Comments [facility] Affiliates and Associated Physician Practices is amultiple site organization consisting of ambulatory clinics and hospital sitesin [place], [place], [place] and [place]. This disclosure is being madepursuant to the Care Everywhere program and may not contain all information available regarding this patient. Last updated 17.[facility] Social History Tobacco Use Types [...] 2018 ZOSTER VACCINE (1 of 2) 2018 DEPRESSION SCREENING 03/24/2024 COVID-19 VACCINE (1 - 2024-2 6 season) 2024 INFLUENZA VACCINE (#1) 2024 HIB VACCINE Aged [...] patient's age to complete this topic Insurance [place] [employer] [facility] Care Teams Test Architect Relationship Specialty Start Date End Date Ricky Taylor MD [address] [place] [address] [facility] - General 10/14/20
[2025-02-21 02:06] VITALS: BP 157/90; PULSE 70; RESP 15; O2SAT 97
[2025-02-21 02:51] LABS: Add Urine Microscopic? YES; Appearance Urine Cloudy (Clear); Glucose Urine UA Trace mg/dL (Negative); Hematocrit 43.9 % (42.0-52.0); Hemoglobin 14.5 g/dL (14.0-18.0); Immature Granulocyte Percent A 0.3 % (0-0.5); Leukocyte Esterase Ur Negative LEU/UL (Negative); Lymphocytes Absolute Auto 2.07 K/mm3 (0.9-3.2); Mean Corpuscular HGB Conc 33.0 g/dl (32-36); Mean Corpuscular Hemoglobin 30.7 pg (26-34); Mean Corpuscular Volume 93.0 fl (80-100); Nitrate Urine Negative (Negative); Non Pathogenic Casts 0-2; Nucleated Red Blood Cells Absolute Auto 0.000 K/mm3 (0.0-0.012); Nucleated Red Blood Cells Perc 0.0 % (0.0-0.2); Platelet Count Result 394 k/mm3 (150-375); Red Blood Count 4.72 M/mm3 (4.6-6.20); Specific Grav Ur 1.012 (1.001-1.035); White Blood Count 6.9 K/mm3 (4.5-10.0)
[2025-02-21 02:57] LABS: Alanine Aminotransferase 27 U/L (6-50); Albumin Level 3.9 g/dL (3.5-5.1); Alkaline Phosphatase 79 U/L (38-126); Anion Gap 0 mmol/L (4-12); Aspartate Amino Transferase 46 U/L (17-59); Bilirubin,Total 0.5 mg/dL (0.2-1.3); Blood Urea Nitrogen 19 mg/dL (9-20); Calcium 11.1 mg/dL (8.4-10.2); Carbon Dioxide 31 mmol/L (22-30); Chloride 107 mmol/L (98-107); Estimated CRCL calculation 73 ml/min; Estimated Glomerular Filt Rate > 60; Glucose 102 mg/dL (65-110); Lipase 139 U/L (23-300); Potassium 4.1 mmol/L (3.4-5.0); Sodium 138 mmol/L (137-145); Total Protein 7.0 g/dL (6.3-8.2)
[2025-02-21 03:00] VITALS: TEMP 37.2
--- NOTE | 2025-02-21 04:56 | ED.GENADULT ---
HPI - General Adult General Chief complaint: Nausea/Vomiting/Diarrhea <Roger Oconnor MD - Last Filed: 02/21/25 04:57> Stated complaint: dont feel good n/v <Roger Oconnor MD - Last Filed: 02/21/25 04:57> Time Seen by Provider: 02/21/25 04:12 <Roger Oconnor MD - Last Filed: 02/21/25 04:57> History of Present Illness HPI narrative: Patient 54-year-old gentleman presents emergency department with chief complaint of I am just sick my abdomen hurts and I feel nausea patient also reports that he is homeless and it is cold outside <Roger Oconnor MD - Last Filed: 02/21/25 04:57> Related Data Allergies/adverse reactions: Allergies Allergy/AdvReac Type Severity Reaction Status Date / Time No Known Allergies Allergy Verified 08/29/24 14:28 <Roger Oconnor MD - Last Filed: 02/21/25 04:57> Review of Systems Review of Systems: A 10 system review of systems was completed on the patient and is negative except for what is stated in the HPI. Nursing and ancillary documentation was reviewed. 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 Father No problems noted. <Roger Oconnor MD - Last Filed: 02/21/25 04:57> Social History Social History: Social History Smoking packs per day: 1 Smoking cigarettes per day: 20.0 Years smoked: 40 Smoking pack-years: 40.00 Smoking status: Current some day smoker Tobacco type: cigarettes Additional smoking assessment comments: Smoking exposure Alcohol intake: current Alcohol use details: Heavy drinker Substance use: current Substance use type: marijuana Gender identity (if verbalized by the patient): Male Sexual Orientation (if Verbalized by the Patient): Straight or Heterosexual Spiritual care concerns: No <Roger Oconnor MD - Last Filed: 02/21/25 04:57> Exam Narrative: GENERAL: Well-appearing, well-nourished, and in no acute distress. Sleeping comfortably on the cot HEAD: Normocephalic, atraumatic. EYES: PERRLA and EOMI. ENT: Nares clear, no rhinorrhea or epistaxis. Mucous membranes moist. NECK: Supple. CHEST: Clear to auscultation. No respiratory distress. HEART: Regular rate and rhythm. No murmur heard. Normal peripheral pulses. ABDOMEN: Soft, diffuse tenderness to palpation, nondistended, normal active bowel sounds. EXTREMITIES: Normal range of motion. No edema. SKIN: Warm, dry, no rash. NEURO: No focal deficits. Alert and oriented x3. PSYCH: Normal mood and affect. <Roger Oconnor MD - Last Filed: 02/21/25 04:57> Course Vital Signs Vital signs: Vital Signs Temperature 98 F 02/21/25 01:25 Pulse Rate 82 02/21/25 01:25 Respiratory Rate 18 02/21/25 01:25 Blood Pressure 155/101 H 02/21/25 01:25 Pulse Oximetry 100 02/21/25 01:25 Oxygen Delivery Room Air 02/21/25 01:25 Temperature 98.9 F 02/21/25 03:00 Pulse Rate 78 02/21/25 06:51 Respiratory Rate 16 02/21/25 06:51 Blood Pressure 174/90 H 02/21/25 06:51 Pulse Oximetry 96 02/21/25 06:51 Oxygen Delivery Room Air 02/21/25 02:06 <Roger Oconnor MD - Last Filed: 02/21/25 04:57> Vital Signs Temperature 98 F 02/21/25 01:25 Pulse Rate 82 02/21/25 01:25 Respiratory Rate 18 02/21/25 01:25 Blood Pressure 155/101 H 02/21/25 01:25 Pulse Oximetry 100 02/21/25 01:25 Oxygen Delivery Room Air 02/21/25 01:25 Temperature 98.9 F 02/21/25 03:00 Pulse Rate 78 02/21/25 06:51 Respiratory Rate 16 02/21/25 06:51 Blood Pressure 174/90 H 02/21/25 06:51 Pulse Oximetry 96 02/21/25 06:51 Oxygen Delivery Room Air 02/21/25 02:06 <Carlie Jack MD - Last Filed: 02/21/25 07:45> Medical Decision Making MDM Narrative Medical decision making narrative: Patient reports abdominal pain, nausea, also that he is homeless and just needs a place to sleep. Labs obtained here within acceptable limits, CT without acute abnormality. On my evaluation of the patient this morning, he is sound sleep, in no distress, empty emesis bag, no emesis here. I did wake him up and informed of his findings, abdomen soft nontender, no new complaints, new blood pressure is 135/83, he is not complaining of any issues, agreeable to outpatient management and return precautions. <Carlie Jack MD - Last Filed: 02/21/25 07:45> Vital Signs Vital Signs: Vital Signs Temperature 98 F 02/21/25 01:25 Pulse Rate 82 02/21/25 01:25 Respiratory Rate 18 02/21/25 01:25 Blood Pressure 155/101 H 02/21/25 01:25 Pulse Oximetry 100 02/21/25 01:25 Oxygen Delivery Room Air 02/21/25 01:25 Temperature 98.9 F 02/21/25 03:00 Pulse Rate 78 02/21/25 06:51 Respiratory Rate 16 02/21/25 06:51 Blood Pressure 174/90 H 02/21/25 06:51 Pulse Oximetry 96 02/21/25 06:51 Oxygen Delivery Room Air 02/21/25 02:06 <Roger Oconnor MD - Last Filed: 02/21/25 04:57> Vital Signs Temperature 98 F 02/21/25 01:25 Pulse Rate 82 02/21/25 01:25 Respiratory Rate 18 02/21/25 01:25 Blood Pressure 155/101 H 02/21/25 01:25 Pulse Oximetry 100 02/21/25 01:25 Oxygen Delivery Room Air 02/21/25 01:25 Temperature 98.9 F 02/21/25 03:00 Pulse Rate 78 02/21/25 06:51 Respiratory Rate 16 02/21/25 06:51 Blood Pressure 174/90 H 02/21/25 06:51 Pulse Oximetry 96 02/21/25 06:51 Oxygen Delivery Room Air 02/21/25 02:06 <Carlie Jack MD - Last Filed: 02/21/25 07:45> Lab Data Result diagrams: 02/21/25 02:21 02/21/25 02:21 <Roger Oconnor MD - Last Filed: 02/21/25 04:57> Labs: Lab Results 02/21/25 Range/Units 02:21 WBC 6.9 (4.5-10.0) K/mm3 RBC 4.72 (4.6-6.20) M/mm3 Hgb 14.5 D (14.0-18.0) g/dL Hct 43.9 (42.0-52.0) % MCV 93.0 (80-100) fl MCH 30.7 (26-34) pg MCHC 33.0 (32-36) g/dl RDW 15.9 H (11.5-14.5) % Plt Count 394 H (150-375) k/mm3 MPV 8.5 (7.4-10.4) fl Immature Gran % (Auto) 0.3 (0-0.5) % Neut % (Auto) 55.0 (45.5-73.1) % Lymph % (Auto) 30.2 (18.3-44.2) % Hunt % (Auto) 12.1 H (2.6-8.5) % Eos % (Auto) 1.8 (0-4.4) % Baso % (Auto) 0.6 (0.2-1.2) % Lymph # (Auto) 2.07 (0.9-3.2) K/mm3 Hunt # (Auto) 0.8 H (0.1-0.6) K/mm3 Eos # (Auto) 0.1 (0-0.3) K/mm3 Baso # (Auto) 0.0 (0.0-0.1) K/mm3 Abs Immat Gran (auto) 0.02 (0.00-0.031) K/mm3 Absolute Neuts (auto) 3.8 (1.3-6.7) K/mm3 Absolute Nucleated RBC 0.000 (0.0-0.012) K/mm3 Nucleated RBC % 0.0 (0.0-0.2) % Sodium 138 (137-145) mmol/L Potassium 4.1 (3.4-5.0) mmol/L Chloride 107 (98-107) mmol/L Carbon Dioxide 31 H (22-30) mmol/L Anion Gap 0 L (4-12) mmol/L BUN 19 (9-20) mg/dL Creatinine 0.96 (0.7-1.3) mg/dL Estim Creat Clear Calc 73 ml/min Estimated GFR > 60 (59 - ) Glucose 102 (65-110) mg/dL Calcium 11.1 H (8.4-10.2) mg/dL Total Bilirubin 0.5 (0.2-1.3) mg/dL AST 46 (17-59) U/L ALT 27 (6-50) U/L Alkaline Phosphatase 79 (38-126) U/L Total Protein 7.0 (6.3-8.2) g/dL Albumin 3.9 (3.5-5.1) g/dL Lipase 139 (23-300) U/L Urine Color Yellow (Yellow) Urine Appearance Cloudy H (Clear) Urine pH 8.0 (5.0-9.0) Ur Specific [place] 1.012 (1.001-1.035) Urine Protein Negative (Negative) mg/dL Urine Glucose (UA) Trace H (Negative) mg/dL Urine Ketones Negative (Negative) mg/dL Ur Blood (Man) Negative (Negative) Urine Nitrate Negative (Negative) Urine Bilirubin Negative (Negative) Urine Urobilinogen 0.2 (<2.0) mg/dL Leukocyte Esterase Rfl Negative (Negative) MAIK/UL Urine RBC 0-2 (0-2) /hpf Urine WBC 0-5 (0-3) /hpf Ur Squamous Epith Cells None seen (Few) /hpf Urine Bacteria None seen /hpf Urine Casts 0-2 <Roger Oconnor MD - Last Filed: 02/21/25 04:57> Lab Results 02/21/25 Range/Units 02:21 WBC 6.9 (4.5-10.0) K/mm3 RBC 4.72 (4.6-6.20) M/mm3 Hgb 14.5 D (14.0-18.0) g/dL Hct 43.9 (42.0-52.0) % MCV 93.0 (80-100) fl MCH 30.7 (26-34) pg MCHC 33.0 (32-36) g/dl RDW 15.9 H (11.5-14.5) % Plt Count 394 H (150-375) k/mm3 MPV 8.5 (7.4-10.4) fl Immature Gran % (Auto) 0.3 (0-0.5) % Neut % (Auto) 55.0 (45.5-73.1) % Lymph % (Auto) 30.2 (18.3-44.2) % Hunt % (Auto) 12.1 H (2.6-8.5) % Eos % (Auto) 1.8 (0-4.4) % Baso % (Auto) 0.6 (0.2-1.2) % Lymph # (Auto) 2.07 (0.9-3.2) K/mm3 Hunt # (Auto) 0.8 H (0.1-0.6) K/mm3 Eos # (Auto) 0.1 (0-0.3) K/mm3 Baso # (Auto) 0.0 (0.0-0.1) K/mm3 Abs Immat Gran (auto) 0.02 (0.00-0.031) K/mm3 Absolute Neuts (auto) 3.8 (1.3-6.7) K/mm3 Absolute Nucleated RBC 0.000 (0.0-0.012) K/mm3 Nucleated RBC % 0.0 (0.0-0.2) % Sodium 138 (137-145) mmol/L Potassium 4.1 (3.4-5.0) mmol/L Chloride 107 (98-107) mmol/L Carbon Dioxide 31 H (22-30) mmol/L Anion Gap 0 L (4-12) mmol/L BUN 19 (9-20) mg/dL Creatinine 0.96 (0.7-1.3) mg/dL Estim Creat Clear Calc 73 ml/min Estimated GFR > 60 (59 - ) Glucose 102 (65-110) mg/dL Calcium 11.1 H (8.4-10.2) mg/dL Total Bilirubin 0.5 (0.2-1.3) mg/dL AST 46 (17-59) U/L ALT 27 (6-50) U/L Alkaline Phosphatase 79 (38-126) U/L Total Protein 7.0 (6.3-8.2) g/dL Albumin 3.9 (3.5-5.1) g/dL Lipase 139 (23-300) U/L Urine Color Yellow (Yellow) Urine Appearance Cloudy H (Clear) Urine pH 8.0 (5.0-9.0) Ur Specific [place] 1.012 (1.001-1.035) Urine Protein Negative (Negative) mg/dL Urine Glucose (UA) Trace H (Negative) mg/dL Urine Ketones Negative (Negative) mg/dL Ur Blood (Man) Negative (Negative) Urine Nitrate Negative (Negative) Urine Bilirubin Negative (Negative) Urine Urobilinogen 0.2 (<2.0) mg/dL Leukocyte Esterase Rfl Negative (Negative) MAIK/UL Urine RBC 0-2 (0-2) /hpf Urine WBC 0-5 (0-3) /hpf Ur Squamous Epith Cells None seen (Few) /hpf Urine Bacteria None seen /hpf Urine Casts 0-2 <Carlie Jack MD - Last Filed: 02/21/25 07:45> Discharge Plan Discharge Clinical Impression: Chronic abdominal pain Nausea & vomiting Qualifiers: Vomiting type: unspecified Qualified Code(s): R11.2 - Nausea with vomiting, unspecified <Roger Oconnor MD - Last Filed: 02/21/25 04:57> Patient Disposition: Home <Roger Oconnor MD - Last Filed: 02/21/25 04:57> Condition: Stable <Roger Oconnor MD - Last Filed: 02/21/25 04:57> Instructions: Acute Nausea and Vomiting (ED), Abdominal Pain (ED) <Roger Oconnor MD - Last Filed: 02/21/25 04:57> Additional Instructions: Please follow up with your doctor; you can always return for any further issues. <Roger Oconnor MD - Last Filed: 02/21/25 04:57> Patient Language: Thai <Roger Oconnor MD - Last Filed: 02/21/25 04:57> Prescriptions: New ondansetron 4 mg tablet,disintegrating 4 mg PO Q8H PRN (Reason: nausea and vomiting) Qty: 10 0RF No Action ondansetron 8 mg tablet,disintegrating 8 mg PO Q8H PRN (Reason: nausea and vomiting) Qty: 14 0RF dicyclomine 20 mg tablet 20 mg PO TID Qty: 30 0RF ondansetron 4 mg tablet,disintegrating 2 mg PO Q4H PRN (Reason: nausea and vomiting) Qty: 10 0RF famotidine [Pepcid] 40 mg tablet 40 mg PO HS Qty: 14 0RF ondansetron 4 mg film 4 mg PO Q8H PRN (Reason: nausea and vomiting) Qty: 15 0RF amoxicillin-pot clavulanate 875-125 mg tablet 1 tablet PO Q12H Qty: 14 0RF metronidazole 500 mg tablet 500 mg PO Q8H Qty: 21 0RF hydrocodone-acetaminophen 5-325 mg tablet 1 tablet PO Q6H PRN (Reason: pain) Qty: 14 0RF albuterol sulfate 90 mcg/actuation HFA aerosol inhaler 2 puff inhalation QID PRN (Reason: shortness of breath or wheezing) Qty: 8.5 0RF <Roger Oconnor MD - Last Filed: 02/21/25 04:57> Follow-up/Referrals: UNKNOWN,DOCTOR [Primary Care Provider] <Roger Oconnor MD - Last Filed: 02/21/25 04:57>
[2025-02-21 06:51] VITALS: BP 174/90; PULSE 78; RESP 16; O2SAT 96
[2025-02-21 07:57] VITALS: BP 135/83; PULSE 88; RESP 20; O2SAT 100
== END 2025-02-21 07:59 | disposition home or self-care (01) ==
PROVIDERS: Physician Assistant; Emergency Provider Emergency Medicine
DX: R10.9 Unspecified abdominal pain (principal); G89.29 Other chronic pain; R11.2 Nausea with vomiting, unspecified; F17.210 Nicotine dependence, cigarettes, uncomplicated; K21.9 Gastro-esophageal reflux disease without esophagitis; I25.2 Old myocardial infarction
CPT/HCPCS: 36415; 74177; 80053; 81001; 83690; 85025; 99284; Q9967